=== PATIENT | female | born 1945 | race American Indian/Alaskan Native ===

== ENCOUNTER 2017-12-29 13:58 | Inpatient (IN) | payer MEDICARE, OTHER ==
--- NOTE | 2017-12-29 15:03 | CP.PCM.HP ---
History of Present Illness - History of Present Illness History of Present Illness: Admitted for osteo LLE, discussed with dr Peña Present on Admission - Present on Admission Any Indicators Present on Admission: Yes Review of Systems - Review of Systems All systems: reviewed and no additional remarkable complaints except - Constitutional Constitutional: Frequent Falls - Musculoskeletal Additional comments: cellulitis/osteo LLE - Integumentary Integumentary: Non-Healing Lesions, Rash, Skin Ulcer Past Patient History - Past Medical History & Family History Past Medical History?: Yes - Past Social History Chewing Tobacco Use: No Cigar Use: No Alcohol: None Drugs: Denies Home Situation {Lives}: With Family Domestic Violence: Negative - CARDIAC Hx Cardiac Disorders: Yes Hx Hypertension: Yes Hx Peripheral Vascular Disease: Yes - PULMONARY Hx Asthma: Yes Hx Sleep Apnea: Yes - NEUROLOGICAL HX Cerebrovascular Accident: Yes Hx Transient Ischemic Attacks (TIA): Yes - ENDOCRINE/METABOLIC Hx Diabetes Insipidus: Yes - INTEGUMENTARY Hx Cellulitis: Yes - GASTROINTESTINAL Hx Gastroesophageal Reflux: Yes Physical Exam - Constitutional Appears: Chronically Ill - Head Exam Head Exam: ATRAUMATIC, NORMOCEPHALIC - Eye Exam Eye Exam: Normal appearance, PERRL Pupil Exam: NORMAL ACCOMODATION - ENT Exam ENT Exam: Mucous Membranes Moist - Respiratory Exam Respiratory Exam: Decreased Breath Sounds - Cardiovascular Exam Cardiovascular Exam: +S1, +S2, +S4 - GI/Abdominal Exam GI & Abdominal Exam: Normal Bowel Sounds - Rectal Exam Rectal Exam: Deferred - Neurological Exam Neurological exam: Alert, Oriented x3 - Psychiatric Exam Psychiatric exam: Normal Affect, Normal Mood - Skin Skin Exam: Abrasion Additional comments: LLE Results - Vital Signs Recent Vital Signs: Last Vital Signs Temp 98.2 F 12/29/17 14:58 Pulse 74 12/29/17 14:58 Resp 20 12/29/17 14:58 BP 162/71 H 12/29/17 14:58 Pulse Ox 98 12/29/17 14:58 Assessment & Plan (1) Osteomyelitis of ankle and foot Status: Acute (2) Diabetes 1.5, managed as type 2 Status: Acute (3) HTN (hypertension), benign Status: Acute (4) Pulmonary arterial hypertension Status: Acute
[2017-12-29 15:13] VITALS: BMI 32.1
--- NOTE | 2017-12-29 15:52 | CP.PCM.CON ---
History of Present Illness - History of Present Illness History of Present Illness: Podiatry Consult Note - Dr. Peña 72 y/o female seen on floors by podiatry after consultation for evaluation of left hallux ulceration. Pt is known to Dr. Peña's service and was sent to the hospital by him for her left big toe. Pt denies having any pain to the left big toe. States her daughter cleans the wound and changes the bandage daily. Denies any F/C/N/V/CP/SOB. She states that she is agreeable to toe amputation as recommended by Dr. Peña. Review of Systems - Review of Systems All systems: reviewed and no additional remarkable complaints except (per HPI) Past Patient History - Past Medical History & Family History Past Medical History?: Yes - Past Social History Chewing Tobacco Use: No Cigar Use: No Alcohol: None Drugs: Denies Home Situation {Lives}: With Family Domestic Violence: Negative - CARDIAC Hx Cardiac Disorders: Yes Hx Hypertension: Yes Hx Peripheral Vascular Disease: Yes - PULMONARY Hx Asthma: Yes Hx Sleep Apnea: Yes - NEUROLOGICAL HX Cerebrovascular Accident: Yes Hx Transient Ischemic Attacks (TIA): Yes - ENDOCRINE/METABOLIC Hx Diabetes Insipidus: Yes - INTEGUMENTARY Hx Cellulitis: Yes - GASTROINTESTINAL Hx Gastroesophageal Reflux: Yes Meds Allergies/Adverse Reactions: Allergies Allergy/AdvReac Type Severity Reaction Status Date / Time morphine Allergy confusion Verified 12/29/17 15:15 - Medications Medications: Current Medications Albuterol/Ipratropium (Duoneb 3 Mg/0.5 Mg (3 Ml) Ud) 3 ml INH RQ6 PRN PRN Reason: Wheezing Baclofen (Lioresal) 10 mg PO DAILY [facility] Furosemide (Lasix) 40 mg PO DAILY [facility] Heparin Sodium (Porcine) (Heparin) 5,000 units IV Q12 [facility] Home Med (Home Med) 5 unit OD PCS [facility] Hydralazine HCl (Apresoline) 50 mg PO BID [facility] Insulin Human NPH (Novolin N) 40 unit SC QAM [facility] Insulin Human Regular (Novolin R) 0 unit SC ACHS [facility] PRN Reason: Protocol Levothyroxine Sodium (Synthroid) 125 mcg PO DAILY@0630 [facility] Montelukast Sodium (Singulair) 10 mg PO HS [facility] Nebivolol (Bystolic) 10 mg PO DAILY [facility] Pantoprazole Sodium (Protonix Ec Tab) 40 mg PO DAILY [facility] Prednisone (Prednisone Tab) 10 mg PO DAILY [facility] Rosuvastatin Calcium (Crestor) 20 mg PO HS [facility] Fluticasone/Salmeterol (Advair Diskus 500/50) 1 puff INH RQ12 [facility] Physical Exam - Constitutional Appears: Well, Non-toxic, No Acute Distress - Extremities Exam Additional comments: Lower extremity focused exam: Vasc: DP/PT pulses palpable 2/4. Temperature gradient warm to cool. CFT < 3 sec to all digits. No pedal edema noted Derm: Left plantar hallux circular ulceration measuring 1cm in diameter and approx 0.3cm depth with hyperkeratotic wound borders and mild necrotic skin changed to arturo wound. 1-2cc of purulent drainage expressed with application of pressure. Arturo wound negative for erythema. No fluctuance, no malodor, negative probe to bone, no tunneling or undermining noted. Hyperkeratosis noted to distal tip of right foot 2nd digit with no evidence of underlying ulceration present post-debridement Neuro: Protective sensation grossly intact Ortho: No tenderness to palpation of L hallux ulceration site - Neurological Exam Neurological exam: Alert, Oriented x3 - Psychiatric Exam Psychiatric exam: Normal Affect, Normal Mood Results - Vital Signs Recent Vital Signs: Last Vital Signs Temp 98.2 F 12/29/17 14:58 Pulse 74 12/29/17 14:58 Resp 20 12/29/17 14:58 BP 162/71 H 12/29/17 14:58 Pulse Ox 98 12/29/17 14:58 Assessment & Plan - Assessment and Plan (Free Text) Assessment: 72 y/o female with left plantar hallux ulceration with chronic osteomyelitis Plan: Pt seen and evaluated at bedside Discussed with attending Dr. Peña Labs and vitals reviewed- afebrile, no leukocytosis Wound culture taken of L hallux ulcer Ulceration site cleansed with saline and dressed with xeroform DSD Rx Bactroban to be applied to ulcer site Triphasic bone scan ordered, await results to direct treatment plan Plan for possible surgical intervention involving amputation of L hallux Vascular team on board, await recommendations prior to possible surgery Pt is agreeable to surgery at this time Medical management per primary team ID on board, await recs for IV abx therapy Podiatry will continue to follow patient while in house
[2017-12-29] MEDS: (Novolin R) Insulin Human Regular 100 units/ml vial SC SCH ×2 (17:27→21:54)
[2017-12-29 19:22] LABS: SQUAMOUS EPITHIAL 1 /hpf (0-5); URINE BACTERIA RARE (<OCC); URINE BILIRUBIN NEGATIVE (NEGATIVE); URINE BLOOD NEGATIVE (NEGATIVE); URINE CLARITY Hazy (Clear); URINE COLOR Yellow (YELLOW); URINE GLUCOSE (UA) NORMAL (Normal); URINE LEUKOCYTE ESTERASE TRACE Leu/uL (Negative); URINE PROTEIN 1+ mg/dL (NEGATIVE); URINE UROBILINOGEN NORMAL mg/dL (0.2-1.0)
[2017-12-29] MEDS: Fluticasone-Salmeterol 500-50mcg Diskus INH SCH (19:43)
[2017-12-29] MEDS: Albuterol-Ipratrop 3 mg / 0.5 (3 ml) UD INH PRN (19:43)
[2017-12-29] MEDS: cefTRIAXone 2 GM in Sodium Chloride 0.9% 100 ML IVPB SCH (20:32)
[2017-12-29 21:33] LABS: BASO # 0.1 K/uL (0.0-0.2); BASO % 0.6 % (0.0-2.0); EOS # 0.1 K/uL (0.0-0.7); EOS % 0.9 % (0.0-4.0); HEMOGLOBIN 8.5 g/dL (11.0-16.0); LYMPH # 0.8 K/uL (1.0-4.3); LYMPH % 9.2 % (20.0-40.0); MEAN CELL VOLUME 83.4 fL (81.0-99.0); MEAN CORPUSCULAR HEMOGLOBIN 26.2 pg (27.0-31.0); MEAN CORPUSCULAR HGB CONC 31.4 g/dL (33.0-37.0); MEAN PLATELET VOLUME 10.8 fL (7.2-11.7); MONO # 0.6 K/uL (0.0-0.8); MONO % 6.7 % (0.0-10.0); NEUT # 7.6 K/uL (1.8-7.0); NEUT % 82.6 % (50.0-75.0); PLATELET COUNT 234 K/uL (130-400); RBC 3.25 Mil/uL (3.80-5.20); WHITE BLOOD COUNT 9.2 K/uL (4.8-10.8)
[2017-12-29 21:48] LABS: ALB/GLOB RATIO 1.4 (1.0-2.1); ALBUMIN 3.5 g/dL (3.5-5.0); CALCIUM 8.3 mg/dl (8.6-10.4)
[2017-12-29] MEDS: metroNIDAZOLE IV 500 mg/100 ml 500 MG/100 ML BAG IVPB SCH (21:52)
[2017-12-29 22:03] LABS: INR 1.4; PROTHROMBIN TIME 15.1 SECONDS (9.7-12.2)
[2017-12-29 22:21] LABS: LYMPHOCYTE 8 % (20-40); MONOCYTE 5 % (0-10); NEUTROPHIL 87 % (50-75); PLATELET ESTIMATE NORMAL (NORMAL); TOTAL CELLS COUNTED 100
[2017-12-30] MEDS: metroNIDAZOLE IV 500 mg/100 ml 500 MG/100 ML BAG IVPB SCH ×3 (05:11→21:07)
--- NOTE | 2017-12-30 05:21 | CP.PCM.CON ---
History of Present Illness - History of Present Illness History of Present Illness: Vascular Surgery Consult for Dr. Bush This is a 72F with a pmh of a DVT and paridoxial embolus with a stroke 6 months ago on eloquis and a history of poorly controlled DM. She presents due to a non- healing wound on her left great toe for the past three months. She reports at first it was getting better however it stopped progressing. She was seen by Dr. Peña who would like to schedule her for for an amputation of her non healing toe. He requested a vascular surgery consult to evaluate the legs blood supply prior to surgery. PMH: DM, CVA, DVT PSH: Multiple toe amputations ALL: Morphine (acts funny) Social: Quit smoking in the 70's. denies etoh and drugs Review of Systems - Review of Systems All systems: reviewed and no additional remarkable complaints except Past Patient History - Past Medical History & Family History Past Medical History?: Yes - Past Social History Chewing Tobacco Use: No Cigar Use: No Alcohol: None Drugs: Denies Home Situation {Lives}: With Family Domestic Violence: Negative - CARDIAC Hx Cardiac Disorders: Yes Hx Hypertension: Yes Hx Peripheral Vascular Disease: Yes - PULMONARY Hx Asthma: Yes Hx Sleep Apnea: Yes - NEUROLOGICAL HX Cerebrovascular Accident: Yes Hx Transient Ischemic Attacks (TIA): Yes - HEENT Hx Deafness: Yes ([place] right ear with hearing aid) - ENDOCRINE/METABOLIC Hx Diabetes Insipidus: Yes - INTEGUMENTARY Hx Cellulitis: Yes - MUSCULOSKELETAL/RHEUMATOLOGICAL Hx Falls: Yes Hx Unsteady Gait: Yes - GASTROINTESTINAL Hx Gastroesophageal Reflux: Yes - PSYCHIATRIC Hx Substance Use: No - SURGICAL HISTORY Hx Hysterectomy: Yes Other/Comment: 12/29/17 as per Pt, she had thyroid x, foot sx, 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 - ANESTHESIA Hx Anesthesia: Yes Hx Anesthesia Reactions: No Hx Malignant Hyperthermia: No Meds Allergies/Adverse Reactions: Allergies Allergy/AdvReac Type Severity Reaction Status Date / Time morphine Allergy confusion Verified 12/29/17 15:15 - Medications Medications: Current Medications Albuterol/Ipratropium (Duoneb 3 Mg/0.5 Mg (3 Ml) Ud) 3 ml INH RQ6 PRN PRN Reason: Wheezing Last Admin: 12/29/17 19:43 Dose: 3 ml Baclofen (Lioresal) 10 mg PO DAILY [facility] Furosemide (Lasix) 40 mg PO DAILY [facility] Heparin Sodium (Porcine) (Heparin) 5,000 units IV Q12 [facility] Last Admin: 12/29/17 21:53 Dose: 5,000 units Home Med (Patient's Own Medication) 1 tab PO PCS [facility] Last Admin: 12/29/17 20:30 Dose: Not Given Hydralazine HCl (Apresoline) 50 mg PO BID [facility] Last Admin: 12/29/17 18:59 Dose: 50 mg Ceftriaxone Sodium 2 gm/ (Sodium Chloride) 100 mls @ 100 mls/hr IVPB Q24H [facility] PRN Reason: Protocol Last Admin: 12/29/17 20:32 Dose: 100 mls/hr Metronidazole (Flagyl) 500 mg in 100 mls @ 100 mls/hr IVPB Q8 [facility] PRN Reason: Protocol Last Admin: 12/30/17 05:11 Dose: 100 mls/hr Insulin Human NPH (Novolin N) 40 unit SC QAM [facility] Insulin Human Regular (Novolin R) 0 unit SC ACHS [facility] PRN Reason: Protocol Last Admin: 12/29/17 21:54 Dose: Not Given Levothyroxine Sodium (Synthroid) 125 mcg PO DAILY@0630 [facility] Montelukast Sodium (Singulair) 10 mg PO HS [facility] Last Admin: 12/29/17 21:53 Dose: 10 mg Mupirocin (Bactroban Ointment) 0 gm TOP DAILY [facility] Nebivolol (Bystolic) 10 mg PO DAILY [facility] Pantoprazole Sodium (Protonix Ec Tab) 40 mg PO DAILY [facility] Prednisone (Prednisone Tab) 10 mg PO DAILY [facility] Rosuvastatin Calcium (Crestor) 20 mg PO HS [facility] Last Admin: 12/29/17 21:53 Dose: 20 mg Fluticasone/Salmeterol (Advair Diskus 500/50) 1 puff INH RQ12 [facility] Last Admin: 12/29/17 19:43 Dose: 1 puff Physical Exam - Constitutional Appears: Non-toxic, No Acute Distress - Head Exam Head Exam: ATRAUMATIC, NORMOCEPHALIC - Eye Exam Eye Exam: EOMI, Normal appearance - Respiratory Exam Respiratory Exam: NORMAL BREATHING PATTERN - Cardiovascular Exam Cardiovascular Exam: +S1, +S2 - GI/Abdominal Exam GI & Abdominal Exam: Soft. absent: Distended, Firm, Guarding, Hernia, Rigid - Extremities Exam Additional comments: Warm lower extremities, dopplerable distal pulses, small .5-1cm ulcer on her left great toe. - Neurological Exam Neurological exam: Alert, Oriented x3 - Psychiatric Exam Psychiatric exam: Normal Affect, Normal Mood - Skin Skin Exam: Dry, Intact Results - Vital Signs Recent Vital Signs: Last Vital Signs Temp 98.4 F 12/30/17 00:18 Pulse 66 12/30/17 05:10 Resp 20 12/30/17 00:18 BP 157/66 H 12/30/17 00:18 Pulse Ox 99 12/30/17 00:18 - Labs Result Diagrams: 12/29/17 21:30 12/29/17 21:30 Labs: Laboratory Results - last 24 hr 12/29/17 12/29/17 12/29/17 16:11 19:14 21:01 WBC RBC Hgb Hct MCV MCH MCHC RDW Plt Count MPV Neut % (Auto) Lymph % (Auto) [place] % (Auto) Eos % (Auto) Baso % (Auto) Neut # (Auto) Lymph # (Auto) [place] # (Auto) Eos # (Auto) Baso # (Auto) Neutrophils % (Manual) Lymphocytes % (Manual) Monocytes % (Manual) Platelet Estimate PT INR APTT Sodium Potassium Chloride Carbon Dioxide Anion Gap BUN Creatinine Est GFR ( Amer) Est GFR (Non-Af Amer) POC Glucose (mg/dL) 163 H 180 H Random Glucose Calcium Total Bilirubin AST ALT Alkaline Phosphatase Total Protein Albumin Globulin Albumin/Globulin Ratio Urine Color Yellow Urine Clarity Hazy Urine pH 5.0 Ur Specific [place] 1.017 Urine Protein 1+ H Urine Glucose (UA) Normal Urine Ketones Negative Urine Blood Negative Urine Nitrate Negative Urine Bilirubin Negative Urine Urobilinogen Normal Ur Leukocyte Esterase Trace Urine WBC (Auto) < 1 Urine RBC (Auto) < 1 Ur Squamous Epith Cells 1 Urine Bacteria Rare 12/29/17 12/29/17 12/29/17 21:30 21:30 21:30 WBC 9.2 RBC 3.25 L Hgb 8.5 L Hct 27.1 L MCV 83.4 MCH 26.2 L MCHC 31.4 L RDW 16.0 H Plt Count 234 MPV 10.8 Neut % (Auto) 82.6 H Lymph % (Auto) 9.2 L [place] % (Auto) 6.7 Eos % (Auto) 0.9 Baso % (Auto) 0.6 Neut # (Auto) 7.6 H Lymph # (Auto) 0.8 L [place] # (Auto) 0.6 Eos # (Auto) 0.1 Baso # (Auto) 0.1 Neutrophils % (Manual) 87 H Lymphocytes % (Manual) 8 L Monocytes % (Manual) 5 Platelet Estimate Normal PT 15.1 H INR 1.4 APTT 33 Sodium 148 Potassium 3.9 Chloride 113 H Carbon Dioxide 22 Anion Gap 17 BUN 16 Creatinine 1.1 Est GFR ( Amer) 59 Est GFR (Non-Af Amer) 49 POC Glucose (mg/dL) Random Glucose 152 H Calcium 8.3 L Total Bilirubin 0.4 AST 25 ALT 23 Alkaline Phosphatase 108 Total Protein 6.0 L Albumin 3.5 Globulin 2.5 Albumin/Globulin Ratio 1.4 Urine Color Urine Clarity Urine pH Ur Specific [place] Urine Protein Urine Glucose (UA) Urine Ketones Urine Blood Urine Nitrate Urine Bilirubin Urine Urobilinogen Ur Leukocyte Esterase Urine WBC (Auto) Urine RBC (Auto) Ur Squamous Epith Cells Urine Bacteria Assessment & Plan - Assessment and Plan (Free Text) Assessment: 72F with a non healing LLE ulcer CTA iliofemoral runoff, will followup with more recommendations past studies D/W Dr. Eleazar Mendiola PGY2
[2017-12-30] MEDS: Levothyroxine 125 MCG TAB PO SCH (05:30)
[2017-12-30 06:34] LABS: BASO % 0.6 % (0.0-2.0); EOS # 0.2 K/uL (0.0-0.7); EOS % 2.4 % (0.0-4.0); HEMOGLOBIN 8.9 g/dL (11.0-16.0); LYMPH # 1.4 K/uL (1.0-4.3); MEAN CELL VOLUME 82.7 fL (81.0-99.0); MEAN CORPUSCULAR HGB CONC 31.4 g/dL (33.0-37.0); MEAN PLATELET VOLUME 10.7 fL (7.2-11.7); MONO # 0.7 K/uL (0.0-0.8); MONO % 8.8 % (0.0-10.0); NEUT % 71.2 % (50.0-75.0); RBC 3.41 Mil/uL (3.80-5.20); RED CELL DISTRIBUTION WIDTH 16.1 % (11.5-14.5); WHITE BLOOD COUNT 8.4 K/uL (4.8-10.8)
[2017-12-30 06:41] LABS: INR 1.2; PROTHROMBIN TIME 13.3 SECONDS (9.7-12.2)
[2017-12-30 06:43] LABS: ALB/GLOB RATIO 1.4 (1.0-2.1); ALBUMIN 3.5 g/dL (3.5-5.0); ALT/SGPT 21 U/L (9-52); AST/SGOT 24 U/L (14-36); BLOOD UREA NITROGEN 14 mg/dL (7-17); CALCIUM 8.3 mg/dl (8.6-10.4); GFR AFRICAN-AMERICAN > 60; GFR NON-AFRICAN AMERICAN 55; HDL CHOLESTEROL 36 mg/dL (30-70)
[2017-12-30 06:54] LABS: LDL CHOLESTEROL 43 mg/dL (0-129)
[2017-12-30 06:55] LABS: B-TYPE NATRIURETIC PEPTIDE 7180 pg/mL (0-900)
[2017-12-30] MEDS: Fluticasone-Salmeterol 500-50mcg Diskus INH SCH ×2 (07:18→19:52)
[2017-12-30] MEDS: Albuterol-Ipratrop 3 mg / 0.5 (3 ml) UD INH PRN ×2 (07:18→19:52)
[2017-12-30] MEDS: (Novolin R) Insulin Human Regular 100 units/ml vial SC SCH ×4 (08:30→22:01)
--- NOTE | 2017-12-30 08:46 | RAD ---
Chest x-ray single frontal view History: Preoperative evaluation. Comparison: 12/30/2017 Findings: Left basilar airspace consolidative changes with associated left pleural effusion. Mild venous congestion. Right hilar prominence. Biapical pleural thickening. Calcification at the aortic knob. Cardiomegaly. Degenerative changes in the spine and shoulders. Shortening of the left clavicle. Postsurgical changes of the right shoulder. Impression: Left basilar airspace consolidative changes with associated left pleural effusion. Mild venous congestion. Right hilar prominence. Biapical pleural thickening. Calcification at the aortic knob. Cardiomegaly. Degenerative changes in the spine and shoulders. Shortening of the left clavicle. Postsurgical changes of the right shoulder.
[2017-12-30] MEDS: Pantoprazole 40 mg EC Tab PO SCH (10:00)
[2017-12-30] MEDS ORDERED: Baclofen 5 mg Tab PO SCH (10:00)
[2017-12-30] MEDS ORDERED: (Novolin N) Insulin Human Isophane (NPH) 100 u/ml 10 ml vial SC SCH ×2 (10:00)
[2017-12-30] MEDS: (Novolin N) Insulin Human Isophane (NPH) 100 u/ml 10 ml vial SC SCH (10:01)
--- NOTE | 2017-12-30 10:48 | CP.PCM.CON ---
History of Present Illness - History of Present Illness History of Present Illness: The pt is a 72 year old woman, with non obstructive CAD, first degree AV block, probable episodic atrial fibrillation and a stroke last year. She has RA. Pt has an ulcer on her right big toe, osteo likely and is for likely amputation. pt was told to walk on a [place] [facility] and [place], injuring her toe. Pt had a recent dobutamine stress echo that was normal. pt has a recent echo demonstrating normal LV EF, mild to moderate aortic stenosis, and mild pulmonic stenosis. Review of Systems - Review of Systems All systems: reviewed and no additional remarkable complaints except (mild right sided weakness) Past Patient History - Past Medical History & Family History Past Medical History?: Yes - Past Social History Chewing Tobacco Use: No Cigar Use: No Alcohol: None Drugs: Denies Home Situation {Lives}: With Family Domestic Violence: Negative - CARDIAC Hx Cardiac Disorders: Yes Hx Hypertension: Yes Hx Peripheral Vascular Disease: Yes - PULMONARY Hx Asthma: Yes Hx Sleep Apnea: Yes - NEUROLOGICAL HX Cerebrovascular Accident: Yes Hx Transient Ischemic Attacks (TIA): Yes - HEENT Hx Deafness: Yes (MAKAH right ear with hearing aid) - ENDOCRINE/METABOLIC Hx Diabetes Insipidus: Yes - INTEGUMENTARY Hx Cellulitis: Yes - MUSCULOSKELETAL/RHEUMATOLOGICAL Hx Falls: Yes Hx Unsteady Gait: Yes - GASTROINTESTINAL Hx Gastroesophageal Reflux: Yes - PSYCHIATRIC Hx Substance Use: No - SURGICAL HISTORY Hx Hysterectomy: Yes Other/Comment: 12/29/17 as per Pt, she had thyroid x, foot sx, 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 - ANESTHESIA Hx Anesthesia: Yes Hx Anesthesia Reactions: No Hx Malignant Hyperthermia: No Meds Allergies/Adverse Reactions: Allergies Allergy/AdvReac Type Severity Reaction Status Date / Time morphine Allergy confusion Verified 12/29/17 15:15 - Medications Medications: Current Medications Albuterol/Ipratropium (Duoneb 3 Mg/0.5 Mg (3 Ml) Ud) 3 ml INH RQ6 PRN PRN Reason: Wheezing Last Admin: 12/30/17 07:18 Dose: 3 ml Baclofen (Lioresal) 10 mg PO DAILY [facility] Furosemide (Lasix) 40 mg PO DAILY [facility] Last Admin: 12/30/17 10:05 Dose: 40 mg Heparin Sodium (Porcine) (Heparin) 5,000 units SC Q12 [facility] Home Med (Patient's Own Medication) 1 tab PO PCS [facility] Last Admin: 12/29/17 20:30 Dose: Not Given Hydralazine HCl (Apresoline) 50 mg PO BID [facility] Last Admin: 12/30/17 10:06 Dose: 50 mg Ceftriaxone Sodium 2 gm/ (Sodium Chloride) 100 mls @ 100 mls/hr IVPB Q24H [facility] PRN Reason: Protocol Last Admin: 12/29/17 20:32 Dose: 100 mls/hr Metronidazole (Flagyl) 500 mg in 100 mls @ 100 mls/hr IVPB Q8 [facility] PRN Reason: Protocol Last Admin: 12/30/17 05:11 Dose: 100 mls/hr Insulin Human NPH (Novolin N) 40 unit SC QAM [facility] Insulin Human Regular (Novolin R) 0 unit SC ACHS [facility] PRN Reason: Protocol Last Admin: 12/29/17 21:54 Dose: Not Given Levothyroxine Sodium (Synthroid) 125 mcg PO DAILY@0630 [facility] Last Admin: 12/30/17 05:30 Dose: 125 mcg Montelukast Sodium (Singulair) 10 mg PO [facility] Last Admin: 12/29/17 21:53 Dose: 10 mg Mupirocin (Bactroban Ointment) 0 gm TOP DAILY [facility] Nebivolol (Bystolic) 10 mg PO DAILY [facility] Last Admin: 12/30/17 10:01 Dose: 10 mg Pantoprazole Sodium (Protonix Ec Tab) 40 mg PO DAILY [facility] Last Admin: 12/30/17 10:00 Dose: 40 mg Prednisone (Prednisone Tab) 10 mg PO DAILY [facility] Last Admin: 12/30/17 10:01 Dose: 10 mg Rosuvastatin Calcium (Crestor) 20 mg PO HS [facility] Last Admin: 12/29/17 21:53 Dose: 20 mg Fluticasone/Salmeterol (Advair Diskus 500/50) 1 puff INH RQ12 [facility] Last Admin: 12/30/17 07:18 Dose: 1 puff Physical Exam - Constitutional Appears: Well - Head Exam Head Exam: ATRAUMATIC - Eye Exam Eye Exam: EOMI - ENT Exam ENT Exam: Mucous Membranes Moist - Neck Exam Neck exam: Positive for: Normal Inspection - Respiratory Exam Respiratory Exam: Clear to Auscultation Bilateral - Cardiovascular Exam Cardiovascular Exam: REGULAR RHYTHM, Systolic Murmur (murmurs: both aortic and pulmonic) - GI/Abdominal Exam GI & Abdominal Exam: Normal Bowel Sounds - Exam External exam: NORMAL EXTERNAL EXAM - Extremities Exam Additional comments: Left big toe, ulcer - Neurological Exam Neurological exam: Alert, Motor Sensory Deficit (right arm weakness) - Psychiatric Exam Psychiatric exam: Normal Mood Results - Vital Signs Recent Vital Signs: Last Vital Signs Temp 98.3 F 12/30/17 07:33 Pulse 67 12/30/17 07:33 Resp 20 12/30/17 07:33 BP 164/74 H 12/30/17 10:05 Pulse Ox 97 12/30/17 07:33 - Labs Result Diagrams: 12/30/17 06:24 12/30/17 06:24 Labs: Laboratory Results - last 24 hr 12/29/17 12/29/17 12/29/17 16:11 19:14 21:01 WBC RBC Hgb Hct MCV MCH MCHC RDW Plt Count MPV Neut % (Auto) Lymph % (Auto) Gallia % (Auto) Eos % (Auto) Baso % (Auto) Neut # (Auto) Lymph # (Auto) Gallia # (Auto) Eos # (Auto) Baso # (Auto) Neutrophils % (Manual) Lymphocytes % (Manual) Monocytes % (Manual) Platelet Estimate ESR PT INR APTT Sodium Potassium Chloride Carbon Dioxide Anion Gap BUN Creatinine Est GFR ( Amer) Est GFR (Non-Af Amer) POC Glucose (mg/dL) 163 H 180 H Random Glucose Hemoglobin A1c Calcium Total Bilirubin AST ALT Alkaline Phosphatase NT-Pro-B Natriuret Pep Total Protein Albumin Globulin Albumin/Globulin Ratio Triglycerides Cholesterol LDL Cholesterol Direct HDL Cholesterol Urine Color Yellow Urine Clarity Hazy Urine pH 5.0 Ur Specific Raymond 1.017 Urine Protein 1+ H Urine Glucose (UA) Normal Urine Ketones Negative Urine Blood Negative Urine Nitrate Negative Urine Bilirubin Negative Urine Urobilinogen Normal Ur Leukocyte Esterase Trace Urine WBC (Auto) < 1 Urine RBC (Auto) < 1 Ur Squamous Epith Cells 1 Urine Bacteria Rare 12/29/17 12/29/17 12/29/17 21:30 21:30 21:30 WBC 9.2 RBC 3.25 L Hgb 8.5 L Hct 27.1 L MCV 83.4 MCH 26.2 L MCHC 31.4 L RDW 16.0 H Plt Count 234 MPV 10.8 Neut % (Auto) 82.6 H Lymph % (Auto) 9.2 L Gallia % (Auto) 6.7 Eos % (Auto) 0.9 Baso % (Auto) 0.6 Neut # (Auto) 7.6 H Lymph # (Auto) 0.8 L Gallia # (Auto) 0.6 Eos # (Auto) 0.1 Baso # (Auto) 0.1 Neutrophils % (Manual) 87 H Lymphocytes % (Manual) 8 L Monocytes % (Manual) 5 Platelet Estimate Normal ESR PT 15.1 H INR 1.4 APTT 33 Sodium 148 Potassium 3.9 Chloride 113 H Carbon Dioxide 22 Anion Gap 17 BUN 16 Creatinine 1.1 Est GFR ( Amer) 59 Est GFR (Non-Af Amer) 49 POC Glucose (mg/dL) Random Glucose 152 H Hemoglobin A1c Calcium 8.3 L Total Bilirubin 0.4 AST 25 ALT 23 Alkaline Phosphatase 108 NT-Pro-B Natriuret Pep Total Protein 6.0 L Albumin 3.5 Globulin 2.5 Albumin/Globulin Ratio 1.4 Triglycerides Cholesterol LDL Cholesterol Direct HDL Cholesterol Urine Color Urine Clarity Urine pH Ur Specific Raymond Urine Protein Urine Glucose (UA) Urine Ketones Urine Blood Urine Nitrate Urine Bilirubin Urine Urobilinogen Ur Leukocyte Esterase Urine WBC (Auto) Urine RBC (Auto) Ur Squamous Epith Cells Urine Bacteria 12/30/17 12/30/17 12/30/17 06:24 06:24 06:24 WBC 8.4 RBC 3.41 L Hgb 8.9 L Hct 28.2 L MCV 82.7 MCH 26.0 L MCHC 31.4 L RDW 16.1 H Plt Count 244 MPV 10.7 Neut % (Auto) 71.2 Lymph % (Auto) 17.0 L Gallia % (Auto) 8.8 Eos % (Auto) 2.4 Baso % (Auto) 0.6 Neut # (Auto) 6.0 Lymph # (Auto) 1.4 Gallia # (Auto) 0.7 Eos # (Auto) 0.2 Baso # (Auto) 0.0 Neutrophils % (Manual) Lymphocytes % (Manual) Monocytes % (Manual) Platelet Estimate ESR 30 H PT INR APTT Sodium 153 H Potassium 3.5 L Chloride 115 H Carbon Dioxide 24 Anion Gap 17 BUN 14 Creatinine 1.0 Est GFR ( Amer) > 60 Est GFR (Non-Af Amer) 55 POC Glucose (mg/dL) Random Glucose 70 Hemoglobin A1c 7.7 H Calcium 8.3 L Total Bilirubin 0.3 AST 24 ALT 21 Alkaline Phosphatase 96 NT-Pro-B Natriuret Pep 7180 H Total Protein 6.1 L Albumin 3.5 Globulin 2.6 Albumin/Globulin Ratio 1.4 Triglycerides 158 H Cholesterol 113 LDL Cholesterol Direct 43 HDL Cholesterol 36 Urine Color Urine Clarity Urine pH Ur Specific Raymond Urine Protein Urine Glucose (UA) Urine Ketones Urine Blood Urine Nitrate Urine Bilirubin Urine Urobilinogen Ur Leukocyte Esterase Urine WBC (Auto) Urine RBC (Auto) Ur Squamous Epith Cells Urine Bacteria 12/30/17 12/30/17 06:24 07:06 WBC RBC Hgb Hct MCV MCH MCHC RDW Plt Count MPV Neut % (Auto) Lymph % (Auto) Gallia % (Auto) Eos % (Auto) Baso % (Auto) Neut # (Auto) Lymph # (Auto) Gallia # (Auto) Eos # (Auto) Baso # (Auto) Neutrophils % (Manual) Lymphocytes % (Manual) Monocytes % (Manual) Platelet Estimate ESR PT 13.3 H INR 1.2 APTT 32 Sodium Potassium Chloride Carbon Dioxide Anion Gap BUN Creatinine Est GFR ( Amer) Est GFR (Non-Af Amer) POC Glucose (mg/dL) 80 Random Glucose Hemoglobin A1c Calcium Total Bilirubin AST ALT Alkaline Phosphatase NT-Pro-B Natriuret Pep Total Protein Albumin Globulin Albumin/Globulin Ratio Triglycerides Cholesterol LDL Cholesterol Direct HDL Cholesterol Urine Color Urine Clarity Urine pH Ur Specific Raymond Urine Protein Urine Glucose (UA) Urine Ketones Urine Blood Urine Nitrate Urine Bilirubin Urine Urobilinogen Ur Leukocyte Esterase Urine WBC (Auto) Urine RBC (Auto) Ur Squamous Epith Cells Urine Bacteria - EKG Data EKG shows normal: Sinus rhythm (marked first degree a block, and abps) Assessment & Plan - Assessment and Plan (Free Text) Assessment: 1. Pt has stable CAD, recent normal di=obtuamine stress echo: cath in 2015 revelaed a 70% stenosis of the RI. 2. Normal LV EF 3. Mild to moderate aortic stenosis. 4. On echo the pulmonic valve was not well seen, but mild creased gradient and turbulent flow is c/w mild pulmonic stenosis. 5. Presumed PAF, faridehfilemon is on hold pen idng surgery. If bno surgery soon, would advise lovenos 1 mg/kg sq q 12h until surgery is performed. 6. no mention of paradoxical embolism and PE DVT in the [facility] [place] I have been able to access , will request others.
--- NOTE | 2017-12-30 12:23 | CP.PCM.PN ---
<Yan Serrano - Last Filed: 12/30/17 12:20> Subjective - Date & Time of Evaluation Date of Evaluation: 12/30/17 Time of Evaluation: 09:10 - Subjective Subjective: Podiatry Progress Note - Dr. Peña 72 y/o female seen concerning left hallux ulceration. Pt denies having any pain to the left big toe. Denies any F/C/N/V/CP/SOB. She denies and acute overnight events. She states that she is agreeable to toe amputation as recommended. Objective - Vital Signs/Intake and Output Vital Signs (last 24 hours): Temp Pulse Resp BP Pulse Ox 98.3 F 67 20 164/74 H 97 12/30/17 07:33 12/30/17 07:33 12/30/17 07:33 12/30/17 10:05 12/30/17 07:33 Intake and Output: 12/30/17 12/30/17 06:59 18:59 Intake Total 150 Balance 150 - Medications Medications: Current Medications Albuterol/Ipratropium (Duoneb 3 Mg/0.5 Mg (3 Ml) Ud) 3 ml INH RQ6 PRN PRN Reason: Wheezing Last Admin: 12/30/17 07:18 Dose: 3 ml Baclofen (Lioresal) 10 mg PO DAILY [facility] Furosemide (Lasix) 40 mg PO DAILY [facility] Last Admin: 12/30/17 10:05 Dose: 40 mg Heparin Sodium (Porcine) (Heparin) 5,000 units SC Q12 [facility] Last Admin: 12/30/17 10:50 Dose: 5,000 units Home Med (Patient's Own Medication) 1 tab PO PCS [facility] Last Admin: 12/29/17 20:30 Dose: Not Given Hydralazine HCl (Apresoline) 50 mg PO BID [facility] Last Admin: 12/30/17 10:06 Dose: 50 mg Ceftriaxone Sodium 2 gm/ (Sodium Chloride) 100 mls @ 100 mls/hr IVPB Q24H [facility] PRN Reason: Protocol Last Admin: 12/29/17 20:32 Dose: 100 mls/hr Metronidazole (Flagyl) 500 mg in 100 mls @ 100 mls/hr IVPB Q8 [facility] PRN Reason: Protocol Last Admin: 12/30/17 05:11 Dose: 100 mls/hr Insulin Human NPH (Novolin N) 40 unit SC QAM [facility] Last Admin: 12/30/17 10:01 Dose: Not Given Insulin Human Regular (Novolin R) 0 unit SC ACHS [facility] PRN Reason: Protocol Last Admin: 12/30/17 11:21 Dose: Not Given Levothyroxine Sodium (Synthroid) 125 mcg PO DAILY@0630 [facility] Last Admin: 12/30/17 05:30 Dose: 125 mcg Montelukast Sodium (Singulair) 10 mg PO HS [facility] Last Admin: 12/29/17 21:53 Dose: 10 mg Mupirocin (Bactroban Ointment) 0 gm TOP DAILY [facility] Last Admin: 12/30/17 11:09 Dose: Not Given Nebivolol (Bystolic) 10 mg PO DAILY [facility] Last Admin: 12/30/17 10:01 Dose: 10 mg Pantoprazole Sodium (Protonix Ec Tab) 40 mg PO DAILY [facility] Last Admin: 12/30/17 10:00 Dose: 40 mg Prednisone (Prednisone Tab) 10 mg PO DAILY [facility] Last Admin: 12/30/17 10:01 Dose: 10 mg Rosuvastatin Calcium (Crestor) 20 mg PO [facility] Last Admin: 12/29/17 21:53 Dose: 20 mg Fluticasone/Salmeterol (Advair Diskus 500/50) 1 puff INH RQ12 [facility] Last Admin: 12/30/17 07:18 Dose: 1 puff - Labs Labs: 12/30/17 06:24 12/30/17 06:24 PT 13.3 SECONDS (9.7-12.2) H 12/30/17 06:24 INR 1.2 12/30/17 06:24 APTT 32 SECONDS (21-34) 12/30/17 06:24 - Constitutional Appears: Well, Non-toxic, No Acute Distress - Extremities Exam Additional comments: Lower extremity focused exam. Dressings clean, dry, and intact. Vasc: DP/PT pulses palpable 2/4. Temperature gradient warm to cool. CFT < 3 sec to all digits. No pedal edema noted Derm: Left plantar hallux circular ulceration measuring 1cm in diameter and approx 0.3cm depth with hyperkeratotic wound borders and mild necrotic skin changed to kristina wound. 1-2cc of purulent drainage expressed with application of pressure. Kristina wound negative for erythema. No fluctuance, no malodor, negative probe to bone, no tunneling or undermining noted. Hyperkeratosis noted to distal tip of right foot 2nd digit with no evidence of underlying ulceration present post-debridement. Neuro: Protective sensation grossly intact Ortho: No tenderness to palpation of L hallux ulceration site - Neurological Exam Neurological Exam: Alert, Awake, Oriented x3 - Psychiatric Exam Psychiatric exam: Normal Affect, Normal Mood Assessment and Plan - Assessment and Plan (Free Text) Assessment: 72 y/o female with left plantar hallux ulceration with chronic osteomyelitis Plan: Pt seen and evaluated at bedside with attending, Dr. Peña, present. Labs and vitals reviewed- afebrile, no leukocytosis Wound culture taken of L hallux - pending. Tri-phasic bone scan- results pending, awaiting results to direct extent of surgical intervention. Intervention: Planning for left halluxa amputation. Cardia Clearance- pending Medical Clearance- pending. Continue w/ local wound care. Ulceration site cleansed with saline and dressed with Bactroban, xeroform, &DSD Vascular team on board, await recommendations prior to possible surgery Pt is agreeable to surgery at this time. Medical management per primary team. Continue IV abx per ID recommendations Podiatry will continue to follow patient while in house <Mahamed Peña - Last Filed: 12/30/17 20:00> Objective - Vital Signs/Intake and Output Vital Signs (last 24 hours): Temp Pulse Resp BP Pulse Ox 98.4 F 88 20 164/78 H 97 12/30/17 15:30 12/30/17 15:30 12/30/17 15:30 12/30/17 15:30 12/30/17 15:30 Intake and Output: 12/30/17 12/31/17 18:59 06:59 Intake Total 580 Balance 580 - Medications Medications: Current Medications Albuterol/Ipratropium (Duoneb 3 Mg/0.5 Mg (3 Ml) Ud) 3 ml INH RQ6 PRN PRN Reason: Wheezing Last Admin: 12/30/17 19:52 Dose: 3 ml Baclofen (Lioresal) 10 mg PO DAILY [facility] Furosemide (Lasix) 40 mg PO DAILY [facility] Last Admin: 12/30/17 10:05 Dose: 40 mg Heparin Sodium (Porcine) (Heparin) 5,000 units SC Q12 [facility] Last Admin: 12/30/17 10:50 Dose: 5,000 units Home Med (Patient's Own Medication) 1 tab PO PCS [facility] Last Admin: 12/30/17 17:18 Dose: 1 tab Hydralazine HCl (Apresoline) 50 mg PO BID [facility] Last Admin: 12/30/17 17:20 Dose: 50 mg Ceftriaxone Sodium 2 gm/ (Sodium Chloride) 100 mls @ 100 mls/hr IVPB Q24H [facility] PRN Reason: Protocol Last Admin: 12/30/17 19:12 Dose: 100 mls/hr Metronidazole (Flagyl) 500 mg in 100 mls @ 100 mls/hr IVPB Q8 [facility] PRN Reason: Protocol Last Admin: 12/30/17 14:53 Dose: 100 mls/hr Insulin Human NPH (Novolin N) 40 unit SC QAM [facility] Last Admin: 12/30/17 10:01 Dose: Not Given Insulin Human Regular (Novolin R) 0 unit SC ACHS [facility] PRN Reason: Protocol Last Admin: 12/30/17 17:20 Dose: 8 units Levothyroxine Sodium (Synthroid) 125 mcg PO DAILY@0630 [facility] Last Admin: 12/30/17 05:30 Dose: 125 mcg Montelukast Sodium (Singulair) 10 mg PO HS [facility] Last Admin: 12/29/17 21:53 Dose: 10 mg Mupirocin (Bactroban Ointment) 0 gm TOP DAILY [facility] Last Admin: 12/30/17 11:09 Dose: Not Given Nebivolol (Bystolic) 10 mg PO DAILY [facility] Last Admin: 12/30/17 10:01 Dose: 10 mg Pantoprazole Sodium (Protonix Ec Tab) 40 mg PO DAILY [facility] Last Admin: 12/30/17 10:00 Dose: 40 mg Prednisone (Prednisone Tab) 10 mg PO DAILY [facility] Last Admin: 12/30/17 10:01 Dose: 10 mg Rosuvastatin Calcium (Crestor) 20 mg PO HS [facility] Last Admin: 12/29/17 21:53 Dose: 20 mg Fluticasone/Salmeterol (Advair Diskus 500/50) 1 puff INH RQ12 [facility] Last Admin: 12/30/17 19:52 Dose: 1 puff - Labs Labs: 12/30/17 06:24 12/30/17 06:24 PT 13.3 SECONDS (9.7-12.2) H 12/30/17 06:24 INR 1.2 12/30/17 06:24 APTT 32 SECONDS (21-34) 12/30/17 06:24 Assessment and Plan - Assessment and Plan (Free Text) Plan: above noted and agree with findings .labs and chart reviewed . awaiting above plan ./Dr Juana PEÑA
[2017-12-30] MEDS ORDERED: Iodixanol 320 mg/ml 150 ml Bottle IV ONE (13:13)
--- NOTE | 2017-12-30 15:59 | NM ---
PROCEDURE: Whole Body Bone Scan HISTORY: R/O osteomyelitis LLE COMPARISON: Bilateral feet radiographs 12/30/2017. TECHNIQUE: Following administration of 21.3 mCi of Tc MDP a three-phase nuclear bone scan was performed including dynamic, delayed and immediate static images of the bilateral feet. FINDINGS: Dynamic phase images demonstrate increased uptake at the medial left forefoot with concentrates and persists at the level of the great toe in the left foot in the immediate as well as delayed static images in multiple projections in a pattern compatible with osteomyelitis in the proper clinical setting. IMPRESSION: Findings positive for osteomyelitis in the proper clinical setting at the great toe left foot.
--- NOTE | 2017-12-30 16:33 | RAD ---
PROCEDURE: Bilateral Feet Radiographs. HISTORY: Osteomyelitis LLE COMPARISON: Bone scan 3 phase report 12/30/2017 noted. No prior images are available. FINDINGS: BONES: Right Foot: Amputations distal phalanx 1st and 2nd digit amputation. Partial resection 5th proximal phalanx. Exuberant posterior calcaneal spurring - blending Achilles tendon enthesophyte. Left Foot: Partial resection 2nd mid phalanx. Flexion deformities 3rd 4th and 5th digits impeding there optimal evaluation. Ill definition of the 1st distal phalanx at the interphalangeal joint level. This site was concerning for osteomyelitis per bone scan posterior calcaneal spurring -prominent Achilles tendon insertional enthesophyte. JOINTS: Right Foot: Osteoarthrosis Left Foot: Osteoarthrosis SOFT TISSUES: Right Foot: Atherosclerotic vascular calcifications present. . Left Foot: Atherosclerotic vascular calcifications present. . OTHER FINDINGS: No gas-forming cellulitis noted. IMPRESSION: Extensive postop changes. The cortical ill definition to left distal phalanx is compatible with an osteomyelitis.
--- NOTE | 2017-12-30 17:50 | CP.PCM.PN ---
Subjective - Date & Time of Evaluation Date of Evaluation: 12/30/17 Time of Evaluation: 17:44 - Subjective Subjective: feels unchanged, had multiple tests today, positive bone scan foe osteo Objective - Vital Signs/Intake and Output Vital Signs (last 24 hours): Temp Pulse Resp BP Pulse Ox 98.3 F 67 20 164/74 H 97 12/30/17 07:33 12/30/17 07:33 12/30/17 07:33 12/30/17 10:05 12/30/17 07:33 Intake and Output: 12/30/17 12/30/17 06:59 18:59 Intake Total 150 580 Balance 150 580 - Medications Medications: Current Medications Albuterol/Ipratropium (Duoneb 3 Mg/0.5 Mg (3 Ml) Ud) 3 ml INH RQ6 PRN PRN Reason: Wheezing Last Admin: 12/30/17 07:18 Dose: 3 ml Baclofen (Lioresal) 10 mg PO DAILY [facility] Furosemide (Lasix) 40 mg PO DAILY [facility] Last Admin: 12/30/17 10:05 Dose: 40 mg Heparin Sodium (Porcine) (Heparin) 5,000 units SC Q12 [facility] Last Admin: 12/30/17 10:50 Dose: 5,000 units Home Med (Patient's Own Medication) 1 tab PO PCS [facility] Last Admin: 12/30/17 17:18 Dose: 1 tab Hydralazine HCl (Apresoline) 50 mg PO BID [facility] Last Admin: 12/30/17 17:20 Dose: 50 mg Ceftriaxone Sodium 2 gm/ (Sodium Chloride) 100 mls @ 100 mls/hr IVPB Q24H [facility] PRN Reason: Protocol Last Admin: 12/29/17 20:32 Dose: 100 mls/hr Metronidazole (Flagyl) 500 mg in 100 mls @ 100 mls/hr IVPB Q8 [facility] PRN Reason: Protocol Last Admin: 12/30/17 14:53 Dose: 100 mls/hr Insulin Human NPH (Novolin N) 40 unit SC QAM [facility] Last Admin: 12/30/17 10:01 Dose: Not Given Insulin Human Regular (Novolin R) 0 unit SC ACHS [facility] PRN Reason: Protocol Last Admin: 12/30/17 17:20 Dose: 8 units Levothyroxine Sodium (Synthroid) 125 mcg PO DAILY@0630 [facility] Last Admin: 12/30/17 05:30 Dose: 125 mcg Montelukast Sodium (Singulair) 10 mg PO HS [facility] Last Admin: 12/29/17 21:53 Dose: 10 mg Mupirocin (Bactroban Ointment) 0 gm TOP DAILY [facility] Last Admin: 12/30/17 11:09 Dose: Not Given Nebivolol (Bystolic) 10 mg PO DAILY [facility] Last Admin: 12/30/17 10:01 Dose: 10 mg Pantoprazole Sodium (Protonix Ec Tab) 40 mg PO DAILY [facility] Last Admin: 12/30/17 10:00 Dose: 40 mg Prednisone (Prednisone Tab) 10 mg PO DAILY [facility] Last Admin: 12/30/17 10:01 Dose: 10 mg Rosuvastatin Calcium (Crestor) 20 mg PO [facility] Last Admin: 12/29/17 21:53 Dose: 20 mg Fluticasone/Salmeterol (Advair Diskus 500/50) 1 puff INH RQ12 [facility] Last Admin: 12/30/17 07:18 Dose: 1 puff - Labs Labs: 12/30/17 06:24 12/30/17 06:24 PT 13.3 SECONDS (9.7-12.2) H 12/30/17 06:24 INR 1.2 12/30/17 06:24 APTT 32 SECONDS (21-34) 12/30/17 06:24 - Constitutional Appears: Chronically Ill - Head Exam Head Exam: ATRAUMATIC, NORMOCEPHALIC - Eye Exam Eye Exam: Normal appearance Pupil Exam: PERRL - ENT Exam ENT Exam: Mucous Membranes Moist - Neck Exam Neck Exam: Normal Inspection - Respiratory Exam Respiratory Exam: Decreased Breath Sounds - Cardiovascular Exam Cardiovascular Exam: +S1, +S2, +S4 - GI/Abdominal Exam GI & Abdominal Exam: Normal Bowel Sounds - Rectal Exam Rectal Exam: Deferred - Extremities Exam Additional comments: left great toe wound - Neurological Exam Neurological Exam: Awake, Normal Gait, Oriented x3 - Psychiatric Exam Psychiatric exam: Normal Affect, Normal Mood Assessment and Plan (1) Osteomyelitis of ankle and foot Status: Acute (2) Diabetes 1.5, managed as type 2 Status: Chronic (3) HTN (hypertension), benign Status: Chronic (4) Pulmonary arterial hypertension Status: Chronic
[2017-12-30] MEDS: cefTRIAXone 2 GM in Sodium Chloride 0.9% 100 ML IVPB SCH (19:12)
--- NOTE | 2017-12-30 19:20 | CARD ---
APPROVED REPORT EKG Measurement Heart [id number] <Conclusion> Sinus rhythm with 1st degree AV block with blocked premature atrial complexes Left ventricular hypertrophy with repolarization abnormality Abnormal ECG
[2017-12-30] MEDS ORDERED: Sodium Chloride 0.9% 1,000 ML IV SCH (20:15)
--- NOTE | 2017-12-30 21:05 | CP.PCM.CON ---
History of Present Illness - History of Present Illness History of Present Illness: INFECTIOUS DISEASE 3T CONSULTATION KELSI GAMBOA MD, FACP 3T 352-A 12/30/2017 CHART REVIEWED PT EXAMINED CASE DISCUSSED 72 YR OLD AAF ADMITTED FOR NONHEALING ULCER AND OSTEOMYLITIS OF HER LEFT FIRST TOE, MADE WORSE OVER A FALL, APPARENTLY. AN INFECTIOUS DISEASE CONSULTATION REQUESTED FOR ANTIBIOTIC MANAGEMENT AND EVALUATION, ESPECIALLY WITH HER COMPLICATED MEDICAL ISSUES. Admitted for osteo LLE, discussed with dr Peña Present on Admission - Present on Admission Any Indicators Present on Admission: Yes Review of Systems - Review of Systems All systems: reviewed and no additional remarkable complaints except - Constitutional Constitutional: Frequent Falls - Musculoskeletal Additional comments: cellulitis/osteo LLE - Integumentary Integumentary: Non-Healing Lesions, Rash, Skin Ulcer Past Patient History - Past Medical History & Family History Past Medical History?: Yes - Past Social History Chewing Tobacco Use: No Cigar Use: No Alcohol: None Drugs: Denies Home Situation {Lives}: With Family Domestic Violence: Negative - CARDIAC Hx Cardiac Disorders: Yes Hx Hypertension: Yes Hx Peripheral Vascular Disease: Yes/HTN/ANEMIA - PULMONARY Hx Asthma: Yes Hx Sleep Apnea: Yes/ ALSO PT HAS PULMONARY HYPERTENSION - NEUROLOGICAL HX Cerebrovascular Accident: Yes Hx Transient Ischemic Attacks (TIA): Yes - ENDOCRINE/METABOLIC Hx Diabetes Insipidus: Yes - INTEGUMENTARY Hx Cellulitis: Yes - GASTROINTESTINAL Hx Gastroesophageal Reflux: Yes Physical Exam - Constitutional Appears: Chronically Ill - Head Exam Head Exam: ATRAUMATIC, NORMOCEPHALIC - Eye Exam Eye Exam: Normal appearance, PERRL Pupil Exam: NORMAL ACCOMODATION - ENT Exam ENT Exam: Mucous Membranes Moist - Respiratory Exam Respiratory Exam: Decreased Breath Sounds - Cardiovascular Exam Cardiovascular Exam: +S1, +S2, +S4 - GI/Abdominal Exam GI & Abdominal Exam: Normal Bowel Sounds EXT: FIRST TOE WITH DOCUMENTED NON HEALING OSTEOMYLITIS. - Rectal Exam Rectal Exam: Deferred - Neurological Exam Neurological exam: Alert, Oriented x3 - Psychiatric Exam Psychiatric exam: Normal Affect, Normal Mood - Skin Skin Exam: Abrasion Additional comments: LLE Results - Vital Signs Recent Vital Signs: Last Vital Signs Temp 98.2 F 12/29/17 14:58 Pulse 74 12/29/17 14:58 Resp 20 12/29/17 14:58 BP 162/71 H 12/29/17 14:58 Pulse Ox 98 12/29/17 14:58 Assessment & Plan (1) Osteomyelitis of ankle and foot, ESPECIALLY FIRST TOE LEFT FOOT. ALSO HAS PERIPHERAL VASCULAR DISEASE. Status: Acute (2) Diabetes 1.5, managed as type 2 Status: Acute (3) HTN (hypertension), benign Status: Acute (4) Pulmonary arterial hypertension Status: Acute HER LIST OF MEDS FROM HOME, INCLUDE: PRESNISONE 10 MG PO OD HUMULIN N 40 UNITS AM NOVOLOG PRN SYNTHROID .0125 OD TOPAMAX 25MG 3 IN AM AND 3 IN PM PLAVIX 75MG OD LETARIS 5MG OD METFORMIN ER 500MG BID GLIPIZIDE ER 10MG BID BYSTOLIC 10MG OD VITS HYDRALZINE 50 BID ELEQUIS 5MG BID PROTONIX 40 OD ASA 81 OD FERROUS SULFATE 325 OD LASIX 40 PRN BALCOFEN 10MG BID ATORVASTATIN 80 HS MONTELUKAST 10 HS ADVAIR 500 INHALATION BID COMBIVENT RESPIMAT 20MCG/AOOMCG PRN KELSI GAMBOA MD, FACP Past Patient History - Past Medical History & Family History Past Medical History?: Yes - Past Social History Chewing Tobacco Use: No Cigar Use: No Alcohol: None Drugs: Denies Home Situation {Lives}: With Family Domestic Violence: Negative - CARDIAC Hx Cardiac Disorders: Yes Hx Hypertension: Yes - PULMONARY Hx Asthma: Yes Hx Sleep Apnea: Yes - NEUROLOGICAL HX Cerebrovascular Accident: Yes - HEENT Hx Deafness: Yes ([place] right ear with hearing aid) - ENDOCRINE/METABOLIC Hx Diabetes Insipidus: Yes - INTEGUMENTARY Hx Cellulitis: Yes - MUSCULOSKELETAL/RHEUMATOLOGICAL Hx Falls: Yes Hx Unsteady Gait: Yes - GASTROINTESTINAL Hx Gastroesophageal Reflux: Yes - PSYCHIATRIC Hx Substance Use: No - SURGICAL HISTORY Hx Hysterectomy: Yes Other/Comment: 12/29/17 as per Pt, she had thyroid x, foot sx, 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 - ANESTHESIA Hx Anesthesia: Yes Hx Anesthesia Reactions: No Hx Malignant Hyperthermia: No Meds Allergies/Adverse Reactions: Allergies Allergy/AdvReac Type Severity Reaction Status Date / Time morphine Allergy confusion Verified 12/29/17 15:15 - Medications Medications: Current Medications Albuterol/Ipratropium (Duoneb 3 Mg/0.5 Mg (3 Ml) Ud) 3 ml INH RQ6 PRN PRN Reason: Wheezing Last Admin: 12/30/17 19:52 Dose: 3 ml Baclofen (Lioresal) 10 mg PO DAILY [facility] Furosemide (Lasix) 40 mg PO DAILY [facility] Last Admin: 12/30/17 10:05 Dose: 40 mg Heparin Sodium (Porcine) (Heparin) 5,000 units SC Q12 [facility] Last Admin: 12/30/17 10:50 Dose: 5,000 units Home Med (Patient's Own Medication) 1 tab PO PCS [facility] Last Admin: 12/30/17 17:18 Dose: 1 tab Hydralazine HCl (Apresoline) 50 mg PO BID [facility] Last Admin: 12/30/17 17:20 Dose: 50 mg Ceftriaxone Sodium 2 gm/ (Sodium Chloride) 100 mls @ 100 mls/hr IVPB Q24H [facility] PRN Reason: Protocol Last Admin: 12/30/17 19:12 Dose: 100 mls/hr Metronidazole (Flagyl) 500 mg in 100 mls @ 100 mls/hr IVPB Q8 [facility] PRN Reason: Protocol Last Admin: 12/30/17 14:53 Dose: 100 mls/hr Sodium Chloride (Sodium Chloride 0.9%) 1,000 mls @ 100 mls/hr IV .Q10H [facility] Insulin Human NPH (Novolin N) 40 unit SC QAM [facility] Last Admin: 12/30/17 10:01 Dose: Not Given Insulin Human Regular (Novolin R) 0 unit SC ACHS [facility] PRN Reason: Protocol Last Admin: 12/30/17 17:20 Dose: 8 units Levothyroxine Sodium (Synthroid) 125 mcg PO DAILY@0630 [facility] Last Admin: 12/30/17 05:30 Dose: 125 mcg Montelukast Sodium (Singulair) 10 mg PO HS [facility] Last Admin: 12/29/17 21:53 Dose: 10 mg Mupirocin (Bactroban Ointment) 0 gm TOP DAILY [facility] Last Admin: 12/30/17 11:09 Dose: Not Given Nebivolol (Bystolic) 10 mg PO DAILY [facility] Last Admin: 12/30/17 10:01 Dose: 10 mg Pantoprazole Sodium (Protonix Ec Tab) 40 mg PO DAILY [facility] Last Admin: 12/30/17 10:00 Dose: 40 mg Prednisone (Prednisone Tab) 10 mg PO DAILY [facility] Last Admin: 12/30/17 10:01 Dose: 10 mg Rosuvastatin Calcium (Crestor) 20 mg PO HS [facility] Last Admin: 12/29/17 21:53 Dose: 20 mg Fluticasone/Salmeterol (Advair Diskus 500/50) 1 puff INH RQ12 [facility] Last Admin: 12/30/17 19:52 Dose: 1 puff Results - Vital Signs Recent Vital Signs: Last Vital Signs Temp 98.4 F 12/30/17 15:30 Pulse 88 12/30/17 15:30 Resp 20 12/30/17 15:30 BP 164/78 H 12/30/17 15:30 Pulse Ox 97 12/30/17 15:30 - Labs Result Diagrams: 12/30/17 06:24 12/30/17 06:24 Labs: Laboratory Results - last 24 hr 12/29/17 12/29/17 12/29/17 21:01 21:30 21:30 WBC 9.2 RBC 3.25 L Hgb 8.5 L Hct 27.1 L MCV 83.4 MCH 26.2 L MCHC 31.4 L RDW 16.0 H Plt Count 234 MPV 10.8 Neut % (Auto) 82.6 H Lymph % (Auto) 9.2 L Wake % (Auto) 6.7 Eos % (Auto) 0.9 Baso % (Auto) 0.6 Neut # (Auto) 7.6 H Lymph # (Auto) 0.8 L Wake # (Auto) 0.6 Eos # (Auto) 0.1 Baso # (Auto) 0.1 Neutrophils % (Manual) 87 H Lymphocytes % (Manual) 8 L Monocytes % (Manual) 5 Platelet Estimate Normal ESR PT 15.1 H INR 1.4 APTT 33 Sodium Potassium Chloride Carbon Dioxide Anion Gap BUN Creatinine Est GFR ( Amer) Est GFR (Non-Af Amer) POC Glucose (mg/dL) 180 H Random Glucose Hemoglobin A1c Calcium Total Bilirubin AST ALT Alkaline Phosphatase NT-Pro-B Natriuret Pep Total Protein Albumin Globulin Albumin/Globulin Ratio Triglycerides Cholesterol LDL Cholesterol Direct HDL Cholesterol 12/29/17 12/30/17 12/30/17 21:30 06:24 06:24 WBC 8.4 RBC 3.41 L Hgb 8.9 L Hct 28.2 L MCV 82.7 MCH 26.0 L MCHC 31.4 L RDW 16.1 H Plt Count 244 MPV 10.7 Neut % (Auto) 71.2 Lymph % (Auto) 17.0 L Wake % (Auto) 8.8 Eos % (Auto) 2.4 Baso % (Auto) 0.6 Neut # (Auto) 6.0 Lymph # (Auto) 1.4 Wake # (Auto) 0.7 Eos # (Auto) 0.2 Baso # (Auto) 0.0 Neutrophils % (Manual) Lymphocytes % (Manual) Monocytes % (Manual) Platelet Estimate ESR 30 H PT INR APTT Sodium 148 153 H Potassium 3.9 3.5 L Chloride 113 H 115 H Carbon Dioxide 22 24 Anion Gap 17 17 BUN 16 14 Creatinine 1.1 1.0 Est GFR ( Amer) 59 > 60 Est GFR (Non-Af Amer) 49 55 POC Glucose (mg/dL) Random Glucose 152 H 70 Hemoglobin A1c Calcium 8.3 L 8.3 L Total Bilirubin 0.4 0.3 AST 25 24 ALT 23 21 Alkaline Phosphatase 108 96 NT-Pro-B Natriuret Pep 7180 H Total Protein 6.0 L 6.1 L Albumin 3.5 3.5 Globulin 2.5 2.6 Albumin/Globulin Ratio 1.4 1.4 Triglycerides 158 H Cholesterol 113 LDL Cholesterol Direct 43 HDL Cholesterol 36 12/30/17 12/30/17 12/30/17 06:24 06:24 07:06 WBC RBC Hgb Hct MCV MCH MCHC RDW Plt Count MPV Neut % (Auto) Lymph % (Auto) Wake % (Auto) Eos % (Auto) Baso % (Auto) Neut # (Auto) Lymph # (Auto) Wake # (Auto) Eos # (Auto) Baso # (Auto) Neutrophils % (Manual) Lymphocytes % (Manual) Monocytes % (Manual) Platelet Estimate ESR PT 13.3 H INR 1.2 APTT 32 Sodium Potassium Chloride Carbon Dioxide Anion Gap BUN Creatinine Est GFR ( Amer) Est GFR (Non-Af Amer) POC Glucose (mg/dL) 80 Random Glucose Hemoglobin A1c 7.7 H Calcium Total Bilirubin AST ALT Alkaline Phosphatase NT-Pro-B Natriuret Pep Total Protein Albumin Globulin Albumin/Globulin Ratio Triglycerides Cholesterol LDL Cholesterol Direct HDL Cholesterol 12/30/17 12/30/17 11:09 16:30 WBC RBC Hgb Hct MCV MCH MCHC RDW Plt Count MPV Neut % (Auto) Lymph % (Auto) Wake % (Auto) Eos % (Auto) Baso % (Auto) Neut # (Auto) Lymph # (Auto) Wake # (Auto) Eos # (Auto) Baso # (Auto) Neutrophils % (Manual) Lymphocytes % (Manual) Monocytes % (Manual) Platelet Estimate ESR PT INR APTT Sodium Potassium Chloride Carbon Dioxide Anion Gap BUN Creatinine Est GFR ( Amer) Est GFR (Non-Af Amer) POC Glucose (mg/dL) 144 H 369 H Random Glucose Hemoglobin A1c Calcium Total Bilirubin AST ALT Alkaline Phosphatase NT-Pro-B Natriuret Pep Total Protein Albumin Globulin Albumin/Globulin Ratio Triglycerides Cholesterol LDL Cholesterol Direct HDL Cholesterol
[2017-12-31] MEDS: metroNIDAZOLE IV 500 mg/100 ml 500 MG/100 ML BAG IVPB SCH ×3 (05:28→22:06)
[2017-12-31] MEDS: Levothyroxine 125 MCG TAB PO SCH (05:32)
[2017-12-31 06:48] LABS: BASO % 0.7 % (0.0-2.0); EOS # 0.2 K/uL (0.0-0.7); EOS % 2.9 % (0.0-4.0); HEMOGLOBIN 8.8 g/dL (11.0-16.0); LYMPH # 1.1 K/uL (1.0-4.3); LYMPH % 14.9 % (20.0-40.0); MEAN CELL VOLUME 82.8 fL (81.0-99.0); MEAN CORPUSCULAR HEMOGLOBIN 26.8 pg (27.0-31.0); MEAN CORPUSCULAR HGB CONC 32.4 g/dL (33.0-37.0); MEAN PLATELET VOLUME 10.9 fL (7.2-11.7); MONO # 0.7 K/uL (0.0-0.8); MONO % 9.8 % (0.0-10.0); NEUT # 5.4 K/uL (1.8-7.0); NEUT % 71.7 % (50.0-75.0); RBC 3.3 Mil/uL (3.80-5.20); RED CELL DISTRIBUTION WIDTH 15.8 % (11.5-14.5); WHITE BLOOD COUNT 7.5 K/uL (4.8-10.8)
[2017-12-31 07:49] LABS: ALB/GLOB RATIO 1.3 (1.0-2.1); ALBUMIN 3.2 g/dL (3.5-5.0); ALT/SGPT 56 U/L (9-52); AST/SGOT 39 U/L (14-36); BLOOD UREA NITROGEN 16 mg/dL (7-17); GFR AFRICAN-AMERICAN 59; GFR NON-AFRICAN AMERICAN 49
[2017-12-31] MEDS: (Novolin R) Insulin Human Regular 100 units/ml vial SC SCH ×4 (08:01→22:19)
[2017-12-31] MEDS: Fluticasone-Salmeterol 500-50mcg Diskus INH SCH (09:32)
[2017-12-31] MEDS: Pantoprazole 40 mg EC Tab PO SCH (09:34)
[2017-12-31] MEDS: (Novolin N) Insulin Human Isophane (NPH) 100 u/ml 10 ml vial SC SCH (09:51)
--- NOTE | 2017-12-31 11:28 | CP.PCM.PN ---
Subjective - Date & Time of Evaluation Date of Evaluation: 12/31/17 Time of Evaluation: 09:50 - Subjective Subjective: Podiatry Progress Note - Dr. ePña 72 y/o female seen concerning left hallux ulceration. Pt denies having any pain to the left big toe. Denies any F/C/N/V/CP/SOB. She denies and acute overnight events. She states that she is agreeable to toe amputation as recommended. Objective - Vital Signs/Intake and Output Vital Signs (last 24 hours): Temp Pulse Resp BP Pulse Ox 98.3 F 71 20 163/69 H 96 12/31/17 07:25 12/31/17 07:25 12/31/17 07:25 12/31/17 09:34 12/31/17 07:25 Intake and Output: 12/31/17 12/31/17 06:59 18:59 Intake Total 150 Balance 150 - Medications Medications: Current Medications Albuterol/Ipratropium (Duoneb 3 Mg/0.5 Mg (3 Ml) Ud) 3 ml INH RQ6 PRN PRN Reason: Wheezing Last Admin: 12/30/17 19:52 Dose: 3 ml Baclofen (Lioresal) 10 mg PO DAILY [facility] Last Admin: 12/31/17 09:42 Dose: 10 mg Furosemide (Lasix) 40 mg PO DAILY [facility] Last Admin: 12/31/17 09:34 Dose: 40 mg Heparin Sodium (Porcine) (Heparin) 5,000 units SC Q12 [facility] Last Admin: 12/31/17 09:56 Dose: Not Given Home Med (Patient's Own Medication) 1 tab PO PCS [facility] Last Admin: 12/30/17 17:18 Dose: 1 tab Hydralazine HCl (Apresoline) 50 mg PO BID [facility] Last Admin: 12/31/17 09:35 Dose: 50 mg Ceftriaxone Sodium 2 gm/ (Sodium Chloride) 100 mls @ 100 mls/hr IVPB Q24H [facility] PRN Reason: Protocol Last Admin: 12/30/17 19:12 Dose: 100 mls/hr Metronidazole (Flagyl) 500 mg in 100 mls @ 100 mls/hr IVPB Q8 [facility] PRN Reason: Protocol Last Admin: 12/31/17 05:28 Dose: 100 mls/hr Potassium Chloride/Dextrose (Potassium Chl 20 Meq In D5w) 1,000 mls @ 80 mls/ hr IV .[id number] [facility] Insulin Human NPH (Novolin N) 40 unit SC QAM [facility] Last Admin: 12/31/17 09:51 Dose: Not Given Insulin Human Regular (Novolin R) 0 unit SC ACHS [facility] PRN Reason: Protocol Last Admin: 12/31/17 08:01 Dose: Not Given Levothyroxine Sodium (Synthroid) 125 mcg PO DAILY@0630 [facility] Last Admin: 12/31/17 05:32 Dose: 125 mcg Montelukast Sodium (Singulair) 10 mg PO HS [facility] Last Admin: 12/30/17 21:08 Dose: 10 mg Mupirocin (Bactroban Ointment) 0 gm TOP DAILY [facility] Last Admin: 12/31/17 10:47 Dose: Not Given Nebivolol (Bystolic) 10 mg PO DAILY [facility] Last Admin: 12/31/17 09:35 Dose: 10 mg Pantoprazole Sodium (Protonix Ec Tab) 40 mg PO DAILY [facility] Last Admin: 12/31/17 09:34 Dose: 40 mg Prednisone (Prednisone Tab) 10 mg PO DAILY [facility] Last Admin: 12/31/17 09:34 Dose: 10 mg Rosuvastatin Calcium (Crestor) 20 mg PO [facility] Last Admin: 12/30/17 21:08 Dose: 20 mg Fluticasone/Salmeterol (Advair Diskus 500/50) 1 puff INH RQ12 [facility] Last Admin: 12/31/17 09:32 Dose: 1 puff - Labs Labs: 12/31/17 06:35 12/31/17 06:35 PT 13.3 SECONDS (9.7-12.2) H 12/30/17 06:24 INR 1.2 12/30/17 06:24 APTT 32 SECONDS (21-34) 12/30/17 06:24 - Constitutional Appears: Well, Non-toxic, No Acute Distress - Extremities Exam Additional comments: Lower extremity focused exam. Dressings clean, dry, and intact. Vasc: DP/PT pulses palpable 2/4. Temperature gradient warm to cool. CFT < 3 sec to all digits. No pedal edema noted Derm: Left plantar hallux circular ulceration measuring 1cm in diameter and approx 0.3cm depth with hyperkeratotic wound borders and mild necrotic skin changed to arturo wound. Arturo wound negative for erythema. No fluctuance, no malodor, negative probe to bone, no tunneling or undermining noted. Hyperkeratosis noted to distal tip of right foot 2nd digit with no evidence of underlying ulceration present post-debridement. Neuro: Protective sensation grossly intact Ortho: No tenderness to palpation of L hallux ulceration site - Neurological Exam Neurological Exam: Alert, Awake, Oriented x3 - Psychiatric Exam Psychiatric exam: Normal Affect, Normal Mood Assessment and Plan - Assessment and Plan (Free Text) Assessment: 72 y/o female with left plantar hallux ulceration with chronic osteomyelitis Plan: Pt seen and evaluated at bedside with attending, Dr. Peña, present. Labs and vitals reviewed- afebrile, no leukocytosis Wound culture taken of L hallux - Cornebacterium species Tri-phasic bone scan- positive for hallux osteomyelitis, no extension into 1st metatarsal. Intervention: Planning for left hallux amputation. Cardiac Clearance request - pending Medical Clearance request- pending. Continue w/ local wound care. Ulceration site cleansed with saline and dressed with Bactroban, xeroform, &DSD Vascular team on board- pt to angio today. Pt is agreeable to surgery at this time. Medical management per primary team. Continue IV abx per ID recommendations Podiatry will continue to follow patient while in house
[2017-12-31] MEDS: Potassium Ch 20mEq in D5W 1,000 ML IV SCH (12:06)
--- NOTE | 2017-12-31 12:59 | CT ---
PROCEDURE: CT Angiography Abdomen, Pelvis and Lower Extremity with Contrast HISTORY: LE wound COMPARISON: None. TECHNIQUE: Technique: CT angiography of the abdomen, pelvis and bilateral lower extremities performed in the arterial phase of enhancement. Coronal and sagittal reformats, and well as rotating MIP images of the vessels generated at the workstation. Intravenous contrast dose: 150 milliliters Visipaque 320 Radiation dose: Total exam DLP = 2563.41 MGy-cm. This CT exam was performed using one or more of the following dose reduction techniques: Automated exposure control, adjustment of the mA and/or kV according to patient size, and/or use of iterative reconstruction technique. FINDINGS: CT ANGIOGRAPHY: ABDOMINAL AORTA:: Moderate calcific plaque throughout the abdominal aorta cyst or aneurysm. MAJOR AORTIC BRANCHES: Celiac Sears: Unremarkable. Superior mesenteric artery: Unremarkable. Inferior mesenteric artery: Unremarkable. Renal arteries: Moderate calcific plaque at the origin of the renal arteries. Unable to assess for stenosis. PELVIC ARTERIES: Right Common Iliac: Unremarkable. Right External Iliac: Unremarkable. Right Internal Iliac: Unremarkable. Left Common Iliac: Unremarkable. Left External Iliac: Unremarkable. Left Internal Iliac: Unremarkable. RIGHT LOWER EXTREMITY ARTERIES: Right Common Femoral: Unremarkable. Right Superficial Femoral: Moderate calcific plaque throughout the SFA with no significant stenosis. Right Profunda Femoris: Moderate calcific plaque with no stenosis. Right Popliteal:Moderate calcific plaque with mild stenosis. Right Anterior Tibial: Mildly calcified which limits evaluation. Believed to be patent. Right Tibioperoneal Trunk: Unremarkable. Right Posterior Tibial: Under calcific plaque which limits evaluation believed to be patent. Right Peroneal: Unremarkable. Right dorsalis pedis : Unremarkable. LEFT LOWER EXTREMITY ARTERIES: Left Common Femoral: Unremarkable. Left Superficial Femoral: Moderate calcific plaque throughout the SFA with no significant stenosis. Left Profunda Femoris: Moderate calcific plaque but otherwise unremarkable. Left Popliteal: Moderate calcific plaque with no significant stenosis. Left Anterior Tibial: Unremarkable. Left Tibioperoneal Trunk: Unremarkable. Left Posterior Tibial: Moderate calcific plaque limits evaluation believed to be patent. Left Peroneal: Unremarkable. Left Dorsalis pedis: Unremarkable. NON-ANGIOGRAPHIC ASPECT OF THE EXAM: LOWER THORAX: Unremarkable. LIVER: Unremarkable. No gross lesion or ductal dilatation. GALLBLADDER AND BILE DUCTS: Unremarkable. PANCREAS: Unremarkable. No gross lesion or ductal dilatation. SPLEEN: Unremarkable. ADRENALS: Unremarkable. No mass. KIDNEYS AND URETERS: Unremarkable. No hydronephrosis. No solid mass. STOMACH AND BOWEL: Unremarkable. No obstruction. No gross mural thickening. APPENDIX: Normal appendix. PERITONEUM: Unremarkable. No free fluid. No free air. LYMPH NODES: Unremarkable. No enlarged lymph nodes. BLADDER: Unremarkable. REPRODUCTIVE: Unremarkable. BONES: No acute fracture. OTHER FINDINGS: Diastasis recti with a fluid collection extending from the peroneal space to the anterior abdominal wall soft tissue. IMPRESSION: CT ANGIOGRAM ABDOMEN/PELVIS: 1. Moderate plaques of abdominal aorta without significant stenosis. Pelvic arteries unremarkable. RIGHT LOWER EXTREMITY CT ANGIOGRAM: 1. Common femoral artery is unremarkable. Profunda femoral artery is mildly calcified unremarkable. 2. There is diffuse moderate plaque throughout the SFA without significant stenosis. 3. Popliteal artery is mildly calcified with mild stenosis. 4. Three-vessel runoff. Moderate calcific plaque in the anterior tibial artery and posterior tibial artery limits evaluation. All 3 vessels are believed to be patent. LEFT LOWER EXTREMITY CT ANGIOGRAM: 1. Common femoral artery is unremarkable. There is moderate calcific plaque throughout the profunda femoral artery which is otherwise unremarkable. 2. There is diffuse moderate calcific plaque throughout the SFA with no significant stenosis. 3. There is moderate plaque throughout the popliteal artery with no stenosis. 4. Runoff shows patent 3 vessels. Evaluation of the posterior tibial artery is slightly limited.
--- NOTE | 2017-12-31 13:08 | VASCLAB ---
STUDY DESCRIPTION: HISTORY: Ulcer PRIORS: Last exam 09/08/2002, normal. TECHNIQUE: Pulse volume recording waveforms and segmental pressures of bilateral lower extremities at multiple levels were obtained. Ankle Brachial Indices (ABIs) were calculated. Report prepared by JOSH Corona RIGHT LOWER EXTREMITY: * Brachial artery: Pressure - 139 mmHg. * High thigh: Pressure - 220 mmHg: Ratio - n/c: PVR waveform - Pulsatile * Low thigh: Pressure - 220 mmHg: Ratio - n/c PVR waveform: Pulsatile * Calf: Pressure - 220 mmHg: Ratio - n/c PVR waveform: Pulsatile * Posterior tibial Artery: Pressure - 104 mmHg: Ratio - 0.74 PVR waveform: Reduced * Dorsalis pedis Artery: Pressure - 122 mmHg: Ratio - 0.87 PVR waveform: Reduced * Ankle brachial index (CLARI): 0.87 LEFT LOWER EXTREMITY: * Brachial artery: Pressure - 140 mmHg. * High thigh: Pressure - 220 mmHg: Ratio - n/c: PVR waveform - Pulsatile * Low thigh: Pressure - 161 mmHg: Ratio - 1.15 PVR waveform: Pulsatile * Calf: Pressure - 220 mmHg: Ratio - n/c PVR waveform: Pulsatile * Posterior tibial Artery: Pressure - 220 mmHg: Ratio - n/c PVR waveform: Reduced * Dorsalis pedis Artery: Pressure - 100 mmHg: Ratio - 0.71 PVR waveform: Reduced * Ankle brachial index (CLARI): 0.71 OTHER FINDINGS: IMPRESSION: Bilateral ankle brachial indices and arterial (PVR) waveforms, suggest mild to moderate arterial insufficiency at rest, beginning at the tibial artery levels.
--- NOTE | 2017-12-31 14:35 | CP.PCM.PN ---
Subjective - Date & Time of Evaluation Date of Evaluation: 12/31/17 Time of Evaluation: 14:32 - Subjective Subjective: vascular studies ok for surgery Objective - Vital Signs/Intake and Output Vital Signs (last 24 hours): Temp Pulse Resp BP Pulse Ox 98.3 F 71 20 163/69 H 96 12/31/17 07:25 12/31/17 07:25 12/31/17 07:25 12/31/17 09:34 12/31/17 07:25 Intake and Output: 12/31/17 12/31/17 06:59 18:59 Intake Total 150 Balance 150 - Medications Medications: Current Medications Albuterol/Ipratropium (Duoneb 3 Mg/0.5 Mg (3 Ml) Ud) 3 ml INH RQ6 PRN PRN Reason: Wheezing Last Admin: 12/30/17 19:52 Dose: 3 ml Baclofen (Lioresal) 10 mg PO DAILY [facility] Last Admin: 12/31/17 09:42 Dose: 10 mg Ferrous Sulfate (Feosol) 325 mg PO DAILY [facility] Furosemide (Lasix) 40 mg PO DAILY [facility] Last Admin: 12/31/17 09:34 Dose: 40 mg Glipizide (Glucotrol Xl) 10 mg PO BIDCC [facility] Heparin Sodium (Porcine) (Heparin) 5,000 units SC Q12 [facility] Last Admin: 12/31/17 09:56 Dose: Not Given Home Med (Patient's Own Medication) 1 tab PO PCS [facility] Last Admin: 12/30/17 17:18 Dose: 1 tab Hydralazine HCl (Apresoline) 50 mg PO BID [facility] Last Admin: 12/31/17 09:35 Dose: 50 mg Ceftriaxone Sodium 2 gm/ (Sodium Chloride) 100 mls @ 100 mls/hr IVPB Q24H [facility] PRN Reason: Protocol Last Admin: 12/30/17 19:12 Dose: 100 mls/hr Metronidazole (Flagyl) 500 mg in 100 mls @ 100 mls/hr IVPB Q8 [facility] PRN Reason: Protocol Last Admin: 12/31/17 14:01 Dose: Not Given Potassium Chloride/Dextrose (Potassium Chl 20 Meq In D5w) 1,000 mls @ 80 mls/ hr IV .[id number] [facility] Last Admin: 12/31/17 12:06 Dose: 80 mls/hr Insulin Human NPH (Novolin N) 40 unit SC QAM [facility] Last Admin: 12/31/17 09:51 Dose: Not Given Insulin Human Regular (Novolin R) 0 unit SC ACHS [facility] PRN Reason: Protocol Last Admin: 12/31/17 11:29 Dose: Not Given Levothyroxine Sodium (Synthroid) 125 mcg PO DAILY@0630 [facility] Last Admin: 12/31/17 05:32 Dose: 125 mcg Montelukast Sodium (Singulair) 10 mg PO HS [facility] Last Admin: 12/30/17 21:08 Dose: 10 mg Multivitamins (Hexavitamin) 1 tab PO DAILY [facility] Mupirocin (Bactroban Ointment) 0 gm TOP DAILY [facility] Last Admin: 12/31/17 10:47 Dose: Not Given Nebivolol (Bystolic) 10 mg PO DAILY [facility] Last Admin: 12/31/17 09:35 Dose: 10 mg Pantoprazole Sodium (Protonix Ec Tab) 40 mg PO DAILY [facility] Last Admin: 12/31/17 09:34 Dose: 40 mg Prednisone (Prednisone Tab) 10 mg PO DAILY [facility] Last Admin: 12/31/17 09:34 Dose: 10 mg Rosuvastatin Calcium (Crestor) 20 mg PO HS [facility] Last Admin: 12/30/17 21:08 Dose: 20 mg Fluticasone/Salmeterol (Advair Diskus 500/50) 1 puff INH RQ12 [facility] Last Admin: 12/31/17 09:32 Dose: 1 puff Topiramate (Topamax) 25 mg PO BID [facility] - Labs Labs: 12/31/17 06:35 12/31/17 06:35 PT 13.3 SECONDS (9.7-12.2) H 12/30/17 06:24 INR 1.2 12/30/17 06:24 APTT 32 SECONDS (21-34) 12/30/17 06:24 - Constitutional Appears: No Acute Distress, Chronically Ill - Head Exam Head Exam: ATRAUMATIC, NORMOCEPHALIC - Eye Exam Eye Exam: Normal appearance - ENT Exam ENT Exam: Mucous Membranes Moist - Neck Exam Neck Exam: Normal Inspection - Respiratory Exam Respiratory Exam: Decreased Breath Sounds - Cardiovascular Exam Cardiovascular Exam: REGULAR RHYTHM, +S1, +S2 - GI/Abdominal Exam GI & Abdominal Exam: Normal Bowel Sounds - Rectal Exam Rectal Exam: Deferred - Neurological Exam Neurological Exam: Normal Gait, Oriented x3 - Psychiatric Exam Psychiatric exam: Normal Affect, Normal Mood - Skin Skin Exam: Intact Assessment and Plan (1) Osteomyelitis of ankle and foot Status: Acute (2) Diabetes 1.5, managed as type 2 Status: Chronic (3) HTN (hypertension), benign Status: Chronic (4) Pulmonary arterial hypertension Status: Chronic
[2017-12-31] MEDS ORDERED: Lidocaine 2% MPF (5 ml) Inj ONE (14:37)
[2017-12-31] MEDS ORDERED: Iodixanol 320 MG/ML 200 ML BOTTLE IV ONE (14:37)
--- NOTE | 2017-12-31 15:18 | PCM.SURG1 ---
Surgeon's Initial Post Op Note - Surgeon's Notes Surgeon: edward Bridal Stylist Sales Consultant: 0 Type of Anesthesia: IV Sedation Anesthesia Administered By: isa Pre-Operative Diagnosis: pvd ulcer of foot Operative Findings: severe tibial disease with posterior tibial open to foot. peroneal and anterior tibial occluded on left. pressure closure right groin Post-Operative Diagnosis: same Operation Performed: aortofemoral angiogram via right groin. selective catherization left femoral artery. no intervention Specimen/Specimens Removed: 0 Estimated Blood Loss: EBL {In ML}: 10 Blood Products Given: N/A Drains Used: No Drains Post-Op Condition: Good Date of Surgery/Procedure: 12/31/17 Time of Surgery/Procedure: 15:19
[2017-12-31] MEDS: Dextrose 5%/0.45% NS 1,000 ML IV SCH (15:30)
[2017-12-31] MEDS: GlipiZIDE 10 mg SR Tab PO SCH (17:37)
[2017-12-31] MEDS ORDERED: Fluticasone-Salmeterol 500-50mcg Diskus INH SCH (18:00)
--- NOTE | 2017-12-31 18:21 | CP.PCM.PN ---
Subjective - Date & Time of Evaluation Date of Evaluation: 12/31/17 Time of Evaluation: 18:19 - Subjective Subjective: INFECTIOUS DISEASE PROGRESS NOTES KELSI GAMBOA MD, FACP 3T 352-A 12/31/2017 CHART REVIEWED PT EXAMINED CASE DISCUSSED S/P ANGIOGRAM, NO BALLONING OR STENTING NEEDED, APPARENTLY RX; CONTINUE IV ANTIBIOTICS FOR NOW, LENGTH OF TIME DETERMINED BY EXTENT OF THE INFECTION AND FINDINGS AT SURGERY. Objective - Vital Signs/Intake and Output Vital Signs (last 24 hours): Temp Pulse Resp BP Pulse Ox 98.3 F 71 20 163/69 H 96 12/31/17 07:25 12/31/17 07:25 12/31/17 07:25 12/31/17 09:34 12/31/17 07:25 Intake and Output: 12/31/17 12/31/17 06:59 18:59 Intake Total 150 50 Balance 150 50 - Medications Medications: Current Medications Albuterol/Ipratropium (Duoneb 3 Mg/0.5 Mg (3 Ml) Ud) 3 ml INH RQ6 PRN PRN Reason: Wheezing Last Admin: 12/30/17 19:52 Dose: 3 ml Baclofen (Lioresal) 10 mg PO DAILY [facility] Last Admin: 12/31/17 09:42 Dose: 10 mg Ferrous Sulfate (Feosol) 325 mg PO DAILY [facility] Furosemide (Lasix) 40 mg PO DAILY [facility] Last Admin: 12/31/17 09:34 Dose: 40 mg Glipizide (Glucotrol Xl) 10 mg PO BIDCC [facility] Last Admin: 12/31/17 17:37 Dose: 10 mg Heparin Sodium (Porcine) (Heparin) 5,000 units SC Q12 [facility] Last Admin: 12/31/17 09:56 Dose: Not Given Home Med (Patient's Own Medication) 1 tab PO PCS [facility] Last Admin: 12/31/17 17:37 Dose: 1 tab Hydralazine HCl (Apresoline) 50 mg PO BID [facility] Last Admin: 12/31/17 17:37 Dose: 50 mg Ceftriaxone Sodium 2 gm/ (Sodium Chloride) 100 mls @ 100 mls/hr IVPB Q24H [facility] PRN Reason: Protocol Last Admin: 12/30/17 19:12 Dose: 100 mls/hr Metronidazole (Flagyl) 500 mg in 100 mls @ 100 mls/hr IVPB Q8 [facility] PRN Reason: Protocol Last Admin: 12/31/17 14:01 Dose: Not Given Potassium Chloride/Dextrose (Potassium Chl 20 Meq In D5w) 1,000 mls @ 80 mls/ hr IV .[id number] [facility] Last Admin: 12/31/17 12:06 Dose: 80 mls/hr Dextrose/Sodium Chloride (Dextrose 5%/0.45% Ns 1000 Ml) 1,000 mls @ 100 mls/hr IV .Q10H [facility] Last Admin: 12/31/17 15:30 Dose: Not Given Insulin Human NPH (Novolin N) 40 unit SC QAM [facility] Last Admin: 12/31/17 09:51 Dose: Not Given Insulin Human Regular (Novolin R) 0 unit SC ACHS [facility] PRN Reason: Protocol Last Admin: 12/31/17 17:03 Dose: 6 units Levothyroxine Sodium (Synthroid) 125 mcg PO DAILY@0630 [facility] Last Admin: 12/31/17 05:32 Dose: 125 mcg Montelukast Sodium (Singulair) 10 mg PO HS [facility] Last Admin: 12/30/17 21:08 Dose: 10 mg Multivitamins (Hexavitamin) 1 tab PO DAILY [facility] Mupirocin (Bactroban Ointment) 0 gm TOP DAILY [facility] Last Admin: 12/31/17 10:47 Dose: Not Given Nebivolol (Bystolic) 10 mg PO DAILY [facility] Last Admin: 12/31/17 09:35 Dose: 10 mg Pantoprazole Sodium (Protonix Ec Tab) 40 mg PO DAILY [facility] Last Admin: 12/31/17 09:34 Dose: 40 mg Prednisone (Prednisone Tab) 10 mg PO DAILY [facility] Last Admin: 12/31/17 09:34 Dose: 10 mg Rosuvastatin Calcium (Crestor) 20 mg PO HS [facility] Last Admin: 12/30/17 21:08 Dose: 20 mg Fluticasone/Salmeterol (Advair Diskus 500/50) 1 puff INH RQ12 [facility] Last Admin: 12/31/17 09:32 Dose: 1 puff Topiramate (Topamax) 25 mg PO BID [facility] Last Admin: 12/31/17 17:37 Dose: 25 mg Zolpidem Tartrate (Ambien) 5 mg PO HS PRN PRN Reason: Insomnia - Labs Labs: 12/31/17 06:35 12/31/17 06:35 PT 13.3 SECONDS (9.7-12.2) H 12/30/17 06:24 INR 1.2 12/30/17 06:24 APTT 32 SECONDS (21-34) 12/30/17 06:24 - Constitutional Appears: Non-toxic, Chronically Ill - Head Exam Head Exam: NORMAL INSPECTION - Eye Exam Eye Exam: Normal appearance - ENT Exam ENT Exam: Mucous Membranes Moist - Neck Exam Neck Exam: Normal Inspection - Respiratory Exam Respiratory Exam: Decreased Breath Sounds, NORMAL BREATHING PATTERN - Cardiovascular Exam Cardiovascular Exam: REGULAR RHYTHM - GI/Abdominal Exam GI & Abdominal Exam: Soft, Normal Bowel Sounds. absent: Distended, Firm, Guarding, Rigid, Tenderness, Organomegaly, Rebound - Rectal Exam Rectal Exam: Deferred - Neurological Exam Neurological Exam: Alert, Awake - Psychiatric Exam Psychiatric exam: Normal Affect - Skin Skin Exam: Warm Assessment and Plan (1) Osteomyelitis of toe of left foot Status: Acute (2) Diabetes 1.5, managed as type 2 Status: Chronic (3) Asthma Status: Chronic (4) Pulmonary arterial hypertension Status: Chronic (5) HTN (hypertension), benign Status: Chronic
[2017-12-31] MEDS: cefTRIAXone 2 GM in Sodium Chloride 0.9% 100 ML IVPB SCH (19:37)
[2018-01-01] MEDS: Potassium Ch 20mEq in D5W 1,000 ML IV SCH ×2 (00:43→12:11)
[2018-01-01] MEDS: Dextrose 5%/0.45% NS 1,000 ML IV SCH ×3 (01:30→21:30)
[2018-01-01] MEDS: Levothyroxine 125 MCG TAB PO SCH (05:32)
[2018-01-01] MEDS: metroNIDAZOLE IV 500 mg/100 ml 500 MG/100 ML BAG IVPB SCH ×3 (05:32→21:55)
[2018-01-01 06:30] LABS: BASO % 0.6 % (0.0-2.0); EOS # 0.3 K/uL (0.0-0.7); EOS % 4.2 % (0.0-4.0); HEMOGLOBIN 8.4 g/dL (11.0-16.0); LYMPH # 0.9 K/uL (1.0-4.3); LYMPH % 12.7 % (20.0-40.0); MEAN CELL VOLUME 82.5 fL (81.0-99.0); MEAN CORPUSCULAR HEMOGLOBIN 26.6 pg (27.0-31.0); MEAN CORPUSCULAR HGB CONC 32.3 g/dL (33.0-37.0); MEAN PLATELET VOLUME 10.7 fL (7.2-11.7); MONO # 0.6 K/uL (0.0-0.8); MONO % 9.4 % (0.0-10.0); NEUT # 4.9 K/uL (1.8-7.0); NEUT % 73.1 % (50.0-75.0); RBC 3.16 Mil/uL (3.80-5.20); RED CELL DISTRIBUTION WIDTH 15.9 % (11.5-14.5); WHITE BLOOD COUNT 6.7 K/uL (4.8-10.8)
[2018-01-01 07:12] LABS: ALB/GLOB RATIO 1.3 (1.0-2.1); ALBUMIN 3.1 g/dL (3.5-5.0); ALT/SGPT 47 U/L (9-52); AST/SGOT 25 U/L (14-36); BLOOD UREA NITROGEN 15 mg/dL (7-17); CALCIUM 7.7 mg/dl (8.6-10.4); GFR AFRICAN-AMERICAN 53; GFR NON-AFRICAN AMERICAN 44
--- NOTE | 2018-01-01 08:14 | CP.PCM.PN ---
Subjective - Date & Time of Evaluation Date of Evaluation: 01/01/18 Time of Evaluation: 08:11 - Subjective Subjective: Vascular Surgery: Dr. Bush Pt seen and examined. No acute overnight events. States she feels well this morning. She denies pain & states she doesn't have any complaints at this time. Tolerating diet & denies N/v, F/C. Objective - Vital Signs/Intake and Output Vital Signs (last 24 hours): Temp Pulse Resp BP Pulse Ox 98.8 F 61 20 162/65 H 98 01/01/18 07:01 01/01/18 07:01 01/01/18 07:01 01/01/18 07:01 01/01/18 07:01 Intake and Output: 01/01/18 01/01/18 06:59 18:59 Intake Total 840 Balance 840 - Medications Medications: Current Medications Albuterol/Ipratropium (Duoneb 3 Mg/0.5 Mg (3 Ml) Ud) 3 ml INH RQ6 PRN PRN Reason: Wheezing Last Admin: 12/30/17 19:52 Dose: 3 ml Baclofen (Lioresal) 10 mg PO DAILY [facility] Last Admin: 12/31/17 09:42 Dose: 10 mg Ferrous Sulfate (Feosol) 325 mg PO DAILY [facility] Furosemide (Lasix) 40 mg PO DAILY [facility] Last Admin: 12/31/17 09:34 Dose: 40 mg Glipizide (Glucotrol Xl) 10 mg PO BIDCC [facility] Last Admin: 12/31/17 17:37 Dose: 10 mg Heparin Sodium (Porcine) (Heparin) 5,000 units SC Q12 [facility] Last Admin: 12/31/17 22:16 Dose: 5,000 units Home Med (Patient's Own Medication) 1 tab PO PCS [facility] Last Admin: 12/31/17 17:37 Dose: 1 tab Hydralazine HCl (Apresoline) 50 mg PO BID [facility] Last Admin: 12/31/17 17:37 Dose: 50 mg Ceftriaxone Sodium 2 gm/ (Sodium Chloride) 100 mls @ 100 mls/hr IVPB Q24H [facility] PRN Reason: Protocol Last Admin: 12/31/17 19:37 Dose: 100 mls/hr Metronidazole (Flagyl) 500 mg in 100 mls @ 100 mls/hr IVPB Q8 [facility] PRN Reason: Protocol Last Admin: 01/01/18 05:32 Dose: 100 mls/hr Potassium Chloride/Dextrose (Potassium Chl 20 Meq In D5w) 1,000 mls @ 80 mls/ hr IV .[id number] [facility] Last Admin: 01/01/18 00:43 Dose: 80 mls/hr Dextrose/Sodium Chloride (Dextrose 5%/0.45% Ns 1000 Ml) 1,000 mls @ 100 mls/hr IV .Q10H [facility] Last Admin: 01/01/18 01:30 Dose: Not Given Insulin Human NPH (Novolin N) 40 unit SC QAM [facility] Last Admin: 12/31/17 09:51 Dose: Not Given Insulin Human Regular (Novolin R) 0 unit SC ACHS [facility] PRN Reason: Protocol Last Admin: 12/31/17 22:19 Dose: 3 units Levothyroxine Sodium (Synthroid) 125 mcg PO DAILY@0630 [facility] Last Admin: 01/01/18 05:32 Dose: 125 mcg Montelukast Sodium (Singulair) 10 mg PO HS [facility] Last Admin: 12/31/17 22:17 Dose: 10 mg Multivitamins (Hexavitamin) 1 tab PO DAILY [facility] Mupirocin (Bactroban Ointment) 0 gm TOP DAILY [facility] Last Admin: 12/31/17 10:47 Dose: Not Given Nebivolol (Bystolic) 10 mg PO DAILY [facility] Last Admin: 12/31/17 09:35 Dose: 10 mg Pantoprazole Sodium (Protonix Ec Tab) 40 mg PO DAILY [facility] Last Admin: 12/31/17 09:34 Dose: 40 mg Prednisone (Prednisone Tab) 10 mg PO DAILY [facility] Last Admin: 12/31/17 09:34 Dose: 10 mg Rosuvastatin Calcium (Crestor) 20 mg PO HS [facility] Last Admin: 12/31/17 22:16 Dose: 20 mg Fluticasone/Salmeterol (Advair Diskus 500/50) 1 puff INH RQ12 [facility] Last Admin: 12/31/17 09:32 Dose: 1 puff Topiramate (Topamax) 25 mg PO BID [facility] Last Admin: 12/31/17 17:37 Dose: 25 mg Zolpidem Tartrate (Ambien) 5 mg PO HS PRN PRN Reason: Insomnia Last Admin: 12/31/17 22:19 Dose: 5 mg - Labs Labs: 01/01/18 06:18 01/01/18 06:18 PT 13.3 SECONDS (9.7-12.2) H 12/30/17 06:24 INR 1.2 12/30/17 06:24 APTT 32 SECONDS (21-34) 12/30/17 06:24 - Constitutional Appears: Well, No Acute Distress - Head Exam Head Exam: ATRAUMATIC, NORMOCEPHALIC - Eye Exam Eye Exam: Normal appearance - ENT Exam ENT Exam: Mucous Membranes Moist - Respiratory Exam Respiratory Exam: NORMAL BREATHING PATTERN - Cardiovascular Exam Cardiovascular Exam: RRR - GI/Abdominal Exam GI & Abdominal Exam: Soft. absent: Tenderness Additional comments: reducible umbilical hernia - Extremities Exam Additional comments: R groin with dressing; clean, dry, intact. - Neurological Exam Neurological Exam: Alert, Awake, Oriented x3 - Skin Skin Exam: Dry, Warm Assessment and Plan - Assessment and Plan (Free Text) Assessment: 72F s/p peripheral angio Plan: - No further vascular surgical intervention at this time - further management of L hallux per podiatry - d/w Dr. Eleazar Forbes, PGY-3
[2018-01-01] MEDS: (Novolin R) Insulin Human Regular 100 units/ml vial SC SCH ×5 (08:26→21:56)
[2018-01-01] MEDS: GlipiZIDE 10 mg SR Tab PO SCH ×2 (08:55→17:45)
--- NOTE | 2018-01-01 09:44 | VAS ---
DATE: 12/31/2017 PREOPERATIVE DIAGNOSIS: Ischemic ulcer, potential gangrene, left great toe. PROCEDURE CARRIED OUT: Aortofemoral angiogram via right groin with selective catheterization of left femoral artery. No intervention. SURGEON: Steve Bush Jr., MD MARKET ANALYSIS DIRECTOR: None. ANESTHESIOLOGIST: Ms. Cheng. ANESTHESIA: Local with sedation. INDICATIONS: The patient is a middle-aged diabetic woman with an ischemic ulcer on the left great toe proximal hallux. OPERATIVE FINDINGS: The aorta, renal arteries, iliac arteries, common iliac arteries, internal iliac arteries, and external iliac arteries were widely patent. The superficial femoral arteries, common femoral arteries, and profunda femoris arteries were widely patent. Both popliteal arteries were widely patent. Detailed pictures of the tibial vessels were not obtained on the right. On the left side, they showed that the trifurcation was intact over the anterior tibial artery, was diffusely sclerotic and occluded in its mid segment with no reconstitution of vessel distally. The peroneal artery out in the second half without any residual vessels. The posterior tibial was a major vessel that continued into the foot and continued into the arch. There was no evidence of significant stenosis or occlusion throughout its course. After completing the diagnostic arteriogram, catheter was removed. The procedure was terminated. Blood loss for the procedure was 10 mL. Operation carried out aortofemoral angiogram with selective catheterization of left femoral artery. Steve Bush Jr., MD
[2018-01-01] MEDS: Pantoprazole 40 mg EC Tab PO SCH (09:56)
[2018-01-01] MEDS: (Novolin N) Insulin Human Isophane (NPH) 100 u/ml 10 ml vial SC SCH (09:56)
[2018-01-01] MEDS: Multiple Vitamins Tab PO SCH (09:56)
[2018-01-01] MEDS ORDERED: Levothyroxine 125 MCG TAB PO SCH (10:00)
--- NOTE | 2018-01-01 10:52 | CP.PCM.PN ---
Subjective - Date & Time of Evaluation Date of Evaluation: 01/01/18 Time of Evaluation: 10:49 - Subjective Subjective: Podiatry Progress Note - Dr. Peña 72 y/o female seen at bedside with attending Dr. Peña concerning left plantar hallux ulceration. Pt denies having any pain to the left big toe. States she had her angiogram done yesterday and was told that she has some blockages but does not need any more vascular procedures at this time. Denies any F/C/N/V/CP/ SOB. She denies any acute overnight events. She states that she is agreeable to toe amputation as recommended by Dr. Peña. Objective - Vital Signs/Intake and Output Vital Signs (last 24 hours): Temp Pulse Resp BP Pulse Ox 98.8 F 61 20 162/65 H 98 01/01/18 07:01 01/01/18 07:01 01/01/18 07:01 01/01/18 09:55 01/01/18 07:01 Intake and Output: 01/01/18 01/01/18 06:59 18:59 Intake Total 840 Balance 840 - Medications Medications: Current Medications Albuterol/Ipratropium (Duoneb 3 Mg/0.5 Mg (3 Ml) Ud) 3 ml INH RQ6 PRN PRN Reason: Wheezing Last Admin: 12/30/17 19:52 Dose: 3 ml Baclofen (Lioresal) 10 mg PO DAILY [facility] Last Admin: 01/01/18 09:55 Dose: 10 mg Ferrous Sulfate (Feosol) 325 mg PO DAILY [facility] Last Admin: 01/01/18 09:56 Dose: 325 mg Furosemide (Lasix) 40 mg PO DAILY [facility] Last Admin: 01/01/18 09:55 Dose: 40 mg Glipizide (Glucotrol Xl) 10 mg PO BIDCC [facility] Last Admin: 01/01/18 08:55 Dose: 10 mg Heparin Sodium (Porcine) (Heparin) 5,000 units SC Q12 [facility] Last Admin: 01/01/18 09:56 Dose: 5,000 units Home Med (Patient's Own Medication) 1 tab PO PCS [facility] Last Admin: 12/31/17 17:37 Dose: 1 tab Hydralazine HCl (Apresoline) 50 mg PO BID [facility] Last Admin: 01/01/18 09:56 Dose: 50 mg Ceftriaxone Sodium 2 gm/ (Sodium Chloride) 100 mls @ 100 mls/hr IVPB Q24H [facility] PRN Reason: Protocol Last Admin: 12/31/17 19:37 Dose: 100 mls/hr Metronidazole (Flagyl) 500 mg in 100 mls @ 100 mls/hr IVPB Q8 [facility] PRN Reason: Protocol Last Admin: 01/01/18 05:32 Dose: 100 mls/hr Potassium Chloride/Dextrose (Potassium Chl 20 Meq In D5w) 1,000 mls @ 80 mls/ hr IV .[id number] [facility] Last Admin: 01/01/18 00:43 Dose: 80 mls/hr Dextrose/Sodium Chloride (Dextrose 5%/0.45% Ns 1000 Ml) 1,000 mls @ 100 mls/hr IV .Q10H [facility] Last Admin: 01/01/18 01:30 Dose: Not Given Insulin Human NPH (Novolin N) 40 unit SC QAM [facility] Last Admin: 01/01/18 09:56 Dose: 40 units Insulin Human Regular (Novolin R) 0 unit SC ACHS [facility] PRN Reason: Protocol Last Admin: 01/01/18 08:26 Dose: 4 units Levothyroxine Sodium (Synthroid) 125 mcg PO DAILY@0630 [facility] Last Admin: 01/01/18 05:32 Dose: 125 mcg Montelukast Sodium (Singulair) 10 mg PO [facility] Last Admin: 12/31/17 22:17 Dose: 10 mg Multivitamins (Hexavitamin) 1 tab PO DAILY [facility] Last Admin: 01/01/18 09:56 Dose: 1 tab Mupirocin (Bactroban Ointment) 0 gm TOP DAILY [facility] Last Admin: 12/31/17 10:47 Dose: Not Given Nebivolol (Bystolic) 10 mg PO DAILY [facility] Last Admin: 01/01/18 09:55 Dose: 10 mg Pantoprazole Sodium (Protonix Ec Tab) 40 mg PO DAILY [facility] Last Admin: 01/01/18 09:56 Dose: 40 mg Prednisone (Prednisone Tab) 10 mg PO DAILY [facility] Last Admin: 01/01/18 09:56 Dose: 10 mg Rosuvastatin Calcium (Crestor) 20 mg PO [facility] Last Admin: 12/31/17 22:16 Dose: 20 mg Fluticasone/Salmeterol (Advair Diskus 500/50) 1 puff INH RQ12 [facility] Last Admin: 12/31/17 09:32 Dose: 1 puff Topiramate (Topamax) 25 mg PO BID [facility] Last Admin: 01/01/18 09:56 Dose: 25 mg Zolpidem Tartrate (Ambien) 5 mg PO HS PRN PRN Reason: Insomnia Last Admin: 12/31/17 22:19 Dose: 5 mg - Labs Labs: 01/01/18 06:18 01/01/18 06:18 PT 13.3 SECONDS (9.7-12.2) H 12/30/17 06:24 INR 1.2 12/30/17 06:24 APTT 32 SECONDS (21-34) 12/30/17 06:24 - Constitutional Appears: Well, Non-toxic, No Acute Distress - Extremities Exam Additional comments: Lower extremity focused exam. Dressings clean, dry, and intact. Vasc: DP/PT pulses palpable 2/4. Temperature gradient warm to cool. CFT < 3 sec to all digits. No pedal edema noted Derm: Left plantar hallux circular ulceration measuring 1cm in diameter and approx 0.3cm depth with hyperkeratotic wound borders and mild necrotic skin changes to arturo wound. Arturo wound negative for erythema. No fluctuance, no malodor, negative probe to bone, no tunneling or undermining noted. Hyperkeratosis noted to distal tip of right foot 2nd digit with no evidence of underlying ulceration present Neuro: Protective sensation grossly intact Ortho: No tenderness to palpation of L hallux ulceration site - Neurological Exam Neurological Exam: Alert, Awake, Oriented x3 - Psychiatric Exam Psychiatric exam: Normal Affect, Normal Mood Assessment and Plan - Assessment and Plan (Free Text) Assessment: 72 y/o female with left plantar hallux ulceration with chronic osteomyelitis Plan: Pt seen and evaluated at bedside with attending Dr. Peña Labs and vitals reviewed- afebrile, no leukocytosis Wound culture taken of L hallux - Corynebacterium species Tri-phasic bone scan- positive for hallux osteomyelitis, no extension into 1st metatarsal. Intervention: Planning for left hallux amputation Cardiac Clearance request - pending Medical clearance in chart Ulceration site cleansed with saline and dressed with Bactroban, 4x4 and DSD Vascular team s/p peripheral angio with no further vascular surgical intervention planned Pt is agreeable to surgery at this time Medical management per primary team Continue IV abx per ID recommendations Podiatry will continue to follow patient while in house
[2018-01-01] MEDS: Fluticasone-Salmeterol 500-50mcg Diskus INH SCH ×2 (10:55→19:25)
--- NOTE | 2018-01-01 13:13 | CP.PCM.PN ---
Subjective - Date & Time of Evaluation Date of Evaluation: 01/01/18 Time of Evaluation: 13:09 - Subjective Subjective: INFECTIOUS DISEASE PROGRESS NOTES KELSI GAMBOA MD, FACP 3T 352-A 01/01/2018 CHART REVIEWED PT EXAMINED CASE DISCUSSED WITH RN, PT, AND DAUGHTER 72 y/o female seen at bedside with attending Dr. Peña concerning left plantar hallux ulceration. Pt denies having any pain to the left big toe. Denies any F/C/N/V/CP/SOB. She denies any acute overnight events. She states that she is agreeable to toe amputation as recommended by Dr. Peña. FOR COVERAGE PENDING AMPUTATION VIBATIV X 3 DAYS OR SO FLAGYL & ROCEPHIN. LOOKS MORE STABLE, WILL NEED MORE RESPIRATORY THERAPY Objective - Vital Signs/Intake and Output Vital Signs (last 24 hours): Temp Pulse Resp BP Pulse Ox 98.8 F 61 20 162/65 H 98 01/01/18 07:01 01/01/18 07:01 01/01/18 07:01 01/01/18 09:55 01/01/18 07:01 Intake and Output: 01/01/18 01/01/18 06:59 18:59 Intake Total 840 Balance 840 - Medications Medications: Current Medications Albuterol/Ipratropium (Duoneb 3 Mg/0.5 Mg (3 Ml) Ud) 3 ml INH RQ6 PRN PRN Reason: Wheezing Last Admin: 12/30/17 19:52 Dose: 3 ml Baclofen (Lioresal) 10 mg PO DAILY [facility] Last Admin: 01/01/18 09:55 Dose: 10 mg Ferrous Sulfate (Feosol) 325 mg PO DAILY [facility] Last Admin: 01/01/18 09:56 Dose: 325 mg Furosemide (Lasix) 40 mg PO DAILY [facility] Last Admin: 01/01/18 09:55 Dose: 40 mg Glipizide (Glucotrol Xl) 10 mg PO BIDCC [facility] Last Admin: 01/01/18 08:55 Dose: 10 mg Heparin Sodium (Porcine) (Heparin) 5,000 units SC Q12 [facility] Last Admin: 01/01/18 09:56 Dose: 5,000 units Home Med (Patient's Own Medication) 1 tab PO PCS [facility] Last Admin: 12/31/17 17:37 Dose: 1 tab Hydralazine HCl (Apresoline) 50 mg PO BID [facility] Last Admin: 01/01/18 09:56 Dose: 50 mg Ceftriaxone Sodium 2 gm/ (Sodium Chloride) 100 mls @ 100 mls/hr IVPB Q24H [facility] PRN Reason: Protocol Last Admin: 12/31/17 19:37 Dose: 100 mls/hr Metronidazole (Flagyl) 500 mg in 100 mls @ 100 mls/hr IVPB Q8 [facility] PRN Reason: Protocol Last Admin: 01/01/18 05:32 Dose: 100 mls/hr Potassium Chloride/Dextrose (Potassium Chl 20 Meq In D5w) 1,000 mls @ 80 mls/ hr IV .[id number] [facility] Last Admin: 01/01/18 12:11 Dose: Not Given Dextrose/Sodium Chloride (Dextrose 5%/0.45% Ns 1000 Ml) 1,000 mls @ 100 mls/hr IV .Q10H [facility] Last Admin: 01/01/18 11:59 Dose: Not Given Telavancin 500 mg/ Sodium (Chloride) 100 mls @ 100 mls/hr IVPB Q24H [facility] PRN Reason: Protocol Stop: 01/04/18 14:01 Insulin Human NPH (Novolin N) 40 unit SC QAM [facility] Last Admin: 01/01/18 09:56 Dose: 40 units Insulin Human Regular (Novolin R) 0 unit SC ACHS [facility] PRN Reason: Protocol Last Admin: 01/01/18 12:30 Dose: Not Given Levothyroxine Sodium (Synthroid) 125 mcg PO DAILY@0630 [facility] Last Admin: 01/01/18 05:32 Dose: 125 mcg Montelukast Sodium (Singulair) 10 mg PO HS [facility] Last Admin: 12/31/17 22:17 Dose: 10 mg Multivitamins (Hexavitamin) 1 tab PO DAILY [facility] Last Admin: 01/01/18 09:56 Dose: 1 tab Mupirocin (Bactroban Ointment) 0 gm TOP DAILY [facility] Last Admin: 01/01/18 10:50 Dose: 1 applic Nebivolol (Bystolic) 10 mg PO DAILY [facility] Last Admin: 01/01/18 09:55 Dose: 10 mg Pantoprazole Sodium (Protonix Ec Tab) 40 mg PO DAILY [facility] Last Admin: 01/01/18 09:56 Dose: 40 mg Prednisone (Prednisone Tab) 10 mg PO DAILY [facility] Last Admin: 01/01/18 09:56 Dose: 10 mg Rosuvastatin Calcium (Crestor) 20 mg PO HS [facility] Last Admin: 12/31/17 22:16 Dose: 20 mg Fluticasone/Salmeterol (Advair Diskus 500/50) 1 puff INH RQ12 [facility] Last Admin: 01/01/18 10:55 Dose: 1 puff Topiramate (Topamax) 25 mg PO BID [facility] Last Admin: 01/01/18 09:56 Dose: 25 mg Zolpidem Tartrate (Ambien) 5 mg PO HS PRN PRN Reason: Insomnia Last Admin: 12/31/17 22:19 Dose: 5 mg - Labs Labs: 01/01/18 06:18 01/01/18 06:18 PT 13.3 SECONDS (9.7-12.2) H 12/30/17 06:24 INR 1.2 12/30/17 06:24 APTT 32 SECONDS (21-34) 12/30/17 06:24 Assessment and Plan (1) Osteomyelitis of toe of left foot Status: Acute (2) Diabetes 1.5, managed as type 2 Status: Chronic (3) Asthma Status: Chronic (4) Pulmonary arterial hypertension Status: Chronic (5) HTN (hypertension), benign Status: Chronic
[2018-01-01] MEDS: SODIUM CHLORIDE 0.9% IVPB SCH (13:57)
[2018-01-01] MEDS: TELAVANCIN HYDROCHLORIDE IVPB SCH (13:57)
[2018-01-01] MEDS: cefTRIAXone 2 GM in Sodium Chloride 0.9% 100 ML IVPB SCH (21:57)
[2018-01-02] MEDS: Dextrose 5%/0.45% NS 1,000 ML IV SCH ×3 (05:31→17:30)
[2018-01-02] MEDS: metroNIDAZOLE IV 500 mg/100 ml 500 MG/100 ML BAG IVPB SCH ×3 (05:33→21:45)
[2018-01-02] MEDS: Levothyroxine 125 MCG TAB PO SCH (05:34)
[2018-01-02] MEDS: (Novolin R) Insulin Human Regular 100 units/ml vial SC SCH ×4 (08:06→22:27)
[2018-01-02] MEDS: GlipiZIDE 10 mg SR Tab PO SCH ×2 (08:07→17:51)
[2018-01-02] MEDS: Pantoprazole 40 mg EC Tab PO SCH (09:37)
[2018-01-02] MEDS: Multiple Vitamins Tab PO SCH (09:37)
--- NOTE | 2018-01-02 09:49 | CP.PCM.PN ---
Subjective - Date & Time of Evaluation Date of Evaluation: 01/02/18 Time of Evaluation: 09:47 - Subjective Subjective: Podiatry Progress Note - Dr. Peña 72 y/o female seen at bedside this morning concerning left plantar hallux ulceration. Has no pain to the lower extremities today. Pt is resting comfortably upright in bed in NAD. Awaits further plan on when she may go for surgery for the toe. Denies any F/C/N/V/CP/SOB. She denies any acute overnight events. Objective - Vital Signs/Intake and Output Vital Signs (last 24 hours): Temp Pulse Resp BP Pulse Ox 98.6 F 74 20 194/77 H 98 01/02/18 08:13 01/02/18 08:13 01/02/18 08:13 01/02/18 09:37 01/02/18 08:13 Intake and Output: 01/02/18 01/02/18 06:59 18:59 Intake Total 300 Balance 300 - Medications Medications: Current Medications Albuterol/Ipratropium (Duoneb 3 Mg/0.5 Mg (3 Ml) Ud) 3 ml INH RQ6 PRN PRN Reason: Wheezing Last Admin: 12/30/17 19:52 Dose: 3 ml Baclofen (Lioresal) 10 mg PO DAILY [facility] Last Admin: 01/02/18 09:37 Dose: 10 mg Ferrous Sulfate (Feosol) 325 mg PO DAILY [facility] Last Admin: 01/02/18 09:37 Dose: 325 mg Furosemide (Lasix) 40 mg PO DAILY [facility] Last Admin: 01/02/18 09:37 Dose: 40 mg Glipizide (Glucotrol Xl) 10 mg PO BIDCC [facility] Last Admin: 01/02/18 08:07 Dose: 10 mg Heparin Sodium (Porcine) (Heparin) 5,000 units SC Q12 [facility] Last Admin: 01/02/18 09:38 Dose: 5,000 units Home Med (Patient's Own Medication) 1 tab PO PCS [facility] Last Admin: 01/01/18 17:50 Dose: 1 tab Hydralazine HCl (Apresoline) 50 mg PO BID [facility] Last Admin: 01/02/18 09:37 Dose: 50 mg Ceftriaxone Sodium 2 gm/ (Sodium Chloride) 100 mls @ 100 mls/hr IVPB Q24H [facility] PRN Reason: Protocol Last Admin: 01/01/18 21:57 Dose: 100 mls/hr Metronidazole (Flagyl) 500 mg in 100 mls @ 100 mls/hr IVPB Q8 [facility] PRN Reason: Protocol Last Admin: 01/02/18 05:33 Dose: 100 mls/hr Potassium Chloride/Dextrose (Potassium Chl 20 Meq In D5w) 1,000 mls @ 80 mls/ hr IV .[id number] [facility] Last Admin: 01/02/18 00:00 Dose: Not Given Dextrose/Sodium Chloride (Dextrose 5%/0.45% Ns 1000 Ml) 1,000 mls @ 100 mls/hr IV .Q10H [facility] Last Admin: 01/02/18 05:31 Dose: 100 mls/hr Telavancin 500 mg/ Sodium (Chloride) 100 mls @ 100 mls/hr IVPB Q24H [facility] PRN Reason: Protocol Stop: 01/04/18 14:01 Last Admin: 01/01/18 13:57 Dose: 100 mls/hr Insulin Human NPH (Novolin N) 40 unit SC QAM [facility] Last Admin: 01/01/18 09:56 Dose: 40 units Insulin Human Regular (Novolin R) 0 unit SC ACHS [facility] PRN Reason: Protocol Last Admin: 01/02/18 08:06 Dose: 2 units Levothyroxine Sodium (Synthroid) 125 mcg PO DAILY@0630 [facility] Last Admin: 01/02/18 05:34 Dose: 125 mcg Montelukast Sodium (Singulair) 10 mg PO [facility] Last Admin: 01/01/18 22:00 Dose: 10 mg Multivitamins (Hexavitamin) 1 tab PO DAILY [facility] Last Admin: 01/02/18 09:37 Dose: 1 tab Mupirocin (Bactroban Ointment) 0 gm TOP DAILY [facility] Last Admin: 01/01/18 10:50 Dose: 1 applic Nebivolol (Bystolic) 10 mg PO DAILY [facility] Last Admin: 01/02/18 09:37 Dose: 10 mg Pantoprazole Sodium (Protonix Ec Tab) 40 mg PO DAILY [facility] Last Admin: 01/02/18 09:37 Dose: 40 mg Prednisone (Prednisone Tab) 10 mg PO DAILY [facility] Last Admin: 01/02/18 09:37 Dose: 10 mg Rosuvastatin Calcium (Crestor) 20 mg PO HS [facility] Last Admin: 01/01/18 21:54 Dose: 20 mg Fluticasone/Salmeterol (Advair Diskus 500/50) 1 puff INH RQ12 [facility] Last Admin: 01/01/18 19:25 Dose: 1 puff Topiramate (Topamax) 25 mg PO BID [facility] Last Admin: 01/02/18 09:37 Dose: 25 mg Zolpidem Tartrate (Ambien) 5 mg PO HS PRN PRN Reason: Insomnia Last Admin: 01/01/18 22:01 Dose: 5 mg - Labs Labs: 01/01/18 06:18 01/01/18 06:18 PT 13.3 SECONDS (9.7-12.2) H 12/30/17 06:24 INR 1.2 12/30/17 06:24 APTT 32 SECONDS (21-34) 12/30/17 06:24 - Constitutional Appears: Well, Non-toxic, No Acute Distress - Extremities Exam Additional comments: Lower extremity focused exam. Dressings clean, dry, and intact. Vasc: DP/PT pulses palpable 2/4. Temperature gradient warm to cool. CFT < 3 sec to all digits. No pedal edema noted Derm: Left plantar hallux circular ulceration measuring 1cm in diameter and approx 0.3cm depth with hyperkeratotic wound borders and mild necrotic skin changes to arturo wound. Arturo wound negative for erythema. No fluctuance, no malodor, negative probe to bone, no tunneling or undermining noted. Hyperkeratosis noted to distal tip of right foot 2nd digit with no evidence of underlying ulceration present Neuro: Protective sensation grossly intact Ortho: No tenderness to palpation of L hallux ulceration site - Neurological Exam Neurological Exam: Alert, Awake, Oriented x3 - Psychiatric Exam Psychiatric exam: Normal Affect, Normal Mood Assessment and Plan - Assessment and Plan (Free Text) Assessment: 72 y/o female with left plantar hallux ulceration with chronic osteomyelitis Plan: Pt seen and evaluated at bedside Discussed plan with attending Dr. Peña Labs and vitals reviewed- afebrile, no leukocytosis Wound culture taken of L hallux - Corynebacterium species Tri-phasic bone scan- positive for hallux osteomyelitis, no extension into 1st metatarsal. Intervention: Planning for left hallux amputation Cardiac Clearance request - pending Medical clearance in chart Ulceration site cleansed with saline and dressed with Bactroban, 4x4 and DSD Vascular team s/p peripheral angio with no further vascular surgical intervention planned Pt is agreeable to surgery at this time Medical management per primary team Continue IV abx per ID recommendations Podiatry will continue to follow patient while in house
[2018-01-02] MEDS: (Novolin N) Insulin Human Isophane (NPH) 100 u/ml 10 ml vial SC SCH (10:21)
[2018-01-02] MEDS: Fluticasone-Salmeterol 500-50mcg Diskus INH SCH ×2 (10:22→19:37)
[2018-01-02] MEDS: SODIUM CHLORIDE 0.9% IVPB SCH (13:33)
[2018-01-02] MEDS: TELAVANCIN HYDROCHLORIDE IVPB SCH (13:33)
[2018-01-02] MEDS: Potassium Ch 20mEq in D5W 1,000 ML IV SCH ×2 (13:39)
[2018-01-02] MEDS: cefTRIAXone 2 GM in Sodium Chloride 0.9% 100 ML IVPB SCH (20:00)
[2018-01-03] MEDS: Potassium Ch 20mEq in D5W 1,000 ML IV SCH (01:12)
[2018-01-03] MEDS: metroNIDAZOLE IV 500 mg/100 ml 500 MG/100 ML BAG IVPB SCH ×3 (05:31→21:49)
[2018-01-03] MEDS: Levothyroxine 125 MCG TAB PO SCH (05:50)
[2018-01-03] MEDS: (Novolin R) Insulin Human Regular 100 units/ml vial SC SCH ×4 (08:25→21:47)
[2018-01-03] MEDS: GlipiZIDE 10 mg SR Tab PO SCH ×2 (08:53→17:53)
[2018-01-03] MEDS: Multiple Vitamins Tab PO SCH (09:29)
[2018-01-03] MEDS: Pantoprazole 40 mg EC Tab PO SCH (09:29)
[2018-01-03] MEDS: (Novolin N) Insulin Human Isophane (NPH) 100 u/ml 10 ml vial SC SCH (10:04)
[2018-01-03] MEDS: Fluticasone-Salmeterol 500-50mcg Diskus INH SCH ×2 (10:23→19:12)
[2018-01-03] MEDS: Dextrose 5%/0.45% NS 1,000 ML IV SCH ×2 (12:53→23:30)
--- NOTE | 2018-01-03 14:48 | CP.PCM.PN ---
Subjective - Date & Time of Evaluation Date of Evaluation: 01/03/18 Time of Evaluation: 14:43 - Subjective Subjective: c/o chest heaviness, and sob today will give dose of medrol and lasix Objective - Vital Signs/Intake and Output Vital Signs (last 24 hours): Temp Pulse Resp BP Pulse Ox 97.9 F 75 20 164/64 H 100 01/03/18 08:26 01/03/18 08:26 01/03/18 08:26 01/03/18 09:29 01/03/18 08:26 Intake and Output: 01/03/18 01/03/18 06:59 18:59 Intake Total 340 1300 Balance 340 1300 - Medications Medications: Current Medications Albuterol/Ipratropium (Duoneb 3 Mg/0.5 Mg (3 Ml) Ud) 3 ml INH RQ6 PRN PRN Reason: Wheezing Last Admin: 12/30/17 19:52 Dose: 3 ml Baclofen (Lioresal) 10 mg PO DAILY [facility] Last Admin: 01/03/18 09:29 Dose: 10 mg Ferrous Sulfate (Feosol) 325 mg PO DAILY [facility] Last Admin: 01/03/18 09:29 Dose: 325 mg Furosemide (Lasix) 40 mg PO DAILY [facility] Last Admin: 01/03/18 09:29 Dose: 40 mg Glipizide (Glucotrol Xl) 10 mg PO BIDCC [facility] Last Admin: 01/03/18 08:53 Dose: 10 mg Home Med (Patient's Own Medication) 1 tab PO PCS [facility] Last Admin: 01/02/18 17:53 Dose: 1 tab Hydralazine HCl (Apresoline) 50 mg PO BID [facility] Last Admin: 01/03/18 09:29 Dose: 50 mg Ceftriaxone Sodium 2 gm/ (Sodium Chloride) 100 mls @ 100 mls/hr IVPB Q24H [facility] PRN Reason: Protocol Last Admin: 01/02/18 20:00 Dose: 100 mls/hr Metronidazole (Flagyl) 500 mg in 100 mls @ 100 mls/hr IVPB Q8 [facility] PRN Reason: Protocol Last Admin: 01/03/18 13:44 Dose: 100 mls/hr Dextrose/Sodium Chloride (Dextrose 5%/0.45% Ns 1000 Ml) 1,000 mls @ 100 mls/hr IV .Q10H [facility] Last Admin: 01/03/18 12:53 Dose: 100 mls/hr Telavancin 500 mg/ Sodium (Chloride) 100 mls @ 100 mls/hr IVPB Q24H [facility] PRN Reason: Protocol Stop: 01/04/18 14:01 Last Admin: 01/02/18 13:33 Dose: 100 mls/hr Insulin Human NPH (Novolin N) 40 unit SC QAM [facility] Last Admin: 01/03/18 10:04 Dose: 40 units Insulin Human Regular (Novolin R) 0 unit SC ACHS [facility] PRN Reason: Protocol Last Admin: 01/03/18 12:10 Dose: 2 units Levothyroxine Sodium (Synthroid) 125 mcg PO DAILY@0630 [facility] Last Admin: 01/03/18 05:50 Dose: 125 mcg Montelukast Sodium (Singulair) 10 mg PO HS [facility] Last Admin: 01/02/18 21:48 Dose: 10 mg Multivitamins (Hexavitamin) 1 tab PO DAILY [facility] Last Admin: 01/03/18 09:29 Dose: 1 tab Mupirocin (Bactroban Ointment) 0 gm TOP DAILY [facility] Last Admin: 01/03/18 10:06 Dose: 1 applic Nebivolol (Bystolic) 10 mg PO DAILY [facility] Last Admin: 01/03/18 09:29 Dose: 10 mg Pantoprazole Sodium (Protonix Ec Tab) 40 mg PO DAILY [facility] Last Admin: 01/03/18 09:29 Dose: 40 mg Prednisone (Prednisone Tab) 10 mg PO DAILY [facility] Last Admin: 01/03/18 09:29 Dose: 10 mg Rosuvastatin Calcium (Crestor) 20 mg PO HS [facility] Last Admin: 01/02/18 21:44 Dose: 20 mg Fluticasone/Salmeterol (Advair Diskus 500/50) 1 puff INH RQ12 [facility] Last Admin: 01/03/18 10:23 Dose: 1 puff Topiramate (Topamax) 25 mg PO BID [facility] Last Admin: 01/03/18 09:29 Dose: 25 mg Zolpidem Tartrate (Ambien) 5 mg PO HS PRN PRN Reason: Insomnia Last Admin: 01/02/18 21:44 Dose: 5 mg - Labs Labs: 01/01/18 06:18 01/01/18 06:18 PT 13.3 SECONDS (9.7-12.2) H 12/30/17 06:24 INR 1.2 12/30/17 06:24 APTT 32 SECONDS (21-34) 12/30/17 06:24 - Constitutional Appears: No Acute Distress, Chronically Ill - Head Exam Head Exam: ATRAUMATIC, NORMOCEPHALIC - Eye Exam Eye Exam: Normal appearance - ENT Exam ENT Exam: Mucous Membranes Moist - Respiratory Exam Respiratory Exam: Decreased Breath Sounds - Cardiovascular Exam Cardiovascular Exam: +S1, +S2, +S4 - GI/Abdominal Exam GI & Abdominal Exam: Normal Bowel Sounds - Rectal Exam Rectal Exam: Deferred - Neurological Exam Neurological Exam: Alert, Oriented x3 - Psychiatric Exam Psychiatric exam: Normal Affect, Normal Mood - Skin Skin Exam: Intact Assessment and Plan (1) Osteomyelitis of ankle and foot Status: Acute (2) Diabetes 1.5, managed as type 2 Status: Chronic (3) HTN (hypertension), benign Status: Chronic (4) Pulmonary arterial hypertension Status: Chronic
[2018-01-03] MEDS: SODIUM CHLORIDE 0.9% IVPB SCH (15:00)
[2018-01-03] MEDS: TELAVANCIN HYDROCHLORIDE IVPB SCH (15:00)
[2018-01-03] MEDS: Albuterol-Ipratrop 3 mg / 0.5 (3 ml) UD INH PRN (19:11)
--- NOTE | 2018-01-03 19:12 | CP.PCM.PN ---
Subjective - Date & Time of Evaluation Date of Evaluation: 01/03/18 Time of Evaluation: 19:08 - Subjective Subjective: INFECTIOUS DISEASE PROGRESS NOTES KELSI GAMBOA MD, FACP 3T 352-A 01/03/2018 CHART REVIEWED PT EXAMINED CASE DISCUSSED WITH STAFF CLINICALLY SEEN BY DR ZAVALETA FOR CARDIAC CLEARANCE FOR PODIATRIC SURGERY TO REMOVE INFECTED 1ST LEFT TOE SHOULD BE READY FROM ID POINT OF VIEW THE POST ANTIBIOTIC EFFECT OF VIBATIV SHOULD BE MORE THAN ENOUGH FROM TODAY INTO TOMORROW WOULD APPRECIATE BONE C/S, SINCE THE CORYNEBACTERIUM IS A SUPERFICIAL C/S ONLY IN THIS CASE. Objective - Vital Signs/Intake and Output Vital Signs (last 24 hours): Temp Pulse Resp BP Pulse Ox 98 F 70 20 176/79 H 98 01/03/18 16:00 01/03/18 16:00 01/03/18 16:00 01/03/18 16:00 01/03/18 16:00 Intake and Output: 01/03/18 01/04/18 18:59 06:59 Intake Total 2500 Balance 2500 - Medications Medications: Current Medications Albuterol/Ipratropium (Duoneb 3 Mg/0.5 Mg (3 Ml) Ud) 3 ml INH RQ6 PRN PRN Reason: Wheezing Last Admin: 12/30/17 19:52 Dose: 3 ml Baclofen (Lioresal) 10 mg PO DAILY [facility] Last Admin: 01/03/18 09:29 Dose: 10 mg Ferrous Sulfate (Feosol) 325 mg PO DAILY [facility] Last Admin: 01/03/18 09:29 Dose: 325 mg Furosemide (Lasix) 40 mg PO DAILY [facility] Last Admin: 01/03/18 09:29 Dose: 40 mg Glipizide (Glucotrol Xl) 10 mg PO BIDCC [facility] Last Admin: 01/03/18 17:53 Dose: 10 mg Home Med (Patient's Own Medication) 1 tab PO PCS [facility] Last Admin: 01/02/18 17:53 Dose: 1 tab Hydralazine HCl (Apresoline) 50 mg PO BID [facility] Last Admin: 01/03/18 17:53 Dose: 50 mg Ceftriaxone Sodium 2 gm/ (Sodium Chloride) 100 mls @ 100 mls/hr IVPB Q24H [facility] PRN Reason: Protocol Last Admin: 01/02/18 20:00 Dose: 100 mls/hr Metronidazole (Flagyl) 500 mg in 100 mls @ 100 mls/hr IVPB Q8 [facility] PRN Reason: Protocol Last Admin: 01/03/18 13:44 Dose: 100 mls/hr Dextrose/Sodium Chloride (Dextrose 5%/0.45% Ns 1000 Ml) 1,000 mls @ 100 mls/hr IV .Q10H [facility] Last Admin: 01/03/18 12:53 Dose: 100 mls/hr Telavancin 500 mg/ Sodium (Chloride) 100 mls @ 100 mls/hr IVPB Q24H [facility] PRN Reason: Protocol Stop: 01/04/18 14:01 Last Admin: 01/03/18 15:00 Dose: 100 mls/hr Insulin Human NPH (Novolin N) 40 unit SC QAM [facility] Last Admin: 01/03/18 10:04 Dose: 40 units Insulin Human Regular (Novolin R) 0 unit SC ACHS [facility] PRN Reason: Protocol Last Admin: 01/03/18 17:53 Dose: 3 units Levothyroxine Sodium (Synthroid) 125 mcg PO DAILY@0630 [facility] Last Admin: 01/03/18 05:50 Dose: 125 mcg Montelukast Sodium (Singulair) 10 mg PO HS [facility] Last Admin: 01/02/18 21:48 Dose: 10 mg Multivitamins (Hexavitamin) 1 tab PO DAILY [facility] Last Admin: 01/03/18 09:29 Dose: 1 tab Mupirocin (Bactroban Ointment) 0 gm TOP DAILY [facility] Last Admin: 01/03/18 10:06 Dose: 1 applic Nebivolol (Bystolic) 10 mg PO DAILY [facility] Last Admin: 01/03/18 09:29 Dose: 10 mg Pantoprazole Sodium (Protonix Ec Tab) 40 mg PO DAILY [facility] Last Admin: 01/03/18 09:29 Dose: 40 mg Prednisone (Prednisone Tab) 10 mg PO DAILY [facility] Last Admin: 01/03/18 09:29 Dose: 10 mg Rosuvastatin Calcium (Crestor) 20 mg PO HS [facility] Last Admin: 01/02/18 21:44 Dose: 20 mg Fluticasone/Salmeterol (Advair Diskus 500/50) 1 puff INH RQ12 [facility] Last Admin: 01/03/18 10:23 Dose: 1 puff Topiramate (Topamax) 25 mg PO BID [facility] Last Admin: 01/03/18 09:29 Dose: 25 mg Zolpidem Tartrate (Ambien) 5 mg PO HS PRN PRN Reason: Insomnia Last Admin: 01/02/18 21:44 Dose: 5 mg - Labs Labs: 01/01/18 06:18 01/01/18 06:18 PT 13.3 SECONDS (9.7-12.2) H 12/30/17 06:24 INR 1.2 12/30/17 06:24 APTT 32 SECONDS (21-34) 12/30/17 06:24 - Constitutional Appears: Non-toxic, Chronically Ill - Head Exam Head Exam: NORMAL INSPECTION - Eye Exam Eye Exam: Normal appearance - ENT Exam ENT Exam: Mucous Membranes Moist - Neck Exam Neck Exam: Normal Inspection - Respiratory Exam Respiratory Exam: Decreased Breath Sounds, NORMAL BREATHING PATTERN Additional comments: LESS WHEZZING - Cardiovascular Exam Cardiovascular Exam: REGULAR RHYTHM, Murmur - GI/Abdominal Exam GI & Abdominal Exam: Soft, Normal Bowel Sounds. absent: Tenderness, Organomegaly, Rebound - Rectal Exam Rectal Exam: Deferred - Extremities Exam Extremities Exam: Normal Capillary Refill - Neurological Exam Neurological Exam: Alert, Awake - Psychiatric Exam Psychiatric exam: Anxious, Normal Mood - Skin Skin Exam: Warm Assessment and Plan (1) Osteomyelitis of toe of left foot Status: Acute (2) Diabetes 1.5, managed as type 2 Status: Chronic (3) Asthma Status: Chronic (4) Pulmonary arterial hypertension Status: Chronic (5) HTN (hypertension), benign Status: Chronic
[2018-01-03] MEDS: cefTRIAXone 2 GM in Sodium Chloride 0.9% 100 ML IVPB SCH (20:00)
[2018-01-04] MEDS: Dextrose 5%/0.45% NS 1,000 ML IV SCH ×5 (04:08→21:22)
[2018-01-04] MEDS: metroNIDAZOLE IV 500 mg/100 ml 500 MG/100 ML BAG IVPB SCH ×3 (05:31→22:28)
[2018-01-04] MEDS: Levothyroxine 125 MCG TAB PO SCH ×2 (06:01→06:03)
[2018-01-04] MEDS: Fluticasone-Salmeterol 500-50mcg Diskus INH SCH ×2 (08:23→20:09)
[2018-01-04] MEDS: (Novolin R) Insulin Human Regular 100 units/ml vial SC SCH ×5 (08:30→22:16)
[2018-01-04] MEDS: GlipiZIDE 10 mg SR Tab PO SCH ×4 (09:10→21:30)
[2018-01-04] MEDS: Multiple Vitamins Tab PO SCH (11:10)
[2018-01-04] MEDS: (Novolin N) Insulin Human Isophane (NPH) 100 u/ml 10 ml vial SC SCH (11:11)
[2018-01-04] MEDS: Pantoprazole 40 mg EC Tab PO SCH (11:11)
--- NOTE | 2018-01-04 11:28 | CP.PCM.PN ---
Subjective - Date & Time of Evaluation Date of Evaluation: 01/04/18 Time of Evaluation: 09:00 - Subjective Subjective: Podiatry Progress Note- Dr. Peña. Pt seen with attending, Dr. Peña. Pt is NPO. To to go to OR this afternoong for left great toe and potential 2nd digit level amputation. Objective - Vital Signs/Intake and Output Vital Signs (last 24 hours): Temp Pulse Resp BP Pulse Ox 98.3 F 86 20 178/66 H 99 01/04/18 07:00 01/04/18 07:00 01/04/18 07:00 01/04/18 11:08 01/04/18 07:00 Intake and Output: 01/04/18 01/04/18 06:59 18:59 Intake Total 1700 Balance 1700 - Medications Medications: Current Medications Albuterol/Ipratropium (Duoneb 3 Mg/0.5 Mg (3 Ml) Ud) 3 ml INH RQ6 PRN PRN Reason: Wheezing Last Admin: 01/03/18 19:11 Dose: 3 ml Baclofen (Lioresal) 10 mg PO DAILY [facility] Last Admin: 01/04/18 11:11 Dose: Not Given Ferrous Sulfate (Feosol) 325 mg PO DAILY [facility] Last Admin: 01/04/18 11:10 Dose: Not Given Furosemide (Lasix) 40 mg PO DAILY [facility] Last Admin: 01/04/18 11:08 Dose: 40 mg Glipizide (Glucotrol Xl) 10 mg PO BIDCC [facility] Last Admin: 01/04/18 09:31 Dose: Not Given Home Med (Patient's Own Medication) 1 tab PO PCS [facility] Last Admin: 01/03/18 17:00 Dose: 1 tab Hydralazine HCl (Apresoline) 50 mg PO BID [facility] Last Admin: 01/04/18 11:07 Dose: 50 mg Ceftriaxone Sodium 2 gm/ (Sodium Chloride) 100 mls @ 100 mls/hr IVPB Q24H [facility] PRN Reason: Protocol Last Admin: 01/03/18 20:00 Dose: 100 mls/hr Metronidazole (Flagyl) 500 mg in 100 mls @ 100 mls/hr IVPB Q8 [facility] PRN Reason: Protocol Last Admin: 01/04/18 05:31 Dose: 100 mls/hr Dextrose/Sodium Chloride (Dextrose 5%/0.45% Ns 1000 Ml) 1,000 mls @ 100 mls/hr IV .Q10H [facility] Last Admin: 01/04/18 11:10 Dose: Not Given Telavancin 500 mg/ Sodium (Chloride) 100 mls @ 100 mls/hr IVPB Q24H [facility] PRN Reason: Protocol Stop: 01/04/18 14:01 Last Admin: 01/03/18 15:00 Dose: 100 mls/hr Insulin Human NPH (Novolin N) 40 unit SC QAM [facility] Last Admin: 01/04/18 11:11 Dose: Not Given Insulin Human Regular (Novolin R) 0 unit SC ACHS [facility] PRN Reason: Protocol Last Admin: 01/04/18 08:31 Dose: Not Given Levothyroxine Sodium (Synthroid) 125 mcg PO DAILY@0630 [facility] Last Admin: 01/04/18 06:03 Dose: Not Given Montelukast Sodium (Singulair) 10 mg PO HS [facility] Last Admin: 01/03/18 21:49 Dose: 10 mg Multivitamins (Hexavitamin) 1 tab PO DAILY [facility] Last Admin: 01/04/18 11:10 Dose: Not Given Mupirocin (Bactroban Ointment) 0 gm TOP DAILY [facility] Last Admin: 01/04/18 11:10 Dose: Not Given Nebivolol (Bystolic) 10 mg PO DAILY [facility] Last Admin: 01/03/18 09:29 Dose: 10 mg Pantoprazole Sodium (Protonix Ec Tab) 40 mg PO DAILY [facility] Last Admin: 01/04/18 11:11 Dose: Not Given Prednisone (Prednisone Tab) 10 mg PO DAILY [facility] Last Admin: 01/04/18 11:11 Dose: Not Given Rosuvastatin Calcium (Crestor) 20 mg PO HS [facility] Last Admin: 01/03/18 21:50 Dose: 20 mg Fluticasone/Salmeterol (Advair Diskus 500/50) 1 puff INH RQ12 [facility] Last Admin: 01/04/18 08:23 Dose: 1 puff Topiramate (Topamax) 25 mg PO BID [facility] Last Admin: 01/04/18 11:12 Dose: Not Given Zolpidem Tartrate (Ambien) 5 mg PO HS PRN PRN Reason: Insomnia Last Admin: 01/02/18 21:44 Dose: 5 mg - Labs Labs: 01/01/18 06:18 01/01/18 06:18 PT 13.3 SECONDS (9.7-12.2) H 12/30/17 06:24 INR 1.2 12/30/17 06:24 APTT 32 SECONDS (21-34) 12/30/17 06:24 Assessment and Plan - Assessment and Plan (Free Text) Assessment: 72 y/o female with left plantar hallux ulceration with chronic osteomyelitis Plan: Pt seen and evalauted. Dr. Peña received [facility] clearance directly form Dr. Merrill this morning. To [facility] and medically cleared. Surgery reschedule for this afternoon from to comply with pts request. Pt placed NPO.
[2018-01-04 11:55] LABS: INR 1.3; PROTHROMBIN TIME 13.7 SECONDS (9.7-12.2)
[2018-01-04] MEDS: Albuterol-Ipratrop 3 mg / 0.5 (3 ml) UD INH PRN ×2 (12:03→20:09)
[2018-01-04 12:05] LABS: CALCIUM 7.9 mg/dl (8.6-10.4)
[2018-01-04 12:08] LABS: HEMOGLOBIN 8.8 g/dL (11.0-16.0); MEAN CELL VOLUME 81.8 fL (81.0-99.0); MEAN CORPUSCULAR HEMOGLOBIN 25.8 pg (27.0-31.0); MEAN CORPUSCULAR HGB CONC 31.5 g/dL (33.0-37.0); MEAN PLATELET VOLUME 10.8 fL (7.2-11.7); RBC 3.41 Mil/uL (3.80-5.20); RED CELL DISTRIBUTION WIDTH 16.3 % (11.5-14.5)
[2018-01-04 12:12] LABS: WHITE BLOOD COUNT 13.3 K/uL (4.8-10.8)
[2018-01-04] MEDS: TELAVANCIN HYDROCHLORIDE IVPB SCH (15:50)
[2018-01-04] MEDS: SODIUM CHLORIDE 0.9% IVPB SCH (15:50)
[2018-01-04] MEDS ORDERED: Midazolam 2 MG/2 ML VIAL ONE (15:51)
[2018-01-04] MEDS ORDERED: Propofol 10 mg/ml Inj (20 ML) ONE (15:51)
[2018-01-04] MEDS ORDERED: (Novolin R) Insulin Human Regular 100 units/ml vial IV STA (16:23)
--- NOTE | 2018-01-04 16:41 | CP.PCM.PN ---
Subjective - Date & Time of Evaluation Date of Evaluation: 01/04/18 Time of Evaluation: 16:39 - Subjective Subjective: for surgery today Objective - Vital Signs/Intake and Output Vital Signs (last 24 hours): Temp Pulse Resp BP Pulse Ox 98.3 F 64 20 148/78 97 01/04/18 16:00 01/04/18 16:00 01/04/18 16:00 01/04/18 16:00 01/04/18 16:00 Intake and Output: 01/04/18 01/04/18 06:59 18:59 Intake Total 1700 800 Balance 1700 800 - Medications Medications: Current Medications Albuterol/Ipratropium (Duoneb 3 Mg/0.5 Mg (3 Ml) Ud) 3 ml INH RQ6 PRN PRN Reason: Wheezing Last Admin: 01/04/18 12:03 Dose: 3 ml Baclofen (Lioresal) 10 mg PO DAILY [facility] Last Admin: 01/04/18 11:11 Dose: Not Given Ferrous Sulfate (Feosol) 325 mg PO DAILY [facility] Last Admin: 01/04/18 11:10 Dose: Not Given Furosemide (Lasix) 40 mg PO DAILY [facility] Last Admin: 01/04/18 11:08 Dose: 40 mg Glipizide (Glucotrol Xl) 10 mg PO BIDCC [facility] Last Admin: 01/04/18 09:31 Dose: Not Given Home Med (Patient's Own Medication) 1 tab PO PCS [facility] Last Admin: 01/03/18 17:00 Dose: 1 tab Hydralazine HCl (Apresoline) 50 mg PO BID [facility] Last Admin: 01/04/18 11:07 Dose: 50 mg Ceftriaxone Sodium 2 gm/ (Sodium Chloride) 100 mls @ 100 mls/hr IVPB Q24H [facility] PRN Reason: Protocol Last Admin: 01/03/18 20:00 Dose: 100 mls/hr Metronidazole (Flagyl) 500 mg in 100 mls @ 100 mls/hr IVPB Q8 [facility] PRN Reason: Protocol Last Admin: 01/04/18 14:27 Dose: 100 mls/hr Dextrose/Sodium Chloride (Dextrose 5%/0.45% Ns 1000 Ml) 1,000 mls @ 100 mls/hr IV .Q10H [facility] Last Admin: 01/04/18 14:32 Dose: 100 mls/hr Insulin Human NPH (Novolin N) 40 unit SC QAM [facility] Last Admin: 01/04/18 11:11 Dose: Not Given Insulin Human Regular (Novolin R) 0 unit SC ACHS [facility] PRN Reason: Protocol Last Admin: 01/04/18 13:02 Dose: 2 units Levothyroxine Sodium (Synthroid) 125 mcg PO DAILY@0630 [facility] Last Admin: 01/04/18 06:03 Dose: Not Given Montelukast Sodium (Singulair) 10 mg PO HS [facility] Last Admin: 01/03/18 21:49 Dose: 10 mg Multivitamins (Hexavitamin) 1 tab PO DAILY [facility] Last Admin: 01/04/18 11:10 Dose: Not Given Mupirocin (Bactroban Ointment) 0 gm TOP DAILY [facility] Last Admin: 01/04/18 11:10 Dose: Not Given Nebivolol (Bystolic) 10 mg PO DAILY [facility] Last Admin: 01/04/18 11:35 Dose: 10 mg Pantoprazole Sodium (Protonix Ec Tab) 40 mg PO DAILY [facility] Last Admin: 01/04/18 11:11 Dose: Not Given Prednisone (Prednisone Tab) 10 mg PO DAILY [facility] Last Admin: 01/04/18 11:11 Dose: Not Given Rosuvastatin Calcium (Crestor) 20 mg PO HS [facility] Last Admin: 01/03/18 21:50 Dose: 20 mg Fluticasone/Salmeterol (Advair Diskus 500/50) 1 puff INH RQ12 [facility] Last Admin: 01/04/18 08:23 Dose: 1 puff Topiramate (Topamax) 25 mg PO BID [facility] Last Admin: 01/04/18 11:12 Dose: Not Given Zolpidem Tartrate (Ambien) 5 mg PO HS PRN PRN Reason: Insomnia Last Admin: 01/02/18 21:44 Dose: 5 mg - Labs Labs: 01/04/18 11:37 01/04/18 11:37 PT 13.7 SECONDS (9.7-12.2) H 01/04/18 11:37 INR 1.3 01/04/18 11:37 APTT 31 SECONDS (21-34) 01/04/18 11:37 - Constitutional Appears: No Acute Distress, Chronically Ill - Head Exam Head Exam: ATRAUMATIC, NORMOCEPHALIC - Eye Exam Eye Exam: Normal appearance - ENT Exam ENT Exam: Mucous Membranes Moist - Neck Exam Neck Exam: Normal Inspection - Respiratory Exam Respiratory Exam: Decreased Breath Sounds - Cardiovascular Exam Cardiovascular Exam: REGULAR RHYTHM, +S1, +S2, +S4 - GI/Abdominal Exam GI & Abdominal Exam: Normal Bowel Sounds - Rectal Exam Rectal Exam: Deferred - Neurological Exam Neurological Exam: Alert, Awake, Oriented x3 - Psychiatric Exam Psychiatric exam: Normal Affect, Normal Mood Assessment and Plan (1) Osteomyelitis of ankle and foot Status: Acute (2) Diabetes 1.5, managed as type 2 Status: Chronic (3) HTN (hypertension), benign Status: Chronic (4) Pulmonary arterial hypertension Status: Chronic
[2018-01-04] MEDS ORDERED: Lidocaine Hydrochloride 10 ML INJ ONE (16:54)
[2018-01-04] MEDS ORDERED: Bupivacaine HCl 0.5% PF (30 ml) Inj ONE (16:54)
--- NOTE | 2018-01-04 17:54 | PCM.SURG1 ---
Surgeon's Initial Post Op Note - Surgeon's Notes Surgeon: Dr. Mahamed Peña DPM Whizzer: Dr. Hiro Terry DPM PGY-1 Type of Anesthesia: IV Sedation, Local Anesthesia Administered By: Dr. Joaquin MEDINA Pre-Operative Diagnosis: Left hallux chronic wound with infection and OM Operative Findings: See dictation. M: 4-0 vicryl, 3-0 nylon. I: 20 cc of 1:1 mixture of 1% lidocaine plain: 0.5% marcaine plain - pre-op Post-Operative Diagnosis: Same Operation Performed: Left foot hallux and partial 2nd digit amputation Specimen/Specimens Removed: left hallux, partial 2nd digit Estimated Blood Loss: EBL {In ML}: 50 Blood Products Given: N/A Drains Used: No Drains Post-Op Condition: Good Date of Surgery/Procedure: 01/04/18 Time of Surgery/Procedure: 17:55
[2018-01-04] MEDS ORDERED: HYDROmorphone 0.5 mg/0.5 ml ISec IVP PRN (17:55)
[2018-01-04] MEDS: Sodium Chloride 0.9% 1,000 ML IV SCH ×2 (18:00→21:38)
[2018-01-04] MEDS: cefTRIAXone 2 GM in Sodium Chloride 0.9% 100 ML IVPB SCH (21:13)
[2018-01-05 00:04] LABS: CK-MB 0.99 ng/mL (0.0-3.38); TROPONIN I 0.042 ng/mL (0.00-0.120)
[2018-01-05] MEDS: Albuterol-Ipratrop 3 mg / 0.5 (3 ml) UD INH PRN (01:41)
[2018-01-05] MEDS ORDERED: Nitroglycerin 2% Ointment Foilpak UD TOP STA (02:29)
[2018-01-05] MEDS ORDERED: Nitroglycerin 2% Ointment Foilpak UD TOP ONE (02:32)
[2018-01-05 02:58] LABS: ABG ALLEN TEST POS; ARTERIAL BLOOD GAS HCO3 16.9 mmol/L (21-28); ARTERIAL BLOOD GAS O2 SAT 100.4 % (95-98); ARTERIAL BLOOD GAS PCO2 35 mm/Hg (35-45); ARTERIAL BLOOD GAS PH 7.26 (7.35-7.45); ARTERIAL BLOOD GAS PO2 227 mm/Hg (80-100); ARTERIAL BLOOD GAS TCO2 16.8 mmol/L (22-28)
[2018-01-05] MEDS: Nitroglycerin 50mg in D5W 50 MG/250 ML BOTTLE IV SCH ×2 (03:00→05:54)
[2018-01-05] MEDS: Propofol 10 mg/ml 1,000 MG/100 ML VIAL IV PRN ×5 (03:30→17:59)
[2018-01-05 04:16] LABS: BASO # 0.1 K/uL (0.0-0.2); BASO % 0.4 % (0.0-2.0); EOS # 0.2 K/uL (0.0-0.7); EOS % 1.1 % (0.0-4.0); HEMOGLOBIN 9.3 g/dL (11.0-16.0); LYMPH # 1.7 K/uL (1.0-4.3); LYMPH % 7.9 % (20.0-40.0); MEAN CELL VOLUME 84.2 fL (81.0-99.0); MEAN CORPUSCULAR HEMOGLOBIN 25.8 pg (27.0-31.0); MEAN CORPUSCULAR HGB CONC 30.6 g/dL (33.0-37.0); MEAN PLATELET VOLUME 10.6 fL (7.2-11.7); MONO # 1.4 K/uL (0.0-0.8); MONO % 6.4 % (0.0-10.0); NEUT % 84.2 % (50.0-75.0); PLATELET COUNT 351 K/uL (130-400); RBC 3.59 Mil/uL (3.80-5.20); RED CELL DISTRIBUTION WIDTH 16.4 % (11.5-14.5); WHITE BLOOD COUNT 21.4 K/uL (4.8-10.8)
--- NOTE | 2018-01-05 04:21 | CP.PCM.CON ---
History of Present Illness - History of Present Illness History of Present Illness: PMD: Jeff Vázquez MD Reason for Consult: Critical care management Chief Complaint:SOB The patient was seen and examined in the ICU HPI: The history was obtainer after reviewer of the medical chart and discussion with the Hospitalis. She is a 73 years old female with hx of DM II; Pulmonary Hypertension, OSF, Asthma and MILTON. She was admitted on 12/29/17 with left foot infection and Osteomyelitis. On 07/12 surgery was done with left foot Hallus and partial second digit amputation, [employer] was called on AM of because the patient was in severe SOB. She was treated with Bronchodilators and had received his steroids, placed on BIPAP with little improvement. she was then transferred to the ICU for further critical care. In the ICU the patient was intubated by the Hospitalist. 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; Thyoinsurgery; Benign tumor remnoved from the back SH: Former smoker; No illegal drug use; No Alcohol; Live with family FH: No KnownFamily Hx Allergies: Morphine Medication: Reviewed Review of Systems - Review of Systems Review of Systems: Review of systems limited because the patient is intubated and sedated Past Patient History - Past Medical History & Family History Past Medical History?: Yes - Past Social History Smoking Status: Former Smoker Chewing Tobacco Use: No Cigar Use: No Alcohol: None Drugs: Denies Home Situation {Lives}: With Family Domestic Violence: Negative - CARDIAC Hx Cardiac Disorders: Yes Hx Hypertension: Yes - PULMONARY Hx Asthma: Yes Hx Sleep Apnea: Yes - NEUROLOGICAL HX Cerebrovascular Accident: Yes - HEENT Hx Deafness: Yes ([place] right ear with hearing aid) - ENDOCRINE/METABOLIC Hx Diabetes Insipidus: Yes - HEMATOLOGICAL/ONCOLOGICAL Hx Blood Disorders: No - INTEGUMENTARY Hx Cellulitis: Yes - MUSCULOSKELETAL/RHEUMATOLOGICAL Hx Falls: Yes Hx Unsteady Gait: Yes - GASTROINTESTINAL Hx Gastroesophageal Reflux: Yes - GENITOURINARY/GYNECOLOGICAL Hx Genitourinary Disorders: No - PSYCHIATRIC Hx Psychophysiologic Disorder: No Hx Substance Use: No - SURGICAL HISTORY Hx Hysterectomy: Yes Other/Comment: 12/29/17 as per Pt, she had thyroid x, foot sx, 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 - ANESTHESIA Hx Anesthesia: Yes Hx Anesthesia Reactions: No Hx Malignant Hyperthermia: No Meds Allergies/Adverse Reactions: Allergies Allergy/AdvReac Type Severity Reaction Status Date / Time morphine Allergy confusion Verified 12/29/17 15:15 - Medications Medications: Current Medications Acetaminophen (Tylenol 325mg Tab) 650 mg PO Q6 PRN PRN Reason: Pain, Mild (1-3) Albuterol/Ipratropium (Duoneb 3 Mg/0.5 Mg (3 Ml) Ud) 3 ml INH RQ6 PRN PRN Reason: Wheezing Last Admin: 01/05/18 01:41 Dose: 3 ml Baclofen (Lioresal) 10 mg PO DAILY [facility] Last Admin: 01/04/18 11:11 Dose: Not Given Ferrous Sulfate (Feosol) 325 mg PO DAILY [facility] Last Admin: 01/04/18 11:10 Dose: Not Given Furosemide (Lasix) 40 mg PO DAILY [facility] Last Admin: 01/04/18 11:08 Dose: 40 mg Glipizide (Glucotrol Xl) 10 mg PO BIDCC [facility] Last Admin: 01/04/18 21:30 Dose: 10 mg Home Med (Patient's Own Medication) 1 tab PO PCS [facility] Last Admin: 01/04/18 17:00 Dose: Not Given Hydralazine HCl (Apresoline) 50 mg PO BID [facility] Last Admin: 01/04/18 21:31 Dose: 50 mg Ceftriaxone Sodium 2 gm/ (Sodium Chloride) 100 mls @ 100 mls/hr IVPB Q24H [facility] PRN Reason: Protocol Last Admin: 01/04/18 21:13 Dose: 100 mls/hr Metronidazole (Flagyl) 500 mg in 100 mls @ 100 mls/hr IVPB Q8 [facility] PRN Reason: Protocol Last Admin: 01/04/18 22:28 Dose: 100 mls/hr Nitroglycerin/Dextrose (Nitroglycerin 50 Mg/250 Ml D5w) 50 mg in 250 mls @ 1.5 mls/hr IV .Q24H [facility]; 5 MCG/MIN PRN Reason: Protocol Propofol (Diprivan) 1,000 mg in 100 mls @ 2.708 mls/hr IV .Q24H PRN; Protocol; 5 MCG/KG/MIN PRN Reason: Restlessness Insulin Human NPH (Novolin N) 40 unit SC QAM [facility] Last Admin: 01/04/18 11:11 Dose: Not Given Insulin Human Regular (Novolin R) 0 unit SC ACHS [facility] PRN Reason: Protocol Last Admin: 01/04/18 22:16 Dose: Not Given Levothyroxine Sodium (Synthroid) 125 mcg PO DAILY@0630 [facility] Last Admin: 01/04/18 06:03 Dose: Not Given Montelukast Sodium (Singulair) 10 mg PO HS [facility] Last Admin: 01/04/18 21:13 Dose: 10 mg Multivitamins (Hexavitamin) 1 tab PO DAILY [facility] Last Admin: 01/04/18 11:10 Dose: Not Given Mupirocin (Bactroban Ointment) 0 gm TOP DAILY [facility] Last Admin: 01/04/18 11:10 Dose: Not Given Nebivolol (Bystolic) 10 mg PO DAILY [facility] Last Admin: 01/04/18 11:35 Dose: 10 mg Pantoprazole Sodium (Protonix Ec Tab) 40 mg PO DAILY [facility] Last Admin: 01/04/18 11:11 Dose: Not Given Prednisone (Prednisone Tab) 10 mg PO DAILY [facility] Last Admin: 01/04/18 11:11 Dose: Not Given Rosuvastatin Calcium (Crestor) 20 mg PO HS [facility] Last Admin: 01/04/18 21:13 Dose: 20 mg Fluticasone/Salmeterol (Advair Diskus 500/50) 1 puff INH RQ12 [facility] Last Admin: 01/04/18 20:09 Dose: 1 puff Topiramate (Topamax) 25 mg PO BID [facility] Last Admin: 01/04/18 18:00 Dose: Not Given Zolpidem Tartrate (Ambien) 5 mg PO HS PRN PRN Reason: Insomnia Last Admin: 01/02/18 21:44 Dose: 5 mg Physical Exam - Constitutional Appears: In Acute Distress - Head Exam Head Exam: ATRAUMATIC, NORMAL INSPECTION, NORMOCEPHALIC - Eye Exam Eye Exam: EOMI, Normal appearance Pupil Exam: NORMAL ACCOMODATION, PERRL - ENT Exam ENT Exam: Mucous Membranes Moist, Normal Oropharynx - Neck Exam Neck exam: Positive for: Full Rom, Normal Inspection. Negative for: Lymphadenopathy, Tenderness - Respiratory Exam Additional comments: Distant breath sounds with diffuse ronchus - Cardiovascular Exam Cardiovascular Exam: REGULAR RHYTHM, RRR, +S1, +S2 - GI/Abdominal Exam Additional comments: Obese, Soft with periumbilical hernia, bowel sounds present, no viceromegalesa - Rectal Exam Rectal Exam: Deferred - Extremities Exam Additional comments: Left foot in post surgical dressing - Back Exam Back exam: NORMAL INSPECTION - Neurological Exam Additional comments: Intubated and sedated, No facial droop, DTR conserved - Psychiatric Exam Additional comments: Patient intubated - Skin Skin Exam: Dry, Normal Color, Warm Results - Vital Signs Recent Vital Signs: Last Vital Signs Temp 98.8 F 01/05/18 00:00 Pulse 73 01/05/18 01:08 Resp 18 01/05/18 00:00 BP 232/153 H 01/05/18 04:01 Pulse Ox 100 01/05/18 00:00 - Labs Result Diagrams: 01/05/18 04:13 01/05/18 04:13 Labs: Laboratory Results - last 24 hr 01/04/18 01/04/18 01/04/18 07:11 11:08 11:37 WBC 13.3 H D RBC 3.41 L Hgb 8.8 L Hct 27.9 L MCV 81.8 MCH 25.8 L MCHC 31.5 L RDW 16.3 H Plt Count 269 MPV 10.8 PT INR APTT Puncture Site pCO2 pO2 HCO3 ABG pH ABG Total CO2 ABG O2 Saturation ABG Base Excess Saqib Test ABG Potassium A-a O2 Difference Respiratory Index Glucose Lactate Vent Mode FiO2 Inspiratory BiPAP Expiratory BiPAP Sodium Potassium Chloride Carbon Dioxide Anion Gap BUN Creatinine Est GFR ( Amer) Est GFR (Non-Af Amer) POC Glucose (mg/dL) 285 H 315 H Random Glucose Calcium Total Creatine Kinase CK-MB (Mass) Troponin I Arterial Blood Potassium 01/04/18 01/04/18 01/04/18 11:37 11:37 16:12 WBC RBC Hgb Hct MCV MCH MCHC RDW Plt Count MPV PT 13.7 H INR 1.3 APTT 31 Puncture Site pCO2 pO2 HCO3 ABG pH ABG Total CO2 ABG O2 Saturation ABG Base Excess Saqib Test ABG Potassium A-a O2 Difference Respiratory Index Glucose Lactate Vent Mode FiO2 Inspiratory BiPAP Expiratory BiPAP Sodium 145 Potassium 4.1 Chloride 111 H Carbon Dioxide 20 L Anion Gap 18 BUN 21 H Creatinine 1.7 H Est GFR ( Amer) 36 Est GFR (Non-Af Amer) 29 POC Glucose (mg/dL) 311 H Random Glucose 277 H Calcium 7.9 L Total Creatine Kinase CK-MB (Mass) Troponin I Arterial Blood Potassium 01/04/18 01/04/18 01/04/18 17:57 21:03 23:29 WBC RBC Hgb Hct MCV MCH MCHC RDW Plt Count MPV PT INR APTT Puncture Site pCO2 pO2 HCO3 ABG pH ABG Total CO2 ABG O2 Saturation ABG Base Excess Saqib Test ABG Potassium A-a O2 Difference Respiratory Index Glucose Lactate Vent Mode FiO2 Inspiratory BiPAP Expiratory BiPAP Sodium Potassium Chloride Carbon Dioxide Anion Gap BUN Creatinine Est GFR ( Amer) Est GFR (Non-Af Amer) POC Glucose (mg/dL) 283 H 240 H Random Glucose Calcium Total Creatine Kinase 103 CK-MB (Mass) 0.99 Troponin I 0.0420 Arterial Blood Potassium 01/05/18 01/05/18 02:05 02:39 WBC RBC Hgb Hct MCV MCH MCHC RDW Plt Count MPV PT INR APTT Puncture Site R pCO2 35 pO2 227 H HCO3 16.9 L ABG pH 7.26 L ABG Total CO2 16.8 L ABG O2 Saturation 100.4 H ABG Base Excess -10.4 L Saqib Test Pos ABG Potassium 3.7 A-a O2 Difference 442.0 Respiratory Index 1.9 Glucose 266 H Lactate 1.3 Vent Mode Bipap FiO2 100.0 Inspiratory BiPAP 14 Expiratory BiPAP 7 Sodium 144.0 Potassium Chloride 117.0 H Carbon Dioxide Anion Gap BUN Creatinine Est GFR ( Amer) Est GFR (Non-Af Amer) POC Glucose (mg/dL) 255 H Random Glucose Calcium Total Creatine Kinase CK-MB (Mass) Troponin I Arterial Blood Potassium 3.7 - Imaging and Cardiology Chest x-ray Status: Image reviewed by me Additional comment: Post intubation CXR shows Cardiomegaly Bibasal opacity Assessment & Plan - Assessment and Plan (Free Text) Assessment: #. SOB #. Asthma #. Osteomyelitis of s/p left foot hallus and partial and partial second digit amputation #. Anemia #. DM II #. Pulmonary Artery Hypertension #. MILTON Plan: 73 years old female with hx of DM II; Pulmonary Hypertension, MILTON, Asthma and MILTON. She was admitted on 12/29/17 with left foot infection and Osteomyelitis. On 07/12 surgery was done with left foot Hallus and partial second digit amputation, [employer] was called on AM of 01/05/18 because the patient was in severe SOB. She was treated with Bronchodilators and had received his steroids, placed on BIPAP with little improvement. She was then transferred to the ICU for further critical care. In the ICU the patient was intubated. #. SOB cause by an Asthmatic crisis r/o CHF exacerbation - Bronchodilators with Duoneb - Advair - Methylprednisolone - Lasix - Nitroglycerine IV started - Restart Beta Cedric as soon as patient is stable - Follow Pro BNP #. Acute Respiratory failure - Change BIPAP. Patient now Intubated and on the mechanical ventilator - Diprivan as sedation #. Osteomyelitis of s/p left foot hallus and partial and partial second digit amputation -Podiatry on consult Dr Peña - Ceftriaxone/ Flagyl #. Anemia of chronic disease - Follow Hb #. DM II - Regular insulin sliding scale according to sliding scale - Glippizide #. Pulmonary Artery Hypertension - Pulmonary following #. MILTON - Patient intubated - Replace on CPAP for sleep when off mechanical ventilator - Date & Time Date: 12/30/17 Time: 04:21
[2018-01-05] MEDS ORDERED: (Novolin R) Insulin Human Regular 100 units/ml vial SC SCH (04:30)
--- NOTE | 2018-01-05 04:40 | PCM.RRT ---
<MarnieDeysi - Last Filed: 01/05/18 04:34> RADIOACTIVITY TECHNICIAN Nurses Assessment - Situation Date: 01/05/18 Time RADIOACTIVITY TECHNICIAN was called: 02:12 RADIOACTIVITY TECHNICIAN Responder Arrival Time:: 02:15 RADIOACTIVITY TECHNICIAN Location:: Med/Oncology Room Number: 352B RADIOACTIVITY TECHNICIAN Reason for Call: Respiratory Distress RADIOACTIVITY TECHNICIAN Called By: RN - IV IV Inserted during RADIOACTIVITY TECHNICIAN?: No New IV Insertion Tolerance: Good - Respiratory RADIOACTIVITY TECHNICIAN Delivery Method: BiPAP @% (14/7 FiO2 100%), CPap @% Oxygen Flow Rate: 100 Received Nebulizer Treatments: Yes Was the Patient Ventilated with Bag/Mask 100% O2?: No Secretions Suctioned?: No Was the Patient Intubated?: No (Patient was intubated in ICU) Was the Patient Placed on a Ventilator?: No - Ventilator Settings FIO2 (% Oxygen): 100 - Medication Medications Administered During RADIOACTIVITY TECHNICIAN: Lasix 40 mg IVP. Hydralazine 10 mg IV. NTP 2" to CW. started on Nitro-drip by ICU nurse - Diagnostic Test Ordered Chest X-Ray: Yes - Stat Labs Ordered RADIOACTIVITY TECHNICIAN Stat Labs Ordered: ABG CPR started during RADIOACTIVITY TECHNICIAN?: No - Vital Signs Vital Signs: Rapid Response Vital Sign Blood Pressure 232/153 Pulse Rate 108 Respiratory Rate 36 Temperature 97.7 F Oxygen Saturation 100 - Weed Coma Scale Coma Scale Eye Opening: Spontaneous Coma Scale Motor: Obeys Commands Movement Coma Scale Verbal: Oriented Coma Scale Total: 15 - Sepsis Screen Part 2 Sepsis Screen Part 2: WBC over 12,000 - Time RADIOACTIVITY TECHNICIAN Ended Time RADIOACTIVITY TECHNICIAN Ended: 03:00 - Vital Signs at end of RADIOACTIVITY TECHNICIAN Vital Signs at end of RADIOACTIVITY TECHNICIAN: Rapid Response End Vital Sign Blood Pressure 190/74 Pulse Rate 120 Respiratory Rate 38 Temperature 98.2 F O2 Sat by Pulse Oximetry 99 - Recommendations 5) RADIOACTIVITY TECHNICIAN Level of Care Recommendations: Transfer to ICU Notifications: Attending Physician, Family or Designated Caregiver I.Reason for RADIOACTIVITY TECHNICIAN - A) Acute Change in Patient: (Select all that apply): Acute change in SBP below Subjective: RADIOACTIVITY TECHNICIAN was called Patient was seen at 23:00 for respiratory distress. Patient was on CPAP at time of arrival. Patient was on CPAP at time of arrival. Vitals: 185 sbp. Patient was wheezing on physical exam bilateral lungs with rales. Patient has a history of pulmonary htn, cad without stent. Patient had CXR ordered, lasix, solumedrol , toradol. EKG drawn showing t wave inversion on V1 leads, 1st degree av block and indeterminate septal infarct. similar to previous EKG on arrival (with prolonged ND, 1st degree AV block). On arrival at RADIOACTIVITY TECHNICIAN, patient was seen and examined with attending. Patient was on CPAP at time of arrival. Patient's blood pressure was elevated in the 200s SBP ( please see vitals for more specific number) DBP 150s. Patient was given 10mg IVP of hydralazine, 40mg IVP lasix, placed on nitro drip, which reduced blood pressure to 170s SBP. Patient appeared to be using more accessory muscle use and was placed on BIPAP. ABG was drawn showing acidosis, high O2, low CO2. Patient was brought to ICU due to showing signs of fatiguing and diaphoresis. Patient was intubated in ICU, russell was inserted showing dark yellow urine. new ABG, CBC, CMP were drawn - Neurological Status (Select all that apply): Alert, Responsive, Verbal, Follows Commands. absent: Disoriented, Confused Other (Please specify): fatiguing - Respiratory Oxygen Delivery Method: BiPAP @% (05/02 ), CPap @% (CPAP 7, 100%), Intubated ( intubated in ICU FiO2 80%, TB 450, PEEP 5) - Constitutional Appears: In Acute Distress - Head Head Exam: ATRAUMATIC, NORMAL INSPECTION, NORMOCEPHALIC - Eyes Eye Exam: EOMI, Normal appearance - Respiratory Exam Respiratory Exam: Accessory Muscle Use, Prolonged Expiratory Phase, Rales, Wheezes, Respiratory Distress. absent: Chest Wall Tenderness, Rhonchi - Cardiovascular Exam Cardiovascular Exam: Tachycardia, +S1, +S2, Murmur - GI/Abdominal Exam GI & Abdominal Exam: Distended, Soft, Hernia (ventral hernia) - Neurological Exam Neurological Exam: Awake - Extremities Exam Extremities Exam: Pedal Edema (2+ pitting edema at ankles. patient has had multiple toe amputations. left foot wrapped due to surgery today) Plan - Assessment of Findings&Treatment Plan signs of acidosis, f/u repeat ABG monitor I/Os ABG, CBC, CMP, abg, CXR management per ICU discussed with Dr. Ramsey Dye, DO PGY1 Procedures Attestation:: I certify that I have explained the specified Operation(s) or Procedure(s), risks, benefits and reasonable alternatives to the Patient and/or other person responsible. The opportunity was given to ask questions and all questions answered - Intubation Sedative: Etomidate Laryngoscope: Benson ET Tube Size: 7.0 ET Tube Secured at Depth: 24 ET Tube Secured Locarion: Lips ET Tube Placement Confirmation: Visualized Passing Through Cords, Breath Sounds Equal Bilaterally, Confirmation w/Capnometry Procedure Immediate Complications: Difficult Intubation <Bam Mustafa P - Last Filed: 01/05/18 07:25> RADIOACTIVITY TECHNICIAN Nurses Assessment - Vital Signs Vital Signs: Rapid Response Vital Sign Blood Pressure 232/153 Pulse Rate 108 Respiratory Rate 36 Temperature 97.7 F Oxygen Saturation 100 - Vital Signs at end of RADIOACTIVITY TECHNICIAN Vital Signs at end of RADIOACTIVITY TECHNICIAN: Rapid Response End Vital Sign Blood Pressure 190/74 Pulse Rate 120 Respiratory Rate 38 Temperature 98.2 F O2 Sat by Pulse Oximetry 99 Attending/Attestation - Attestation I have personally seen and examined this patient.: Yes I have fully participated in the care of the patient.: Yes I have reviewed all pertinent clinical information, including history, physical exam and plan: Yes Notes (Text): 01/05/18 07:17 Initial thought and assessment of CHF, tried to control BP aggressively with iv hydralazine, nitro drip at 160 paul/min, bipap, patient kept getting tired and didn't respond, hence intubated in ICU the tube size is 7.5 as correction, was single attempt, mac size 4 blade, some difficulty in passing the size 7.5, no edema or bleeding, aspiration noticed, secured at 24 at lip, color change noticed with capnometer, air entry b/l. OG tube then passed placement confirmed in the stomach with passing air through and sound heard in the epigastric area. 18g line inserted in left EJ, blood also drawn. Only etomidate used 20mg for induction, ativan and propofol used post intubation for sedation. Post intubation CXR tube in place, cxr now showed clear CHF signs, pulm venous prominence 'bat wing' appearance. Patient was intubated in icu by me and care was transferred to ICU attending. Patient daughter was notified about the event during the RADIOACTIVITY TECHNICIAN. 01/05/18 07:25
[2018-01-05 04:48] LABS: ALB/GLOB RATIO 1.6 (1.0-2.1); ALBUMIN 3.9 g/dL (3.5-5.0); CALCIUM 8.1 mg/dl (8.6-10.4); CK-MB 1.4 ng/mL (0.0-3.38); TROPONIN I 0.048 ng/mL (0.00-0.120)
[2018-01-05 05:24] LABS: BANDS 2 % (0-2); BASOPHIL 2 % (0-2); EOSINOPHIL 1 % (0-4); LYMPHOCYTE 6 % (20-40); MONOCYTE 3 % (0-10); NEUTROPHIL 86 % (50-75); PLATELET ESTIMATE NORMAL (NORMAL); TOTAL CELLS COUNTED 100
[2018-01-05] MEDS: metroNIDAZOLE IV 500 mg/100 ml 500 MG/100 ML BAG IVPB SCH ×2 (05:45→14:14)
[2018-01-05 05:58] LABS: ABG ALLEN TEST POS; ARTERIAL BLOOD GAS HCO3 17.7 mmol/L (21-28); ARTERIAL BLOOD GAS HEMOGLOBIN 8.8 g/dL (11.7-17.4); ARTERIAL BLOOD GAS O2 SAT 100.2 % (95-98); ARTERIAL BLOOD GAS PCO2 33 mm/Hg (35-45); ARTERIAL BLOOD GAS PO2 127 mm/Hg (80-100); ARTERIAL BLOOD GAS TCO2 17.2 mmol/L (22-28)
[2018-01-05 06:17] LABS: URINE BILIRUBIN NEGATIVE (NEGATIVE); URINE BLOOD NEGATIVE (NEGATIVE); URINE CLARITY Hazy (Clear); URINE COLOR Yellow (YELLOW); URINE GLUCOSE (UA) NORMAL (Normal); URINE HYALINE CAST 0-2 /lpf (0-2); URINE LEUKOCYTE ESTERASE TRACE Leu/uL (Negative); URINE PROTEIN 1+ mg/dL (NEGATIVE); URINE UROBILINOGEN NORMAL mg/dL (0.2-1.0)
[2018-01-05] MEDS: (Novolin R) Insulin Human Regular 100 units/ml vial SC SCH ×3 (06:20→18:00)
[2018-01-05] MEDS: MethylPREDNISolone 40 mg Vial IVP SCH ×4 (06:23→22:46)
[2018-01-05] MEDS: Levothyroxine 125 MCG TAB PO SCH (06:44)
[2018-01-05] MEDS: Fluticasone-Salmeterol 500-50mcg Diskus INH SCH (07:30)
[2018-01-05] MEDS: Albuterol-Ipratrop 3 mg / 0.5 (3 ml) UD INH SCH ×3 (07:31→19:36)
--- NOTE | 2018-01-05 08:36 | RAD ---
PROCEDURE: Left Foot Radiographs. HISTORY: s/p left foot surgery COMPARISON: Foot radiographs dated 12/30/2017. FINDINGS: BONES: Interval 1st digit amputation at the level of the metatarsophalangeal joint and 2nd digit amputation at the level of the proximal phalanx. JOINTS: Multiple hammertoe deformities. SOFT TISSUES: Normal. OTHER FINDINGS: None. IMPRESSION: Interval 1st and 2nd digit amputations as described above.
[2018-01-05] MEDS ORDERED: Acetaminophen IV 1,000 MG in Premixed IV 1 EA IV ONE (08:41)
--- NOTE | 2018-01-05 10:10 | RAD ---
HISTORY: SOB/CP COMPARISON: Chest radiograph dated 12/30/2017 FINDINGS: LUNGS: Pulmonary vascular congestion. Bibasilar atelectasis. PLEURA: Small bilateral pleural effusion no pneumothorax apparent. CARDIOVASCULAR: Cardiomediastinal silhouette stably enlarged. OSSEOUS STRUCTURES: Changed. VISUALIZED UPPER ABDOMEN: Normal. OTHER FINDINGS: None. IMPRESSION: Pulmonary vascular congestion and small bilateral pleural effusions.
--- NOTE | 2018-01-05 10:25 | RAD ---
HISTORY: SOB COMPARISON: Chest radiograph dated 01/04/2018. FINDINGS: LUNGS: Pulmonary vascular congestion. Bibasilar atelectasis. PLEURA: Small bilateral pleural effusions. No pneumothorax apparent. CARDIOVASCULAR: Cardiomediastinal silhouette stably enlarged. OSSEOUS STRUCTURES: Unchanged. VISUALIZED UPPER ABDOMEN: Normal. OTHER FINDINGS: Overlying pacer pads now present. IMPRESSION: Pulmonary vascular congestion and small bilateral pleural effusions.
--- NOTE | 2018-01-05 10:33 | RAD ---
HISTORY: post intubation COMPARISON: Chest radiograph performed approximately 1.5 hours prior FINDINGS: LUNGS: Pulmonary vascular congestion/edema. PLEURA: Costophrenic angles excluded from the field of view. No pneumothorax apparent. CARDIOVASCULAR: Cardiomediastinal silhouette stably enlarged. OSSEOUS STRUCTURES: Unchanged. VISUALIZED UPPER ABDOMEN: Normal. OTHER FINDINGS: New endotracheal tube with tip between the clavicles and meme. New orogastric tube with tip excluded from the field of view. IMPRESSION: Limited evaluation as the lower thorax was excluded from the field of view. New endotracheal tube in satisfactory position. Enteric tube tip cannot be assessed as the tip is excluded from the field of view. Pulmonary vascular congestion/edema.
--- NOTE | 2018-01-05 10:36 | RAD ---
HISTORY: intubated, pulm edema COMPARISON: 01/05/2018 at 4:01 a.m. FINDINGS: LUNGS: Opacity throughout left lung, greater at lung base. Mild opacity at right base. PLEURA: Probable bilateral pleural effusion, left greater than right. Mild congestive change decreased from prior examination. Possible pulmonary edema. CARDIOVASCULAR: Cardiomegaly. ETT. Nasogastric tube is not identified and has been removed in the interim. OSSEOUS STRUCTURES: No significant abnormalities. VISUALIZED UPPER ABDOMEN: Normal. OTHER FINDINGS: None. IMPRESSION: Decrease congestive change. Bilateral pleural effusion, left greater than right. Opacity at right base and throughout left lung. Possible pulmonary edema.
--- NOTE | 2018-01-05 10:50 | CP.PCM.PN ---
Subjective - Date & Time of Evaluation Date of Evaluation: 01/05/18 Time of Evaluation: 10:48 - Subjective Subjective: post op CHF with ICU transfer and intubation / sedation Objective - Vital Signs/Intake and Output Vital Signs (last 24 hours): Temp Pulse Resp BP Pulse Ox 98.4 F 79 23 108/54 L 99 01/05/18 04:00 01/05/18 07:00 01/05/18 07:00 01/05/18 07:00 01/05/18 07:00 Intake and Output: 01/05/18 01/05/18 06:59 18:59 Intake Total 328.4 121.7 Output Total 150 100 Balance 178.4 21.7 - Medications Medications: Current Medications Albuterol/Ipratropium (Duoneb 3 Mg/0.5 Mg (3 Ml) Ud) 3 ml INH RQ4 [facility] Last Admin: 01/05/18 07:31 Dose: Not Given Baclofen (Lioresal) 10 mg PO DAILY [facility] Last Admin: 01/04/18 11:11 Dose: Not Given Glipizide (Glucotrol Xl) 10 mg PO BIDCC [facility] Last Admin: 01/04/18 21:30 Dose: 10 mg Heparin Sodium (Porcine) (Heparin) 5,000 units SC Q12 [facility] Home Med (Patient's Own Medication) 1 tab PO PCS [facility] Last Admin: 01/04/18 17:00 Dose: Not Given Hydralazine HCl (Apresoline) 50 mg PO BID [facility] Last Admin: 01/04/18 21:31 Dose: 50 mg Metronidazole (Flagyl) 500 mg in 100 mls @ 100 mls/hr IVPB Q8 [facility] PRN Reason: Protocol Last Admin: 01/05/18 05:45 Dose: 100 mls/hr Nitroglycerin/Dextrose (Nitroglycerin 50 Mg/250 Ml D5w) 50 mg in 250 mls @ 1.5 mls/hr IV .Q24H [facility]; 5 MCG/MIN PRN Reason: Protocol Last Admin: 01/05/18 03:00 Dose: 150 mcg/min, 45 mls/hr Propofol (Diprivan) 1,000 mg in 100 mls @ 2.708 mls/hr IV .Q24H PRN; Protocol; 5 MCG/KG/MIN PRN Reason: Restlessness Last Admin: 01/05/18 09:50 Dose: 50.03 mcg/kg/min, 27.1 mls/hr Imipenem/Cilastatin Sodium 500 (mg/ Dextrose) 100 mls @ 100 mls/hr IVPB Q8H [facility] PRN Reason: Protocol Insulin Human NPH (Novolin N) 40 unit SC QAM [facility] Last Admin: 01/04/18 11:11 Dose: Not Given Insulin Human Regular (Novolin R) 0 unit SC Q6H [facility] PRN Reason: Protocol Last Admin: 01/05/18 06:20 Dose: 8 units Levothyroxine Sodium (Synthroid) 125 mcg PO DAILY@0630 [facility] Last Admin: 01/05/18 06:44 Dose: 125 mcg Methylprednisolone (Solu-Medrol) 40 mg IVP Q6H [facility] Last Admin: 01/05/18 06:23 Dose: 40 mg Montelukast Sodium (Singulair) 10 mg PO HS [facility] Last Admin: 01/04/18 21:13 Dose: 10 mg Multivitamins (Hexavitamin) 1 tab PO DAILY [facility] Last Admin: 01/04/18 11:10 Dose: Not Given Mupirocin (Bactroban Ointment) 0 gm TOP DAILY [facility] Last Admin: 01/04/18 11:10 Dose: Not Given Nebivolol (Bystolic) 10 mg PO DAILY [facility] Last Admin: 01/04/18 11:35 Dose: 10 mg Pantoprazole Sodium (Protonix Inj) 40 mg IVP DAILY [facility] Rosuvastatin Calcium (Crestor) 20 mg PO HS [facility] Last Admin: 01/04/18 21:13 Dose: 20 mg Topiramate (Topamax) 25 mg PO BID [facility] Last Admin: 01/04/18 18:00 Dose: Not Given Zolpidem Tartrate (Ambien) 5 mg PO HS PRN PRN Reason: Insomnia Last Admin: 01/02/18 21:44 Dose: 5 mg - Labs Labs: 01/05/18 04:13 01/05/18 04:13 PT 13.7 SECONDS (9.7-12.2) H 01/04/18 11:37 INR 1.3 01/04/18 11:37 APTT 31 SECONDS (21-34) 01/04/18 11:37 - Constitutional Appears: No Acute Distress - Head Exam Head Exam: ATRAUMATIC, NORMOCEPHALIC - Eye Exam Eye Exam: Normal appearance - ENT Exam ENT Exam: Mucous Membranes Moist Additional comments: intubated orally - Respiratory Exam Respiratory Exam: Decreased Breath Sounds - Cardiovascular Exam Cardiovascular Exam: +S1, +S2 - GI/Abdominal Exam GI & Abdominal Exam: Normal Bowel Sounds - Rectal Exam Rectal Exam: Deferred - Neurological Exam Additional comments: sedated on vent support Assessment and Plan (1) Osteomyelitis of ankle and foot Status: Acute (2) Diabetes 1.5, managed as type 2 Status: Chronic (3) HTN (hypertension), benign Status: Chronic (4) Pulmonary arterial hypertension Status: Chronic (5) Acute respiratory failure Status: Acute (6) CHF (congestive heart failure) Status: Acute
[2018-01-05] MEDS ORDERED: Imipenem/Cilastatin 500 MG in Dextrose 5% In Water 100 ML IVPB SCH (11:00)
[2018-01-05] MEDS: Multiple Vitamins Tab PO SCH (11:01)
[2018-01-05] MEDS: GlipiZIDE 10 mg SR Tab PO SCH (11:08)
[2018-01-05] MEDS: (Novolin N) Insulin Human Isophane (NPH) 100 u/ml 10 ml vial SC SCH (11:14)
--- NOTE | 2018-01-05 12:37 | CP.CCUPN ---
<Belen Robert - Last Filed: 01/05/18 14:49> CCU Subjective - Physician Review Subjective (Free Text): Patient seen and examined at bedside. Patient was admitted overnight due to respiratory distress did not improve with bipap was found to be in pulmonary edema, [facility] 60/ 450/ 5. CCU Objective - Vital Signs / Intake & Output Intake and Output (Last 8hrs): Intake & Output 01/04/18 01/05/18 01/05/18 22:59 06:59 14:59 Intake Total 1450 328.4 121.7 Output Total 150 100 Balance 1450 178.4 21.7 Intake: IV 350 100 Intake, IV Amount 900 328.4 21.7 Right Hand 900 68 0 Right Upper arm 260.4 21.7 Oral 200 Output: Urine 150 100 Urethral (Johnson) 150 100 - Physical Exam Head: Positive for: Atraumatic, Normocephalic Pupils: Positive for: PERRL Extroacular Muscles: Positive for: EOMI Conjunctiva: Positive for: Normal Mouth: Positive for: Moist Mucous Membranes, Other (INTUBATED ) Respiratory/Chest: Positive for: Decreased Breath Sounds Abdomen: Positive for: Normal Bowel Sounds. Negative for: Tenderness, Distention Upper Extremity: Positive for: Normal Inspection, NORMAL PULSES, Neurovascularly Intact, Capillary Refill < 2s Lower Extremity: Positive for: Normal Inspection, Edema, NORMAL PULSES, Neurovascularly Intact, Capillary Refill < 2 s Skin: Positive for: Warm, Dry Psychiatric: Positive for: Alert - Medications Active Medications: Active Medications Generic Name Dose Route Start Last Admin Trade Name Freq PRN Reason Stop Dose Admin Albuterol/Ipratropium 3 ml 01/05/18 08:00 01/05/18 11:04 Duoneb 3 Mg/0.5 Mg (3 Ml) Ud INH 3 ml RQ4 MIGDALIA Administration Albuterol/Ipratropium 3 ml 01/05/18 14:00 Duoneb 3 Mg/0.5 Mg (3 Ml) Ud INH RQ6 MIGDALIA Baclofen 10 mg 12/31/17 10:00 01/05/18 11:01 Lioresal PO 10 mg DAILY MIGDALIA Administration Glipizide 10 mg 12/31/17 17:00 01/05/18 11:08 Glucotrol Xl PO Not Given BIDCC MIGDALIA Heparin Sodium (Porcine) 5,000 units 01/05/18 11:00 01/05/18 12:27 Heparin SC 5,000 units Q12 MIGDALIA Administration Home Med 1 tab 12/29/17 20:00 01/04/18 17:00 Patient's Own Medication PO Not Given PCS MIGDALIA Hydralazine HCl 50 mg 12/29/17 18:00 01/05/18 11:07 Apresoline PO Not Given BID MIGDALIA Metronidazole 500 mg in 100 mls @ 100 mls/hr 12/29/17 22:00 01/05/18 05:45 Flagyl IVPB 100 mls/hr Q8 MIGDALIA Administration Protocol Nitroglycerin/Dextrose 50 mg in 250 mls @ 1.5 mls/hr 01/05/18 02:45 01/05/18 03:00 Nitroglycerin 50 Mg/250 Ml D5w IV 150 mcg/min .Q24H MIGDALIA 45 mls/hr Protocol Administration 5 MCG/MIN Propofol 1,000 mg in 100 mls @ 2.708 mls/hr 01/05/18 03:25 01/05/18 09:50 Diprivan IV 50.03 mcg/kg/min .Q24H PRN 27.1 mls/hr Restlessness Administration Protocol 5 MCG/KG/MIN Imipenem/Cilastatin Sodium 500 100 mls @ 100 mls/hr 01/05/18 12:00 mg/ Sodium Chloride IVPB Q8H [facility] Protocol Insulin Human NPH 40 unit 12/30/17 10:00 01/05/18 11:14 Novolin N SC 40 units QAM MIGDALIA Administration Insulin Human Regular 0 unit 01/05/18 06:00 01/05/18 06:20 Novolin R SC 8 units Q6H MIGDALIA Administration Protocol Levothyroxine Sodium 125 mcg 12/30/17 06:30 01/05/18 06:44 Synthroid PO 125 mcg DAILY@0630 MIGDALIA Administration Methylprednisolone 40 mg 01/05/18 05:30 01/05/18 11:14 Solu-Medrol IVP 40 mg Q6H MIGDALIA Administration Montelukast Sodium 10 mg 12/29/17 22:00 01/04/18 21:13 Singulair PO 10 mg HS MIGDALIA Administration Multivitamins 1 tab 01/01/18 10:00 01/05/18 11:01 Hexavitamin PO 1 tab DAILY MIGDALIA Administration Mupirocin 0 gm 06/07/18 10:00 01/04/18 11:10 Bactroban Ointment TOP Not Given DAILY MIGDALIA Nebivolol 10 mg 12/30/17 10:00 01/05/18 11:07 Bystolic PO Not Given DAILY MIGDALIA Pantoprazole Sodium 40 mg 01/05/18 10:00 01/05/18 11:01 Protonix Inj IVP 40 mg DAILY MIGDALIA Administration Rosuvastatin Calcium 20 mg 12/29/17 22:00 01/04/18 21:13 Crestor PO 20 mg HS MIGDALIA Administration Topiramate 25 mg 12/31/17 18:00 01/05/18 11:08 Topamax PO Not Given BID MIGDALIA - Patient Studies Lab Studies: Lab Studies 01/05/18 01/05/18 01/05/18 Range/Units 11:53 06:03 05:41 WBC (4.8-10.8) K/uL RBC (3.80-5.20) Mil/uL Hgb (11.0-16.0) g/dL Hct (34.0-47.0) % MCV (81.0-99.0) fL MCH (27.0-31.0) pg MCHC (33.0-37.0) g/dL RDW (11.5-14.5) % Plt Count (130-400) K/uL MPV (7.2-11.7) fL Neut % (Auto) (50.0-75.0) % Lymph % (Auto) (20.0-40.0) % [place] % (Auto) (0.0-10.0) % Eos % (Auto) (0.0-4.0) % Baso % (Auto) (0.0-2.0) % Neut # (Auto) (1.8-7.0) K/uL Lymph # (Auto) (1.0-4.3) K/uL [place] # (Auto) (0.0-0.8) K/uL Eos # (Auto) (0.0-0.7) K/uL Baso # (Auto) (0.0-0.2) K/uL Neutrophils % (Manual) (50-75) % Band Neutrophils % (0-2) % Lymphocytes % (Manual) (20-40) % Monocytes % (Manual) (0-10) % Eosinophils % (Manual) (0-4) % Basophils % (Manual) (0-2) % Platelet Estimate (NORMAL) Puncture Site pCO2 (35-45) mm/Hg pO2 (80-100) mm/Hg HCO3 (21-28) mmol/L ABG pH (7.35-7.45) ABG Total CO2 (22-28) mmol/L ABG O2 Saturation (95-98) % ABG Base Excess (-2.0-3.0) mmol/L ABG Hemoglobin (11.7-17.4) g/dL ABG Carboxyhemoglobin (0.5-1.5) % POC ABG HHb (Measured) (0.0-5.0) % ABG Methemoglobin (0.0-3.0) % Saqib Test ABG Potassium (3.6-5.2) mmol/L A-a O2 Difference mm/Hg Respiratory Index Hgb O2 Saturation (95.0-98.0) % Sodium (132-148) mmol/l Chloride (98-107) mmol/L Glucose (65-105) mg/dl Lactate (0.7-2.1) mmol/L Vent Mode Mechanical Rate FiO2 % Tidal Volume PEEP Inspiratory BiPAP Expiratory BiPAP Potassium (3.6-5.2) mmol/L Carbon Dioxide (22-30) mmol/L Anion Gap (10-20) BUN (7-17) mg/dL Creatinine (0.7-1.2) mg/dL Est GFR ( Amer) Est GFR (Non-Af Amer) POC Glucose (mg/dL) 342 H 353 H (65-110) mg/dL Random Glucose (65-105) mg/dL Calcium (8.6-10.4) mg/dl Phosphorus (2.5-4.5) mg/dL Magnesium (1.6-2.3) mg/dL Total Bilirubin (0.2-1.3) mg/dL AST (14-36) U/L ALT (9-52) U/L Alkaline Phosphatase (38-126) U/L Total Creatine Kinase (30-135) U/L CK-MB (Mass) (0.0-3.38) ng/mL Troponin I (0.00-0.120) ng/mL Total Protein (6.3-8.3) g/dL Albumin (3.5-5.0) g/dL Globulin (2.2-3.9) gm/dL Albumin/Globulin Ratio (1.0-2.1) Arterial Blood Potassium (3.6-5.2) mmol/L Urine Color Yellow (YELLOW) Urine Clarity Hazy (Clear) Urine pH 5.0 (5.0-8.0) Ur Specific [place] 1.010 (1.003-1.030) Urine Protein 1+ H (NEGATIVE) mg/dL Urine Glucose (UA) Normal (Normal) mg/dL Urine Ketones Negative (NEGATIVE) mg/dL Urine Blood Negative (NEGATIVE) Urine Nitrate Negative (NEGATIVE) Urine Bilirubin Negative (NEGATIVE) Urine Urobilinogen Normal (0.2-1.0) mg/dL Ur Leukocyte Esterase Trace (Negative) Arcelia/uL Urine WBC (Auto) 7 H (0-5) /hpf Urine RBC (Auto) 1 (0-3) /hpf Hyaline Casts 0-2 (0-2) /lpf Urine Yeast (Budding) Occ H (NEGATIVE) /hpf Blood Type Antibody Screen 01/05/18 01/05/18 01/05/18 Range/Units 05:29 04:13 04:13 WBC (4.8-10.8) K/uL RBC (3.80-5.20) Mil/uL Hgb (11.0-16.0) g/dL Hct (34.0-47.0) % MCV (81.0-99.0) fL MCH (27.0-31.0) pg MCHC (33.0-37.0) g/dL RDW (11.5-14.5) % Plt Count (130-400) K/uL MPV (7.2-11.7) fL Neut % (Auto) (50.0-75.0) % Lymph % (Auto) (20.0-40.0) % [place] % (Auto) (0.0-10.0) % Eos % (Auto) (0.0-4.0) % Baso % (Auto) (0.0-2.0) % Neut # (Auto) (1.8-7.0) K/uL Lymph # (Auto) (1.0-4.3) K/uL [place] # (Auto) (0.0-0.8) K/uL Eos # (Auto) (0.0-0.7) K/uL Baso # (Auto) (0.0-0.2) K/uL Neutrophils % (Manual) (50-75) % Band Neutrophils % (0-2) % Lymphocytes % (Manual) (20-40) % Monocytes % (Manual) (0-10) % Eosinophils % (Manual) (0-4) % Basophils % (Manual) (0-2) % Platelet Estimate (NORMAL) Puncture Site R rad pCO2 33 L (35-45) mm/Hg pO2 127 H (80-100) mm/Hg HCO3 17.7 L (21-28) mmol/L ABG pH 7.30 L (7.35-7.45) ABG Total CO2 17.2 L (22-28) mmol/L ABG O2 Saturation 100.2 H (95-98) % ABG Base Excess -9.3 L (-2.0-3.0) mmol/L ABG Hemoglobin 8.8 L (11.7-17.4) g/dL ABG Carboxyhemoglobin 2.0 H (0.5-1.5) % POC ABG HHb (Measured) -0.2 L (0.0-5.0) % ABG Methemoglobin 0.9 (0.0-3.0) % Saqib Test Pos ABG Potassium (3.6-5.2) mmol/L A-a O2 Difference 260.0 mm/Hg Respiratory Index 2.0 Hgb O2 Saturation 97.2 (95.0-98.0) % Sodium 147 (132-148) mmol/l Chloride 113 H (98-107) mmol/L Glucose (65-105) mg/dl Lactate (0.7-2.1) mmol/L Vent Mode Prvc Mechanical Rate 14 FiO2 60.0 % Tidal Volume 450 PEEP 5 Inspiratory BiPAP Expiratory BiPAP Potassium 4.7 (3.6-5.2) mmol/L Carbon Dioxide 18 L (22-30) mmol/L Anion Gap 22 H (10-20) BUN 24 H (7-17) mg/dL Creatinine 1.9 H (0.7-1.2) mg/dL Est GFR ( Amer) 31 Est GFR (Non-Af Amer) 26 POC Glucose (mg/dL) (65-110) mg/dL Random Glucose 298 H (65-105) mg/dL Calcium 8.1 L (8.6-10.4) mg/dl Phosphorus 6.5 H (2.5-4.5) mg/dL Magnesium 2.1 (1.6-2.3) mg/dL Total Bilirubin 0.4 (0.2-1.3) mg/dL AST 69 H D (14-36) U/L ALT 80 H D (9-52) U/L Alkaline Phosphatase 115 (38-126) U/L Total Creatine Kinase 119 (30-135) U/L CK-MB (Mass) 1.40 (0.0-3.38) ng/mL Troponin I 0.0480 (0.00-0.120) ng/mL Total Protein 6.3 (6.3-8.3) g/dL Albumin 3.9 (3.5-5.0) g/dL Globulin 2.5 (2.2-3.9) gm/dL Albumin/Globulin Ratio 1.6 (1.0-2.1) Arterial Blood Potassium (3.6-5.2) mmol/L Urine Color (YELLOW) Urine Clarity (Clear) Urine pH (5.0-8.0) Ur Specific [place] (1.003-1.030) Urine Protein (NEGATIVE) mg/dL Urine Glucose (UA) (Normal) mg/dL Urine Ketones (NEGATIVE) mg/dL Urine Blood (NEGATIVE) Urine Nitrate (NEGATIVE) Urine Bilirubin (NEGATIVE) Urine Urobilinogen (0.2-1.0) mg/dL Ur Leukocyte Esterase (Negative) Arcelia/uL Urine WBC (Auto) (0-5) /hpf Urine RBC (Auto) (0-3) /hpf Hyaline Casts (0-2) /lpf Urine Yeast (Budding) (NEGATIVE) /hpf Blood Type O POSITIVE Antibody Screen Negative 01/05/18 01/05/18 01/05/18 Range/Units 04:13 02:39 02:05 WBC 21.4 H D (4.8-10.8) K/uL RBC 3.59 L (3.80-5.20) Mil/uL Hgb 9.3 L (11.0-16.0) g/dL Hct 30.3 L (34.0-47.0) % MCV 84.2 D (81.0-99.0) fL MCH 25.8 L (27.0-31.0) pg MCHC 30.6 L (33.0-37.0) g/dL RDW 16.4 H (11.5-14.5) % Plt Count 351 (130-400) K/uL MPV 10.6 (7.2-11.7) fL Neut % (Auto) 84.2 H (50.0-75.0) % Lymph % (Auto) 7.9 L (20.0-40.0) % [place] % (Auto) 6.4 (0.0-10.0) % Eos % (Auto) 1.1 (0.0-4.0) % Baso % (Auto) 0.4 (0.0-2.0) % Neut # (Auto) 18.0 H (1.8-7.0) K/uL Lymph # (Auto) 1.7 (1.0-4.3) K/uL [place] # (Auto) 1.4 H (0.0-0.8) K/uL Eos # (Auto) 0.2 (0.0-0.7) K/uL Baso # (Auto) 0.1 (0.0-0.2) K/uL Neutrophils % (Manual) 86 H (50-75) % Band Neutrophils % 2 (0-2) % Lymphocytes % (Manual) 6 L (20-40) % Monocytes % (Manual) 3 (0-10) % Eosinophils % (Manual) 1 (0-4) % Basophils % (Manual) 2 (0-2) % Platelet Estimate Normal (NORMAL) Puncture Site R pCO2 35 (35-45) mm/Hg pO2 227 H (80-100) mm/Hg HCO3 16.9 L (21-28) mmol/L ABG pH 7.26 L (7.35-7.45) ABG Total CO2 16.8 L (22-28) mmol/L ABG O2 Saturation 100.4 H (95-98) % ABG Base Excess -10.4 L (-2.0-3.0) mmol/L ABG Hemoglobin (11.7-17.4) g/dL ABG Carboxyhemoglobin (0.5-1.5) % POC ABG HHb (Measured) (0.0-5.0) % ABG Methemoglobin (0.0-3.0) % Saqib Test Pos ABG Potassium 3.7 (3.6-5.2) mmol/L A-a O2 Difference 442.0 mm/Hg Respiratory Index 1.9 Hgb O2 Saturation (95.0-98.0) % Sodium 144.0 (132-148) mmol/l Chloride 117.0 H (98-107) mmol/L Glucose 266 H (65-105) mg/dl Lactate 1.3 (0.7-2.1) mmol/L Vent Mode Bipap Mechanical Rate FiO2 100.0 % Tidal Volume PEEP Inspiratory BiPAP 14 Expiratory BiPAP 7 Potassium (3.6-5.2) mmol/L Carbon Dioxide (22-30) mmol/L Anion Gap (10-20) BUN (7-17) mg/dL Creatinine (0.7-1.2) mg/dL Est GFR ( Amer) Est GFR (Non-Af Amer) POC Glucose (mg/dL) 255 H (65-110) mg/dL Random Glucose (65-105) mg/dL Calcium (8.6-10.4) mg/dl Phosphorus (2.5-4.5) mg/dL Magnesium (1.6-2.3) mg/dL Total Bilirubin (0.2-1.3) mg/dL AST (14-36) U/L ALT (9-52) U/L Alkaline Phosphatase (38-126) U/L Total Creatine Kinase (30-135) U/L CK-MB (Mass) (0.0-3.38) ng/mL Troponin I (0.00-0.120) ng/mL Total Protein (6.3-8.3) g/dL Albumin (3.5-5.0) g/dL Globulin (2.2-3.9) gm/dL Albumin/Globulin Ratio (1.0-2.1) Arterial Blood Potassium 3.7 (3.6-5.2) mmol/L Urine Color (YELLOW) Urine Clarity (Clear) Urine pH (5.0-8.0) Ur Specific [place] (1.003-1.030) Urine Protein (NEGATIVE) mg/dL Urine Glucose (UA) (Normal) mg/dL Urine Ketones (NEGATIVE) mg/dL Urine Blood (NEGATIVE) Urine Nitrate (NEGATIVE) Urine Bilirubin (NEGATIVE) Urine Urobilinogen (0.2-1.0) mg/dL Ur Leukocyte Esterase (Negative) Arcelia/uL Urine WBC (Auto) (0-5) /hpf Urine RBC (Auto) (0-3) /hpf Hyaline Casts (0-2) /lpf Urine Yeast (Budding) (NEGATIVE) /hpf Blood Type Antibody Screen 01/04/18 01/04/18 01/04/18 Range/Units 23:29 21:03 17:57 WBC (4.8-10.8) K/uL RBC (3.80-5.20) Mil/uL Hgb (11.0-16.0) g/dL Hct (34.0-47.0) % MCV (81.0-99.0) fL MCH (27.0-31.0) pg MCHC (33.0-37.0) g/dL RDW (11.5-14.5) % Plt Count (130-400) K/uL MPV (7.2-11.7) fL Neut % (Auto) (50.0-75.0) % Lymph % (Auto) (20.0-40.0) % [place] % (Auto) (0.0-10.0) % Eos % (Auto) (0.0-4.0) % Baso % (Auto) (0.0-2.0) % Neut # (Auto) (1.8-7.0) K/uL Lymph # (Auto) (1.0-4.3) K/uL [place] # (Auto) (0.0-0.8) K/uL Eos # (Auto) (0.0-0.7) K/uL Baso # (Auto) (0.0-0.2) K/uL Neutrophils % (Manual) (50-75) % Band Neutrophils % (0-2) % Lymphocytes % (Manual) (20-40) % Monocytes % (Manual) (0-10) % Eosinophils % (Manual) (0-4) % Basophils % (Manual) (0-2) % Platelet Estimate (NORMAL) Puncture Site pCO2 (35-45) mm/Hg pO2 (80-100) mm/Hg HCO3 (21-28) mmol/L ABG pH (7.35-7.45) ABG Total CO2 (22-28) mmol/L ABG O2 Saturation (95-98) % ABG Base Excess (-2.0-3.0) mmol/L ABG Hemoglobin (11.7-17.4) g/dL ABG Carboxyhemoglobin (0.5-1.5) % POC ABG HHb (Measured) (0.0-5.0) % ABG Methemoglobin (0.0-3.0) % Saqib Test ABG Potassium (3.6-5.2) mmol/L A-a O2 Difference mm/Hg Respiratory Index Hgb O2 Saturation (95.0-98.0) % Sodium (132-148) mmol/l Chloride (98-107) mmol/L Glucose (65-105) mg/dl Lactate (0.7-2.1) mmol/L Vent Mode Mechanical Rate FiO2 % Tidal Volume PEEP Inspiratory BiPAP Expiratory BiPAP Potassium (3.6-5.2) mmol/L Carbon Dioxide (22-30) mmol/L Anion Gap (10-20) BUN (7-17) mg/dL Creatinine (0.7-1.2) mg/dL Est GFR ( Amer) Est GFR (Non-Af Amer) POC Glucose (mg/dL) 240 H 283 H (65-110) mg/dL Random Glucose (65-105) mg/dL Calcium (8.6-10.4) mg/dl Phosphorus (2.5-4.5) mg/dL Magnesium (1.6-2.3) mg/dL Total Bilirubin (0.2-1.3) mg/dL AST (14-36) U/L ALT (9-52) U/L Alkaline Phosphatase (38-126) U/L Total Creatine Kinase 103 (30-135) U/L CK-MB (Mass) 0.99 (0.0-3.38) ng/mL Troponin I 0.0420 (0.00-0.120) ng/mL Total Protein (6.3-8.3) g/dL Albumin (3.5-5.0) g/dL Globulin (2.2-3.9) gm/dL Albumin/Globulin Ratio (1.0-2.1) Arterial Blood Potassium (3.6-5.2) mmol/L Urine Color (YELLOW) Urine Clarity (Clear) Urine pH (5.0-8.0) Ur Specific [place] (1.003-1.030) Urine Protein (NEGATIVE) mg/dL Urine Glucose (UA) (Normal) mg/dL Urine Ketones (NEGATIVE) mg/dL Urine Blood (NEGATIVE) Urine Nitrate (NEGATIVE) Urine Bilirubin (NEGATIVE) Urine Urobilinogen (0.2-1.0) mg/dL Ur Leukocyte Esterase (Negative) Arcelia/uL Urine WBC (Auto) (0-5) /hpf Urine RBC (Auto) (0-3) /hpf Hyaline Casts (0-2) /lpf Urine Yeast (Budding) (NEGATIVE) /hpf Blood Type Antibody Screen 01/04/18 Range/Units 16:12 WBC (4.8-10.8) K/uL RBC (3.80-5.20) Mil/uL Hgb (11.0-16.0) g/dL Hct (34.0-47.0) % MCV (81.0-99.0) fL MCH (27.0-31.0) pg MCHC (33.0-37.0) g/dL RDW (11.5-14.5) % Plt Count (130-400) K/uL MPV (7.2-11.7) fL Neut % (Auto) (50.0-75.0) % Lymph % (Auto) (20.0-40.0) % [place] % (Auto) (0.0-10.0) % Eos % (Auto) (0.0-4.0) % Baso % (Auto) (0.0-2.0) % Neut # (Auto) (1.8-7.0) K/uL Lymph # (Auto) (1.0-4.3) K/uL [place] # (Auto) (0.0-0.8) K/uL Eos # (Auto) (0.0-0.7) K/uL Baso # (Auto) (0.0-0.2) K/uL Neutrophils % (Manual) (50-75) % Band Neutrophils % (0-2) % Lymphocytes % (Manual) (20-40) % Monocytes % (Manual) (0-10) % Eosinophils % (Manual) (0-4) % Basophils % (Manual) (0-2) % Platelet Estimate (NORMAL) Puncture Site pCO2 (35-45) mm/Hg pO2 (80-100) mm/Hg HCO3 (21-28) mmol/L ABG pH (7.35-7.45) ABG Total CO2 (22-28) mmol/L ABG O2 Saturation (95-98) % ABG Base Excess (-2.0-3.0) mmol/L ABG Hemoglobin (11.7-17.4) g/dL ABG Carboxyhemoglobin (0.5-1.5) % POC ABG HHb (Measured) (0.0-5.0) % ABG Methemoglobin (0.0-3.0) % Saqib Test ABG Potassium (3.6-5.2) mmol/L A-a O2 Difference mm/Hg Respiratory Index Hgb O2 Saturation (95.0-98.0) % Sodium (132-148) mmol/l Chloride (98-107) mmol/L Glucose (65-105) mg/dl Lactate (0.7-2.1) mmol/L Vent Mode Mechanical Rate FiO2 % Tidal Volume PEEP Inspiratory BiPAP Expiratory BiPAP Potassium (3.6-5.2) mmol/L Carbon Dioxide (22-30) mmol/L Anion Gap (10-20) BUN (7-17) mg/dL Creatinine (0.7-1.2) mg/dL Est GFR ( Amer) Est GFR (Non-Af Amer) POC Glucose (mg/dL) 311 H (65-110) mg/dL Random Glucose (65-105) mg/dL Calcium (8.6-10.4) mg/dl Phosphorus (2.5-4.5) mg/dL Magnesium (1.6-2.3) mg/dL Total Bilirubin (0.2-1.3) mg/dL AST (14-36) U/L ALT (9-52) U/L Alkaline Phosphatase (38-126) U/L Total Creatine Kinase (30-135) U/L CK-MB (Mass) (0.0-3.38) ng/mL Troponin I (0.00-0.120) ng/mL Total Protein (6.3-8.3) g/dL Albumin (3.5-5.0) g/dL Globulin (2.2-3.9) gm/dL Albumin/Globulin Ratio (1.0-2.1) Arterial Blood Potassium (3.6-5.2) mmol/L Urine Color (YELLOW) Urine Clarity (Clear) Urine pH (5.0-8.0) Ur Specific [place] (1.003-1.030) Urine Protein (NEGATIVE) mg/dL Urine Glucose (UA) (Normal) mg/dL Urine Ketones (NEGATIVE) mg/dL Urine Blood (NEGATIVE) Urine Nitrate (NEGATIVE) Urine Bilirubin (NEGATIVE) Urine Urobilinogen (0.2-1.0) mg/dL Ur Leukocyte Esterase (Negative) Arcelia/uL Urine WBC (Auto) (0-5) /hpf Urine RBC (Auto) (0-3) /hpf Hyaline Casts (0-2) /lpf Urine Yeast (Budding) (NEGATIVE) /hpf Blood Type Antibody Screen Laboratory Results - last 24 hr 01/04/18 01/04/18 01/04/18 16:12 17:57 21:03 WBC RBC Hgb Hct MCV MCH MCHC RDW Plt Count MPV Neut % (Auto) Lymph % (Auto) [place] % (Auto) Eos % (Auto) Baso % (Auto) Neut # (Auto) Lymph # (Auto) [place] # (Auto) Eos # (Auto) Baso # (Auto) Neutrophils % (Manual) Band Neutrophils % Lymphocytes % (Manual) Monocytes % (Manual) Eosinophils % (Manual) Basophils % (Manual) Platelet Estimate Puncture Site pCO2 pO2 HCO3 ABG pH ABG Total CO2 ABG O2 Saturation ABG Base Excess ABG Hemoglobin ABG Carboxyhemoglobin POC ABG HHb (Measured) ABG Methemoglobin Saqib Test ABG Potassium A-a O2 Difference Respiratory Index Hgb O2 Saturation Sodium Chloride Glucose Lactate Vent Mode Mechanical Rate FiO2 Tidal Volume PEEP Inspiratory BiPAP Expiratory BiPAP Potassium Carbon Dioxide Anion Gap BUN Creatinine Est GFR ( Amer) Est GFR (Non-Af Amer) POC Glucose (mg/dL) 311 H 283 H 240 H Random Glucose Calcium Phosphorus Magnesium Total Bilirubin AST ALT Alkaline Phosphatase Total Creatine Kinase CK-MB (Mass) Troponin I Total Protein Albumin Globulin Albumin/Globulin Ratio Arterial Blood Potassium Urine Color Urine Clarity Urine pH Ur Specific [place] Urine Protein Urine Glucose (UA) Urine Ketones Urine Blood Urine Nitrate Urine Bilirubin Urine Urobilinogen Ur Leukocyte Esterase Urine WBC (Auto) Urine RBC (Auto) Hyaline Casts Urine Yeast (Budding) Blood Type Antibody Screen 01/04/18 01/05/18 01/05/18 23:29 02:05 02:39 WBC RBC Hgb Hct MCV MCH MCHC RDW Plt Count MPV Neut % (Auto) Lymph % (Auto) [place] % (Auto) Eos % (Auto) Baso % (Auto) Neut # (Auto) Lymph # (Auto) [place] # (Auto) Eos # (Auto) Baso # (Auto) Neutrophils % (Manual) Band Neutrophils % Lymphocytes % (Manual) Monocytes % (Manual) Eosinophils % (Manual) Basophils % (Manual) Platelet Estimate Puncture Site R pCO2 35 pO2 227 H HCO3 16.9 L ABG pH 7.26 L ABG Total CO2 16.8 L ABG O2 Saturation 100.4 H ABG Base Excess -10.4 L ABG Hemoglobin ABG Carboxyhemoglobin POC ABG HHb (Measured) ABG Methemoglobin Saqib Test Pos ABG Potassium 3.7 A-a O2 Difference 442.0 Respiratory Index 1.9 Hgb O2 Saturation Sodium 144.0 Chloride 117.0 H Glucose 266 H Lactate 1.3 Vent Mode Bipap Mechanical Rate FiO2 100.0 Tidal Volume PEEP Inspiratory BiPAP 14 Expiratory BiPAP 7 Potassium Carbon Dioxide Anion Gap BUN Creatinine Est GFR ( Amer) Est GFR (Non-Af Amer) POC Glucose (mg/dL) 255 H Random Glucose Calcium Phosphorus Magnesium Total Bilirubin AST ALT Alkaline Phosphatase Total Creatine Kinase 103 CK-MB (Mass) 0.99 Troponin I 0.0420 Total Protein Albumin Globulin Albumin/Globulin Ratio Arterial Blood Potassium 3.7 Urine Color Urine Clarity Urine pH Ur Specific [place] Urine Protein Urine Glucose (UA) Urine Ketones Urine Blood Urine Nitrate Urine Bilirubin Urine Urobilinogen Ur Leukocyte Esterase Urine WBC (Auto) Urine RBC (Auto) Hyaline Casts Urine Yeast (Budding) Blood Type Antibody Screen 01/05/18 01/05/18 01/05/18 04:13 04:13 04:13 WBC 21.4 H D RBC 3.59 L Hgb 9.3 L Hct 30.3 L MCV 84.2 D MCH 25.8 L MCHC 30.6 L RDW 16.4 H Plt Count 351 MPV 10.6 Neut % (Auto) 84.2 H Lymph % (Auto) 7.9 L [place] % (Auto) 6.4 Eos % (Auto) 1.1 Baso % (Auto) 0.4 Neut # (Auto) 18.0 H Lymph # (Auto) 1.7 [place] # (Auto) 1.4 H Eos # (Auto) 0.2 Baso # (Auto) 0.1 Neutrophils % (Manual) 86 H Band Neutrophils % 2 Lymphocytes % (Manual) 6 L Monocytes % (Manual) 3 Eosinophils % (Manual) 1 Basophils % (Manual) 2 Platelet Estimate Normal Puncture Site pCO2 pO2 HCO3 ABG pH ABG Total CO2 ABG O2 Saturation ABG Base Excess ABG Hemoglobin ABG Carboxyhemoglobin POC ABG HHb (Measured) ABG Methemoglobin Saqib Test ABG Potassium A-a O2 Difference Respiratory Index Hgb O2 Saturation Sodium 147 Chloride 113 H Glucose Lactate Vent Mode Mechanical Rate FiO2 Tidal Volume PEEP Inspiratory BiPAP Expiratory BiPAP Potassium 4.7 Carbon Dioxide 18 L Anion Gap 22 H BUN 24 H Creatinine 1.9 H Est GFR ( Amer) 31 Est GFR (Non-Af Amer) 26 POC Glucose (mg/dL) Random Glucose 298 H Calcium 8.1 L Phosphorus 6.5 H Magnesium 2.1 Total Bilirubin 0.4 AST 69 H D ALT 80 H D Alkaline Phosphatase 115 Total Creatine Kinase 119 CK-MB (Mass) 1.40 Troponin I 0.0480 Total Protein 6.3 Albumin 3.9 Globulin 2.5 Albumin/Globulin Ratio 1.6 Arterial Blood Potassium Urine Color Urine Clarity Urine pH Ur Specific [place] Urine Protein Urine Glucose (UA) Urine Ketones Urine Blood Urine Nitrate Urine Bilirubin Urine Urobilinogen Ur Leukocyte Esterase Urine WBC (Auto) Urine RBC (Auto) Hyaline Casts Urine Yeast (Budding) Blood Type O POSITIVE Antibody Screen Negative 01/05/18 01/05/18 01/05/18 05:29 05:41 06:03 WBC RBC Hgb Hct MCV MCH MCHC RDW Plt Count MPV Neut % (Auto) Lymph % (Auto) [place] % (Auto) Eos % (Auto) Baso % (Auto) Neut # (Auto) Lymph # (Auto) [place] # (Auto) Eos # (Auto) Baso # (Auto) Neutrophils % (Manual) Band Neutrophils % Lymphocytes % (Manual) Monocytes % (Manual) Eosinophils % (Manual) Basophils % (Manual) Platelet Estimate Puncture Site R rad pCO2 33 L pO2 127 H HCO3 17.7 L ABG pH 7.30 L ABG Total CO2 17.2 L ABG O2 Saturation 100.2 H ABG Base Excess -9.3 L ABG Hemoglobin 8.8 L ABG Carboxyhemoglobin 2.0 H POC ABG HHb (Measured) -0.2 L ABG Methemoglobin 0.9 Saqib Test Pos ABG Potassium A-a O2 Difference 260.0 Respiratory Index 2.0 Hgb O2 Saturation 97.2 Sodium Chloride Glucose Lactate Vent Mode Prvc Mechanical Rate 14 FiO2 60.0 Tidal Volume 450 PEEP 5 Inspiratory BiPAP Expiratory BiPAP Potassium Carbon Dioxide Anion Gap BUN Creatinine Est GFR ( Amer) Est GFR (Non-Af Amer) POC Glucose (mg/dL) 353 H Random Glucose Calcium Phosphorus Magnesium Total Bilirubin AST ALT Alkaline Phosphatase Total Creatine Kinase CK-MB (Mass) Troponin I Total Protein Albumin Globulin Albumin/Globulin Ratio Arterial Blood Potassium Urine Color Yellow Urine Clarity Hazy Urine pH 5.0 Ur Specific [place] 1.010 Urine Protein 1+ H Urine Glucose (UA) Normal Urine Ketones Negative Urine Blood Negative Urine Nitrate Negative Urine Bilirubin Negative Urine Urobilinogen Normal Ur Leukocyte Esterase Trace Urine WBC (Auto) 7 H Urine RBC (Auto) 1 Hyaline Casts 0-2 Urine Yeast (Budding) Occ H Blood Type Antibody Screen 01/05/18 11:53 WBC RBC Hgb Hct MCV MCH MCHC RDW Plt Count MPV Neut % (Auto) Lymph % (Auto) [place] % (Auto) Eos % (Auto) Baso % (Auto) Neut # (Auto) Lymph # (Auto) [place] # (Auto) Eos # (Auto) Baso # (Auto) Neutrophils % (Manual) Band Neutrophils % Lymphocytes % (Manual) Monocytes % (Manual) Eosinophils % (Manual) Basophils % (Manual) Platelet Estimate Puncture Site pCO2 pO2 HCO3 ABG pH ABG Total CO2 ABG O2 Saturation ABG Base Excess ABG Hemoglobin ABG Carboxyhemoglobin POC ABG HHb (Measured) ABG Methemoglobin Saqib Test ABG Potassium A-a O2 Difference Respiratory Index Hgb O2 Saturation Sodium Chloride Glucose Lactate Vent Mode Mechanical Rate FiO2 Tidal Volume PEEP Inspiratory BiPAP Expiratory BiPAP Potassium Carbon Dioxide Anion Gap BUN Creatinine Est GFR ( Amer) Est GFR (Non-Af Amer) POC Glucose (mg/dL) 342 H Random Glucose Calcium Phosphorus Magnesium Total Bilirubin AST ALT Alkaline Phosphatase Total Creatine Kinase CK-MB (Mass) Troponin I Total Protein Albumin Globulin Albumin/Globulin Ratio Arterial Blood Potassium Urine Color Urine Clarity Urine pH Ur Specific [place] Urine Protein Urine Glucose (UA) Urine Ketones Urine Blood Urine Nitrate Urine Bilirubin Urine Urobilinogen Ur Leukocyte Esterase Urine WBC (Auto) Urine RBC (Auto) Hyaline Casts Urine Yeast (Budding) Blood Type Antibody Screen EKG/Cardiology Studies: Cardiology / EKG Studies 01/04/18 22:44 ELECTROCARDIOGRAM Stat Comment: Mode Of Transportation: Reason For Exam: chest pain 01/05/18 03:43 EKG [ELECTROCARDIOGRAM] Stat Comment: Mode Of Transportation: PORTABLE Reason For Exam: sinus tach Fingerstick Blood Sugar Results: 353 Assessment/Plan - Assessment and Plan (Free Text) Assessment: This is a 73 female with PMHx HTN, T2DM, pulm HTN, CVA with TIA, GERD, right ear deafness and MILTON patient was admitted 12/29/17 for left foot Osteo s/p Left foot hallux and 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 Plan: Neuro: - Intubated on Propofol - On PRVC 14/60/450/5 A: Hx CVA, TIA - Crestor 20mg PO QHS - Topamax 25mg PO BID Cardio: A: HTN - Hydralazine 50mg PO BID, Bystolic 10mg PO daily A: Pulmonary HTN - F/U ECHO A: MILTON Pulm: A: Acute Respiratory Failure 2/2 Pulmonary Edema - Intubated A: Asthma - Singular 10mg QHS GI: A: Transaminitis - Baseline wnl - Likely medication induced - Hep panel ordered A: GERD Endo: A: T2DM - Accuchecks - Held Glipizide, Novolin 40 unit SC QAM, ISS - Q6H A: Hypothyroidism - Synthroid 125mcg Renal: A: IRASEMA - Likely 2/2 lasix - Continue to monitor ID: A: Osteomyelitis, left foot - Initially on Rocephin and flagyl ---> Primaxin Q8H 01/05/18 and Flagyl 500mg Q8H (12/29/17) - s/p Left foot hallux and 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 Peña - Wound culture - Corynebacterium - pending LENNY - SIRS - Leukocytosis with left shift, bandemia, lactate 1.3 - F/U BC, UC, UA Heme/Onc A: Anemia of Chronic Disease - Baseline 9s - Continue to monitor Prophylaxis - Protonix - SCDs, Hep Q12 DW Belen Schmitt DO, PGY-1 <Asad Dawson S - Last Filed: 01/05/18 17:03> CCU Objective - Vital Signs / Intake & Output Vital Signs (Last 4 hours): Vital Signs Temp Pulse Resp BP Pulse Ox 01/05/18 13:46 98.6 F 100 01/05/18 13:34 67 14 116/44 L 100 01/05/18 13:04 66 13 98/34 L 100 Intake and Output (Last 8hrs): Intake & Output 01/05/18 01/05/18 01/05/18 06:59 14:59 22:59 Intake Total 328.4 680.2 Output Total 150 290 Balance 178.4 390.2 Intake: IV 300 Intake, IV Amount 328.4 380.2 Left External Jugular 58.5 Left Neck 200 Right Hand 68 0 Right Upper arm 260.4 121.7 Output: Urine 150 290 Urethral (Johnson) 150 290 Emesis 0 Other: # Bowel Movements 0 - Medications Active Medications: Active Medications Generic Name Dose Route Start Last Admin Trade Name Freq PRN Reason Stop Dose Admin Albuterol/Ipratropium 3 ml 01/05/18 14:00 Duoneb 3 Mg/0.5 Mg (3 Ml) Ud INH RQ6 MIGDALIA Baclofen 10 mg 12/31/17 10:00 01/05/18 11:01 Lioresal PO 10 mg DAILY MIGDALIA Administration Glipizide 10 mg 12/31/17 17:00 01/05/18 11:08 Glucotrol Xl PO Not Given BIDCC MIGDALIA Heparin Sodium (Porcine) 5,000 units 01/05/18 11:00 01/05/18 12:27 Heparin SC 5,000 units Q12 MIGDALIA Administration Home Med 1 tab 12/29/17 20:00 01/04/18 17:00 Patient's Own Medication PO Not Given PCS MIGDALIA Hydralazine HCl 50 mg 12/29/17 18:00 01/05/18 11:07 Apresoline PO Not Given BID MIGDALIA Metronidazole 500 mg in 100 mls @ 100 mls/hr 12/29/17 22:00 01/05/18 14:14 Flagyl IVPB 100 mls/hr Q8 MIGDALIA Administration Protocol Propofol 1,000 mg in 100 mls @ 2.708 mls/hr 01/05/18 03:25 01/05/18 14:29 Diprivan IV 65.17 mcg/kg/min .Q24H PRN 35.3 mls/hr Restlessness Administration Protocol 5 MCG/KG/MIN Imipenem/Cilastatin Sodium 500 100 mls @ 100 mls/hr 01/05/18 12:00 01/05/18 12:30 mg/ Sodium Chloride IVPB 100 mls/hr Q8H MIGDALIA Administration Protocol Insulin Human NPH 40 unit 12/30/17 10:00 01/05/18 11:14 Novolin N SC 40 units QAM MIGDALIA Administration Insulin Human Regular 0 unit 01/05/18 06:00 01/05/18 12:00 Novolin R SC 6 units Q6H MIGDALIA Administration Protocol Levothyroxine Sodium 125 mcg 12/30/17 06:30 01/05/18 06:44 Synthroid PO 125 mcg DAILY@0630 MIGDALIA Administration Methylprednisolone 40 mg 01/05/18 05:30 01/05/18 11:14 Solu-Medrol IVP 40 mg Q6H MIGDALIA Administration Montelukast Sodium 10 mg 12/29/17 22:00 01/04/18 21:13 Singulair PO 10 mg HS MIGDALIA Administration Multivitamins 1 tab 01/01/18 10:00 01/05/18 11:01 Hexavitamin PO 1 tab DAILY MIGDALIA Administration Mupirocin 0 gm 12/30/17 10:00 01/04/18 11:10 Bactroban Ointment TOP Not Given DAILY MIGDALIA Nebivolol 10 mg 12/30/17 10:00 01/05/18 11:07 Bystolic PO Not Given DAILY MIGDALIA Pantoprazole Sodium 40 mg 01/05/18 10:00 01/05/18 11:01 Protonix Inj IVP 40 mg DAILY MIGDALIA Administration Rosuvastatin Calcium 20 mg 12/29/17 22:00 01/04/18 21:13 Crestor PO 20 mg HS MIGDALIA Administration Topiramate 25 mg 12/31/17 18:00 01/05/18 11:08 Topamax PO Not Given BID MIGDALIA - Patient Studies Lab Studies: Lab Studies 01/05/18 01/05/18 01/05/18 Range/Units 11:53 06:03 05:41 WBC (4.8-10.8) K/uL RBC (3.80-5.20) Mil/uL Hgb (11.0-16.0) g/dL Hct (34.0-47.0) % MCV (81.0-99.0) fL MCH (27.0-31.0) pg MCHC (33.0-37.0) g/dL RDW (11.5-14.5) % Plt Count (130-400) K/uL MPV (7.2-11.7) fL Neut % (Auto) (50.0-75.0) % Lymph % (Auto) (20.0-40.0) % [place] % (Auto) (0.0-10.0) % Eos % (Auto) (0.0-4.0) % Baso % (Auto) (0.0-2.0) % Neut # (Auto) (1.8-7.0) K/uL Lymph # (Auto) (1.0-4.3) K/uL [place] # (Auto) (0.0-0.8) K/uL Eos # (Auto) (0.0-0.7) K/uL Baso # (Auto) (0.0-0.2) K/uL Neutrophils % (Manual) (50-75) % Band Neutrophils % (0-2) % Lymphocytes % (Manual) (20-40) % Monocytes % (Manual) (0-10) % Eosinophils % (Manual) (0-4) % Basophils % (Manual) (0-2) % Platelet Estimate (NORMAL) Puncture Site pCO2 (35-45) mm/Hg pO2 (80-100) mm/Hg HCO3 (21-28) mmol/L ABG pH (7.35-7.45) ABG Total CO2 (22-28) mmol/L ABG O2 Saturation (95-98) % ABG Base Excess (-2.0-3.0) mmol/L ABG Hemoglobin (11.7-17.4) g/dL ABG Carboxyhemoglobin (0.5-1.5) % POC ABG HHb (Measured) (0.0-5.0) % ABG Methemoglobin (0.0-3.0) % Saqib Test ABG Potassium (3.6-5.2) mmol/L A-a O2 Difference mm/Hg Respiratory Index Hgb O2 Saturation (95.0-98.0) % Sodium (132-148) mmol/l Chloride (98-107) mmol/L Glucose (65-105) mg/dl Lactate (0.7-2.1) mmol/L Vent Mode Mechanical Rate FiO2 % Tidal Volume PEEP Inspiratory BiPAP Expiratory BiPAP Potassium (3.6-5.2) mmol/L Carbon Dioxide (22-30) mmol/L Anion Gap (10-20) BUN (7-17) mg/dL Creatinine (0.7-1.2) mg/dL Est GFR ( Amer) Est GFR (Non-Af Amer) POC Glucose (mg/dL) 342 H 353 H (65-110) mg/dL Random Glucose (65-105) mg/dL Calcium (8.6-10.4) mg/dl Phosphorus (2.5-4.5) mg/dL Magnesium (1.6-2.3) mg/dL Total Bilirubin (0.2-1.3) mg/dL AST (14-36) U/L ALT (9-52) U/L Alkaline Phosphatase (38-126) U/L Total Creatine Kinase (30-135) U/L CK-MB (Mass) (0.0-3.38) ng/mL Troponin I (0.00-0.120) ng/mL Total Protein (6.3-8.3) g/dL Albumin (3.5-5.0) g/dL Globulin (2.2-3.9) gm/dL Albumin/Globulin Ratio (1.0-2.1) Arterial Blood Potassium (3.6-5.2) mmol/L Urine Color Yellow (YELLOW) Urine Clarity Hazy (Clear) Urine pH 5.0 (5.0-8.0) Ur Specific [place] 1.010 (1.003-1.030) Urine Protein 1+ H (NEGATIVE) mg/dL Urine Glucose (UA) Normal (Normal) mg/dL Urine Ketones Negative (NEGATIVE) mg/dL Urine Blood Negative (NEGATIVE) Urine Nitrate Negative (NEGATIVE) Urine Bilirubin Negative (NEGATIVE) Urine Urobilinogen Normal (0.2-1.0) mg/dL Ur Leukocyte Esterase Trace (Negative) [place]celia/uL Urine WBC (Auto) 7 H (0-5) /hpf Urine RBC (Auto) 1 (0-3) /hpf Hyaline Casts 0-2 (0-2) /lpf Urine Yeast (Budding) Occ H (NEGATIVE) /hpf Blood Type Antibody Screen 01/05/18 01/05/18 01/05/18 Range/Units 05:29 04:13 04:13 WBC (4.8-10.8) K/uL RBC (3.80-5.20) Mil/uL Hgb (11.0-16.0) g/dL Hct (34.0-47.0) % MCV (81.0-99.0) fL MCH (27.0-31.0) pg MCHC (33.0-37.0) g/dL RDW (11.5-14.5) % Plt Count (130-400) K/uL MPV (7.2-11.7) fL Neut % (Auto) (50.0-75.0) % Lymph % (Auto) (20.0-40.0) % [place] % (Auto) (0.0-10.0) % Eos % (Auto) (0.0-4.0) % Baso % (Auto) (0.0-2.0) % Neut # (Auto) (1.8-7.0) K/uL Lymph # (Auto) (1.0-4.3) K/uL [place] # (Auto) (0.0-0.8) K/uL Eos # (Auto) (0.0-0.7) K/uL Baso # (Auto) (0.0-0.2) K/uL Neutrophils % (Manual) (50-75) % Band Neutrophils % (0-2) % Lymphocytes % (Manual) (20-40) % Monocytes % (Manual) (0-10) % Eosinophils % (Manual) (0-4) % Basophils % (Manual) (0-2) % Platelet Estimate (NORMAL) Puncture Site R rad pCO2 33 L (35-45) mm/Hg pO2 127 H (80-100) mm/Hg HCO3 17.7 L (21-28) mmol/L ABG pH 7.30 L (7.35-7.45) ABG Total CO2 17.2 L (22-28) mmol/L ABG O2 Saturation 100.2 H (95-98) % ABG Base Excess -9.3 L (-2.0-3.0) mmol/L ABG Hemoglobin 8.8 L (11.7-17.4) g/dL ABG Carboxyhemoglobin 2.0 H (0.5-1.5) % POC ABG HHb (Measured) -0.2 L (0.0-5.0) % ABG Methemoglobin 0.9 (0.0-3.0) % Saqib Test Pos ABG Potassium (3.6-5.2) mmol/L A-a O2 Difference 260.0 mm/Hg Respiratory Index 2.0 Hgb O2 Saturation 97.2 (95.0-98.0) % Sodium 147 (132-148) mmol/l Chloride 113 H (98-107) mmol/L Glucose (65-105) mg/dl Lactate (0.7-2.1) mmol/L Vent Mode Prvc Mechanical Rate 14 FiO2 60.0 % Tidal Volume 450 PEEP 5 Inspiratory BiPAP Expiratory BiPAP Potassium 4.7 (3.6-5.2) mmol/L Carbon Dioxide 18 L (22-30) mmol/L Anion Gap 22 H (10-20) BUN 24 H (7-17) mg/dL Creatinine 1.9 H (0.7-1.2) mg/dL Est GFR ( Amer) 31 Est GFR (Non-Af Amer) 26 POC Glucose (mg/dL) (65-110) mg/dL Random Glucose 298 H (65-105) mg/dL Calcium 8.1 L (8.6-10.4) mg/dl Phosphorus 6.5 H (2.5-4.5) mg/dL Magnesium 2.1 (1.6-2.3) mg/dL Total Bilirubin 0.4 (0.2-1.3) mg/dL AST 69 H D (14-36) U/L ALT 80 H D (9-52) U/L Alkaline Phosphatase 115 (38-126) U/L Total Creatine Kinase 119 (30-135) U/L CK-MB (Mass) 1.40 (0.0-3.38) ng/mL Troponin I 0.0480 (0.00-0.120) ng/mL Total Protein 6.3 (6.3-8.3) g/dL Albumin 3.9 (3.5-5.0) g/dL Globulin 2.5 (2.2-3.9) gm/dL Albumin/Globulin Ratio 1.6 (1.0-2.1) Arterial Blood Potassium (3.6-5.2) mmol/L Urine Color (YELLOW) Urine Clarity (Clear) Urine pH (5.0-8.0) Ur Specific [place] (1.003-1.030) Urine Protein (NEGATIVE) mg/dL Urine Glucose (UA) (Normal) mg/dL Urine Ketones (NEGATIVE) mg/dL Urine Blood (NEGATIVE) Urine Nitrate (NEGATIVE) Urine Bilirubin (NEGATIVE) Urine Urobilinogen (0.2-1.0) mg/dL Ur Leukocyte Esterase (Negative) Arcelia/uL Urine WBC (Auto) (0-5) /hpf Urine RBC (Auto) (0-3) /hpf Hyaline Casts (0-2) /lpf Urine Yeast (Budding) (NEGATIVE) /hpf Blood Type O POSITIVE Antibody Screen Negative 01/05/18 01/05/18 01/05/18 Range/Units 04:13 02:39 02:05 WBC 21.4 H D (4.8-10.8) K/uL RBC 3.59 L (3.80-5.20) Mil/uL Hgb 9.3 L (11.0-16.0) g/dL Hct 30.3 L (34.0-47.0) % MCV 84.2 D (81.0-99.0) fL MCH 25.8 L (27.0-31.0) pg MCHC 30.6 L (33.0-37.0) g/dL RDW 16.4 H (11.5-14.5) % Plt Count 351 (130-400) K/uL MPV 10.6 (7.2-11.7) fL Neut % (Auto) 84.2 H (50.0-75.0) % Lymph % (Auto) 7.9 L (20.0-40.0) % [place] % (Auto) 6.4 (0.0-10.0) % Eos % (Auto) 1.1 (0.0-4.0) % Baso % (Auto) 0.4 (0.0-2.0) % Neut # (Auto) 18.0 H (1.8-7.0) K/uL Lymph # (Auto) 1.7 (1.0-4.3) K/uL [place] # (Auto) 1.4 H (0.0-0.8) K/uL Eos # (Auto) 0.2 (0.0-0.7) K/uL Baso # (Auto) 0.1 (0.0-0.2) K/uL Neutrophils % (Manual) 86 H (50-75) % Band Neutrophils % 2 (0-2) % Lymphocytes % (Manual) 6 L (20-40) % Monocytes % (Manual) 3 (0-10) % Eosinophils % (Manual) 1 (0-4) % Basophils % (Manual) 2 (0-2) % Platelet Estimate Normal (NORMAL) Puncture Site R pCO2 35 (35-45) mm/Hg pO2 227 H (80-100) mm/Hg HCO3 16.9 L (21-28) mmol/L ABG pH 7.26 L (7.35-7.45) ABG Total CO2 16.8 L (22-28) mmol/L ABG O2 Saturation 100.4 H (95-98) % ABG Base Excess -10.4 L (-2.0-3.0) mmol/L ABG Hemoglobin (11.7-17.4) g/dL ABG Carboxyhemoglobin (0.5-1.5) % POC ABG HHb (Measured) (0.0-5.0) % ABG Methemoglobin (0.0-3.0) % Saqib Test Pos ABG Potassium 3.7 (3.6-5.2) mmol/L A-a O2 Difference 442.0 mm/Hg Respiratory Index 1.9 Hgb O2 Saturation (95.0-98.0) % Sodium 144.0 (132-148) mmol/l Chloride 117.0 H (98-107) mmol/L Glucose 266 H (65-105) mg/dl Lactate 1.3 (0.7-2.1) mmol/L Vent Mode Bipap Mechanical Rate FiO2 100.0 % Tidal Volume PEEP Inspiratory BiPAP 14 Expiratory BiPAP 7 Potassium (3.6-5.2) mmol/L Carbon Dioxide (22-30) mmol/L Anion Gap (10-20) BUN (7-17) mg/dL Creatinine (0.7-1.2) mg/dL Est GFR ( Amer) Est GFR (Non-Af Amer) POC Glucose (mg/dL) 255 H (65-110) mg/dL Random Glucose (65-105) mg/dL Calcium (8.6-10.4) mg/dl Phosphorus (2.5-4.5) mg/dL Magnesium (1.6-2.3) mg/dL Total Bilirubin (0.2-1.3) mg/dL AST (14-36) U/L ALT (9-52) U/L Alkaline Phosphatase (38-126) U/L Total Creatine Kinase (30-135) U/L CK-MB (Mass) (0.0-3.38) ng/mL Troponin I (0.00-0.120) ng/mL Total Protein (6.3-8.3) g/dL Albumin (3.5-5.0) g/dL Globulin (2.2-3.9) gm/dL Albumin/Globulin Ratio (1.0-2.1) Arterial Blood Potassium 3.7 (3.6-5.2) mmol/L Urine Color (YELLOW) Urine Clarity (Clear) Urine pH (5.0-8.0) Ur Specific [place] (1.003-1.030) Urine Protein (NEGATIVE) mg/dL Urine Glucose (UA) (Normal) mg/dL Urine Ketones (NEGATIVE) mg/dL Urine Blood (NEGATIVE) Urine Nitrate (NEGATIVE) Urine Bilirubin (NEGATIVE) Urine Urobilinogen (0.2-1.0) mg/dL Ur Leukocyte Esterase (Negative) Arcelia/uL Urine WBC (Auto) (0-5) /hpf Urine RBC (Auto) (0-3) /hpf Hyaline Casts (0-2) /lpf Urine Yeast (Budding) (NEGATIVE) /hpf Blood Type Antibody Screen 06/12/18 06/12/18 06/12/18 Range/Units 23:29 21:03 17:57 WBC (4.8-10.8) K/uL RBC (3.80-5.20) Mil/uL Hgb (11.0-16.0) g/dL Hct (34.0-47.0) % MCV (81.0-99.0) fL MCH (27.0-31.0) pg MCHC (33.0-37.0) g/dL RDW (11.5-14.5) % Plt Count (130-400) K/uL MPV (7.2-11.7) fL Neut % (Auto) (50.0-75.0) % Lymph % (Auto) (20.0-40.0) % [place] % (Auto) (0.0-10.0) % Eos % (Auto) (0.0-4.0) % Baso % (Auto) (0.0-2.0) % Neut # (Auto) (1.8-7.0) K/uL Lymph # (Auto) (1.0-4.3) K/uL [place] # (Auto) (0.0-0.8) K/uL Eos # (Auto) (0.0-0.7) K/uL Baso # (Auto) (0.0-0.2) K/uL Neutrophils % (Manual) (50-75) % Band Neutrophils % (0-2) % Lymphocytes % (Manual) (20-40) % Monocytes % (Manual) (0-10) % Eosinophils % (Manual) (0-4) % Basophils % (Manual) (0-2) % Platelet Estimate (NORMAL) Puncture Site pCO2 (35-45) mm/Hg pO2 (80-100) mm/Hg HCO3 (21-28) mmol/L ABG pH (7.35-7.45) ABG Total CO2 (22-28) mmol/L ABG O2 Saturation (95-98) % ABG Base Excess (-2.0-3.0) mmol/L ABG Hemoglobin (11.7-17.4) g/dL ABG Carboxyhemoglobin (0.5-1.5) % POC ABG HHb (Measured) (0.0-5.0) % ABG Methemoglobin (0.0-3.0) % Saqib Test ABG Potassium (3.6-5.2) mmol/L A-a O2 Difference mm/Hg Respiratory Index Hgb O2 Saturation (95.0-98.0) % Sodium (132-148) mmol/l Chloride (98-107) mmol/L Glucose (65-105) mg/dl Lactate (0.7-2.1) mmol/L Vent Mode Mechanical Rate FiO2 % Tidal Volume PEEP Inspiratory BiPAP Expiratory BiPAP Potassium (3.6-5.2) mmol/L Carbon Dioxide (22-30) mmol/L Anion Gap (10-20) BUN (7-17) mg/dL Creatinine (0.7-1.2) mg/dL Est GFR ( Amer) Est GFR (Non-Af Amer) POC Glucose (mg/dL) 240 H 283 H (65-110) mg/dL Random Glucose (65-105) mg/dL Calcium (8.6-10.4) mg/dl Phosphorus (2.5-4.5) mg/dL Magnesium (1.6-2.3) mg/dL Total Bilirubin (0.2-1.3) mg/dL AST (14-36) U/L ALT (9-52) U/L Alkaline Phosphatase (38-126) U/L Total Creatine Kinase 103 (30-135) U/L CK-MB (Mass) 0.99 (0.0-3.38) ng/mL Troponin I 0.0420 (0.00-0.120) ng/mL Total Protein (6.3-8.3) g/dL Albumin (3.5-5.0) g/dL Globulin (2.2-3.9) gm/dL Albumin/Globulin Ratio (1.0-2.1) Arterial Blood Potassium (3.6-5.2) mmol/L Urine Color (YELLOW) Urine Clarity (Clear) Urine pH (5.0-8.0) Ur Specific [place] (1.003-1.030) Urine Protein (NEGATIVE) mg/dL Urine Glucose (UA) (Normal) mg/dL Urine Ketones (NEGATIVE) mg/dL Urine Blood (NEGATIVE) Urine Nitrate (NEGATIVE) Urine Bilirubin (NEGATIVE) Urine Urobilinogen (0.2-1.0) mg/dL Ur Leukocyte Esterase (Negative) Arcelia/uL Urine WBC (Auto) (0-5) /hpf Urine RBC (Auto) (0-3) /hpf Hyaline Casts (0-2) /lpf Urine Yeast (Budding) (NEGATIVE) /hpf Blood Type Antibody Screen Laboratory Results - last 24 hr 01/04/18 01/04/18 01/04/18 17:57 21:03 23:29 WBC RBC Hgb Hct MCV MCH MCHC RDW Plt Count MPV Neut % (Auto) Lymph % (Auto) [place] % (Auto) Eos % (Auto) Baso % (Auto) Neut # (Auto) Lymph # (Auto) [place] # (Auto) Eos # (Auto) Baso # (Auto) Neutrophils % (Manual) Band Neutrophils % Lymphocytes % (Manual) Monocytes % (Manual) Eosinophils % (Manual) Basophils % (Manual) Platelet Estimate Puncture Site pCO2 pO2 HCO3 ABG pH ABG Total CO2 ABG O2 Saturation ABG Base Excess ABG Hemoglobin ABG Carboxyhemoglobin POC ABG HHb (Measured) ABG Methemoglobin Saqib Test ABG Potassium A-a O2 Difference Respiratory Index Hgb O2 Saturation Sodium Chloride Glucose Lactate Vent Mode Mechanical Rate FiO2 Tidal Volume PEEP Inspiratory BiPAP Expiratory BiPAP Potassium Carbon Dioxide Anion Gap BUN Creatinine Est GFR ( Amer) Est GFR (Non-Af Amer) POC Glucose (mg/dL) 283 H 240 H Random Glucose Calcium Phosphorus Magnesium Total Bilirubin AST ALT Alkaline Phosphatase Total Creatine Kinase 103 CK-MB (Mass) 0.99 Troponin I 0.0420 Total Protein Albumin Globulin Albumin/Globulin Ratio Arterial Blood Potassium Urine Color Urine Clarity Urine pH Ur Specific [place] Urine Protein Urine Glucose (UA) Urine Ketones Urine Blood Urine Nitrate Urine Bilirubin Urine Urobilinogen Ur Leukocyte Esterase Urine WBC (Auto) Urine RBC (Auto) Hyaline Casts Urine Yeast (Budding) Blood Type Antibody Screen 01/05/18 01/05/18 01/05/18 02:05 02:39 04:13 WBC 21.4 H D RBC 3.59 L Hgb 9.3 L Hct 30.3 L MCV 84.2 D MCH 25.8 L MCHC 30.6 L RDW 16.4 H Plt Count 351 MPV 10.6 Neut % (Auto) 84.2 H Lymph % (Auto) 7.9 L Towner % (Auto) 6.4 Eos % (Auto) 1.1 Baso % (Auto) 0.4 Neut # (Auto) 18.0 H Lymph # (Auto) 1.7 Towner # (Auto) 1.4 H Eos # (Auto) 0.2 Baso # (Auto) 0.1 Neutrophils % (Manual) 86 H Band Neutrophils % 2 Lymphocytes % (Manual) 6 L Monocytes % (Manual) 3 Eosinophils % (Manual) 1 Basophils % (Manual) 2 Platelet Estimate Normal Puncture Site R pCO2 35 pO2 227 H HCO3 16.9 L ABG pH 7.26 L ABG Total CO2 16.8 L ABG O2 Saturation 100.4 H ABG Base Excess -10.4 L ABG Hemoglobin ABG Carboxyhemoglobin POC ABG HHb (Measured) ABG Methemoglobin Saqib Test Pos ABG Potassium 3.7 A-a O2 Difference 442.0 Respiratory Index 1.9 Hgb O2 Saturation Sodium 144.0 Chloride 117.0 H Glucose 266 H Lactate 1.3 Vent Mode Bipap Mechanical Rate FiO2 100.0 Tidal Volume PEEP Inspiratory BiPAP 14 Expiratory BiPAP 7 Potassium Carbon Dioxide Anion Gap BUN Creatinine Est GFR ( Amer) Est GFR (Non-Af Amer) POC Glucose (mg/dL) 255 H Random Glucose Calcium Phosphorus Magnesium Total Bilirubin AST ALT Alkaline Phosphatase Total Creatine Kinase CK-MB (Mass) Troponin I Total Protein Albumin Globulin Albumin/Globulin Ratio Arterial Blood Potassium 3.7 Urine Color Urine Clarity Urine pH Ur Specific [place] Urine Protein Urine Glucose (UA) Urine Ketones Urine Blood Urine Nitrate Urine Bilirubin Urine Urobilinogen Ur Leukocyte Esterase Urine WBC (Auto) Urine RBC (Auto) Hyaline Casts Urine Yeast (Budding) Blood Type Antibody Screen 01/05/18 01/05/18 01/05/18 04:13 04:13 05:29 WBC RBC Hgb Hct MCV MCH MCHC RDW Plt Count MPV Neut % (Auto) Lymph % (Auto) [place] % (Auto) Eos % (Auto) Baso % (Auto) Neut # (Auto) Lymph # (Auto) [place] # (Auto) Eos # (Auto) Baso # (Auto) Neutrophils % (Manual) Band Neutrophils % Lymphocytes % (Manual) Monocytes % (Manual) Eosinophils % (Manual) Basophils % (Manual) Platelet Estimate Puncture Site R rad pCO2 33 L pO2 127 H HCO3 17.7 L ABG pH 7.30 L ABG Total CO2 17.2 L ABG O2 Saturation 100.2 H ABG Base Excess -9.3 L ABG Hemoglobin 8.8 L ABG Carboxyhemoglobin 2.0 H POC ABG HHb (Measured) -0.2 L ABG Methemoglobin 0.9 Saqib Test Pos ABG Potassium A-a O2 Difference 260.0 Respiratory Index 2.0 Hgb O2 Saturation 97.2 Sodium 147 Chloride 113 H Glucose Lactate Vent Mode Prvc Mechanical Rate 14 FiO2 60.0 Tidal Volume 450 PEEP 5 Inspiratory BiPAP Expiratory BiPAP Potassium 4.7 Carbon Dioxide 18 L Anion Gap 22 H BUN 24 H Creatinine 1.9 H Est GFR ( Amer) 31 Est GFR (Non-Af Amer) 26 POC Glucose (mg/dL) Random Glucose 298 H Calcium 8.1 L Phosphorus 6.5 H Magnesium 2.1 Total Bilirubin 0.4 AST 69 H D ALT 80 H D Alkaline Phosphatase 115 Total Creatine Kinase 119 CK-MB (Mass) 1.40 Troponin I 0.0480 Total Protein 6.3 Albumin 3.9 Globulin 2.5 Albumin/Globulin Ratio 1.6 Arterial Blood Potassium Urine Color Urine Clarity Urine pH Ur Specific [place] Urine Protein Urine Glucose (UA) Urine Ketones Urine Blood Urine Nitrate Urine Bilirubin Urine Urobilinogen Ur Leukocyte Esterase Urine WBC (Auto) Urine RBC (Auto) Hyaline Casts Urine Yeast (Budding) Blood Type O POSITIVE Antibody Screen Negative 01/05/18 01/05/18 01/05/18 05:41 06:03 11:53 WBC RBC Hgb Hct MCV MCH MCHC RDW Plt Count MPV Neut % (Auto) Lymph % (Auto) [place] % (Auto) Eos % (Auto) Baso % (Auto) Neut # (Auto) Lymph # (Auto) [place] # (Auto) Eos # (Auto) Baso # (Auto) Neutrophils % (Manual) Band Neutrophils % Lymphocytes % (Manual) Monocytes % (Manual) Eosinophils % (Manual) Basophils % (Manual) Platelet Estimate Puncture Site pCO2 pO2 HCO3 ABG pH ABG Total CO2 ABG O2 Saturation ABG Base Excess ABG Hemoglobin ABG Carboxyhemoglobin POC ABG HHb (Measured) ABG Methemoglobin Saqib Test ABG Potassium A-a O2 Difference Respiratory Index Hgb O2 Saturation Sodium Chloride Glucose Lactate Vent Mode Mechanical Rate FiO2 Tidal Volume PEEP Inspiratory BiPAP Expiratory BiPAP Potassium Carbon Dioxide Anion Gap BUN Creatinine Est GFR ( Amer) Est GFR (Non-Af Amer) POC Glucose (mg/dL) 353 H 342 H Random Glucose Calcium Phosphorus Magnesium Total Bilirubin AST ALT Alkaline Phosphatase Total Creatine Kinase CK-MB (Mass) Troponin I Total Protein Albumin Globulin Albumin/Globulin Ratio Arterial Blood Potassium Urine Color Yellow Urine Clarity Hazy Urine pH 5.0 Ur Specific [place] 1.010 Urine Protein 1+ H Urine Glucose (UA) Normal Urine Ketones Negative Urine Blood Negative Urine Nitrate Negative Urine Bilirubin Negative Urine Urobilinogen Normal Ur Leukocyte Esterase Trace Urine WBC (Auto) 7 H Urine RBC (Auto) 1 Hyaline Casts 0-2 Urine Yeast (Budding) Occ H Blood Type Antibody Screen EKG/Cardiology Studies: Cardiology / EKG Studies 01/04/18 22:44 ELECTROCARDIOGRAM Stat Comment: Mode Of Transportation: Reason For Exam: chest pain 01/05/18 03:43 EKG [ELECTROCARDIOGRAM] Stat Comment: Mode Of Transportation: PORTABLE Reason For Exam: sinus tach Critical Care Progress Note - Nutrition Nutrition: Nutrition Category Date Time Status NPO Diet [DIET] Diets 01/05/18 Dinner Active Attending/Attestation - Attestation I have personally seen and examined this patient.: Yes I have fully participated in the care of the patient.: Yes I have reviewed all pertinent clinical information: Yes Notes (Text): 01/05/18 17:02 patient seen and examined. remains intubated on ventilatory support Being treated for CHF echocardiogram consistent with aortic stenosis Continue IV antibiotics as per infectious disease Feeding wean as tolerated
--- NOTE | 2018-01-05 13:13 | CARD ---
APPROVED REPORT EKG Measurement Heart [id number] NM [id number] <Conclusion> Sinus rhythm with 1st degree AV block Nonspecific ST/T changes Abnormal ECG
--- NOTE | 2018-01-05 14:26 | CARD ---
APPROVED REPORT EKG Measurement Heart [id number] MD [id number] <Conclusion> Sinus rhythm with 1st degree AV block Septal infarct, age undetermined Abnormal ECG
--- NOTE | 2018-01-05 17:30 | CP.PCM.PN ---
Subjective - Date & Time of Evaluation Date of Evaluation: 01/04/18 Time of Evaluation: 15:00 - Subjective Subjective: INFECTIOUS DISEASE PROGRESS NOTES KELSI GAMBOA MD, FACP 3T 352 01/04/2018 PT STABLE AWAITING FOR SURGERY CLINICALLY NO MAJOR ISSUES RESPONDING TO IV ANTIBIOTICS FOR SURGERY BY PODIATRY. Objective - Vital Signs/Intake and Output Vital Signs (last 24 hours): Temp Pulse Resp BP Pulse Ox 98.6 F 67 14 116/44 L 100 01/05/18 13:46 01/05/18 13:34 01/05/18 13:34 01/05/18 13:34 01/05/18 13:46 Intake and Output: 01/05/18 01/05/18 06:59 18:59 Intake Total 328.4 680.2 Output Total 150 290 Balance 178.4 390.2 - Medications Medications: Current Medications Albuterol/Ipratropium (Duoneb 3 Mg/0.5 Mg (3 Ml) Ud) 3 ml INH RQ6 [facility] Baclofen (Lioresal) 10 mg PO DAILY [facility] Last Admin: 01/05/18 11:01 Dose: 10 mg Glipizide (Glucotrol Xl) 10 mg PO BIDCC [facility] Last Admin: 01/05/18 11:08 Dose: Not Given Heparin Sodium (Porcine) (Heparin) 5,000 units SC Q12 [facility] Last Admin: 01/05/18 12:27 Dose: 5,000 units Home Med (Patient's Own Medication) 1 tab PO PCS [facility] Last Admin: 01/04/18 17:00 Dose: Not Given Hydralazine HCl (Apresoline) 50 mg PO BID [facility] Last Admin: 01/05/18 11:07 Dose: Not Given Metronidazole (Flagyl) 500 mg in 100 mls @ 100 mls/hr IVPB Q8 [facility] PRN Reason: Protocol Last Admin: 01/05/18 14:14 Dose: 100 mls/hr Propofol (Diprivan) 1,000 mg in 100 mls @ 2.708 mls/hr IV .Q24H PRN; Protocol; 5 MCG/KG/MIN PRN Reason: Restlessness Last Admin: 01/05/18 14:29 Dose: 65.17 mcg/kg/min, 35.3 mls/hr Imipenem/Cilastatin Sodium 500 (mg/ Sodium Chloride) 100 mls @ 100 mls/hr IVPB Q8H [facility] PRN Reason: Protocol Last Admin: 01/05/18 12:30 Dose: 100 mls/hr Insulin Human NPH (Novolin N) 40 unit SC QAM [facility] Last Admin: 01/05/18 11:14 Dose: 40 units Insulin Human Regular (Novolin R) 0 unit SC Q6H [facility] PRN Reason: Protocol Last Admin: 01/05/18 12:00 Dose: 6 units Levothyroxine Sodium (Synthroid) 125 mcg PO DAILY@0630 [facility] Last Admin: 01/05/18 06:44 Dose: 125 mcg Methylprednisolone (Solu-Medrol) 40 mg IVP Q6H [facility] Last Admin: 01/05/18 11:14 Dose: 40 mg Montelukast Sodium (Singulair) 10 mg PO HS [facility] Last Admin: 01/04/18 21:13 Dose: 10 mg Multivitamins (Hexavitamin) 1 tab PO DAILY [facility] Last Admin: 01/05/18 11:01 Dose: 1 tab Mupirocin (Bactroban Ointment) 0 gm TOP DAILY [facility] Last Admin: 01/04/18 11:10 Dose: Not Given Nebivolol (Bystolic) 10 mg PO DAILY [facility] Last Admin: 01/05/18 11:07 Dose: Not Given Pantoprazole Sodium (Protonix Inj) 40 mg IVP DAILY [facility] Last Admin: 01/05/18 11:01 Dose: 40 mg Rosuvastatin Calcium (Crestor) 20 mg PO HS [facility] Last Admin: 01/04/18 21:13 Dose: 20 mg Topiramate (Topamax) 25 mg PO BID [facility] Last Admin: 01/05/18 11:08 Dose: Not Given - Labs Labs: 01/05/18 04:13 01/05/18 04:13 PT 13.7 SECONDS (9.7-12.2) H 01/04/18 11:37 INR 1.3 01/04/18 11:37 APTT 31 SECONDS (21-34) 01/04/18 11:37 Assessment and Plan (1) Osteomyelitis of toe of left foot Status: Acute (2) Diabetes 1.5, managed as type 2 Status: Chronic (3) Asthma Status: Chronic (4) Pulmonary arterial hypertension Status: Chronic (5) HTN (hypertension), benign Status: Chronic
--- NOTE | 2018-01-05 17:38 | CARD ---
APPROVED REPORT EXAM: Two-dimensional and M-mode echocardiogram with Doppler and color Doppler. Other Information Quality : GoodRhythm : INDICATION Peripheral Edema Pulmonary Hypertention 2D DIMENSIONS IVSd1.3 (0.7-1.1cm)LVDd5.8 (3.9-5.9cm) LVOT Diameter2.0 (1.8-2.4cm)PWd1.1 (0.7-1.1cm) LVDs3.3 (2.5-4.0cm)FS (%) 42.2 % LVEF (%)72.5 (>50%) M-Mode DIMENSIONS Left Atrium (MM)5.51 (2.5-4.0cm)Aortic Root2.82 (2.2-3.7cm) Aortic Cusp Exc.1.08 (1.5-2.0cm) Aortic Valve AoV Peak Owktrhhb840.8cm/sAoV VTI98.4cmAO Peak GR.62mmHg LVOT Peak Pjqowuae042.5cm/sLVOT VTI28.58cmAO Mean GR.36mmHg SIMÓN (VMAX)0.93lz6HMA (VTI)0.93cm2 Mitral Valve MV E Vbjgtgwj897.5cm/sMV A Argwvwns124.6cm/sMV [id number] E/A ratio0.9MVA (PHT)1.17cm2 TDI E/Lateral E'0.0E/Medial E'0.0 Tricuspid Valve TR Peak Esfmxcpj414nu/sTR Peak Gr.46prHfWMMK84oiGn LEFT VENTRICLE The left ventricle is normal size. There is mildly increased left ventricular wall thickness. The left ventricular function is normal. The left ventricular ejection fraction is within the normal range. 65% No regional wall motion abnormalities noted. Transmitral Doppler flow pattern is Grade I-abnormal relaxation pattern. No left ventricle thrombus noted on this study. There is no ventricular septal defect visualized. There is no left ventricular aneurysm. There is no mass noted in the left ventricle. RIGHT VENTRICLE The right ventricle is normal size. There is normal right ventricular wall thickness. The right ventricular systolic function is normal. ATRIA The left atrium size is moderately dilated. The right atrium size is normal. The interatrial septum is intact with no evidence for an atrial septal defect. AORTIC VALVE Calcified aortic valve with moderately reduced openg. Peak gradient is 62 mm Hg, estiamated valve area is .9 cm2. No aortic regurgitation is present. There is moderate to severe aortic valvular stenosis. There is no aortic valvular vegetation. MITRAL VALVE The mitral valve is normal in structure and function.There is moderate annular calcification. There is no evidence of mitral valve prolapse. There is no mitral valve stenosis. There is mild mitral valve regurgitation noted. TRICUSPID VALVE The tricuspid valve is normal in structure and function. There is mild tricuspid valve regurgitation noted. Estimate PA systolic pressure is 49 mm Hg. There is no tricuspid valve prolapse or vegetation. There is no tricuspid valve stenosis. PULMONIC VALVE The pulmonary valve is normal in structure and function. There is no pulmonic valvular regurgitation. There is no pulmonic valvular stenosis. GREAT VESSELS The aortic root is normal in size. The ascending aorta is normal in size. The pulmonary artery is normal. PERICARDIAL EFFUSION The pericardium appears normal. There is a left pleural effusion. <Conclusion> Normal left ventricuarl systolic function. Moderate to severe aortic stenosis. Pleural effusion.
--- NOTE | 2018-01-05 17:38 | CP.PCM.PN ---
Subjective - Date & Time of Evaluation Date of Evaluation: 01/05/18 Time of Evaluation: 17:35 - Subjective Subjective: INFECTIOUS DISEASE PROGRESS NOTE KELSI GAMBOA MD, FACP ICU #8 01/05/2018 CHART REVIEWED PT EXAMINED CASE DISCUSSED WITH STAFF APPARENTLY LATE LAST NIGHT EARLY THIS AM THE PT EVEOLPED ACUTE ASTHMATIC ISSUES AND THEN CHF NEG TROPONINS BUT REQUIRED INTUBATION AFTER FAILING BY PAP. HER WBC IS ELEVATED AND SHE IS INTUBATED WITH PULMONARY CONGESTION PLAN IS TO ADJUST DOSE OF PRIMAXIN 250 Q 8 HOURS. ADJUST TO HER RENAL FUNCTIONS Objective - Vital Signs/Intake and Output Vital Signs (last 24 hours): Temp Pulse Resp BP Pulse Ox 98.6 F 72 12 129/46 L 100 01/05/18 13:46 01/05/18 17:33 01/05/18 17:33 01/05/18 17:34 01/05/18 17:33 Intake and Output: 01/05/18 01/05/18 06:59 18:59 Intake Total 328.4 680.2 Output Total 150 290 Balance 178.4 390.2 - Medications Medications: Current Medications Albuterol/Ipratropium (Duoneb 3 Mg/0.5 Mg (3 Ml) Ud) 3 ml INH RQ6 [facility] Baclofen (Lioresal) 10 mg PO DAILY [facility] Last Admin: 01/05/18 11:01 Dose: 10 mg Glipizide (Glucotrol Xl) 10 mg PO BIDCC [facility] Last Admin: 01/05/18 11:08 Dose: Not Given Heparin Sodium (Porcine) (Heparin) 5,000 units SC Q12 [facility] Last Admin: 01/05/18 12:27 Dose: 5,000 units Home Med (Patient's Own Medication) 1 tab PO PCS [facility] Last Admin: 01/04/18 17:00 Dose: Not Given Hydralazine HCl (Apresoline) 50 mg PO BID [facility] Last Admin: 01/05/18 11:07 Dose: Not Given Metronidazole (Flagyl) 500 mg in 100 mls @ 100 mls/hr IVPB Q8 [facility] PRN Reason: Protocol Last Admin: 01/05/18 14:14 Dose: 100 mls/hr Propofol (Diprivan) 1,000 mg in 100 mls @ 2.708 mls/hr IV .Q24H PRN; Protocol; 5 MCG/KG/MIN PRN Reason: Restlessness Last Admin: 01/05/18 14:29 Dose: 65.17 mcg/kg/min, 35.3 mls/hr Imipenem/Cilastatin Sodium 500 (mg/ Sodium Chloride) 100 mls @ 100 mls/hr IVPB Q8H [facility] PRN Reason: Protocol Last Admin: 01/05/18 12:30 Dose: 100 mls/hr Insulin Human NPH (Novolin N) 40 unit SC QAM [facility] Last Admin: 01/05/18 11:14 Dose: 40 units Insulin Human Regular (Novolin R) 0 unit SC Q6H [facility] PRN Reason: Protocol Last Admin: 01/05/18 12:00 Dose: 6 units Levothyroxine Sodium (Synthroid) 125 mcg PO DAILY@0630 [facility] Last Admin: 01/05/18 06:44 Dose: 125 mcg Methylprednisolone (Solu-Medrol) 40 mg IVP Q6H [facility] Last Admin: 01/05/18 11:14 Dose: 40 mg Montelukast Sodium (Singulair) 10 mg PO [facility] Last Admin: 01/04/18 21:13 Dose: 10 mg Multivitamins (Hexavitamin) 1 tab PO DAILY [facility] Last Admin: 01/05/18 11:01 Dose: 1 tab Mupirocin (Bactroban Ointment) 0 gm TOP DAILY [facility] Last Admin: 01/04/18 11:10 Dose: Not Given Nebivolol (Bystolic) 10 mg PO DAILY [facility] Last Admin: 01/05/18 11:07 Dose: Not Given Pantoprazole Sodium (Protonix Inj) 40 mg IVP DAILY [facility] Last Admin: 01/05/18 11:01 Dose: 40 mg Rosuvastatin Calcium (Crestor) 20 mg PO [facility] Last Admin: 01/04/18 21:13 Dose: 20 mg Topiramate (Topamax) 25 mg PO BID [facility] Last Admin: 01/05/18 11:08 Dose: Not Given - Labs Labs: 01/05/18 04:13 01/05/18 04:13 PT 13.7 SECONDS (9.7-12.2) H 01/04/18 11:37 INR 1.3 01/04/18 11:37 APTT 31 SECONDS (21-34) 01/04/18 11:37 Assessment and Plan (1) Osteomyelitis of toe of left foot Status: Acute (2) Diabetes 1.5, managed as type 2 Status: Chronic (3) Asthma Status: Chronic (4) Pulmonary arterial hypertension Status: Chronic (5) HTN (hypertension), benign Status: Chronic
--- NOTE | 2018-01-05 19:04 | CP.PCM.PN ---
Subjective - Date & Time of Evaluation Date of Evaluation: 01/05/18 Time of Evaluation: 18:57 - Subjective Subjective: Events noted. Pt had surgery, then dysnea last nigh, needed intubation. CXR c/w chf. Echo done today demonstrated normal LV EF. But moderate to severe aortic stenosis. Las echo not done too long ago only revealed mild to moderate stenosis. Troponin is negative. ECg shows mobitz I. After propothol BP was low today. Pt has positive fluid balance today. Bp now normal. She received IV lasix during rapid response, but not afterwards, labs suggest prerenal azotemia. Pt has not needed pressors. Objective - Vital Signs/Intake and Output Vital Signs (last 24 hours): Temp Pulse Resp BP Pulse Ox 98.6 F 72 12 129/46 L 100 01/05/18 13:46 01/05/18 17:33 01/05/18 17:33 01/05/18 17:34 01/05/18 17:33 Intake and Output: 01/05/18 01/05/18 06:59 18:59 Intake Total 328.4 950.2 Output Total 150 340 Balance 178.4 610.2 - Medications Medications: Current Medications Albuterol/Ipratropium (Duoneb 3 Mg/0.5 Mg (3 Ml) Ud) 3 ml INH RQ6 [facility] Baclofen (Lioresal) 10 mg PO DAILY [facility] Last Admin: 01/05/18 11:01 Dose: 10 mg Glipizide (Glucotrol Xl) 10 mg PO BIDCC [facility] Last Admin: 01/05/18 11:08 Dose: Not Given Heparin Sodium (Porcine) (Heparin) 5,000 units SC Q12 [facility] Last Admin: 01/05/18 12:27 Dose: 5,000 units Home Med (Patient's Own Medication) 1 tab PO PCS [facility] Last Admin: 01/05/18 18:09 Dose: Not Given Hydralazine HCl (Apresoline) 50 mg PO BID [facility] Last Admin: 01/05/18 18:02 Dose: 50 mg Propofol (Diprivan) 1,000 mg in 100 mls @ 2.708 mls/hr IV .Q24H PRN; Protocol; 5 MCG/KG/MIN PRN Reason: Restlessness Last Admin: 01/05/18 17:59 Dose: 65.17 mcg/kg/min, 35.3 mls/hr Imipenem/Cilastatin Sodium 250 (mg/ Sodium Chloride) 100 mls @ 100 mls/hr IVPB Q8H [facility] PRN Reason: Protocol Last Admin: 01/05/18 18:19 Dose: 100 mls/hr Insulin Human NPH (Novolin N) 40 unit SC QAM [facility] Last Admin: 01/05/18 11:14 Dose: 40 units Insulin Human Regular (Novolin R) 0 unit SC Q6H [facility] PRN Reason: Protocol Last Admin: 01/05/18 12:00 Dose: 6 units Levothyroxine Sodium (Synthroid) 125 mcg PO DAILY@0630 [facility] Last Admin: 01/05/18 06:44 Dose: 125 mcg Methylprednisolone (Solu-Medrol) 40 mg IVP Q6H [facility] Last Admin: 01/05/18 18:01 Dose: 40 mg Montelukast Sodium (Singulair) 10 mg PO [facility] Last Admin: 01/04/18 21:13 Dose: 10 mg Multivitamins (Hexavitamin) 1 tab PO DAILY [facility] Last Admin: 01/05/18 11:01 Dose: 1 tab Mupirocin (Bactroban Ointment) 0 gm TOP DAILY [facility] Last Admin: 01/04/18 11:10 Dose: Not Given Nebivolol (Bystolic) 10 mg PO DAILY [facility] Last Admin: 01/05/18 11:07 Dose: Not Given Pantoprazole Sodium (Protonix Inj) 40 mg IVP DAILY [facility] Last Admin: 01/05/18 11:01 Dose: 40 mg Rosuvastatin Calcium (Crestor) 20 mg PO [facility] Last Admin: 01/04/18 21:13 Dose: 20 mg Topiramate (Topamax) 25 mg PO BID [facility] Last Admin: 01/05/18 18:02 Dose: 25 mg - Labs Labs: 01/05/18 04:13 01/05/18 04:13 PT 13.7 SECONDS (9.7-12.2) H 01/04/18 11:37 INR 1.3 01/04/18 11:37 APTT 31 SECONDS (21-34) 01/04/18 11:37 - Constitutional Appears: No Acute Distress - Head Exam Head Exam: ATRAUMATIC - ENT Exam ENT Exam: Mucous Membranes Dry - Respiratory Exam Respiratory Exam: Clear to Ausculation Bilateral - Cardiovascular Exam Cardiovascular Exam: Irregular Rhythm - GI/Abdominal Exam GI & Abdominal Exam: Soft - Exam External exam: NORMAL EXTERNAL EXAM - Extremities Exam Extremities Exam: Full ROM - Back Exam Back Exam: NORMAL INSPECTION - Skin Skin Exam: Normal Color Assessment and Plan - Assessment and Plan (Free Text) Plan: 1. Aortic stenosis: althogu calculated rose area is .9 cm2, visually, stenosis severity appears moderate, not severe. 2. Elderly patients with aoritc stenosis and stiff ventricle have resting elevated LVEDP and a small reserve for fluid challenge. Pt now has CHF after operative procedure. 3. LV EF is normal, and there is no evidence of W[place]/ischemia 4. First degree AV block also further impairs diastolic function. Plan; gentle diuresis, supportive care.
--- NOTE | 2018-01-05 22:13 | CP.PCM.PN ---
Subjective - Date & Time of Evaluation Date of Evaluation: 01/05/18 Time of Evaluation: 11:30 - Subjective Subjective: Podiatry Progress Note- Dr. Peña. Pt seen at bedside s/p left great toe and potential 2nd digit level amputation. It is sedated at time of visit and intubated induced after acute asthmaic event yesterday evening. Objective - Vital Signs/Intake and Output Vital Signs (last 24 hours): Temp Pulse Resp BP Pulse Ox 98.7 F 64 14 93/32 L 100 01/05/18 20:00 01/05/18 20:04 01/05/18 20:04 01/05/18 20:04 01/05/18 20:04 Intake and Output: 01/05/18 01/06/18 18:59 06:59 Intake Total 967.7 148.1 Output Total 360 60 Balance 607.7 88.1 - Medications Medications: Current Medications Albuterol/Ipratropium (Duoneb 3 Mg/0.5 Mg (3 Ml) Ud) 3 ml INH RQ6 [facility] Last Admin: 01/05/18 19:36 Dose: 3 ml Baclofen (Lioresal) 10 mg PO DAILY [facility] Last Admin: 01/05/18 11:01 Dose: 10 mg Furosemide (Lasix) 20 mg IVP DAILY [facility] Glipizide (Glucotrol Xl) 10 mg PO BIDCC [facility] Last Admin: 01/05/18 11:08 Dose: Not Given Heparin Sodium (Porcine) (Heparin) 5,000 units SC Q12 [facility] Last Admin: 01/05/18 12:27 Dose: 5,000 units Home Med (Patient's Own Medication) 1 tab PO PCS [facility] Last Admin: 01/05/18 18:09 Dose: Not Given Hydralazine HCl (Apresoline) 50 mg PO BID [facility] Last Admin: 01/05/18 18:02 Dose: 50 mg Propofol (Diprivan) 1,000 mg in 100 mls @ 2.708 mls/hr IV .Q24H PRN; Protocol; 5 MCG/KG/MIN PRN Reason: Restlessness Last Titration: 01/05/18 20:58 Dose: 29.35 mcg/kg/min, 15.9 mls/hr Imipenem/Cilastatin Sodium 250 (mg/ Sodium Chloride) 100 mls @ 100 mls/hr IVPB Q8H [facility] PRN Reason: Protocol Last Admin: 01/05/18 18:19 Dose: 100 mls/hr Insulin Human NPH (Novolin N) 40 unit SC QAM [facility] Last Admin: 01/05/18 11:14 Dose: 40 units Insulin Human Regular (Novolin R) 0 unit SC Q6H [facility] PRN Reason: Protocol Last Admin: 01/05/18 18:00 Dose: 6 units Levothyroxine Sodium (Synthroid) 125 mcg PO DAILY@0630 [facility] Last Admin: 01/05/18 06:44 Dose: 125 mcg Methylprednisolone (Solu-Medrol) 40 mg IVP Q6H [facility] Last Admin: 01/05/18 18:01 Dose: 40 mg Montelukast Sodium (Singulair) 10 mg PO [facility] Last Admin: 01/04/18 21:13 Dose: 10 mg Multivitamins (Hexavitamin) 1 tab PO DAILY [facility] Last Admin: 01/05/18 11:01 Dose: 1 tab Mupirocin (Bactroban Ointment) 0 gm TOP DAILY [facility] Last Admin: 01/05/18 11:00 Dose: Not Given Nebivolol (Bystolic) 10 mg PO DAILY [facility] Last Admin: 01/05/18 11:07 Dose: Not Given Pantoprazole Sodium (Protonix Inj) 40 mg IVP DAILY [facility] Last Admin: 01/05/18 11:01 Dose: 40 mg Rosuvastatin Calcium (Crestor) 20 mg PO HS [facility] Last Admin: 01/04/18 21:13 Dose: 20 mg Topiramate (Topamax) 25 mg PO BID [facility] Last Admin: 01/05/18 18:02 Dose: 25 mg - Labs Labs: 01/05/18 04:13 01/05/18 04:13 PT 13.7 SECONDS (9.7-12.2) H 01/04/18 11:37 INR 1.3 01/04/18 11:37 APTT 31 SECONDS (21-34) 01/04/18 11:37 - Constitutional Appears: Non-toxic, No Acute Distress - Extremities Exam Additional comments: Lower extremity focused exam. Dressings clean, dry, and intact. Vasc: DP/PT pulses palpable 2/4. Temperature gradient warm to cool. CFT < 3 sec to all digits. No pedal edema noted Derm: Left hallux and 2nd digit amputation sites noted with all sutures inact. Well coapted no strangulation pallor noted. Site warm to touch. No productive for hematoma. No purulence nor active drainage noted. Neuro: Protective sensation grossly intact Ortho: deffered to to pt being sedated. Assessment and Plan - Assessment and Plan (Free Text) Assessment: 72 y/o female POD#1 s/p Left foot hallux and partial 2nd digit amputation (DOS ) due to chronic osteomyelitis Plan: Pt seen and evaluated. Chart labs, and vitals reviewed. Afebrile, leukocytosis noted , likely due to post-op stress. Will monitor. Continue Local Wound care. Cleansed site with saline; dressed with betadine, xeroform,and DSD. Continue IV abd per ID. Podiatry will follow pt while inhouse.
[2018-01-06] MEDS: Propofol 10 mg/ml 1,000 MG/100 ML VIAL IV PRN ×3 (00:24→18:16)
[2018-01-06] MEDS: (Novolin R) Insulin Human Regular 100 units/ml vial SC SCH ×2 (00:28→06:24)
[2018-01-06] MEDS: Albuterol-Ipratrop 3 mg / 0.5 (3 ml) UD INH SCH ×4 (01:11→20:42)
[2018-01-06] MEDS: MethylPREDNISolone 40 mg Vial IVP SCH (04:38)
[2018-01-06 05:30] LABS: ARTERIAL BLOOD GAS HCO3 18.5 mmol/L (21-28); ARTERIAL BLOOD GAS HEMOGLOBIN 10.3 g/dL (11.7-17.4); ARTERIAL BLOOD GAS O2 SAT 99.9 % (95-98); ARTERIAL BLOOD GAS PCO2 33 mm/Hg (35-45); ARTERIAL BLOOD GAS PH 7.32 (7.35-7.45); ARTERIAL BLOOD GAS PO2 177 mm/Hg (80-100)
[2018-01-06] MEDS: Levothyroxine 125 MCG TAB PO SCH (06:30)
[2018-01-06 06:34] LABS: BASO % 0.1 % (0.0-2.0); HEMOGLOBIN 7.6 g/dL (11.0-16.0); LYMPH # 0.4 K/uL (1.0-4.3); LYMPH % 2.3 % (20.0-40.0); MEAN CELL VOLUME 82.5 fL (81.0-99.0); MEAN CORPUSCULAR HEMOGLOBIN 25.6 pg (27.0-31.0); MEAN PLATELET VOLUME 11.1 fL (7.2-11.7); MONO # 0.8 K/uL (0.0-0.8); MONO % 4.8 % (0.0-10.0); NEUT # 15.6 K/uL (1.8-7.0); NEUT % 92.8 % (50.0-75.0); NRBC % 0.1 % (0.0-2.0); RBC 2.96 Mil/uL (3.80-5.20); RED CELL DISTRIBUTION WIDTH 16.3 % (11.5-14.5); WHITE BLOOD COUNT 16.8 K/uL (4.8-10.8)
[2018-01-06 06:50] LABS: PLATELET COUNT 235 K/uL (130-400)
[2018-01-06 06:54] LABS: ALBUMIN 3.2 g/dL (3.5-5.0); CALCIUM 7.5 mg/dl (8.6-10.4)
[2018-01-06 06:55] LABS: ALB/GLOB RATIO 1.4 (1.0-2.1)
--- NOTE | 2018-01-06 07:24 | OP ---
PROCEDURE DATE: 01/04/2018 SURGEON: Mahamed Peña DPM CRITICAL CARE EDUCATOR: Dr. Hiro Terry DPM, PGY1 ANESTHESIOLOGIST: Dr. Nuñez. TYPE OF ANESTHESIA: IV sedation with local. PREOPERATIVE DIAGNOSIS: Left hallux chronic wound with osteomyelitis. POSTOPERATIVE DIAGNOSIS: Left hallux chronic wound with osteomyelitis. PROCEDURE: Left hallux and partial second digit amputation. INDICATIONS: The patient is a 73-year-old female with the above diagnosis. The patient has exhausted all conservative treatment at this time and now required surgical intervention. The patient signed the consent and after careful explanation of risks, benefits, complication, and alternatives for surgical procedure. No guarantees were given nor implied. PREPARATION: The patient was brought into the operating room and placed on the operating room table in supine position. A timeout was performed for identification of the correct patient and the procedure. The patient was needed a total of 20 mL of 1:1 mixture of 0.5% Marcaine plain to 1% lidocaine plain in block type fashion to the left forefoot. Once the local anesthesia was achieved, the left foot was then prepped and draped in normal sterile manner. DESCRIPTION OF THE PROCEDURE: A racquet-type incision was planned out around the hallux using a marking pen. Using a #15 blade, an incision was made over the marked site. Incision was then extended down to the level of the bone. A phalangeal clamp was utilized to stabilize the hallux. Using #15 blade, all the ligamentous structure and tendons were cut at the level of the MTPJ and hallux was disarticulated. The hallux was then passed off the operative field. All the nonviable soft tissue was excisionally debrided using a #15 blade. Surgical site was then flushed with copious amount of sterile saline. Another racquet-type incision was planned out at the level of the PIPJ of the second digit using a marking pen. The incision was made using a #15 blade down to the level of the bone over the clamp site. All the ligamentous tissue was detached from the and bone at the level of the PIPJ. Using a freer, periosteum and the tendon were reflected proximally off the proximal phalanx. At this time, a sagittal saw was utilized and proximal phalanx was excised at the level of the shaft. All soft tissue and the bone were passed off the operative site and was sent to Pathology. Both the surgical sites were irrigated with copious amount of saline. The subcutaneous tissue on the first MTPJ level was reapproximated and sutured using a 3-0 Vicryl. The skin on both operative sites was reapproximated and sutured with 4-0 Prolene. Left foot was then dressed with Xeroform, sterile gauze, Ra, and Coban. POSTOPERATIVE CONDITION: The patient tolerated the anesthesia and the procedure well and was escorted to the recovery room with vital signs stable and neurovascular status intact in the left foot. The patient will be weightbearing as tolerated to the heel in a surgical shoe and will be followed up by Podiatry and with Dr. Peña upon returning to the floor. Hiro Terry DPM Mahamed Peña DPM
[2018-01-06 07:41] LABS: HEPATITIS B SURFACE AG Negative (NEGATIVE)
[2018-01-06 07:47] LABS: HEPATITIS A IGM NEGATIVE (NEGATIVE); HEPATITIS B CORE AB NEGATIVE (NEGATIVE)
[2018-01-06 07:59] LABS: HEPATITIS C ANTIBODY NEGATIVE (NEGATIVE)
[2018-01-06 09:01] LABS: ANISOCYTOSIS SLIGHT; LYMPHOCYTE 3 % (20-40); MONOCYTE 2 % (0-10); NEUTROPHIL 95 % (50-75); NUCLEATED RED BLOOD CELL 1 % (0-0); PLATELET ESTIMATE NORMAL (NORMAL); POIKILOCYTOSIS SLIGHT; TARGET CELLS SLIGHT; TOTAL CELLS COUNTED 100
[2018-01-06 09:02] LABS: BURR CELLS SLIGHT; HYPOCHROMIC MODERATE
--- NOTE | 2018-01-06 09:27 | CP.PCM.PN ---
Subjective - Date & Time of Evaluation Date of Evaluation: 01/06/18 Time of Evaluation: 09:24 - Subjective Subjective: sedated on vent support, no acute distress ABG improving, rising Cr with diuresis Objective - Vital Signs/Intake and Output Vital Signs (last 24 hours): Temp Pulse Resp BP Pulse Ox 99.1 F 66 18 124/53 L 100 01/06/18 08:00 01/06/18 08:00 01/06/18 08:00 01/06/18 08:00 01/06/18 08:00 Intake and Output: 01/06/18 01/06/18 06:59 18:59 Intake Total 692.2 31.2 Output Total 215 10 Balance 477.2 21.2 - Medications Medications: Current Medications Albuterol/Ipratropium (Duoneb 3 Mg/0.5 Mg (3 Ml) Ud) 3 ml INH RQ6 [facility] Last Admin: 01/06/18 07:41 Dose: 3 ml Baclofen (Lioresal) 10 mg PO DAILY [facility] Last Admin: 01/05/18 11:01 Dose: 10 mg Furosemide (Lasix) 20 mg IVP DAILY [facility] Glipizide (Glucotrol Xl) 10 mg PO BIDCC [facility] Last Admin: 01/05/18 11:08 Dose: Not Given Heparin Sodium (Porcine) (Heparin) 5,000 units SC Q12 [facility] Last Admin: 01/05/18 22:31 Dose: 5,000 units Home Med (Patient's Own Medication) 1 tab PO PCS [facility] Last Admin: 01/05/18 18:09 Dose: Not Given Hydralazine HCl (Apresoline) 50 mg PO BID [facility] Last Admin: 01/05/18 18:02 Dose: 50 mg Propofol (Diprivan) 1,000 mg in 100 mls @ 2.708 mls/hr IV .Q24H PRN; Protocol; 5 MCG/KG/MIN PRN Reason: Restlessness Last Titration: 01/06/18 06:48 Dose: 30.46 mcg/kg/min, 16.5 mls/hr Imipenem/Cilastatin Sodium 250 (mg/ Sodium Chloride) 100 mls @ 100 mls/hr IVPB Q8H [facility] PRN Reason: Protocol Last Admin: 01/06/18 03:13 Dose: 100 mls/hr Insulin Human NPH (Novolin N) 40 unit SC QAM [facility] Last Admin: 01/05/18 11:14 Dose: 40 units Insulin Human Regular (Novolin R) 0 unit SC Q6H [facility] PRN Reason: Protocol Last Admin: 01/06/18 06:24 Dose: 4 units Levothyroxine Sodium (Synthroid) 125 mcg PO DAILY@0630 [facility] Last Admin: 01/06/18 06:30 Dose: 125 mcg Methylprednisolone (Solu-Medrol) 40 mg IVP Q6H [facility] Last Admin: 01/06/18 04:38 Dose: 40 mg Montelukast Sodium (Singulair) 10 mg PO HS [facility] Last Admin: 01/05/18 22:29 Dose: 10 mg Multivitamins (Hexavitamin) 1 tab PO DAILY [facility] Last Admin: 01/05/18 11:01 Dose: 1 tab Mupirocin (Bactroban Ointment) 0 gm TOP DAILY [facility] Last Admin: 01/05/18 11:00 Dose: Not Given Nebivolol (Bystolic) 10 mg PO DAILY [facility] Last Admin: 01/05/18 11:07 Dose: Not Given Pantoprazole Sodium (Protonix Inj) 40 mg IVP DAILY [facility] Last Admin: 01/05/18 11:01 Dose: 40 mg Rosuvastatin Calcium (Crestor) 20 mg PO [facility] Last Admin: 01/05/18 22:29 Dose: 20 mg Topiramate (Topamax) 25 mg PO BID [facility] Last Admin: 01/05/18 18:02 Dose: 25 mg - Labs Labs: 01/06/18 06:24 01/06/18 06:24 PT 13.7 SECONDS (9.7-12.2) H 01/04/18 11:37 INR 1.3 01/04/18 11:37 APTT 31 SECONDS (21-34) 01/04/18 11:37 - Constitutional Appears: No Acute Distress - Head Exam Head Exam: ATRAUMATIC, NORMOCEPHALIC - ENT Exam Additional comments: intubated orally - Respiratory Exam Respiratory Exam: Decreased Breath Sounds - Cardiovascular Exam Cardiovascular Exam: +S1, +S2, Murmur - GI/Abdominal Exam GI & Abdominal Exam: Normal Bowel Sounds - Rectal Exam Rectal Exam: Deferred - Neurological Exam Additional comments: sedated on vent Assessment and Plan (1) Osteomyelitis of ankle and foot Status: Acute (2) Diabetes 1.5, managed as type 2 Status: Chronic (3) HTN (hypertension), benign Status: Chronic (4) Pulmonary arterial hypertension Status: Chronic (5) Acute respiratory failure Status: Acute (6) CHF (congestive heart failure) Status: Acute (7) IRASEMA (acute kidney injury) Status: Acute
[2018-01-06] MEDS ORDERED: Dexmedetomidine Hydrochloride 200 MCG in Sodium Chloride 0.9% 48 ML IV PRN (09:36)
[2018-01-06] MEDS ORDERED: Insulin Detemir 100 units/ml Vial (Levemir) SC STA (09:41)
[2018-01-06] MEDS: Multiple Vitamins Tab PO SCH (10:00)
--- NOTE | 2018-01-06 11:16 | RAD ---
HISTORY: intubated COMPARISON: Portable chest 01/05/2018. FINDINGS: Endotracheal and nasogastric tubes do not appear significantly changed in position. LUNGS: Underlying bibasilar airspace disease difficult to completely exclude. PLEURA: Bilateral pleural effusions are identified once again, increased in the right and likely stable at the left. No pneumothorax demonstrated bilaterally. CARDIOVASCULAR: Prominent appearing cardiac silhouette remains with stable pulmonary vascular congestion. No interval improvement. OSSEOUS STRUCTURES: No significant abnormalities. VISUALIZED UPPER ABDOMEN: Normal. OTHER FINDINGS: None. IMPRESSION: Stable pulmonary vascular congestion and mild increase in right pleural effusion with stable left pleural effusion. Underlying airspace disease not excluded at the bilateral bases.
[2018-01-06] MEDS: (Novolog) Insulin Aspart, Recombinant 100 u/ml 10 ml vial SC SCH ×3 (13:00→17:57)
--- NOTE | 2018-01-06 13:35 | CP.CCUPN ---
<Belen Robert - Last Filed: 01/06/18 13:32> CCU Subjective - Physician Review Subjective (Free Text): Patient seen and examined at bedside. Patient currently intubated on PRVC on current settings of / /5 . RIJ TLC placed CCU Objective - Vital Signs / Intake & Output Intake and Output (Last 8hrs): Intake & Output 01/05/18 01/06/18 01/06/18 22:59 06:59 14:59 Intake Total 534.0 428.2 31.2 Output Total 155 150 10 Balance 379.0 278.2 21.2 Intake: IV 100 200 Intake, IV Amount 334.0 228.2 31.2 Left External Jugular 134.0 128.2 31.2 Left Neck 200 Right Upper arm 100 Other 100 Output: Urine 155 150 10 Urethral (Johnson) 155 150 10 Emesis 0 Other: # Bowel Movements 0 0 0 - Physical Exam Head: Positive for: Atraumatic, Normocephalic Pupils: Positive for: PERRL Extroacular Muscles: Positive for: EOMI Conjunctiva: Positive for: Normal Mouth: Positive for: Moist Mucous Membranes, Other (INTUBATED, OGT in place ) Respiratory/Chest: Positive for: Decreased Breath Sounds Abdomen: Positive for: Normal Bowel Sounds. Negative for: Tenderness, Distention Upper Extremity: Positive for: Normal Inspection, NORMAL PULSES, Neurovascularly Intact, Capillary Refill < 2s Lower Extremity: Positive for: Normal Inspection, Edema, NORMAL PULSES, Neurovascularly Intact, Capillary Refill < 2 s Skin: Positive for: Warm, Dry Psychiatric: Positive for: Alert - Medications Active Medications: Active Medications Generic Name Dose Route Start Last Admin Trade Name Freq PRN Reason Stop Dose Admin Albuterol/Ipratropium 3 ml 01/05/18 14:00 01/06/18 13:16 Duoneb 3 Mg/0.5 Mg (3 Ml) Ud INH 3 ml RQ6 [facility] Administration Bumetanide 1 mg 01/06/18 11:00 01/06/18 12:00 Bumex IVP 01/06/18 15:01 1 mg Q1H [facility] Administration Heparin Sodium (Porcine) 5,000 units 01/05/18 11:00 01/06/18 09:38 Heparin SC 5,000 units Q12 [facility] Administration Propofol 1,000 mg in 100 mls @ 2.708 mls/hr 01/05/18 03:25 01/06/18 06:48 Diprivan IV 30.46 mcg/kg/min .Q24H PRN 16.5 mls/hr Restlessness Titration Protocol 5 MCG/KG/MIN Imipenem/Cilastatin Sodium 250 100 mls @ 100 mls/hr 01/05/18 19:00 01/06/18 12:00 mg/ Sodium Chloride IVPB 100 mls/hr Q8H [facility] Administration Protocol Dexmedetomidine HCl 200 mcg/ 50 mls @ 4.51 mls/hr 01/06/18 09:36 01/06/18 13: 25 Sodium Chloride IV 0.2 mcg/kg/hr TITR PRN 4.51 mls/hr Agitation Administration Protocol 0.2 MCG/KG/HR Insulin Aspart 0 unit 01/06/18 09:45 01/06/18 13:29 Novolog SC Not Given Q6 [facility] Protocol Insulin Detemir 40 unit 01/07/18 07:30 Levemir SC QAM [facility] Levothyroxine Sodium 125 mcg 12/30/17 06:30 01/06/18 06:30 Synthroid PO 125 mcg DAILY@0630 [facility] Administration Montelukast Sodium 10 mg 12/29/17 22:00 01/05/18 22:29 Singulair PO 10 mg HS [facility] Administration Multivitamins 1 tab 01/01/18 10:00 01/06/18 10:00 Hexavitamin PO 1 tab DAILY [facility] Administration Mupirocin 0 gm 12/30/17 10:00 01/06/18 09:33 Bactroban Ointment TOP Not Given DAILY [facility] Pantoprazole Sodium 40 mg 01/05/18 10:00 01/06/18 09:37 Protonix Inj IVP 40 mg DAILY [facility] Administration Rosuvastatin Calcium 20 mg 12/29/17 22:00 01/05/18 22:29 Crestor PO 20 mg HS [facility] Administration Topiramate 25 mg 12/31/17 18:00 01/06/18 09:40 Topamax PO 25 mg BID [facility] Administration - Patient Studies Lab Studies: Microbiology Studies 01/05/18 06:09 MRSA Culture (Admit) - Final Nose MRSA NOT DETECTED 01/05/18 06:03 Urine Culture - Final Urine No Growth (<1,000 CFU/ML) Lab Studies 01/06/18 01/06/18 01/06/18 Range/Units 13:16 06:24 06:24 WBC (4.8-10.8) K/uL RBC (3.80-5.20) Mil/uL Hgb (11.0-16.0) g/dL Hct (34.0-47.0) % MCV (81.0-99.0) fL MCH (27.0-31.0) pg MCHC (33.0-37.0) g/dL RDW (11.5-14.5) % Plt Count (130-400) K/uL MPV (7.2-11.7) fL Neut % (Auto) (50.0-75.0) % Lymph % (Auto) (20.0-40.0) % [place] % (Auto) (0.0-10.0) % Eos % (Auto) (0.0-4.0) % Baso % (Auto) (0.0-2.0) % Neut # (Auto) (1.8-7.0) K/uL Lymph # (Auto) (1.0-4.3) K/uL [place] # (Auto) (0.0-0.8) K/uL Eos # (Auto) (0.0-0.7) K/uL Baso # (Auto) (0.0-0.2) K/uL Neutrophils % (Manual) (50-75) % Lymphocytes % (Manual) (20-40) % Monocytes % (Manual) (0-10) % Nucleated RBC % (0-0) % Platelet Estimate (NORMAL) Hypochromasia (manual) Poikilocytosis (manual Anisocytosis (manual) Target Cells Nishant Cells Puncture Site pCO2 (35-45) mm/Hg pO2 (80-100) mm/Hg HCO3 (21-28) mmol/L ABG pH (7.35-7.45) ABG Total CO2 (22-28) mmol/L ABG O2 Saturation (95-98) % ABG Base Excess (-2.0-3.0) mmol/L ABG Hemoglobin (11.7-17.4) g/dL ABG Carboxyhemoglobin (0.5-1.5) % POC ABG HHb (Measured) (0.0-5.0) % ABG Methemoglobin (0.0-3.0) % Saqib Test A-a O2 Difference mm/Hg Respiratory Index Hgb O2 Saturation (95.0-98.0) % Vent Mode Mechanical Rate FiO2 % Tidal Volume PEEP Sodium 144 (132-148) mmol/L Potassium 4.5 (3.6-5.2) mmol/L Chloride 111 H (98-107) mmol/L Carbon Dioxide 18 L (22-30) mmol/L Anion Gap 19 (10-20) BUN 38 H (7-17) mg/dL Creatinine 3.2 H (0.7-1.2) mg/dL Est GFR ( Amer) 17 Est GFR (Non-Af Amer) 14 POC Glucose (mg/dL) 258 H (65-110) mg/dL Random Glucose 232 H (65-105) mg/dL Calcium 7.5 L (8.6-10.4) mg/dl Phosphorus 6.7 H (2.5-4.5) mg/dL Magnesium 2.2 (1.6-2.3) mg/dL Total Bilirubin 0.3 (0.2-1.3) mg/dL AST 58 H (14-36) U/L ALT 81 H (9-52) U/L Alkaline Phosphatase 99 (38-126) U/L Total Protein 5.5 L (6.3-8.3) g/dL Albumin 3.2 L (3.5-5.0) g/dL Globulin 2.3 (2.2-3.9) gm/dL Albumin/Globulin Ratio 1.4 (1.0-2.1) Hepatitis A IgM Ab Negative (NEGATIVE) Hep Bs Antigen Negative (NEGATIVE) Hep B Core IgM Ab Negative (NEGATIVE) Hepatitis C Antibody Negative (NEGATIVE) 01/06/18 01/06/18 01/06/18 Range/Units 06:24 06:09 05:00 WBC 16.8 H (4.8-10.8) K/uL RBC 2.96 L (3.80-5.20) Mil/uL Hgb 7.6 L (11.0-16.0) g/dL Hct 24.4 L (34.0-47.0) % MCV 82.5 (81.0-99.0) fL MCH 25.6 L (27.0-31.0) pg MCHC 31.0 L (33.0-37.0) g/dL RDW 16.3 H (11.5-14.5) % Plt Count 235 D (130-400) K/uL MPV 11.1 (7.2-11.7) fL Neut % (Auto) 92.8 H (50.0-75.0) % Lymph % (Auto) 2.3 L (20.0-40.0) % [place] % (Auto) 4.8 (0.0-10.0) % Eos % (Auto) 0.0 (0.0-4.0) % Baso % (Auto) 0.1 (0.0-2.0) % Neut # (Auto) 15.6 H (1.8-7.0) K/uL Lymph # (Auto) 0.4 L (1.0-4.3) K/uL [place] # (Auto) 0.8 (0.0-0.8) K/uL Eos # (Auto) 0.0 (0.0-0.7) K/uL Baso # (Auto) 0.0 (0.0-0.2) K/uL Neutrophils % (Manual) 95 H (50-75) % Lymphocytes % (Manual) 3 L (20-40) % Monocytes % (Manual) 2 (0-10) % Nucleated RBC % 1 H (0-0) % Platelet Estimate Normal (NORMAL) Hypochromasia (manual) Moderate Poikilocytosis (manual Slight Anisocytosis (manual) Slight Target Cells Slight Waggoner Cells Slight Puncture Site Rb pCO2 33 L (35-45) mm/Hg pO2 177 H (80-100) mm/Hg HCO3 18.5 L (21-28) mmol/L ABG pH 7.32 L (7.35-7.45) ABG Total CO2 18.0 L (22-28) mmol/L ABG O2 Saturation 99.9 H (95-98) % ABG Base Excess -8.2 L (-2.0-3.0) mmol/L ABG Hemoglobin 10.3 L (11.7-17.4) g/dL ABG Carboxyhemoglobin 1.5 (0.5-1.5) % POC ABG HHb (Measured) 0.1 (0.0-5.0) % ABG Methemoglobin 1.4 (0.0-3.0) % Saqib Test Na A-a O2 Difference 210.0 mm/Hg Respiratory Index 1.2 Hgb O2 Saturation 96.9 (95.0-98.0) % Vent Mode Prvc Mechanical Rate 14 FiO2 60.0 % Tidal Volume 500 PEEP 5 Sodium (132-148) mmol/L Potassium (3.6-5.2) mmol/L Chloride (98-107) mmol/L Carbon Dioxide (22-30) mmol/L Anion Gap (10-20) BUN (7-17) mg/dL Creatinine (0.7-1.2) mg/dL Est GFR ( Amer) Est GFR (Non-Af Amer) POC Glucose (mg/dL) 296 H (65-110) mg/dL Random Glucose (65-105) mg/dL Calcium (8.6-10.4) mg/dl Phosphorus (2.5-4.5) mg/dL Magnesium (1.6-2.3) mg/dL Total Bilirubin (0.2-1.3) mg/dL AST (14-36) U/L ALT (9-52) U/L Alkaline Phosphatase (38-126) U/L Total Protein (6.3-8.3) g/dL Albumin (3.5-5.0) g/dL Globulin (2.2-3.9) gm/dL Albumin/Globulin Ratio (1.0-2.1) Hepatitis A IgM Ab (NEGATIVE) Hep Bs Antigen (NEGATIVE) Hep B Core IgM Ab (NEGATIVE) Hepatitis C Antibody (NEGATIVE) 01/05/18 01/05/18 Range/Units 23:47 17:54 WBC (4.8-10.8) K/uL RBC (3.80-5.20) Mil/uL Hgb (11.0-16.0) g/dL Hct (34.0-47.0) % MCV (81.0-99.0) fL MCH (27.0-31.0) pg MCHC (33.0-37.0) g/dL RDW (11.5-14.5) % Plt Count (130-400) K/uL MPV (7.2-11.7) fL Neut % (Auto) (50.0-75.0) % Lymph % (Auto) (20.0-40.0) % [place] % (Auto) (0.0-10.0) % Eos % (Auto) (0.0-4.0) % Baso % (Auto) (0.0-2.0) % Neut # (Auto) (1.8-7.0) K/uL Lymph # (Auto) (1.0-4.3) K/uL [place] # (Auto) (0.0-0.8) K/uL Eos # (Auto) (0.0-0.7) K/uL Baso # (Auto) (0.0-0.2) K/uL Neutrophils % (Manual) (50-75) % Lymphocytes % (Manual) (20-40) % Monocytes % (Manual) (0-10) % Nucleated RBC % (0-0) % Platelet Estimate (NORMAL) Hypochromasia (manual) Poikilocytosis (manual Anisocytosis (manual) Target Cells Nishant Cells Puncture Site pCO2 (35-45) mm/Hg pO2 (80-100) mm/Hg HCO3 (21-28) mmol/L ABG pH (7.35-7.45) ABG Total CO2 (22-28) mmol/L ABG O2 Saturation (95-98) % ABG Base Excess (-2.0-3.0) mmol/L ABG Hemoglobin (11.7-17.4) g/dL ABG Carboxyhemoglobin (0.5-1.5) % POC ABG HHb (Measured) (0.0-5.0) % ABG Methemoglobin (0.0-3.0) % Saqib Test A-a O2 Difference mm/Hg Respiratory Index Hgb O2 Saturation (95.0-98.0) % Vent Mode Mechanical Rate FiO2 % Tidal Volume PEEP Sodium (132-148) mmol/L Potassium (3.6-5.2) mmol/L Chloride (98-107) mmol/L Carbon Dioxide (22-30) mmol/L Anion Gap (10-20) BUN (7-17) mg/dL Creatinine (0.7-1.2) mg/dL Est GFR ( Amer) Est GFR (Non-Af Amer) POC Glucose (mg/dL) 275 H 335 H (65-110) mg/dL Random Glucose (65-105) mg/dL Calcium (8.6-10.4) mg/dl Phosphorus (2.5-4.5) mg/dL Magnesium (1.6-2.3) mg/dL Total Bilirubin (0.2-1.3) mg/dL AST (14-36) U/L ALT (9-52) U/L Alkaline Phosphatase (38-126) U/L Total Protein (6.3-8.3) g/dL Albumin (3.5-5.0) g/dL Globulin (2.2-3.9) gm/dL Albumin/Globulin Ratio (1.0-2.1) Hepatitis A IgM Ab (NEGATIVE) Hep Bs Antigen (NEGATIVE) Hep B Core IgM Ab (NEGATIVE) Hepatitis C Antibody (NEGATIVE) Laboratory Results - last 24 hr 01/05/18 01/05/18 01/06/18 17:54 23:47 05:00 WBC RBC Hgb Hct MCV MCH MCHC RDW Plt Count MPV Neut % (Auto) Lymph % (Auto) [place] % (Auto) Eos % (Auto) Baso % (Auto) Neut # (Auto) Lymph # (Auto) [place] # (Auto) Eos # (Auto) Baso # (Auto) Neutrophils % (Manual) Lymphocytes % (Manual) Monocytes % (Manual) Nucleated RBC % Platelet Estimate Hypochromasia (manual) Poikilocytosis (manual Anisocytosis (manual) Target Cells Waggoner Cells Puncture Site Rb pCO2 33 L pO2 177 H HCO3 18.5 L ABG pH 7.32 L ABG Total CO2 18.0 L ABG O2 Saturation 99.9 H ABG Base Excess -8.2 L ABG Hemoglobin 10.3 L ABG Carboxyhemoglobin 1.5 POC ABG HHb (Measured) 0.1 ABG Methemoglobin 1.4 Saqib Test Na A-a O2 Difference 210.0 Respiratory Index 1.2 Hgb O2 Saturation 96.9 Vent Mode Prvc Mechanical Rate 14 FiO2 60.0 Tidal Volume 500 PEEP 5 Sodium Potassium Chloride Carbon Dioxide Anion Gap BUN Creatinine Est GFR ( Amer) Est GFR (Non-Af Amer) POC Glucose (mg/dL) 335 H 275 H Random Glucose Calcium Phosphorus Magnesium Total Bilirubin AST ALT Alkaline Phosphatase Total Protein Albumin Globulin Albumin/Globulin Ratio Hepatitis A IgM Ab Hep Bs Antigen Hep B Core IgM Ab Hepatitis C Antibody 01/06/18 01/06/18 01/06/18 06:09 06:24 06:24 WBC 16.8 H RBC 2.96 L Hgb 7.6 L Hct 24.4 L MCV 82.5 MCH 25.6 L MCHC 31.0 L RDW 16.3 H Plt Count 235 D MPV 11.1 Neut % (Auto) 92.8 H Lymph % (Auto) 2.3 L [place] % (Auto) 4.8 Eos % (Auto) 0.0 Baso % (Auto) 0.1 Neut # (Auto) 15.6 H Lymph # (Auto) 0.4 L [place] # (Auto) 0.8 Eos # (Auto) 0.0 Baso # (Auto) 0.0 Neutrophils % (Manual) 95 H Lymphocytes % (Manual) 3 L Monocytes % (Manual) 2 Nucleated RBC % 1 H Platelet Estimate Normal Hypochromasia (manual) Moderate Poikilocytosis (manual Slight Anisocytosis (manual) Slight Target Cells Slight Waggoner Cells Slight Puncture Site pCO2 pO2 HCO3 ABG pH ABG Total CO2 ABG O2 Saturation ABG Base Excess ABG Hemoglobin ABG Carboxyhemoglobin POC ABG HHb (Measured) ABG Methemoglobin Saqib Test A-a O2 Difference Respiratory Index Hgb O2 Saturation Vent Mode Mechanical Rate FiO2 Tidal Volume PEEP Sodium 144 Potassium 4.5 Chloride 111 H Carbon Dioxide 18 L Anion Gap 19 BUN 38 H Creatinine 3.2 H Est GFR ( Amer) 17 Est GFR (Non-Af Amer) 14 POC Glucose (mg/dL) 296 H Random Glucose 232 H Calcium 7.5 L Phosphorus 6.7 H Magnesium 2.2 Total Bilirubin 0.3 AST 58 H ALT 81 H Alkaline Phosphatase 99 Total Protein 5.5 L Albumin 3.2 L Globulin 2.3 Albumin/Globulin Ratio 1.4 Hepatitis A IgM Ab Hep Bs Antigen Hep B Core IgM Ab Hepatitis C Antibody 01/06/18 01/06/18 06:24 13:16 WBC RBC Hgb Hct MCV MCH MCHC RDW Plt Count MPV Neut % (Auto) Lymph % (Auto) [place] % (Auto) Eos % (Auto) Baso % (Auto) Neut # (Auto) Lymph # (Auto) [place] # (Auto) Eos # (Auto) Baso # (Auto) Neutrophils % (Manual) Lymphocytes % (Manual) Monocytes % (Manual) Nucleated RBC % Platelet Estimate Hypochromasia (manual) Poikilocytosis (manual Anisocytosis (manual) Target Cells Waggoner Cells Puncture Site pCO2 pO2 HCO3 ABG pH ABG Total CO2 ABG O2 Saturation ABG Base Excess ABG Hemoglobin ABG Carboxyhemoglobin POC ABG HHb (Measured) ABG Methemoglobin Saqib Test A-a O2 Difference Respiratory Index Hgb O2 Saturation Vent Mode Mechanical Rate FiO2 Tidal Volume PEEP Sodium Potassium Chloride Carbon Dioxide Anion Gap BUN Creatinine Est GFR ( Amer) Est GFR (Non-Af Amer) POC Glucose (mg/dL) 258 H Random Glucose Calcium Phosphorus Magnesium Total Bilirubin AST ALT Alkaline Phosphatase Total Protein Albumin Globulin Albumin/Globulin Ratio Hepatitis A IgM Ab Negative Hep Bs Antigen Negative Hep B Core IgM Ab Negative Hepatitis C Antibody Negative Fingerstick Blood Sugar Results: 296 Critical Care Progress Note - Nutrition Nutrition: Nutrition Category Date Time Status NPO Diet [DIET] Diets 01/05/18 Dinner Active Assessment/Plan - Assessment and Plan (Free Text) Assessment: This is a 73 female with PMHx HTN, T2DM, pulm HTN, CVA with TIA, GERD, right ear deafness and MILTON patient was admitted 12/29/17 for left foot Osteo s/p Left foot hallux and 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 RIJ TLC placed . Plan: Neuro: - Intubated on Precedex, Diprovan (will titrate down) - On PRVC 14/40/500/5 A: Hx CVA, TIA - Crestor 20mg PO QHS - Topamax 25mg PO BID Cardio: A: HTN - Hydralazine 50mg PO BID, Bystolic 10mg PO daily A: Aortic Stenosis A: Pulmonary HTN - ECHO: LVEF 72%, moderate to severe aortic stenosis A: MILTON Pulm: A: Acute Respiratory Failure 2/2 Pulmonary Edema - Intubated - Daily CPAP trials A: Asthma - Singular 10mg QHS GI: A: Transaminitis - downtrending - Baseline wnl - Likely medication induced - Hep panel - negative A: GERD Endo: A: T2DM - Accuchecks - Levemir 40 unit SC QAM, ISS - Q6H - HOLD METFORMIN and GLIPIZIDE A: Hypothyroidism - Synthroid 125mcg Renal: A: IRASEMA - Bumex 2mg x 1, Bumex 1mg Q1H x 5 doses - Continue to monitor ID: A: Osteomyelitis, left foot - Initially on Rocephin and flagyl ---> Primaxin Q8H 01/05/18 - s/p Left foot hallux and 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 Peña - Wound culture - Corynebacterium - pending LENNY - SIRS - Leukocytosis with left shift, bandemia, lactate 1.3 - F/U BC, UC, UA Heme/Onc A: Anemia of Chronic Disease - Baseline 9s - Patient is a Jehov[employer] Witness - NO BLOOD TRANSFUSIONS - Procrit 10,000 x 1 given - Continue to monitor Prophylaxis - Protonix - SCDs, Hep Q12 - RIJ TLC placed 01/06/18 - Patient is a Jehovah Witness - NO BLOOD TRANSFUSIONS. DW Dr. Ortiz Terry, Belen Robert DO, PGY-1 <Ortiz Terry M - Last Filed: 01/07/18 13:33> CCU Subjective - Physician Review Critical Care Time Spent (in minutes): 35 CCU Objective - Vital Signs / Intake & Output Vital Signs (Last 4 hours): Vital Signs Pulse Resp BP Pulse Ox 01/07/18 11:38 75 14 143/86 92 L 01/07/18 11:23 81 13 168/77 H 93 L 01/07/18 11:08 87 17 161/81 H 91 L 01/07/18 11:04 88 13 171/87 H 93 L 01/07/18 11:00 89 14 93 L 01/07/18 10:53 86 20 163/77 H 91 L 01/07/18 10:38 80 16 174/69 H 91 L 01/07/18 10:23 80 11 L 171/73 H 91 L 01/07/18 10:08 75 11 L 176/79 H 93 L 01/07/18 10:07 74 11 L 181/84 H 94 L 01/07/18 10:00 71 11 L 92 L 01/07/18 09:55 71 15 184/76 H 97 01/07/18 09:54 71 14 201/83 H 94 L 01/07/18 09:50 70 16 180/84 H 96 01/07/18 09:43 76 17 180/94 H 93 L Intake and Output (Last 8hrs): Intake & Output 01/06/18 01/07/18 01/07/18 22:59 06:59 14:59 Intake Total 465.5 496.8 149.7 Output Total 285 295 30 Balance 180.5 201.8 119.7 Weight 218 lb 0.595 oz Intake: IV 10 100 100 Intake, IV Amount 225.5 211.8 14.7 Left External Jugular 105.9 111.8 14.7 Right Distal Port 19.6 Internal Jugular Right Medial Port 100 100 Tube Feeding 30 185 35 Other 200 Output: Urine 285 295 30 Urethral (Johnson) 285 295 30 Other: # Bowel Movements 0 0 0 - Medications Active Medications: Active Medications Generic Name Dose Route Start Last Admin Trade Name Freq PRN Reason Stop Dose Admin Albuterol/Ipratropium 3 ml 01/07/18 14:00 Duoneb 3 Mg/0.5 Mg (3 Ml) Ud INH RQ6 [facility] Amlodipine Besylate 5 mg 01/07/18 10:00 Norvasc PO DAILY [facility] Bumetanide 2 mg 01/07/18 14:00 Bumex IVP BID [facility] Calcium Acetate 1,334 mg 01/07/18 10:45 Phoslo PO TID [facility] Ferrous Gluconate 324 mg 01/07/18 14:00 Fergon PO TID [facility] Heparin Sodium (Porcine) 5,000 units 01/05/18 11:00 01/07/18 13:26 Heparin SC 5,000 units Q12 [facility] Administration Hydralazine HCl 50 mg 01/07/18 10:00 Apresoline PO TID [facility] Imipenem/Cilastatin Sodium 250 100 mls @ 100 mls/hr 01/05/18 19:00 01/07/18 11:11 mg/ Sodium Chloride IVPB 100 mls/hr Q8H [facility] Administration Protocol Nitroglycerin/Dextrose 50 mg in 250 mls @ 7.5 mls/hr 01/07/18 09:45 01/07/18 09:50 Nitroglycerin 50 Mg/250 Ml D5w IV 120 mcg/min .Q24H [facility] 36 mls/hr Protocol Administration 25 MCG/MIN Insulin Aspart 0 unit 01/06/18 09:45 01/07/18 13:27 Novolog SC 2 u Q6 [facility] Administration Protocol Insulin Detemir 40 unit 01/07/18 07:30 01/07/18 10:10 Levemir SC Not Given QAM [facility] Levothyroxine Sodium 125 mcg 12/30/17 06:30 01/07/18 07:46 Synthroid PO 125 mcg DAILY@0630 [facility] Administration Metolazone 5 mg 01/07/18 13:00 Zaroxolyn PO 01/10/18 13:01 BID [facility] Metoprolol Tartrate 5 mg 01/07/18 09:46 Lopressor IVP Q6H PRN Systolic Blood Pressure Metoprolol Tartrate 50 mg 01/07/18 10:00 01/07/18 10:00 Lopressor PO Not Given Q12 [facility] Montelukast Sodium 10 mg 12/29/17 22:00 01/06/18 22:17 Singulair PO 10 mg HS [facility] Administration Multivitamins 1 tab 01/01/18 10:00 01/07/18 10:00 Hexavitamin PO Not Given DAILY [facility] Mupirocin 0 gm 12/30/17 10:00 01/06/18 09:33 Bactroban Ointment TOP Not Given DAILY [facility] Pantoprazole Sodium 40 mg 01/05/18 10:00 01/06/18 09:37 Protonix Inj IVP 40 mg DAILY [facility] Administration Rosuvastatin Calcium 20 mg 12/29/17 22:00 01/06/18 22:16 Crestor PO 20 mg HS [facility] Administration Sodium Bicarbonate 1,300 mg 01/06/18 18:00 01/06/18 17:59 Sodium Bicarbonate Tab PO 1,300 mg BID [facility] Administration Topiramate 25 mg 12/31/17 18:00 01/06/18 18:21 Topamax PO 25 mg BID [facility] Administration - Patient Studies Lab Studies: Microbiology Studies 01/05/18 13:44 Blood Culture - Preliminary Blood-Venous NO GROWTH AFTER 24 HOURS 01/05/18 13:44 Blood Culture - Preliminary Blood-Venous NO GROWTH AFTER 24 HOURS 01/05/18 06:09 MRSA Culture (Admit) - Final Nose MRSA NOT DETECTED 01/05/18 06:03 Urine Culture - Final Urine No Growth (<1,000 CFU/ML) Lab Studies 01/07/18 01/07/18 01/07/18 Range/Units 11:47 06:33 06:27 WBC (4.8-10.8) K/uL RBC (3.80-5.20) Mil/uL Hgb (11.0-16.0) g/dL Hct (34.0-47.0) % MCV (81.0-99.0) fL MCH (27.0-31.0) pg MCHC (33.0-37.0) g/dL RDW (11.5-14.5) % Plt Count (130-400) K/uL MPV (7.2-11.7) fL Neut % (Auto) (50.0-75.0) % Lymph % (Auto) (20.0-40.0) % [place] % (Auto) (0.0-10.0) % Eos % (Auto) (0.0-4.0) % Baso % (Auto) (0.0-2.0) % Neut # (Auto) (1.8-7.0) K/uL Lymph # (Auto) (1.0-4.3) K/uL [place] # (Auto) (0.0-0.8) K/uL Eos # (Auto) (0.0-0.7) K/uL Baso # (Auto) (0.0-0.2) K/uL Neutrophils % (Manual) (50-75) % Band Neutrophils % (0-2) % Lymphocytes % (Manual) (20-40) % Monocytes % (Manual) (0-10) % Eosinophils % (Manual) (0-4) % Platelet Estimate (NORMAL) Large Platelets Hypochromasia (manual) Poikilocytosis (manual Anisocytosis (manual) Target Cells Ovalocytes Waggoner Cells Puncture Site pCO2 (35-45) mm/Hg pO2 (80-100) mm/Hg HCO3 (21-28) mmol/L ABG pH (7.35-7.45) ABG Total CO2 (22-28) mmol/L ABG O2 Saturation (95-98) % ABG Base Excess (-2.0-3.0) mmol/L ABG Hemoglobin (11.7-17.4) g/dL ABG Carboxyhemoglobin (0.5-1.5) % POC ABG HHb (Measured) (0.0-5.0) % ABG Methemoglobin (0.0-3.0) % Saqib Test A-a O2 Difference mm/Hg Respiratory Index Hgb O2 Saturation (95.0-98.0) % Vent Mode Mechanical Rate FiO2 % Tidal Volume PEEP Sodium (132-148) mmol/L Potassium (3.6-5.2) mmol/L Chloride (98-107) mmol/L Carbon Dioxide (22-30) mmol/L Anion Gap (10-20) BUN (7-17) mg/dL Creatinine (0.7-1.2) mg/dL Est GFR ( Amer) Est GFR (Non-Af Amer) POC Glucose (mg/dL) 190 H 272 H (65-110) mg/dL Random Glucose (65-105) mg/dL Calcium (8.6-10.4) mg/dl Phosphorus (2.5-4.5) mg/dL Magnesium (1.6-2.3) mg/dL Iron 16 L (37-170) ug/dL TIBC 233 L (250-450) ug/dL % Saturation 7 L (20-55) Ferritin ng/mL Total Bilirubin (0.2-1.3) mg/dL AST (14-36) U/L ALT (9-52) U/L Alkaline Phosphatase (38-126) U/L Total Creatine Kinase (30-135) U/L CK-MB (Mass) (0.0-3.38) ng/mL Troponin I (0.00-0.120) ng/mL Total Protein (6.3-8.3) g/dL Albumin (3.5-5.0) g/dL Globulin (2.2-3.9) gm/dL Albumin/Globulin Ratio (1.0-2.1) Random Vancomycin < 5.0 ug/mL 01/07/18 01/07/18 01/07/18 Range/Units 06:27 06:26 05:00 WBC 12.1 H (4.8-10.8) K/uL RBC 3.00 L (3.80-5.20) Mil/uL Hgb 7.8 L (11.0-16.0) g/dL Hct 24.5 L (34.0-47.0) % MCV 81.7 (81.0-99.0) fL MCH 26.1 L (27.0-31.0) pg MCHC 31.9 L (33.0-37.0) g/dL RDW 16.4 H (11.5-14.5) % Plt Count 225 (130-400) K/uL MPV 10.7 (7.2-11.7) fL Neut % (Auto) 83.1 H (50.0-75.0) % Lymph % (Auto) 7.5 L (20.0-40.0) % [place] % (Auto) 8.6 (0.0-10.0) % Eos % (Auto) 0.6 (0.0-4.0) % Baso % (Auto) 0.2 (0.0-2.0) % Neut # (Auto) 10.0 H (1.8-7.0) K/uL Lymph # (Auto) 0.9 L (1.0-4.3) K/uL [place] # (Auto) 1.0 H (0.0-0.8) K/uL Eos # (Auto) 0.1 (0.0-0.7) K/uL Baso # (Auto) 0.0 (0.0-0.2) K/uL Neutrophils % (Manual) 80 H (50-75) % Band Neutrophils % 1 (0-2) % Lymphocytes % (Manual) 9 L (20-40) % Monocytes % (Manual) 9 (0-10) % Eosinophils % (Manual) 1 (0-4) % Platelet Estimate Normal (NORMAL) Large Platelets Present Hypochromasia (manual) Slight Poikilocytosis (manual Slight Anisocytosis (manual) Slight Target Cells Slight Ovalocytes Slight Nishant Cells Slight Puncture Site Rb pCO2 31 L (35-45) mm/Hg pO2 110 H (80-100) mm/Hg HCO3 19.7 L (21-28) mmol/L ABG pH 7.37 (7.35-7.45) ABG Total CO2 18.9 L (22-28) mmol/L ABG O2 Saturation 99.4 H (95-98) % ABG Base Excess -6.7 L (-2.0-3.0) mmol/L ABG Hemoglobin 7.7 L (11.7-17.4) g/dL ABG Carboxyhemoglobin 1.8 H (0.5-1.5) % POC ABG HHb (Measured) 0.6 (0.0-5.0) % ABG Methemoglobin 1.4 (0.0-3.0) % Saqib Test Na A-a O2 Difference 65.0 mm/Hg Respiratory Index 0.6 Hgb O2 Saturation 96.2 (95.0-98.0) % Vent Mode Prvc Mechanical Rate 14 FiO2 30.0 % Tidal Volume 500 PEEP 5 Sodium 146 (132-148) mmol/L Potassium 4.2 (3.6-5.2) mmol/L Chloride 111 H (98-107) mmol/L Carbon Dioxide 20 L (22-30) mmol/L Anion Gap 19 (10-20) BUN 51 H (7-17) mg/dL Creatinine 3.4 H (0.7-1.2) mg/dL Est GFR ( Amer) 16 Est GFR (Non-Af Amer) 13 POC Glucose (mg/dL) (65-110) mg/dL Random Glucose 191 H (65-105) mg/dL Calcium 7.5 L (8.6-10.4) mg/dl Phosphorus 7.5 H (2.5-4.5) mg/dL Magnesium 2.3 (1.6-2.3) mg/dL Iron (37-170) ug/dL TIBC (250-450) ug/dL % Saturation (20-55) Ferritin 25.6 ng/mL Total Bilirubin 0.3 (0.2-1.3) mg/dL AST 25 (14-36) U/L ALT 70 H (9-52) U/L Alkaline Phosphatase 92 (38-126) U/L Total Creatine Kinase (30-135) U/L CK-MB (Mass) (0.0-3.38) ng/mL Troponin I (0.00-0.120) ng/mL Total Protein 5.5 L (6.3-8.3) g/dL Albumin 3.1 L (3.5-5.0) g/dL Globulin 2.3 (2.2-3.9) gm/dL Albumin/Globulin Ratio 1.3 (1.0-2.1) Random Vancomycin ug/mL 01/06/18 01/06/18 01/06/18 Range/Units 23:45 19:10 17:32 WBC (4.8-10.8) K/uL RBC (3.80-5.20) Mil/uL Hgb (11.0-16.0) g/dL Hct (34.0-47.0) % MCV (81.0-99.0) fL MCH (27.0-31.0) pg MCHC (33.0-37.0) g/dL RDW (11.5-14.5) % Plt Count (130-400) K/uL MPV (7.2-11.7) fL Neut % (Auto) (50.0-75.0) % Lymph % (Auto) (20.0-40.0) % [place] % (Auto) (0.0-10.0) % Eos % (Auto) (0.0-4.0) % Baso % (Auto) (0.0-2.0) % Neut # (Auto) (1.8-7.0) K/uL Lymph # (Auto) (1.0-4.3) K/uL [place] # (Auto) (0.0-0.8) K/uL Eos # (Auto) (0.0-0.7) K/uL Baso # (Auto) (0.0-0.2) K/uL Neutrophils % (Manual) (50-75) % Band Neutrophils % (0-2) % Lymphocytes % (Manual) (20-40) % Monocytes % (Manual) (0-10) % Eosinophils % (Manual) (0-4) % Platelet Estimate (NORMAL) Large Platelets Hypochromasia (manual) Poikilocytosis (manual Anisocytosis (manual) Target Cells Ovalocytes Waggoner Cells Puncture Site pCO2 (35-45) mm/Hg pO2 (80-100) mm/Hg HCO3 (21-28) mmol/L ABG pH (7.35-7.45) ABG Total CO2 (22-28) mmol/L ABG O2 Saturation (95-98) % ABG Base Excess (-2.0-3.0) mmol/L ABG Hemoglobin (11.7-17.4) g/dL ABG Carboxyhemoglobin (0.5-1.5) % POC ABG HHb (Measured) (0.0-5.0) % ABG Methemoglobin (0.0-3.0) % Saqib Test A-a O2 Difference mm/Hg Respiratory Index Hgb O2 Saturation (95.0-98.0) % Vent Mode Mechanical Rate FiO2 % Tidal Volume PEEP Sodium (132-148) mmol/L Potassium (3.6-5.2) mmol/L Chloride (98-107) mmol/L Carbon Dioxide (22-30) mmol/L Anion Gap (10-20) BUN (7-17) mg/dL Creatinine (0.7-1.2) mg/dL Est GFR ( Amer) Est GFR (Non-Af Amer) POC Glucose (mg/dL) 246 H 256 H (65-110) mg/dL Random Glucose (65-105) mg/dL Calcium (8.6-10.4) mg/dl Phosphorus (2.5-4.5) mg/dL Magnesium (1.6-2.3) mg/dL Iron (37-170) ug/dL TIBC (250-450) ug/dL % Saturation (20-55) Ferritin ng/mL Total Bilirubin (0.2-1.3) mg/dL AST (14-36) U/L ALT (9-52) U/L Alkaline Phosphatase (38-126) U/L Total Creatine Kinase 97 (30-135) U/L CK-MB (Mass) 0.78 (0.0-3.38) ng/mL Troponin I 0.0900 (0.00-0.120) ng/mL Total Protein (6.3-8.3) g/dL Albumin (3.5-5.0) g/dL Globulin (2.2-3.9) gm/dL Albumin/Globulin Ratio (1.0-2.1) Random Vancomycin ug/mL Laboratory Results - last 24 hr 01/06/18 01/06/18 01/06/18 17:32 19:10 23:45 WBC RBC Hgb Hct MCV MCH MCHC RDW Plt Count MPV Neut % (Auto) Lymph % (Auto) [place] % (Auto) Eos % (Auto) Baso % (Auto) Neut # (Auto) Lymph # (Auto) [place] # (Auto) Eos # (Auto) Baso # (Auto) Neutrophils % (Manual) Band Neutrophils % Lymphocytes % (Manual) Monocytes % (Manual) Eosinophils % (Manual) Platelet Estimate Large Platelets Hypochromasia (manual) Poikilocytosis (manual Anisocytosis (manual) Target Cells Ovalocytes Nishant Cells Puncture Site pCO2 pO2 HCO3 ABG pH ABG Total CO2 ABG O2 Saturation ABG Base Excess ABG Hemoglobin ABG Carboxyhemoglobin POC ABG HHb (Measured) ABG Methemoglobin Saqib Test A-a O2 Difference Respiratory Index Hgb O2 Saturation Vent Mode Mechanical Rate FiO2 Tidal Volume PEEP Sodium Potassium Chloride Carbon Dioxide Anion Gap BUN Creatinine Est GFR ( Amer) Est GFR (Non-Af Amer) POC Glucose (mg/dL) 256 H 246 H Random Glucose Calcium Phosphorus Magnesium Iron TIBC % Saturation Ferritin Total Bilirubin AST ALT Alkaline Phosphatase Total Creatine Kinase 97 CK-MB (Mass) 0.78 Troponin I 0.0900 Total Protein Albumin Globulin Albumin/Globulin Ratio Random Vancomycin 01/07/18 01/07/18 01/07/18 05:00 06:26 06:27 WBC 12.1 H RBC 3.00 L Hgb 7.8 L Hct 24.5 L MCV 81.7 MCH 26.1 L MCHC 31.9 L RDW 16.4 H Plt Count 225 MPV 10.7 Neut % (Auto) 83.1 H Lymph % (Auto) 7.5 L [place] % (Auto) 8.6 Eos % (Auto) 0.6 Baso % (Auto) 0.2 Neut # (Auto) 10.0 H Lymph # (Auto) 0.9 L [place] # (Auto) 1.0 H Eos # (Auto) 0.1 Baso # (Auto) 0.0 Neutrophils % (Manual) 80 H Band Neutrophils % 1 Lymphocytes % (Manual) 9 L Monocytes % (Manual) 9 Eosinophils % (Manual) 1 Platelet Estimate Normal Large Platelets Present Hypochromasia (manual) Slight Poikilocytosis (manual Slight Anisocytosis (manual) Slight Target Cells Slight Ovalocytes Slight Nishant Cells Slight Puncture Site Rb pCO2 31 L pO2 110 H HCO3 19.7 L ABG pH 7.37 ABG Total CO2 18.9 L ABG O2 Saturation 99.4 H ABG Base Excess -6.7 L ABG Hemoglobin 7.7 L ABG Carboxyhemoglobin 1.8 H POC ABG HHb (Measured) 0.6 ABG Methemoglobin 1.4 Saqib Test Na A-a O2 Difference 65.0 Respiratory Index 0.6 Hgb O2 Saturation 96.2 Vent Mode Prvc Mechanical Rate 14 FiO2 30.0 Tidal Volume 500 PEEP 5 Sodium 146 Potassium 4.2 Chloride 111 H Carbon Dioxide 20 L Anion Gap 19 BUN 51 H Creatinine 3.4 H Est GFR ( Amer) 16 Est GFR (Non-Af Amer) 13 POC Glucose (mg/dL) Random Glucose 191 H Calcium 7.5 L Phosphorus 7.5 H Magnesium 2.3 Iron TIBC % Saturation Ferritin 25.6 Total Bilirubin 0.3 AST 25 ALT 70 H Alkaline Phosphatase 92 Total Creatine Kinase CK-MB (Mass) Troponin I Total Protein 5.5 L Albumin 3.1 L Globulin 2.3 Albumin/Globulin Ratio 1.3 Random Vancomycin 01/07/18 01/07/18 01/07/18 06:27 06:33 11:47 WBC RBC Hgb Hct MCV MCH MCHC RDW Plt Count MPV Neut % (Auto) Lymph % (Auto) [place] % (Auto) Eos % (Auto) Baso % (Auto) Neut # (Auto) Lymph # (Auto) [place] # (Auto) Eos # (Auto) Baso # (Auto) Neutrophils % (Manual) Band Neutrophils % Lymphocytes % (Manual) Monocytes % (Manual) Eosinophils % (Manual) Platelet Estimate Large Platelets Hypochromasia (manual) Poikilocytosis (manual Anisocytosis (manual) Target Cells Ovalocytes Waggoner Cells Puncture Site pCO2 pO2 HCO3 ABG pH ABG Total CO2 ABG O2 Saturation ABG Base Excess ABG Hemoglobin ABG Carboxyhemoglobin POC ABG HHb (Measured) ABG Methemoglobin Saqib Test A-a O2 Difference Respiratory Index Hgb O2 Saturation Vent Mode Mechanical Rate FiO2 Tidal Volume PEEP Sodium Potassium Chloride Carbon Dioxide Anion Gap BUN Creatinine Est GFR ( Amer) Est GFR (Non-Af Amer) POC Glucose (mg/dL) 272 H 190 H Random Glucose Calcium Phosphorus Magnesium Iron 16 L TIBC 233 L % Saturation 7 L Ferritin Total Bilirubin AST ALT Alkaline Phosphatase Total Creatine Kinase CK-MB (Mass) Troponin I Total Protein Albumin Globulin Albumin/Globulin Ratio Random Vancomycin < 5.0 Critical Care Progress Note - Nutrition Nutrition: Nutrition Category Date Time Status Dysphagia/Modified Consistency Diet [DIET] Diets 01/07/18 Lunch Active Assessment/Plan - Assessment and Plan (Free Text) Plan: Patient seen and examined at bedside with above resident. Patient intubated for hypoxia. Patient denies any chest pain. -Hypoxic respiratory failure -Pulmonary congestion -IRASEMA: 2nd ACEI/ARB, avoid nephrotoxic drugs -/Chronic diastolice heart failure -HTN-uncontrolled -Continue NG tube feeds -continue dvt/pud ppx cc time 35 minutes - Date & Time Date: 01/06/18 Time: 13:33
--- NOTE | 2018-01-06 14:45 | CP.PCM.PN ---
Subjective - Date & Time of Evaluation Date of Evaluation: 01/06/18 Time of Evaluation: 09:20 - Subjective Subjective: Podiatry Progress Note- Dr. Peña. Pt seen at bedside s/p left great toe and potential 2nd digit level amputation. She is sedated at time of visit and intubated. Pt sleeping comfortably at time of visit. No recorded overnight events. Objective - Vital Signs/Intake and Output Vital Signs (last 24 hours): Temp Pulse Resp BP Pulse Ox 99.1 F 69 16 170/80 H 99 01/06/18 12:00 01/06/18 14:00 01/06/18 14:00 01/06/18 14:00 01/06/18 14:00 Intake and Output: 01/06/18 01/06/18 06:59 18:59 Intake Total 692.2 114.5 Output Total 215 10 Balance 477.2 104.5 - Medications Medications: Current Medications Albuterol/Ipratropium (Duoneb 3 Mg/0.5 Mg (3 Ml) Ud) 3 ml INH RQ6 [facility] Last Admin: 01/06/18 13:16 Dose: 3 ml Bumetanide (Bumex) 1 mg IVP Q1H [facility] Stop: 01/06/18 15:01 Last Admin: 01/06/18 13:00 Dose: 1 mg Calcium Acetate (Phoslo) 667 mg PO BIDCC [facility] Stop: 01/06/18 17:01 Epoetin Issa (Procrit) 10,000 unit IV ONCE ONE Stop: 01/06/18 17:01 Heparin Sodium (Porcine) (Heparin) 5,000 units SC Q12 [facility] Last Admin: 01/06/18 09:38 Dose: 5,000 units Propofol (Diprivan) 1,000 mg in 100 mls @ 2.708 mls/hr IV .Q24H PRN; Protocol; 5 MCG/KG/MIN PRN Reason: Restlessness Last Titration: 01/06/18 06:48 Dose: 30.46 mcg/kg/min, 16.5 mls/hr Imipenem/Cilastatin Sodium 250 (mg/ Sodium Chloride) 100 mls @ 100 mls/hr IVPB Q8H [facility] PRN Reason: Protocol Last Admin: 01/06/18 12:00 Dose: 100 mls/hr Dexmedetomidine HCl 200 mcg/ (Sodium Chloride) 50 mls @ 4.51 mls/hr IV TITR PRN ; Protocol; 0.2 MCG/KG/HR PRN Reason: Agitation Last Admin: 01/06/18 13:25 Dose: 0.2 mcg/kg/hr, 4.51 mls/hr Insulin Aspart (Novolog) 0 unit SC Q6 [facility] PRN Reason: Protocol Last Admin: 01/06/18 13:29 Dose: Not Given Insulin Detemir (Levemir) 40 unit SC QAM [facility] Levothyroxine Sodium (Synthroid) 125 mcg PO DAILY@0630 [facility] Last Admin: 01/06/18 06:30 Dose: 125 mcg Montelukast Sodium (Singulair) 10 mg PO HS [facility] Last Admin: 01/05/18 22:29 Dose: 10 mg Multivitamins (Hexavitamin) 1 tab PO DAILY [facility] Last Admin: 01/06/18 10:00 Dose: 1 tab Mupirocin (Bactroban Ointment) 0 gm TOP DAILY [facility] Last Admin: 01/06/18 09:33 Dose: Not Given Pantoprazole Sodium (Protonix Inj) 40 mg IVP DAILY [facility] Last Admin: 01/06/18 09:37 Dose: 40 mg Rosuvastatin Calcium (Crestor) 20 mg PO HS [facility] Last Admin: 01/05/18 22:29 Dose: 20 mg Topiramate (Topamax) 25 mg PO BID [facility] Last Admin: 01/06/18 09:40 Dose: 25 mg - Labs Labs: 01/06/18 06:24 01/06/18 06:24 PT 13.7 SECONDS (9.7-12.2) H 01/04/18 11:37 INR 1.3 01/04/18 11:37 APTT 31 SECONDS (21-34) 01/04/18 11:37 - Constitutional Appears: Well, Non-toxic, No Acute Distress - Extremities Exam Additional comments: Lower extremity focused exam. Dressings clean, dry, and intact. Vasc: DP/PT pulses palpable 2/4. Temperature gradient warm to cool. CFT < 3 sec to all digits. No pedal edema noted Derm: Left hallux and 2nd digit amputation sites noted with all sutures inact. Well coapted no strangulation pallor noted. Site warm to touch. No productive for hematoma. No purulence nor active drainage noted. Neuro: Protective sensation grossly intact Ortho: deffered to to pt being sedated. - Neurological Exam Neurological Exam: Alert, Awake Assessment and Plan - Assessment and Plan (Free Text) Assessment: 72 y/o female POD#2 s/p Left foot hallux and partial 2nd digit amputation (DOS ) due to chronic osteomyelitis Plan: Pt seen and evaluated with attending, Dr. Peña. Chart labs, and vitals reviewed. Afebrile, leukocytosis noted trending down, likely due to post-op stress. Will monitor. Continue Local Wound care. Cleansed site with saline; dressed with betadine, xeroform,and DSD. Continue IV abd per ID. Podiatry will follow pt while inhouse.
--- NOTE | 2018-01-06 15:01 | PCM.PROC ---
Procedures Attestation:: I certify that I have explained the specified Operation(s) or Procedure(s), risks, benefits and reasonable alternatives to the Patient and/or other person responsible. The opportunity was given to ask questions and all questions answered - Central Line Placement Right Internal Jugular Triple Lumen Catheter Aseptic technique was employed throughout the procedure: Hand Hygiene done prior to procedure, Full sterile barriers (mask, hair cover, sterile gown, sterile gloves), Full body sterile drape, Chloraprep Antiseptic: 30 second prep for IJ or SC sites CVP Time Out Performed: Yes Pt. Placed on Pulse Ox Monitor: Yes Central Line Prep: Chlorhexidine-Alcohol Combination Local Anesthesia Used: Lidocaine 1% Amount of Anesthesia Used (mls): 2 Ultrasound Used for Placement: Yes Central Line Lumen Inserted: triple Central Line Length: 16 cm Post Procedure: Sutured in Place, Good Blood Return, All Ports Aspirated, Flushed, Capped, Sterile Dressing Applied Secured by: Suture Post procedure dressing: Clear vapor permeable, Chlorhexidine disc (Biopatch) Post Procedure X-Ray: Yes Patient Tolerated Procedure: Well Immediate Complications: None
--- NOTE | 2018-01-06 15:20 | RAD ---
HISTORY: RIJ inserted COMPARISON: 01/06/2018 FINDINGS: LUNGS: Bibasilar homogeneous opacities compatible with bilateral pleural effusions are present. The right sided opacification is nearly 1/2 the height of the right ernestina thorax ; the overall density here appear slightly increased compared to the prior study The left lung base opacification is similar Inferred bibasilar compressive atelectasis. Concomitant underlying infiltrates not excluded PLEURA: Bilateral pleural effusions as referenced above. No pneumothorax apparent. CARDIOVASCULAR: Cardiomegaly. Central pulmonary venous congestion slightly increased OSSEOUS STRUCTURES: Right glenoid and humeral head orthopedic anchors noted Thoracic spondylosis. Positional rightward convexity VISUALIZED UPPER ABDOMEN: Normal. OTHER FINDINGS: Endotracheal tube tip at the inferior clavicular level. NG tube courses over stomach beyond inferior edge of this image Interval insertion of a right internal jugular vein central line tip estimated at the cavoatrial junction and study rotated towards the left. IMPRESSION: Intervalinsertion of a right internal jugular vein central line tip estimated at the cavoatrial junction. No pneumothorax Extensive bilateral pleural effusions right greater than left. Interval increased right pleural effusion. Cardiomegaly. Central pulmonary venous congestion in the latter appears increased since prior exam Other findings -as above.
--- NOTE | 2018-01-06 15:28 | CP.PCM.PN ---
Subjective - Date & Time of Evaluation Date of Evaluation: 01/06/18 Time of Evaluation: 15:24 - Subjective Subjective: INFECTIOUS DISEASE PROGRESS NOTES KELSI GAMBOA MD, FACP ICU #8 01/06/2018 CHART REVIEWED EXAMINE NOTED CASE APPRECIATED ID SPRAGUE ON PRIMAXIN POST BOTH ASTHMA/CHF EPISODE POST AMPUTATION STILL INTUBATED THE SUPERFICAL C/S DEMONSTRATING CORYNEBACTERIUM IS PROBABLY NOT SIGNIFICANT IN THIS CLINICAL SITUATION ON PRIMAXIN 2ND INTUBATION AND PULMONARY ISSUES, SEE WBC. Objective - Vital Signs/Intake and Output Vital Signs (last 24 hours): Temp Pulse Resp BP Pulse Ox 99.1 F 69 17 141/50 L 100 01/06/18 12:00 01/06/18 15:00 01/06/18 15:00 01/06/18 15:00 01/06/18 15:00 Intake and Output: 01/06/18 01/06/18 06:59 18:59 Intake Total 692.2 234.1 Output Total 215 10 Balance 477.2 224.1 - Medications Medications: Current Medications Albuterol/Ipratropium (Duoneb 3 Mg/0.5 Mg (3 Ml) Ud) 3 ml INH RQ6 [facility] Last Admin: 01/06/18 13:16 Dose: 3 ml Calcium Acetate (Phoslo) 667 mg PO BIDCC [facility] Stop: 01/06/18 17:01 Epoetin Issa (Procrit) 10,000 unit IV ONCE ONE Stop: 01/06/18 17:01 Heparin Sodium (Porcine) (Heparin) 5,000 units SC Q12 [facility] Last Admin: 01/06/18 09:38 Dose: 5,000 units Propofol (Diprivan) 1,000 mg in 100 mls @ 2.708 mls/hr IV .Q24H PRN; Protocol; 5 MCG/KG/MIN PRN Reason: Restlessness Last Titration: 01/06/18 06:48 Dose: 30.46 mcg/kg/min, 16.5 mls/hr Imipenem/Cilastatin Sodium 250 (mg/ Sodium Chloride) 100 mls @ 100 mls/hr IVPB Q8H [facility] PRN Reason: Protocol Last Admin: 01/06/18 12:00 Dose: 100 mls/hr Dexmedetomidine HCl 200 mcg/ (Sodium Chloride) 50 mls @ 4.51 mls/hr IV TITR PRN ; Protocol; 0.2 MCG/KG/HR PRN Reason: Agitation Last Admin: 01/06/18 13:25 Dose: 0.2 mcg/kg/hr, 4.51 mls/hr Insulin Aspart (Novolog) 0 unit SC Q6 [facility] PRN Reason: Protocol Last Admin: 01/06/18 13:29 Dose: Not Given Insulin Detemir (Levemir) 40 unit SC QAM [facility] Levothyroxine Sodium (Synthroid) 125 mcg PO DAILY@0630 [facility] Last Admin: 01/06/18 06:30 Dose: 125 mcg Montelukast Sodium (Singulair) 10 mg PO HS [facility] Last Admin: 01/05/18 22:29 Dose: 10 mg Multivitamins (Hexavitamin) 1 tab PO DAILY [facility] Last Admin: 01/06/18 10:00 Dose: 1 tab Mupirocin (Bactroban Ointment) 0 gm TOP DAILY [facility] Last Admin: 01/06/18 09:33 Dose: Not Given Pantoprazole Sodium (Protonix Inj) 40 mg IVP DAILY [facility] Last Admin: 01/06/18 09:37 Dose: 40 mg Rosuvastatin Calcium (Crestor) 20 mg PO HS [facility] Last Admin: 01/05/18 22:29 Dose: 20 mg Topiramate (Topamax) 25 mg PO BID [facility] Last Admin: 01/06/18 09:40 Dose: 25 mg - Labs Labs: 01/06/18 06:24 01/06/18 06:24 PT 13.7 SECONDS (9.7-12.2) H 01/04/18 11:37 INR 1.3 01/04/18 11:37 APTT 31 SECONDS (21-34) 01/04/18 11:37 Assessment and Plan (1) Osteomyelitis of toe of left foot Status: Acute (2) Diabetes 1.5, managed as type 2 Status: Chronic (3) Asthma Status: Chronic (4) Pulmonary arterial hypertension Status: Chronic (5) HTN (hypertension), benign Status: Chronic
--- NOTE | 2018-01-06 16:26 | CP.PCM.CON ---
History of Present Illness - History of Present Illness History of Present Illness: Nephrology Consultation Note: Assessment: critical oliguric Acute Kidney Injury (N17.9) likely hemodynamic injury leading to ATN HAGMA with respi compensation, hyperphos Acute respi failure with ? asthma exacerbation and pulmonary edema s/p intubation Anemia DM, pulmonary hypertension, obesity, asthma, MILTON, PVD initially admitted with left foot osteomyelitis s/p amputation on 01/04/18 moderate to severe Aortic stenosis Plan No acute need for renal replacement therapy at this time but may need soon and will need close follow up. overall maintaining O2 sat, K 4.5 supportive management for now. trial of diuretics but not much response. No ACEI/ARB due to IRASEMA. BP on low side. maintain hemodynamics stable. Monitor Input/Output, daily weights and renal function with basic metabolic panel PRBC as needed for anemia. she was given dose of epogen 01/06/18 started on phos binders. will add sodium bicarb check urine pro/cr, alb/cr, TSAT/Ferritin, SPEP/RIKY Dose meds/antibiotics for reduced GFR. Avoid fleets enema/magnesium based laxatives. Avoid nephrotoxins/NSAIDs/ iodinated contrast (unless needed emergently) Glycemic control Further work up/management as per primary team Thanks for allowing me to participate in care of your patient. Will follow patient with you. Please call if any Qs. d/w team Dr Tomy Gonzalez Office: [phone] Chief Complaint; unable to obtain reason for consult: IRASEMA source of info: EMR HPI: Pt is a 73 y/o female with history of DM, pulmonary hypertension, obesity, asthma, MILTON, PVD initially admitted with left foot osteomyelitis s/p amputation on 01/04/18. 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 asthma exacerbation and pulmonary edema s/p intubation and transferred to ICU. renal consult for IRASEMA eval. no OTC/herbal meds or NSAIDs Noted recent iodinated contrast exposure as CTA 12/30/17. Noted obvious episodes of low BP (93/31). ROS: unable as pt intubated/sedated Physical Examination: General Appearance: comfortable, in no acute respiratory distress, ill appearing. O2 sat 100% on FiO2 as 40% PEEP 5 Vitals reviewed and noted as below Head; Atraumatic, normocephalic ENT: orally intubated EYES: Pupils are equal, round and reactive to light accommodation. Eye muscles and extraocular movement intact. Sclera is anicteric. Neck; supple no lymphadenopathy, no thyromegaly or bruit Lungs: Normal respiratory rate/effort. Breath sounds bilateral equal and few rales + Heart: Normal rate. s1s2 normal. No rub or gallop. murmur + Extremities: no edema. No varicose veins. left foot dressed Neurological: Patient is sedated Skin: Warm and dry. Normal turgor. No rash. Palpitation: Normal elasticity for age Abdomen: soft non tender no abdominal tenderness without guarding no rigidity no organomegaly Psych: unable MSK: no joint tenderness or swelling. Digits and nails normal, no deformity : kidney or bladder not palpable. has russell Labs/imaging reviewed. Past medical history, past surgical history, family history, social history, allergy reviewed and noted as below Family hx: no hx of CKD. 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 - ANESTHESIA Hx Anesthesia: Yes Hx Anesthesia Reactions: No Hx Malignant Hyperthermia: No Meds Allergies/Adverse Reactions: Allergies Allergy/AdvReac Type Severity Reaction Status Date / Time morphine Allergy confusion Verified 12/29/17 15:15 - Medications Medications: Current Medications Albuterol/Ipratropium (Duoneb 3 Mg/0.5 Mg (3 Ml) Ud) 3 ml INH RQ6 [facility] Last Admin: 01/06/18 13:16 Dose: 3 ml Calcium Acetate (Phoslo) 667 mg PO BIDCC [facility] Stop: 01/06/18 17:01 Epoetin Issa (Procrit) 10,000 unit IV ONCE ONE Stop: 01/06/18 17:01 Heparin Sodium (Porcine) (Heparin) 5,000 units SC Q12 [facility] Last Admin: 01/06/18 09:38 Dose: 5,000 units Propofol (Diprivan) 1,000 mg in 100 mls @ 2.708 mls/hr IV .Q24H PRN; Protocol; 5 MCG/KG/MIN PRN Reason: Restlessness Last Titration: 01/06/18 06:48 Dose: 30.46 mcg/kg/min, 16.5 mls/hr Imipenem/Cilastatin Sodium 250 (mg/ Sodium Chloride) 100 mls @ 100 mls/hr IVPB Q8H [facility] PRN Reason: Protocol Last Admin: 01/06/18 12:00 Dose: 100 mls/hr Dexmedetomidine HCl 200 mcg/ (Sodium Chloride) 50 mls @ 4.51 mls/hr IV TITR PRN ; Protocol; 0.2 MCG/KG/HR PRN Reason: Agitation Last Admin: 01/06/18 13:25 Dose: 0.2 mcg/kg/hr, 4.51 mls/hr Insulin Aspart (Novolog) 0 unit SC Q6 [facility] PRN Reason: Protocol Last Admin: 01/06/18 13:29 Dose: Not Given Insulin Detemir (Levemir) 40 unit SC QAM [facility] Levothyroxine Sodium (Synthroid) 125 mcg PO DAILY@0630 [facility] Last Admin: 01/06/18 06:30 Dose: 125 mcg Montelukast Sodium (Singulair) 10 mg PO HS [facility] Last Admin: 01/05/18 22:29 Dose: 10 mg Multivitamins (Hexavitamin) 1 tab PO DAILY [facility] Last Admin: 01/06/18 10:00 Dose: 1 tab Mupirocin (Bactroban Ointment) 0 gm TOP DAILY [facility] Last Admin: 01/06/18 09:33 Dose: Not Given Pantoprazole Sodium (Protonix Inj) 40 mg IVP DAILY [facility] Last Admin: 01/06/18 09:37 Dose: 40 mg Rosuvastatin Calcium (Crestor) 20 mg PO HS [facility] Last Admin: 01/05/18 22:29 Dose: 20 mg Topiramate (Topamax) 25 mg PO BID [facility] Last Admin: 01/06/18 09:40 Dose: 25 mg Results - Vital Signs Recent Vital Signs: Last Vital Signs Temp 99.1 F 01/06/18 12:00 Pulse 69 01/06/18 15:00 Resp 17 01/06/18 15:00 BP 141/50 L 01/06/18 15:00 Pulse Ox 100 01/06/18 15:00 - Labs Result Diagrams: 01/06/18 06:24 01/06/18 06:24 Labs: Laboratory Results - last 24 hr 01/05/18 01/05/18 01/06/18 17:54 23:47 05:00 WBC RBC Hgb Hct MCV MCH MCHC RDW Plt Count MPV Neut % (Auto) Lymph % (Auto) Cook % (Auto) Eos % (Auto) Baso % (Auto) Neut # (Auto) Lymph # (Auto) Cook # (Auto) Eos # (Auto) Baso # (Auto) Neutrophils % (Manual) Lymphocytes % (Manual) Monocytes % (Manual) Nucleated RBC % Platelet Estimate Hypochromasia (manual) Poikilocytosis (manual Anisocytosis (manual) Target Cells Hardwick Cells Puncture Site Rb pCO2 33 L pO2 177 H HCO3 18.5 L ABG pH 7.32 L ABG Total CO2 18.0 L ABG O2 Saturation 99.9 H ABG Base Excess -8.2 L ABG Hemoglobin 10.3 L ABG Carboxyhemoglobin 1.5 POC ABG HHb (Measured) 0.1 ABG Methemoglobin 1.4 Saqib Test Na A-a O2 Difference 210.0 Respiratory Index 1.2 Hgb O2 Saturation 96.9 Vent Mode Prvc Mechanical Rate 14 FiO2 60.0 Tidal Volume 500 PEEP 5 Sodium Potassium Chloride Carbon Dioxide Anion Gap BUN Creatinine Est GFR ( Amer) Est GFR (Non-Af Amer) POC Glucose (mg/dL) 335 H 275 H Random Glucose Calcium Phosphorus Magnesium Total Bilirubin AST ALT Alkaline Phosphatase Total Protein Albumin Globulin Albumin/Globulin Ratio Hepatitis A IgM Ab Hep Bs Antigen Hep B Core IgM Ab Hepatitis C Antibody 01/06/18 01/06/18 01/06/18 06:09 06:24 06:24 WBC 16.8 H RBC 2.96 L Hgb 7.6 L Hct 24.4 L MCV 82.5 MCH 25.6 L MCHC 31.0 L RDW 16.3 H Plt Count 235 D MPV 11.1 Neut % (Auto) 92.8 H Lymph % (Auto) 2.3 L Cook % (Auto) 4.8 Eos % (Auto) 0.0 Baso % (Auto) 0.1 Neut # (Auto) 15.6 H Lymph # (Auto) 0.4 L Cook # (Auto) 0.8 Eos # (Auto) 0.0 Baso # (Auto) 0.0 Neutrophils % (Manual) 95 H Lymphocytes % (Manual) 3 L Monocytes % (Manual) 2 Nucleated RBC % 1 H Platelet Estimate Normal Hypochromasia (manual) Moderate Poikilocytosis (manual Slight Anisocytosis (manual) Slight Target Cells Slight Hardwick Cells Slight Puncture Site pCO2 pO2 HCO3 ABG pH ABG Total CO2 ABG O2 Saturation ABG Base Excess ABG Hemoglobin ABG Carboxyhemoglobin POC ABG HHb (Measured) ABG Methemoglobin Saqib Test A-a O2 Difference Respiratory Index Hgb O2 Saturation Vent Mode Mechanical Rate FiO2 Tidal Volume PEEP Sodium 144 Potassium 4.5 Chloride 111 H Carbon Dioxide 18 L Anion Gap 19 BUN 38 H Creatinine 3.2 H Est GFR ( Amer) 17 Est GFR (Non-Af Amer) 14 POC Glucose (mg/dL) 296 H Random Glucose 232 H Calcium 7.5 L Phosphorus 6.7 H Magnesium 2.2 Total Bilirubin 0.3 AST 58 H ALT 81 H Alkaline Phosphatase 99 Total Protein 5.5 L Albumin 3.2 L Globulin 2.3 Albumin/Globulin Ratio 1.4 Hepatitis A IgM Ab Hep Bs Antigen Hep B Core IgM Ab Hepatitis C Antibody 01/06/18 01/06/18 06:24 13:16 WBC RBC Hgb Hct MCV MCH MCHC RDW Plt Count MPV Neut % (Auto) Lymph % (Auto) Cook % (Auto) Eos % (Auto) Baso % (Auto) Neut # (Auto) Lymph # (Auto) Cook # (Auto) Eos # (Auto) Baso # (Auto) Neutrophils % (Manual) Lymphocytes % (Manual) Monocytes % (Manual) Nucleated RBC % Platelet Estimate Hypochromasia (manual) Poikilocytosis (manual Anisocytosis (manual) Target Cells Nishant Cells Puncture Site pCO2 pO2 HCO3 ABG pH ABG Total CO2 ABG O2 Saturation ABG Base Excess ABG Hemoglobin ABG Carboxyhemoglobin POC ABG HHb (Measured) ABG Methemoglobin Saqib Test A-a O2 Difference Respiratory Index Hgb O2 Saturation Vent Mode Mechanical Rate FiO2 Tidal Volume PEEP Sodium Potassium Chloride Carbon Dioxide Anion Gap BUN Creatinine Est GFR ( Amer) Est GFR (Non-Af Amer) POC Glucose (mg/dL) 258 H Random Glucose Calcium Phosphorus Magnesium Total Bilirubin AST ALT Alkaline Phosphatase Total Protein Albumin Globulin Albumin/Globulin Ratio Hepatitis A IgM Ab Negative Hep Bs Antigen Negative Hep B Core IgM Ab Negative Hepatitis C Antibody Negative
[2018-01-06] MEDS ORDERED: Epoetin Alfa 10,000 unit/ml Dialysis IV ONE ×2 (17:00→18:15)
--- NOTE | 2018-01-06 18:22 | CP.PCM.PN ---
Subjective - Date & Time of Evaluation Date of Evaluation: 01/06/18 Time of Evaluation: 18:15 - Subjective Subjective: Persistent chf. Pt is ahead in fluids, and now worsening kidney function, ATN. BP has crept up,ow high. Pt is still intubated., sedated. Objective - Vital Signs/Intake and Output Vital Signs (last 24 hours): Temp Pulse Resp BP Pulse Ox 98.8 F 68 16 156/60 H 100 01/06/18 16:00 01/06/18 16:00 01/06/18 16:00 01/06/18 16:00 01/06/18 16:00 Intake and Output: 01/06/18 01/06/18 06:59 18:59 Intake Total 692.2 253.7 Output Total 215 10 Balance 477.2 243.7 - Medications Medications: Current Medications Albuterol/Ipratropium (Duoneb 3 Mg/0.5 Mg (3 Ml) Ud) 3 ml INH RQ6 [facility] Last Admin: 01/06/18 13:16 Dose: 3 ml Epoetin Issa (Procrit) 10,000 unit IV ONCE ONE Stop: 01/06/18 18:16 Heparin Sodium (Porcine) (Heparin) 5,000 units SC Q12 [facility] Last Admin: 01/06/18 09:38 Dose: 5,000 units Propofol (Diprivan) 1,000 mg in 100 mls @ 2.708 mls/hr IV .Q24H PRN; Protocol; 5 MCG/KG/MIN PRN Reason: Restlessness Last Titration: 01/06/18 06:48 Dose: 30.46 mcg/kg/min, 16.5 mls/hr Imipenem/Cilastatin Sodium 250 (mg/ Sodium Chloride) 100 mls @ 100 mls/hr IVPB Q8H [facility] PRN Reason: Protocol Last Admin: 01/06/18 18:01 Dose: 100 mls/hr Dexmedetomidine HCl 200 mcg/ (Sodium Chloride) 50 mls @ 4.51 mls/hr IV TITR PRN ; Protocol; 0.2 MCG/KG/HR PRN Reason: Agitation Last Admin: 01/06/18 13:25 Dose: 0.2 mcg/kg/hr, 4.51 mls/hr Insulin Aspart (Novolog) 0 unit SC Q6 [facility] PRN Reason: Protocol Last Admin: 01/06/18 17:57 Dose: 4 u Insulin Detemir (Levemir) [facility] Levothyroxine Sodium (Synthroid) 125 mcg PO DAILY@0630 [facility] Last Admin: 01/06/18 06:30 Dose: 125 mcg Montelukast Sodium (Singulair) 10 mg PO HS [facility] Last Admin: 01/05/18 22:29 Dose: 10 mg Multivitamins (Hexavitamin) 1 tab PO DAILY [facility] Last Admin: 01/06/18 10:00 Dose: 1 tab Mupirocin (Bactroban Ointment) 0 gm TOP DAILY [facility] Last Admin: 01/06/18 09:33 Dose: Not Given Pantoprazole Sodium (Protonix Inj) 40 mg IVP DAILY [facility] Last Admin: 01/06/18 09:37 Dose: 40 mg Rosuvastatin Calcium (Crestor) 20 mg PO HS [facility] Last Admin: 01/05/18 22:29 Dose: 20 mg Sodium Bicarbonate (Sodium Bicarbonate Tab) 1,300 mg PO BID [facility] Last Admin: 01/06/18 17:59 Dose: 1,300 mg Topiramate (Topamax) 25 mg PO BID [facility] Last Admin: 01/06/18 09:40 Dose: 25 mg - Labs Labs: 01/06/18 06:24 01/06/18 06:24 PT 13.7 SECONDS (9.7-12.2) H 01/04/18 11:37 INR 1.3 01/04/18 11:37 APTT 31 SECONDS (21-34) 01/04/18 11:37 - Constitutional Appears: Chronically Ill - Head Exam Head Exam: ATRAUMATIC - Eye Exam Eye Exam: Normal appearance - ENT Exam ENT Exam: Mucous Membranes Dry - Respiratory Exam Respiratory Exam: Decreased Breath Sounds - Cardiovascular Exam Cardiovascular Exam: REGULAR RHYTHM - Extremities Exam Extremities Exam: Normal Inspection - Skin Skin Exam: Normal Color Assessment and Plan - Assessment and Plan (Free Text) Assessment: 1. Visually, moderate aortic stenosis. 2. normal LV EF, 3. Mild CAD: no evidence of ischemia 4. CHF: With worsening of kidney function, diuretics cannot be prescribed without exacerbating kidney function. The patient might need temporary dialysis to remove fluid. 5. HTN: Options to treat hypertension in this intubated patient are few. Cannot use kailey/arb. IV nitro must be uses with caution in (preload reduction). Cannot use beta yordy due to mobitz I. Will add norvasc through NGT. can also use hydralazine if needed. IV nitro small doses with caution f Bp remains high after above.
[2018-01-06 19:41] LABS: CK-MB 0.78 ng/mL (0.0-3.38); TROPONIN I 0.09 ng/mL (0.00-0.120)
[2018-01-07] MEDS: (Novolog) Insulin Aspart, Recombinant 100 u/ml 10 ml vial SC SCH ×4 (00:09→18:10)
[2018-01-07] MEDS: Propofol 10 mg/ml 1,000 MG/100 ML VIAL IV PRN ×2 (00:11→08:41)
[2018-01-07] MEDS: Albuterol-Ipratrop 3 mg / 0.5 (3 ml) UD INH SCH ×4 (01:27→19:48)
[2018-01-07 05:35] LABS: ARTERIAL BLOOD GAS HCO3 19.7 mmol/L (21-28); ARTERIAL BLOOD GAS HEMOGLOBIN 7.7 g/dL (11.7-17.4); ARTERIAL BLOOD GAS O2 SAT 99.4 % (95-98); ARTERIAL BLOOD GAS PCO2 31 mm/Hg (35-45); ARTERIAL BLOOD GAS PH 7.37 (7.35-7.45); ARTERIAL BLOOD GAS PO2 110 mm/Hg (80-100); ARTERIAL BLOOD GAS TCO2 18.9 mmol/L (22-28)
[2018-01-07 06:38] LABS: BASO % 0.2 % (0.0-2.0); EOS # 0.1 K/uL (0.0-0.7); EOS % 0.6 % (0.0-4.0); HEMOGLOBIN 7.8 g/dL (11.0-16.0); LYMPH # 0.9 K/uL (1.0-4.3); LYMPH % 7.5 % (20.0-40.0); MEAN CELL VOLUME 81.7 fL (81.0-99.0); MEAN CORPUSCULAR HEMOGLOBIN 26.1 pg (27.0-31.0); MEAN CORPUSCULAR HGB CONC 31.9 g/dL (33.0-37.0); MEAN PLATELET VOLUME 10.7 fL (7.2-11.7); MONO % 8.6 % (0.0-10.0); NEUT % 83.1 % (50.0-75.0); PLATELET COUNT 225 K/uL (130-400); RED CELL DISTRIBUTION WIDTH 16.4 % (11.5-14.5); WHITE BLOOD COUNT 12.1 K/uL (4.8-10.8)
[2018-01-07 06:46] LABS: IRON 16 ug/dL (37-170)
[2018-01-07 06:48] LABS: ALB/GLOB RATIO 1.3 (1.0-2.1); ALBUMIN 3.1 g/dL (3.5-5.0); CALCIUM 7.5 mg/dl (8.6-10.4)
[2018-01-07 06:56] LABS: % IRON SATURATION 7 (20-55); TOTAL IRON BINDING CAPACITY 233 ug/dL (250-450); VANCOMYCIN RANDOM < 5.0 ug/mL
[2018-01-07 07:22] LABS: FERRITIN 25.6 ng/mL
[2018-01-07] MEDS: Levothyroxine 125 MCG TAB PO SCH (07:46)
[2018-01-07] MEDS: Insulin Detemir 100 units/ml Vial (Levemir) SC SCH ×2 (08:18→10:10)
[2018-01-07 08:24] LABS: ANISOCYTOSIS SLIGHT; BANDS 1 % (0-2); EOSINOPHIL 1 % (0-4); HYPOCHROMIC SLIGHT; LYMPHOCYTE 9 % (20-40); MONOCYTE 9 % (0-10); NEUTROPHIL 80 % (50-75); PLATELET ESTIMATE NORMAL (NORMAL); POIKILOCYTOSIS SLIGHT; TOTAL CELLS COUNTED 100
[2018-01-07 08:25] LABS: BURR CELLS SLIGHT; LARGE PLATELETS PRESENT; OVALOCYTES SLIGHT; TARGET CELLS SLIGHT
--- NOTE | 2018-01-07 08:34 | RAD ---
HISTORY: intubated COMPARISON: 01/06/2018. FINDINGS: The endotracheal tube terminates 3.6 cm proximal to the meme. The nasogastric tube terminates in the stomach. The right IJV line terminates at the cavoatrial junction LUNGS: The lungs are clear. PLEURA: There are moderate layering pleural effusions, no pneumothorax apparent. CARDIOVASCULAR: The heart remains enlarged. OSSEOUS STRUCTURES: No significant abnormalities. VISUALIZED UPPER ABDOMEN: Normal. OTHER FINDINGS: None. IMPRESSION: Stable position of support line and tubes. Moderate layering pleural effusions.
[2018-01-07] MEDS ORDERED: Metoprolol 1 mg/ml Inj IVP PRN (09:46)
[2018-01-07] MEDS: Nitroglycerin 50mg in D5W 50 MG/250 ML BOTTLE IV SCH ×3 (09:50→23:09)
[2018-01-07] MEDS ORDERED: Metoprolol 1 mg/ml Inj IVP ONE (09:54)
[2018-01-07] MEDS: Multiple Vitamins Tab PO SCH (10:00)
--- NOTE | 2018-01-07 10:22 | CP.PCM.PN ---
Subjective - Date & Time of Evaluation Date of Evaluation: 01/07/18 Time of Evaluation: 10:20 - Subjective Subjective: sitting up in bed extubated no respiratory distress Objective - Vital Signs/Intake and Output Vital Signs (last 24 hours): Temp Pulse Resp BP Pulse Ox 97.8 F 67 20 179/70 H 100 01/07/18 08:00 01/07/18 07:00 01/07/18 08:00 01/07/18 08:00 01/07/18 08:00 Intake and Output: 01/07/18 01/07/18 06:59 18:59 Intake Total 773.9 149.7 Output Total 440 30 Balance 333.9 119.7 - Medications Medications: Current Medications Amlodipine Besylate (Norvasc) 5 mg PO DAILY [facility] Bumetanide (Bumex) 2 mg IVP ONCE ONE Stop: 01/07/18 10:31 Heparin Sodium (Porcine) (Heparin) 5,000 units SC Q12 [facility] Last Admin: 01/06/18 22:16 Dose: 5,000 units Hydralazine HCl (Apresoline) 50 mg PO TID [facility] Imipenem/Cilastatin Sodium 250 (mg/ Sodium Chloride) 100 mls @ 100 mls/hr IVPB Q8H [facility] PRN Reason: Protocol Last Admin: 01/07/18 02:35 Dose: 100 mls/hr Nitroglycerin/Dextrose (Nitroglycerin 50 Mg/250 Ml D5w) 50 mg in 250 mls @ 7.5 mls/hr IV .Q24H [facility]; 25 MCG/MIN PRN Reason: Protocol Insulin Aspart (Novolog) 0 unit SC Q6 [facility] PRN Reason: Protocol Last Admin: 01/07/18 06:47 Dose: 4 u Insulin Detemir (Levemir) 40 unit SC QAM [facility] Last Admin: 01/07/18 10:10 Dose: Not Given Levothyroxine Sodium (Synthroid) 125 mcg PO DAILY@0630 [facility] Last Admin: 01/07/18 07:46 Dose: 125 mcg Metoprolol Tartrate (Lopressor) 5 mg IVP Q6H PRN PRN Reason: Systolic Blood Pressure Metoprolol Tartrate (Lopressor) 50 mg PO Q12 [facility] Montelukast Sodium (Singulair) 10 mg PO HS [facility] Last Admin: 01/06/18 22:17 Dose: 10 mg Multivitamins (Hexavitamin) 1 tab PO DAILY [facility] Last Admin: 01/06/18 10:00 Dose: 1 tab Mupirocin (Bactroban Ointment) 0 gm TOP DAILY [facility] Last Admin: 01/06/18 09:33 Dose: Not Given Pantoprazole Sodium (Protonix Inj) 40 mg IVP DAILY [facility] Last Admin: 01/06/18 09:37 Dose: 40 mg Rosuvastatin Calcium (Crestor) 20 mg PO HS [facility] Last Admin: 01/06/18 22:16 Dose: 20 mg Sodium Bicarbonate (Sodium Bicarbonate Tab) 1,300 mg PO BID [facility] Last Admin: 01/06/18 17:59 Dose: 1,300 mg Topiramate (Topamax) 25 mg PO BID [facility] Last Admin: 01/06/18 18:21 Dose: 25 mg - Labs Labs: 01/07/18 06:26 01/07/18 06:27 PT 13.7 SECONDS (9.7-12.2) H 01/04/18 11:37 INR 1.3 01/04/18 11:37 APTT 31 SECONDS (21-34) 01/04/18 11:37 - Constitutional Appears: No Acute Distress, Chronically Ill - Head Exam Head Exam: ATRAUMATIC, NORMOCEPHALIC - Eye Exam Eye Exam: Normal appearance - ENT Exam ENT Exam: Mucous Membranes Moist - Neck Exam Neck Exam: Normal Inspection - Respiratory Exam Respiratory Exam: Decreased Breath Sounds - Cardiovascular Exam Cardiovascular Exam: +S1, +S2, +S4, Murmur - GI/Abdominal Exam GI & Abdominal Exam: Normal Bowel Sounds - Rectal Exam Rectal Exam: Deferred - Neurological Exam Neurological Exam: Alert, Awake, Oriented x3 - Psychiatric Exam Psychiatric exam: Normal Affect, Normal Mood - Skin Skin Exam: Intact Assessment and Plan (1) Osteomyelitis of ankle and foot Status: Acute (2) Diabetes 1.5, managed as type 2 Status: Chronic (3) HTN (hypertension), benign Status: Chronic (4) Pulmonary arterial hypertension Status: Chronic (5) Acute respiratory failure Status: Resolved (6) CHF (congestive heart failure) Status: Acute (7) IRASEMA (acute kidney injury) Status: Acute
--- NOTE | 2018-01-07 12:12 | CP.PCM.PN ---
Subjective - Date & Time of Evaluation Date of Evaluation: 01/07/18 Time of Evaluation: 12:07 - Subjective Subjective: Nephrology Consultation Note: Assessment: critical non-oliguric Acute Kidney Injury (N17.9) likely hemodynamic injury leading to ATN HAGMA with respi compensation, hyperphos Acute respi failure with ? asthma exacerbation and pulmonary edema and pleural effusion s/p intubation Anemia DM, pulmonary hypertension, obesity, asthma, MILTON, PVD initially admitted with left foot osteomyelitis s/p amputation on 01/04/18 moderate to severe Aortic stenosis Plan No acute need for renal replacement therapy at this time but may need soon and will need close follow up. supportive management for now. will attempt more diureiss iwth bumex 2 mg bid and metolazone 5 mg bid. if not successful then will need dialysis soon. d/w daughter and she agreed for dialysis when needed. No ACEI/ARB due to IRASEMA. maintain hemodynamics stable. HTN control with meds as ordered. Monitor Input/Output, daily weights and renal function with basic metabolic panel PRBC as needed for anemia. she was given dose of epogen 01/06/18 started on phos binders, iron supplements MVI. continue with sodium bicarb prbc as needed for anemia check urine pro/cr, alb/cr, TSAT/Ferritin, SPEP/RIKY Dose meds/antibiotics for reduced GFR. Avoid fleets enema/magnesium based laxatives. Avoid nephrotoxins/NSAIDs/ iodinated contrast (unless needed emergently) Glycemic control Further work up/management as per primary team Thanks for allowing me to participate in care of your patient. Will follow patient with you. Please call if any Qs. d/w team and daughter. Dr Tomy Gonzalez Office: [phone] Chief Complaint; tired reason for consult: IRASEMA source of info: EMR HPI: Pt is a 73 y/o female with history of DM, pulmonary hypertension, obesity, asthma, MILTON, PVD initially admitted with left foot osteomyelitis s/p amputation on 01/04/18. 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 asthma exacerbation and pulmonary edema s/p intubation and transferred to ICU. renal consult for IRASEMA eval. no OTC/herbal meds or NSAIDs Noted recent iodinated contrast exposure as CTA 12/30/17. Noted obvious episodes of low BP (93/31). ROS: pt feels tired. extubated 01/07/18. has SOB. denies CP/nausea/vomitting. rest limited to obtain Physical Examination: General Appearance: unccomfortable, ill appearing. Vitals reviewed and noted as below Head; Atraumatic, normocephalic ENT: normal mucosa EYES: Pupils are equal, round and reactive to light accommodation. Eye muscles and extraocular movement intact. Sclera is anicteric. Neck; supple no lymphadenopathy, no thyromegaly or bruit Lungs: Increased respiratory rate/effort. Breath sounds bilateral decreased with crackles/rales + Heart: Normal rate. s1s2 normal. No rub or gallop. murmur + Extremities: no edema. No varicose veins. left foot dressed Neurological: Patient is sedated Skin: Warm and dry. Normal turgor. No rash. Palpitation: Normal elasticity for age Abdomen: soft non tender no abdominal tenderness without guarding no rigidity no organomegaly Psych: unable MSK: no joint tenderness or swelling. Digits and nails normal, no deformity : kidney or bladder not palpable. has rsusell Labs/imaging reviewed. Past medical history, past surgical history, family history, social history, allergy reviewed and noted as below Family hx: no hx of CKD. Rest non-contributory renal imaging on CTA: WNL with atherosclerosis UA 1+ protein no blood Objective - Vital Signs/Intake and Output Vital Signs (last 24 hours): Temp Pulse Resp BP Pulse Ox 97.8 F 75 14 143/86 92 L 01/07/18 08:00 01/07/18 11:38 01/07/18 11:38 01/07/18 11:38 01/07/18 11:38 Intake and Output: 01/07/18 01/07/18 06:59 18:59 Intake Total 773.9 149.7 Output Total 440 30 Balance 333.9 119.7 - Medications Medications: Current Medications Albuterol/Ipratropium (Duoneb 3 Mg/0.5 Mg (3 Ml) Ud) 3 ml INH RQ6 [facility] Amlodipine Besylate (Norvasc) 5 mg PO DAILY [facility] Bumetanide (Bumex) 2 mg IVP BID [facility] Calcium Acetate (Phoslo) 1,334 mg PO TID [facility] Ferrous Gluconate (Fergon) 324 mg PO TID [facility] Heparin Sodium (Porcine) (Heparin) 5,000 units SC Q12 [facility] Last Admin: 01/06/18 22:16 Dose: 5,000 units Hydralazine HCl (Apresoline) 50 mg PO TID [facility] Imipenem/Cilastatin Sodium 250 (mg/ Sodium Chloride) 100 mls @ 100 mls/hr IVPB Q8H [facility] PRN Reason: Protocol Last Admin: 01/07/18 11:11 Dose: 100 mls/hr Nitroglycerin/Dextrose (Nitroglycerin 50 Mg/250 Ml D5w) 50 mg in 250 mls @ 7.5 mls/hr IV .Q24H MIGDALIA; 25 MCG/MIN PRN Reason: Protocol Last Admin: 01/07/18 09:50 Dose: 120 mcg/min, 36 mls/hr Insulin Aspart (Novolog) 0 unit SC Q6 [facility] PRN Reason: Protocol Last Admin: 01/07/18 06:47 Dose: 4 u Insulin Detemir (Levemir) 40 unit SC QAM [facility] Last Admin: 01/07/18 10:10 Dose: Not Given Levothyroxine Sodium (Synthroid) 125 mcg PO DAILY@0630 [facility] Last Admin: 01/07/18 07:46 Dose: 125 mcg Metolazone (Zaroxolyn) 5 mg PO BID [facility] Stop: 01/10/18 13:01 Metoprolol Tartrate (Lopressor) 5 mg IVP Q6H PRN PRN Reason: Systolic Blood Pressure Metoprolol Tartrate (Lopressor) 50 mg PO Q12 [facility] Montelukast Sodium (Singulair) 10 mg PO [facility] Last Admin: 01/06/18 22:17 Dose: 10 mg Multivitamins (Hexavitamin) 1 tab PO DAILY [facility] Last Admin: 01/06/18 10:00 Dose: 1 tab Mupirocin (Bactroban Ointment) 0 gm TOP DAILY [facility] Last Admin: 01/06/18 09:33 Dose: Not Given Pantoprazole Sodium (Protonix Inj) 40 mg IVP DAILY [facility] Last Admin: 01/06/18 09:37 Dose: 40 mg Rosuvastatin Calcium (Crestor) 20 mg PO HS [facility] Last Admin: 01/06/18 22:16 Dose: 20 mg Sodium Bicarbonate (Sodium Bicarbonate Tab) 1,300 mg PO BID [facility] Last Admin: 01/06/18 17:59 Dose: 1,300 mg Topiramate (Topamax) 25 mg PO BID [facility] Last Admin: 01/06/18 18:21 Dose: 25 mg - Labs Labs: 01/07/18 06:26 01/07/18 06:27 PT 13.7 SECONDS (9.7-12.2) H 01/04/18 11:37 INR 1.3 01/04/18 11:37 APTT 31 SECONDS (21-34) 01/04/18 11:37
--- NOTE | 2018-01-07 15:37 | CP.PCM.PN ---
Subjective - Date & Time of Evaluation Date of Evaluation: 01/07/18 Time of Evaluation: 10:10 - Subjective Subjective: Podiatry Progress Note- Dr. Peña. Pt seen at bedside s/p left great toe and potential 2nd digit level amputation. She is mildy sedated at time of visit and orally intubated. Pt resting comfortably at time of visit. Moderately responsive to presence and verbal prompting. No recorded overnight events. Objective - Vital Signs/Intake and Output Vital Signs (last 24 hours): Temp Pulse Resp BP Pulse Ox 98.9 F 79 14 165/63 H 97 01/07/18 12:00 01/07/18 14:00 01/07/18 14:00 01/07/18 14:00 01/07/18 14:00 Intake and Output: 01/07/18 01/07/18 06:59 18:59 Intake Total 773.9 444.0 Output Total 440 480 Balance 333.9 -36.0 - Medications Medications: Current Medications Albuterol/Ipratropium (Duoneb 3 Mg/0.5 Mg (3 Ml) Ud) 3 ml INH RQ6 [facility] Last Admin: 01/07/18 13:39 Dose: 3 ml Amlodipine Besylate (Norvasc) 5 mg PO DAILY [facility] Bumetanide (Bumex) 2 mg IVP BID [facility] Calcium Acetate (Phoslo) 1,334 mg PO TID [facility] Last Admin: 01/07/18 11:00 Dose: Not Given Ferrous Gluconate (Fergon) 324 mg PO TID [facility] Heparin Sodium (Porcine) (Heparin) 5,000 units SC Q12 [facility] Last Admin: 01/07/18 13:26 Dose: 5,000 units Hydralazine HCl (Apresoline) 50 mg PO TID [facility] Imipenem/Cilastatin Sodium 250 (mg/ Sodium Chloride) 100 mls @ 100 mls/hr IVPB Q8H [facility] PRN Reason: Protocol Last Admin: 01/07/18 11:11 Dose: 100 mls/hr Nitroglycerin/Dextrose (Nitroglycerin 50 Mg/250 Ml D5w) 50 mg in 250 mls @ 7.5 mls/hr IV .Q24H MIG[facility]ALIA; 25 MCG/MIN PRN Reason: Protocol Last Admin: 01/07/18 09:50 Dose: 120 mcg/min, 36 mls/hr Insulin Aspart (Novolog) 0 unit SC Q6 [facility] PRN Reason: Protocol Last Admin: 01/07/18 13:27 Dose: 2 u Insulin Detemir (Levemir) 40 unit SC QAM [facility] Last Admin: 01/07/18 10:10 Dose: Not Given Levothyroxine Sodium (Synthroid) 125 mcg PO DAILY@0630 [facility] Last Admin: 01/07/18 07:46 Dose: 125 mcg Metolazone (Zaroxolyn) 5 mg PO BID [facility] Stop: 01/10/18 13:01 Metoprolol Tartrate (Lopressor) 5 mg IVP Q6H PRN PRN Reason: Systolic Blood Pressure Metoprolol Tartrate (Lopressor) 50 mg PO Q12 [facility] Last Admin: 01/07/18 10:00 Dose: Not Given Montelukast Sodium (Singulair) 10 mg PO [facility] Last Admin: 01/06/18 22:17 Dose: 10 mg Multivitamins (Hexavitamin) 1 tab PO DAILY [facility] Last Admin: 01/07/18 10:00 Dose: Not Given Mupirocin (Bactroban Ointment) 0 gm TOP DAILY [facility] Last Admin: 01/06/18 09:33 Dose: Not Given Pantoprazole Sodium (Protonix Inj) 40 mg IVP DAILY [facility] Last Admin: 01/07/18 13:40 Dose: 40 mg Rosuvastatin Calcium (Crestor) 20 mg PO HS [facility] Last Admin: 01/06/18 22:16 Dose: 20 mg Sodium Bicarbonate (Sodium Bicarbonate Tab) 1,300 mg PO BID [facility] Last Admin: 01/07/18 10:00 Dose: Not Given Topiramate (Topamax) 25 mg PO BID [facility] Last Admin: 01/07/18 10:00 Dose: Not Given - Labs Labs: 01/07/18 06:26 01/07/18 06:27 PT 13.7 SECONDS (9.7-12.2) H 01/04/18 11:37 INR 1.3 01/04/18 11:37 APTT 31 SECONDS (21-34) 01/04/18 11:37 - Constitutional Appears: Well, Non-toxic, No Acute Distress - Extremities Exam Additional comments: Lower extremity focused exam. Dressings clean, dry, and intact. Vasc: DP/PT pulses palpable 2/4. Temperature gradient warm to cool. CFT < 3 sec to all digits. No pedal edema noted Derm: Left hallux and 2nd digit amputation sites noted with all sutures inact. Well coapted no strangulation pallor noted. Site warm to touch. No productive for hematoma. No purulence nor active drainage noted. Neuro: Protective sensation grossly intact Ortho: deffered to to pt being sedated. - Neurological Exam Neurological Exam: Awake Assessment and Plan - Assessment and Plan (Free Text) Assessment: 72 y/o female POD#3 s/p Left foot hallux and partial 2nd digit amputation (DOS ) due to chronic osteomyelitis Plan: Pt seen and evaluated with attending, Dr. Peña present. Chart labs, and vitals reviewed. Noted non-oliguric Acute Kidney Injury . Afebrile, leukocytosis noted WBC=12.1, trending down, likely due to post-op stress. Will monitor. Continue Local Wound care. Cleansed site with saline; dressed with betadine, xeroform,and DSD. Continue IV abd per ID. Podiatry will follow pt while inhouse.
[2018-01-07] MEDS: metOLazone 5 MG TAB PO SCH ×2 (16:06→18:31)
--- NOTE | 2018-01-07 17:20 | CP.CCUPN ---
<Belen Robert - Last Filed: 01/07/18 17:17> CCU Subjective - Physician Review Subjective (Free Text): Patient seen and examined at bedside. Patient was extubated today 9:40am. Patient undergoing aggressive diuresis. CCU Objective - Vital Signs / Intake & Output Vital Signs (Last 4 hours): Vital Signs Pulse Resp BP Pulse Ox 01/07/18 16:35 83 01/07/18 14:00 79 14 165/63 H 97 01/07/18 13:45 80 14 93 L 01/07/18 13:44 80 01/07/18 13:38 78 16 156/63 H 90 L 01/07/18 13:30 79 15 90 L 01/07/18 13:23 79 16 157/64 H 90 L Intake and Output (Last 8hrs): Intake & Output 01/07/18 01/07/18 01/07/18 06:59 14:59 22:59 Intake Total 496.8 444.0 Output Total 295 480 Balance 201.8 -36.0 Weight 218 lb 0.595 oz Intake: IV 100 100 Intake, IV Amount 211.8 309.0 Left External Jugular 111.8 14.7 Proximal Port 100 Right Medial Port 100 194.3 Oral 0 Tube Feeding 185 35 Output: Urine 295 480 Urethral (Johnson) 295 480 Other: # Bowel Movements 0 0 - Physical Exam Head: Positive for: Atraumatic, Normocephalic Pupils: Positive for: PERRL Extroacular Muscles: Positive for: EOMI Conjunctiva: Positive for: Normal Mouth: Positive for: Moist Mucous Membranes Respiratory/Chest: Positive for: Decreased Breath Sounds Abdomen: Positive for: Normal Bowel Sounds. Negative for: Tenderness, Distention Upper Extremity: Positive for: Normal Inspection, NORMAL PULSES, Neurovascularly Intact, Capillary Refill < 2s Lower Extremity: Positive for: Normal Inspection, Edema, NORMAL PULSES, Neurovascularly Intact, Capillary Refill < 2 s Skin: Positive for: Warm, Dry Psychiatric: Positive for: Alert - Medications Active Medications: Active Medications Generic Name Dose Route Start Last Admin Trade Name Freq PRN Reason Stop Dose Admin Albuterol/Ipratropium 3 ml 01/07/18 14:00 01/07/18 13:39 Duoneb 3 Mg/0.5 Mg (3 Ml) Ud INH 3 ml RQ6 MIGDALIA Administration Amlodipine Besylate 10 mg 01/07/18 15:49 Norvasc PO DAILY [facility] Bumetanide 2 mg 01/07/18 14:00 01/07/18 15:53 Bumex IVP 2 mg BID [facility] Administration Calcium Acetate 1,334 mg 01/07/18 10:45 01/07/18 11:00 Phoslo PO Not Given TID [facility] Ferrous Gluconate 324 mg 01/07/18 14:00 01/07/18 15:53 Fergon PO 324 mg TID [facility] Administration Heparin Sodium (Porcine) 5,000 units 01/05/18 11:00 01/07/18 13:26 Heparin SC 5,000 units Q12 [facility] Administration Hydralazine HCl 50 mg 01/07/18 10:00 01/07/18 16:06 Apresoline PO 50 mg TID [facility] Administration Imipenem/Cilastatin Sodium 250 100 mls @ 100 mls/hr 01/05/18 19:00 01/07/18 11:11 mg/ Sodium Chloride IVPB 100 mls/hr Q8H [facility] Administration Protocol Nitroglycerin/Dextrose 50 mg in 250 mls @ 7.5 mls/hr 01/07/18 09:45 01/07/18 09:50 Nitroglycerin 50 Mg/250 Ml D5w IV 120 mcg/min .Q24H [facility] 36 mls/hr Protocol Administration 25 MCG/MIN Insulin Aspart 0 unit 01/06/18 09:45 01/07/18 13:27 Novolog SC 2 u Q6 [facility] Administration Protocol Insulin Detemir 40 unit 01/07/18 07:30 01/07/18 10:10 Levemir SC Not Given QAM [facility] Levothyroxine Sodium 125 mcg 12/30/17 06:30 01/07/18 07:46 Synthroid PO 125 mcg DAILY@0630 [facility] Administration Metolazone 5 mg 01/07/18 13:00 01/07/18 16:06 Zaroxolyn PO 01/10/18 13:01 5 mg BID [facility] Administration Metoprolol Tartrate 5 mg 01/07/18 09:46 Lopressor IVP Q6H PRN Systolic Blood Pressure Metoprolol Tartrate 75 mg 01/07/18 15:50 Lopressor PO Q12 [facility] Montelukast Sodium 10 mg 12/29/17 22:00 01/06/18 22:17 Singulair PO 10 mg HS MIGDALIA Administration Multivitamins 1 tab 01/01/18 10:00 01/07/18 10:00 Hexavitamin PO Not Given DAILY [facility] Mupirocin 0 gm 12/30/17 10:00 01/07/18 08:25 Bactroban Ointment TOP Not Given DAILY MIGDALIA Pantoprazole Sodium 40 mg 01/05/18 10:00 01/07/18 13:40 Protonix Inj IVP 40 mg DAILY [facility]IGDALIA Administration Rosuvastatin Calcium 20 mg 12/29/17 22:00 01/06/18 22:16 Crestor PO 20 mg HS MIGDALIA Administration Sodium Bicarbonate 1,300 mg 01/06/18 18:00 01/07/18 10:00 Sodium Bicarbonate Tab PO Not Given BID MIGDALIA Topiramate 25 mg 12/31/17 18:00 01/07/18 10:00 Topamax PO Not Given BID MIGDALIA - Patient Studies Lab Studies: Microbiology Studies 01/05/18 13:44 Blood Culture - Preliminary Blood-Venous NO GROWTH AFTER 48 HOURS 01/05/18 13:44 Blood Culture - Preliminary Blood-Venous NO GROWTH AFTER 48 HOURS Lab Studies 01/07/18 01/07/18 01/07/18 Range/Units 11:47 06:33 06:27 WBC (4.8-10.8) K/uL RBC (3.80-5.20) Mil/uL Hgb (11.0-16.0) g/dL Hct (34.0-47.0) % MCV (81.0-99.0) fL MCH (27.0-31.0) pg MCHC (33.0-37.0) g/dL RDW (11.5-14.5) % Plt Count (130-400) K/uL MPV (7.2-11.7) fL Neut % (Auto) (50.0-75.0) % Lymph % (Auto) (20.0-40.0) % [place] % (Auto) (0.0-10.0) % Eos % (Auto) (0.0-4.0) % Baso % (Auto) (0.0-2.0) % Neut # (Auto) (1.8-7.0) K/uL Lymph # (Auto) (1.0-4.3) K/uL [place] # (Auto) (0.0-0.8) K/uL Eos # (Auto) (0.0-0.7) K/uL Baso # (Auto) (0.0-0.2) K/uL Neutrophils % (Manual) (50-75) % Band Neutrophils % (0-2) % Lymphocytes % (Manual) (20-40) % Monocytes % (Manual) (0-10) % Eosinophils % (Manual) (0-4) % Platelet Estimate (NORMAL) Large Platelets Hypochromasia (manual) Poikilocytosis (manual Anisocytosis (manual) Target Cells Ovalocytes Emigrant Cells Puncture Site pCO2 (35-45) mm/Hg pO2 (80-100) mm/Hg HCO3 (21-28) mmol/L ABG pH (7.35-7.45) ABG Total CO2 (22-28) mmol/L ABG O2 Saturation (95-98) % ABG Base Excess (-2.0-3.0) mmol/L ABG Hemoglobin (11.7-17.4) g/dL ABG Carboxyhemoglobin (0.5-1.5) % POC ABG HHb (Measured) (0.0-5.0) % ABG Methemoglobin (0.0-3.0) % Saqib Test A-a O2 Difference mm/Hg Respiratory Index Hgb O2 Saturation (95.0-98.0) % Vent Mode Mechanical Rate FiO2 % Tidal Volume PEEP Sodium (132-148) mmol/L Potassium (3.6-5.2) mmol/L Chloride (98-107) mmol/L Carbon Dioxide (22-30) mmol/L Anion Gap (10-20) BUN (7-17) mg/dL Creatinine (0.7-1.2) mg/dL Est GFR ( Amer) Est GFR (Non-Af Amer) POC Glucose (mg/dL) 190 H 272 H (65-110) mg/dL Random Glucose (65-105) mg/dL Calcium (8.6-10.4) mg/dl Phosphorus (2.5-4.5) mg/dL Magnesium (1.6-2.3) mg/dL Iron 16 L (37-170) ug/dL TIBC 233 L (250-450) ug/dL % Saturation 7 L (20-55) Ferritin ng/mL Total Bilirubin (0.2-1.3) mg/dL AST (14-36) U/L ALT (9-52) U/L Alkaline Phosphatase (38-126) U/L Total Creatine Kinase (30-135) U/L CK-MB (Mass) (0.0-3.38) ng/mL Troponin I (0.00-0.120) ng/mL Total Protein (6.3-8.3) g/dL Albumin (3.5-5.0) g/dL Globulin (2.2-3.9) gm/dL Albumin/Globulin Ratio (1.0-2.1) Random Vancomycin < 5.0 ug/mL 01/07/18 01/07/18 01/07/18 Range/Units 06:27 06:26 05:00 WBC 12.1 H (4.8-10.8) K/uL RBC 3.00 L (3.80-5.20) Mil/uL Hgb 7.8 L (11.0-16.0) g/dL Hct 24.5 L (34.0-47.0) % MCV 81.7 (81.0-99.0) fL MCH 26.1 L (27.0-31.0) pg MCHC 31.9 L (33.0-37.0) g/dL RDW 16.4 H (11.5-14.5) % Plt Count 225 (130-400) K/uL MPV 10.7 (7.2-11.7) fL Neut % (Auto) 83.1 H (50.0-75.0) % Lymph % (Auto) 7.5 L (20.0-40.0) % [place] % (Auto) 8.6 (0.0-10.0) % Eos % (Auto) 0.6 (0.0-4.0) % Baso % (Auto) 0.2 (0.0-2.0) % Neut # (Auto) 10.0 H (1.8-7.0) K/uL Lymph # (Auto) 0.9 L (1.0-4.3) K/uL [place] # (Auto) 1.0 H (0.0-0.8) K/uL Eos # (Auto) 0.1 (0.0-0.7) K/uL Baso # (Auto) 0.0 (0.0-0.2) K/uL Neutrophils % (Manual) 80 H (50-75) % Band Neutrophils % 1 (0-2) % Lymphocytes % (Manual) 9 L (20-40) % Monocytes % (Manual) 9 (0-10) % Eosinophils % (Manual) 1 (0-4) % Platelet Estimate Normal (NORMAL) Large Platelets Present Hypochromasia (manual) Slight Poikilocytosis (manual Slight Anisocytosis (manual) Slight Target Cells Slight Ovalocytes Slight Emigrant Cells Slight Puncture Site Rb pCO2 31 L (35-45) mm/Hg pO2 110 H (80-100) mm/Hg HCO3 19.7 L (21-28) mmol/L ABG pH 7.37 (7.35-7.45) ABG Total CO2 18.9 L (22-28) mmol/L ABG O2 Saturation 99.4 H (95-98) % ABG Base Excess -6.7 L (-2.0-3.0) mmol/L ABG Hemoglobin 7.7 L (11.7-17.4) g/dL ABG Carboxyhemoglobin 1.8 H (0.5-1.5) % POC ABG HHb (Measured) 0.6 (0.0-5.0) % ABG Methemoglobin 1.4 (0.0-3.0) % Saqib Test Na A-a O2 Difference 65.0 mm/Hg Respiratory Index 0.6 Hgb O2 Saturation 96.2 (95.0-98.0) % Vent Mode Prvc Mechanical Rate 14 FiO2 30.0 % Tidal Volume 500 PEEP 5 Sodium 146 (132-148) mmol/L Potassium 4.2 (3.6-5.2) mmol/L Chloride 111 H (98-107) mmol/L Carbon Dioxide 20 L (22-30) mmol/L Anion Gap 19 (10-20) BUN 51 H (7-17) mg/dL Creatinine 3.4 H (0.7-1.2) mg/dL Est GFR ( Amer) 16 Est GFR (Non-Af Amer) 13 POC Glucose (mg/dL) (65-110) mg/dL Random Glucose 191 H (65-105) mg/dL Calcium 7.5 L (8.6-10.4) mg/dl Phosphorus 7.5 H (2.5-4.5) mg/dL Magnesium 2.3 (1.6-2.3) mg/dL Iron (37-170) ug/dL TIBC (250-450) ug/dL % Saturation (20-55) Ferritin 25.6 ng/mL Total Bilirubin 0.3 (0.2-1.3) mg/dL AST 25 (14-36) U/L ALT 70 H (9-52) U/L Alkaline Phosphatase 92 (38-126) U/L Total Creatine Kinase (30-135) U/L CK-MB (Mass) (0.0-3.38) ng/mL Troponin I (0.00-0.120) ng/mL Total Protein 5.5 L (6.3-8.3) g/dL Albumin 3.1 L (3.5-5.0) g/dL Globulin 2.3 (2.2-3.9) gm/dL Albumin/Globulin Ratio 1.3 (1.0-2.1) Random Vancomycin ug/mL 01/06/18 01/06/18 01/06/18 Range/Units 23:45 19:10 17:32 WBC (4.8-10.8) K/uL RBC (3.80-5.20) Mil/uL Hgb (11.0-16.0) g/dL Hct (34.0-47.0) % MCV (81.0-99.0) fL MCH (27.0-31.0) pg MCHC (33.0-37.0) g/dL RDW (11.5-14.5) % Plt Count (130-400) K/uL MPV (7.2-11.7) fL Neut % (Auto) (50.0-75.0) % Lymph % (Auto) (20.0-40.0) % [place] % (Auto) (0.0-10.0) % Eos % (Auto) (0.0-4.0) % Baso % (Auto) (0.0-2.0) % Neut # (Auto) (1.8-7.0) K/uL Lymph # (Auto) (1.0-4.3) K/uL [place] # (Auto) (0.0-0.8) K/uL Eos # (Auto) (0.0-0.7) K/uL Baso # (Auto) (0.0-0.2) K/uL Neutrophils % (Manual) (50-75) % Band Neutrophils % (0-2) % Lymphocytes % (Manual) (20-40) % Monocytes % (Manual) (0-10) % Eosinophils % (Manual) (0-4) % Platelet Estimate (NORMAL) Large Platelets Hypochromasia (manual) Poikilocytosis (manual Anisocytosis (manual) Target Cells Ovalocytes Nishant Cells Puncture Site pCO2 (35-45) mm/Hg pO2 (80-100) mm/Hg HCO3 (21-28) mmol/L ABG pH (7.35-7.45) ABG Total CO2 (22-28) mmol/L ABG O2 Saturation (95-98) % ABG Base Excess (-2.0-3.0) mmol/L ABG Hemoglobin (11.7-17.4) g/dL ABG Carboxyhemoglobin (0.5-1.5) % POC ABG HHb (Measured) (0.0-5.0) % ABG Methemoglobin (0.0-3.0) % Saqib Test A-a O2 Difference mm/Hg Respiratory Index Hgb O2 Saturation (95.0-98.0) % Vent Mode Mechanical Rate FiO2 % Tidal Volume PEEP Sodium (132-148) mmol/L Potassium (3.6-5.2) mmol/L Chloride (98-107) mmol/L Carbon Dioxide (22-30) mmol/L Anion Gap (10-20) BUN (7-17) mg/dL Creatinine (0.7-1.2) mg/dL Est GFR ( Amer) Est GFR (Non-Af Amer) POC Glucose (mg/dL) 246 H 256 H (65-110) mg/dL Random Glucose (65-105) mg/dL Calcium (8.6-10.4) mg/dl Phosphorus (2.5-4.5) mg/dL Magnesium (1.6-2.3) mg/dL Iron (37-170) ug/dL TIBC (250-450) ug/dL % Saturation (20-55) Ferritin ng/mL Total Bilirubin (0.2-1.3) mg/dL AST (14-36) U/L ALT (9-52) U/L Alkaline Phosphatase (38-126) U/L Total Creatine Kinase 97 (30-135) U/L CK-MB (Mass) 0.78 (0.0-3.38) ng/mL Troponin I 0.0900 (0.00-0.120) ng/mL Total Protein (6.3-8.3) g/dL Albumin (3.5-5.0) g/dL Globulin (2.2-3.9) gm/dL Albumin/Globulin Ratio (1.0-2.1) Random Vancomycin ug/mL Laboratory Results - last 24 hr 01/06/18 01/06/18 01/06/18 17:32 19:10 23:45 WBC RBC Hgb Hct MCV MCH MCHC RDW Plt Count MPV Neut % (Auto) Lymph % (Auto) [place] % (Auto) Eos % (Auto) Baso % (Auto) Neut # (Auto) Lymph # (Auto) [place] # (Auto) Eos # (Auto) Baso # (Auto) Neutrophils % (Manual) Band Neutrophils % Lymphocytes % (Manual) Monocytes % (Manual) Eosinophils % (Manual) Platelet Estimate Large Platelets Hypochromasia (manual) Poikilocytosis (manual Anisocytosis (manual) Target Cells Ovalocytes Emigrant Cells Puncture Site pCO2 pO2 HCO3 ABG pH ABG Total CO2 ABG O2 Saturation ABG Base Excess ABG Hemoglobin ABG Carboxyhemoglobin POC ABG HHb (Measured) ABG Methemoglobin Saqib Test A-a O2 Difference Respiratory Index Hgb O2 Saturation Vent Mode Mechanical Rate FiO2 Tidal Volume PEEP Sodium Potassium Chloride Carbon Dioxide Anion Gap BUN Creatinine Est GFR ( Amer) Est GFR (Non-Af Amer) POC Glucose (mg/dL) 256 H 246 H Random Glucose Calcium Phosphorus Magnesium Iron TIBC % Saturation Ferritin Total Bilirubin AST ALT Alkaline Phosphatase Total Creatine Kinase 97 CK-MB (Mass) 0.78 Troponin I 0.0900 Total Protein Albumin Globulin Albumin/Globulin Ratio Random Vancomycin 01/07/18 01/07/18 01/07/18 05:00 06:26 06:27 WBC 12.1 H RBC 3.00 L Hgb 7.8 L Hct 24.5 L MCV 81.7 MCH 26.1 L MCHC 31.9 L RDW 16.4 H Plt Count 225 MPV 10.7 Neut % (Auto) 83.1 H Lymph % (Auto) 7.5 L [place] % (Auto) 8.6 Eos % (Auto) 0.6 Baso % (Auto) 0.2 Neut # (Auto) 10.0 H Lymph # (Auto) 0.9 L [place] # (Auto) 1.0 H Eos # (Auto) 0.1 Baso # (Auto) 0.0 Neutrophils % (Manual) 80 H Band Neutrophils % 1 Lymphocytes % (Manual) 9 L Monocytes % (Manual) 9 Eosinophils % (Manual) 1 Platelet Estimate Normal Large Platelets Present Hypochromasia (manual) Slight Poikilocytosis (manual Slight Anisocytosis (manual) Slight Target Cells Slight Ovalocytes Slight Emigrant Cells Slight Puncture Site Rb pCO2 31 L pO2 110 H HCO3 19.7 L ABG pH 7.37 ABG Total CO2 18.9 L ABG O2 Saturation 99.4 H ABG Base Excess -6.7 L ABG Hemoglobin 7.7 L ABG Carboxyhemoglobin 1.8 H POC ABG HHb (Measured) 0.6 ABG Methemoglobin 1.4 Saqib Test Na A-a O2 Difference 65.0 Respiratory Index 0.6 Hgb O2 Saturation 96.2 Vent Mode Prvc Mechanical Rate 14 FiO2 30.0 Tidal Volume 500 PEEP 5 Sodium 146 Potassium 4.2 Chloride 111 H Carbon Dioxide 20 L Anion Gap 19 BUN 51 H Creatinine 3.4 H Est GFR ( Amer) 16 Est GFR (Non-Af Amer) 13 POC Glucose (mg/dL) Random Glucose 191 H Calcium 7.5 L Phosphorus 7.5 H Magnesium 2.3 Iron TIBC % Saturation Ferritin 25.6 Total Bilirubin 0.3 AST 25 ALT 70 H Alkaline Phosphatase 92 Total Creatine Kinase CK-MB (Mass) Troponin I Total Protein 5.5 L Albumin 3.1 L Globulin 2.3 Albumin/Globulin Ratio 1.3 Random Vancomycin 01/07/18 01/07/18 01/07/18 06:27 06:33 11:47 WBC RBC Hgb Hct MCV MCH MCHC RDW Plt Count MPV Neut % (Auto) Lymph % (Auto) [place] % (Auto) Eos % (Auto) Baso % (Auto) Neut # (Auto) Lymph # (Auto) [place] # (Auto) Eos # (Auto) Baso # (Auto) Neutrophils % (Manual) Band Neutrophils % Lymphocytes % (Manual) Monocytes % (Manual) Eosinophils % (Manual) Platelet Estimate Large Platelets Hypochromasia (manual) Poikilocytosis (manual Anisocytosis (manual) Target Cells Ovalocytes Emigrant Cells Puncture Site pCO2 pO2 HCO3 ABG pH ABG Total CO2 ABG O2 Saturation ABG Base Excess ABG Hemoglobin ABG Carboxyhemoglobin POC ABG HHb (Measured) ABG Methemoglobin Saqib Test A-a O2 Difference Respiratory Index Hgb O2 Saturation Vent Mode Mechanical Rate FiO2 Tidal Volume PEEP Sodium Potassium Chloride Carbon Dioxide Anion Gap BUN Creatinine Est GFR ( Amer) Est GFR (Non-Af Amer) POC Glucose (mg/dL) 272 H 190 H Random Glucose Calcium Phosphorus Magnesium Iron 16 L TIBC 233 L % Saturation 7 L Ferritin Total Bilirubin AST ALT Alkaline Phosphatase Total Creatine Kinase CK-MB (Mass) Troponin I Total Protein Albumin Globulin Albumin/Globulin Ratio Random Vancomycin < 5.0 Fingerstick Blood Sugar Results: 190 Critical Care Progress Note - Nutrition Nutrition: Nutrition Category Date Time Status Dysphagia/Modified Consistency Diet [DIET] Diets 01/07/18 Lunch Active Assessment/Plan - Assessment and Plan (Free Text) Assessment: This is a 73 female with PMHx HTN, T2DM, pulm HTN, CVA with TIA, GERD, right ear deafness and MILTON patient was admitted 12/29/17 for left foot Osteo s/p Left foot hallux and 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 RIJ TLC placed . Extubated 01/07. Plan: Neuro: Extubated A: Hx CVA, TIA - Crestor 20mg PO QHS - Topamax 25mg PO BID Cardio: A: HTN - Norvasc 10mg, Hydralazine 50mg PO TID, Lopressor 75mg PO BID, Lopressor 5mg IVP Q6H PRN if HR > 100 - Currently on nitro drip A: Aortic Stenosis A: Pulmonary HTN - ECHO: LVEF 72%, moderate to severe aortic stenosis A: MILTON Pulm: A: Acute Respiratory Failure 2/2 Pulmonary Edema - Extubated 01/07 A: Asthma - Singular 10mg QHS GI: A: Transaminitis - downtrending - Baseline wnl - Likely medication induced - Hep panel - negative A: GERD Endo: A: T2DM - Accuchecks - Levemir 40 unit SC QAM, ISS - Q6H - HELD METFORMIN and GLIPIZIDE A: Hypothyroidism - Synthroid 125mcg Renal: A: ARF 2/2 ATN - Bumex 2mg x 1, Bumex 1mg Q1H x 5 doses 01/06 - Bumex 2mg IVP BID, metolazone 5 mg PO BID x 3 days, sodium bicarb tablets, phoslo TID and ferrous gluconate TID - Continue to monitor ID: A: Osteomyelitis, left foot - Initially on Rocephin and flagyl ---> Primaxin Q8H 01/05/18 - s/p Left foot hallux and 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 Peña - Wound culture - Corynebacterium - pending LENNY A: SIRS - Leukocytosis with left shift, bandemia, lactate 1.3 - BC, UC, UA - negative to date Heme/Onc A: Anemia of Chronic Disease - Baseline 9s - Patient is a Jehov[employer] Witness - NO BLOOD TRANSFUSIONS - Procrit 10,000 x 1 given - Continue to monitor Prophylaxis - Protonix - SCDs, Hep Q12 - RIJ TLC placed 01/06/18 - Patient is a Jehovah Witness - NO BLOOD TRANSFUSIONS. DW Belen Cobb DO, PGY-1 <Ortiz Terry - Last Filed: 01/07/18 18:44> CCU Subjective - Physician Review Critical Care Time Spent (in minutes): 55 CCU Objective - Vital Signs / Intake & Output Vital Signs (Last 4 hours): Vital Signs Temp Pulse Resp BP Pulse Ox 01/07/18 18:00 84 16 96 01/07/18 17:54 84 14 156/66 H 97 01/07/18 17:45 84 16 95 01/07/18 17:30 83 16 96 01/07/18 17:23 85 14 160/70 H 96 01/07/18 17:19 83 16 146/62 96 01/07/18 17:15 82 15 96 01/07/18 17:08 83 14 146/62 95 01/07/18 17:00 80 15 95 01/07/18 16:53 83 12 153/73 H 96 01/07/18 16:45 83 15 95 01/07/18 16:38 83 15 158/78 H 95 01/07/18 16:35 83 01/07/18 16:30 82 17 94 L 01/07/18 16:23 82 15 174/68 H 94 L 01/07/18 16:15 79 15 95 01/07/18 16:08 83 15 162/68 H 94 L 01/07/18 16:00 98.9 F 81 14 163/68 H 93 L 01/07/18 15:53 81 15 163/68 H 94 L 01/07/18 15:45 83 18 93 L 01/07/18 15:38 81 14 166/64 H 93 L 01/07/18 15:30 82 15 93 L 01/07/18 15:23 81 16 165/64 H 93 L 01/07/18 15:15 82 15 93 L 01/07/18 15:08 84 14 166/65 H 92 L 01/07/18 15:00 82 17 93 L 01/07/18 14:53 79 14 161/68 H 95 01/07/18 14:45 82 14 94 L Intake and Output (Last 8hrs): Intake & Output 01/07/18 01/07/18 01/07/18 06:59 14:59 22:59 Intake Total 496.8 444.0 444 Output Total 295 480 530 Balance 201.8 -36.0 -86 Weight 218 lb 0.595 oz Intake: IV 100 100 250 Intake, IV Amount 211.8 309.0 144 Left External Jugular 111.8 14.7 Proximal Port 100 Right Medial Port 100 194.3 144 Oral 0 50 Tube Feeding 185 35 Output: Urine 295 480 530 Urethral (Johnson) 295 480 530 Other: # Bowel Movements 0 0 - Medications Active Medications: Active Medications Generic Name Dose Route Start Last Admin Trade Name Freq PRN Reason Stop Dose Admin Albuterol/Ipratropium 3 ml 01/07/18 14:00 01/07/18 13:39 Duoneb 3 Mg/0.5 Mg (3 Ml) Ud INH 3 ml RQ6 MIGDALIA Administration Amlodipine Besylate 10 mg 01/07/18 15:49 Norvasc PO DAILY [facility] Bumetanide 2 mg 01/07/18 14:00 01/07/18 15:53 Bumex IVP 2 mg BID [facility] Administration Calcium Acetate 1,334 mg 01/07/18 10:45 01/07/18 18:20 Phoslo PO 1,334 mg TID [facility] Administration Ferrous Gluconate 324 mg 01/07/18 14:00 01/07/18 18:21 Fergon PO 324 mg TID [facility] Administration Heparin Sodium (Porcine) 5,000 units 01/05/18 11:00 01/07/18 13:26 Heparin SC 5,000 units Q12 [facility] Administration Hydralazine HCl 50 mg 01/07/18 10:00 01/07/18 18:21 Apresoline PO 50 mg TID [facility] Administration Nitroglycerin/Dextrose 50 mg in 250 mls @ 7.5 mls/hr 01/07/18 09:45 01/07/18 17:19 Nitroglycerin 50 Mg/250 Ml D5w IV 120 mcg/min .Q24H [facility] 36 mls/hr Protocol Administration 25 MCG/MIN Imipenem/Cilastatin Sodium 250 100 mls @ 100 mls/hr 01/07/18 18:15 01/07/18 18:19 mg/ Sodium Chloride IVPB 100 mls/hr Q12H [facility] Administration Protocol Insulin Aspart 0 unit 01/06/18 09:45 01/07/18 18:10 Novolog SC 2 u Q6 [facility] Administration Protocol Insulin Detemir 40 unit 01/07/18 07:30 01/07/18 10:10 Levemir SC Not Given QAM [facility] Levothyroxine Sodium 125 mcg 12/30/17 06:30 01/07/18 07:46 Synthroid PO 125 mcg DAILY@0630 [facility] Administration Metolazone 5 mg 01/07/18 13:00 01/07/18 16:06 Zaroxolyn PO 01/10/18 13:01 5 mg BID [facility] Administration Metoprolol Tartrate 5 mg 01/07/18 09:46 Lopressor IVP Q6H PRN Systolic Blood Pressure Metoprolol Tartrate 75 mg 01/07/18 15:50 Lopressor PO Q12 [facility] Montelukast Sodium 10 mg 12/29/17 22:00 06/14/18 22:17 Singulair PO 10 mg HS [facility] Administration Multivitamins 1 tab 01/01/18 10:00 01/07/18 10:00 Hexavitamin PO Not Given DAILY [facility] Mupirocin 0 gm 12/30/17 10:00 01/07/18 08:25 Bactroban Ointment TOP Not Given DAILY [facility] Pantoprazole Sodium 40 mg 01/05/18 10:00 01/07/18 13:40 Protonix Inj IVP 40 mg DAILY [facility] Administration Rosuvastatin Calcium 20 mg 12/29/17 22:00 01/06/18 22:16 Crestor PO 20 mg HS [facility] Administration Sodium Bicarbonate 1,300 mg 01/06/18 18:00 01/07/18 18:20 Sodium Bicarbonate Tab PO 1,300 mg BID [facility] Administration Topiramate 25 mg 12/31/17 18:00 01/07/18 18:21 Topamax PO 25 mg BID [facility] Administration - Patient Studies Lab Studies: Microbiology Studies 01/05/18 13:44 Blood Culture - Preliminary Blood-Venous NO GROWTH AFTER 48 HOURS 01/05/18 13:44 Blood Culture - Preliminary Blood-Venous NO GROWTH AFTER 48 HOURS Lab Studies 01/07/18 01/07/18 01/07/18 Range/Units 18:01 11:47 06:33 WBC (4.8-10.8) K/uL RBC (3.80-5.20) Mil/uL Hgb (11.0-16.0) g/dL Hct (34.0-47.0) % MCV (81.0-99.0) fL MCH (27.0-31.0) pg MCHC (33.0-37.0) g/dL RDW (11.5-14.5) % Plt Count (130-400) K/uL MPV (7.2-11.7) fL Neut % (Auto) (50.0-75.0) % Lymph % (Auto) (20.0-40.0) % [place] % (Auto) (0.0-10.0) % Eos % (Auto) (0.0-4.0) % Baso % (Auto) (0.0-2.0) % Neut # (Auto) (1.8-7.0) K/uL Lymph # (Auto) (1.0-4.3) K/uL [place] # (Auto) (0.0-0.8) K/uL Eos # (Auto) (0.0-0.7) K/uL Baso # (Auto) (0.0-0.2) K/uL Neutrophils % (Manual) (50-75) % Band Neutrophils % (0-2) % Lymphocytes % (Manual) (20-40) % Monocytes % (Manual) (0-10) % Eosinophils % (Manual) (0-4) % Platelet Estimate (NORMAL) Large Platelets Hypochromasia (manual) Poikilocytosis (manual Anisocytosis (manual) Target Cells Ovalocytes Nishant Cells Puncture Site pCO2 (35-45) mm/Hg pO2 (80-100) mm/Hg HCO3 (21-28) mmol/L ABG pH (7.35-7.45) ABG Total CO2 (22-28) mmol/L ABG O2 Saturation (95-98) % ABG Base Excess (-2.0-3.0) mmol/L ABG Hemoglobin (11.7-17.4) g/dL ABG Carboxyhemoglobin (0.5-1.5) % POC ABG HHb (Measured) (0.0-5.0) % ABG Methemoglobin (0.0-3.0) % Saqib Test A-a O2 Difference mm/Hg Respiratory Index Hgb O2 Saturation (95.0-98.0) % Vent Mode Mechanical Rate FiO2 % Tidal Volume PEEP Sodium (132-148) mmol/L Potassium (3.6-5.2) mmol/L Chloride (98-107) mmol/L Carbon Dioxide (22-30) mmol/L Anion Gap (10-20) BUN (7-17) mg/dL Creatinine (0.7-1.2) mg/dL Est GFR ( Amer) Est GFR (Non-Af Amer) POC Glucose (mg/dL) 160 H 190 H 272 H (65-110) mg/dL Random Glucose (65-105) mg/dL Calcium (8.6-10.4) mg/dl Phosphorus (2.5-4.5) mg/dL Magnesium (1.6-2.3) mg/dL Iron (37-170) ug/dL TIBC (250-450) ug/dL % Saturation (20-55) Ferritin ng/mL Total Bilirubin (0.2-1.3) mg/dL AST (14-36) U/L ALT (9-52) U/L Alkaline Phosphatase (38-126) U/L Total Creatine Kinase (30-135) U/L CK-MB (Mass) (0.0-3.38) ng/mL Troponin I (0.00-0.120) ng/mL Total Protein (6.3-8.3) g/dL Albumin (3.5-5.0) g/dL Globulin (2.2-3.9) gm/dL Albumin/Globulin Ratio (1.0-2.1) Random Vancomycin ug/mL 01/07/18 01/07/18 01/07/18 Range/Units 06:27 06:27 06:26 WBC 12.1 H (4.8-10.8) K/uL RBC 3.00 L (3.80-5.20) Mil/uL Hgb 7.8 L (11.0-16.0) g/dL Hct 24.5 L (34.0-47.0) % MCV 81.7 (81.0-99.0) fL MCH 26.1 L (27.0-31.0) pg MCHC 31.9 L (33.0-37.0) g/dL RDW 16.4 H (11.5-14.5) % Plt Count 225 (130-400) K/uL MPV 10.7 (7.2-11.7) fL Neut % (Auto) 83.1 H (50.0-75.0) % Lymph % (Auto) 7.5 L (20.0-40.0) % [place] % (Auto) 8.6 (0.0-10.0) % Eos % (Auto) 0.6 (0.0-4.0) % Baso % (Auto) 0.2 (0.0-2.0) % Neut # (Auto) 10.0 H (1.8-7.0) K/uL Lymph # (Auto) 0.9 L (1.0-4.3) K/uL [place] # (Auto) 1.0 H (0.0-0.8) K/uL Eos # (Auto) 0.1 (0.0-0.7) K/uL Baso # (Auto) 0.0 (0.0-0.2) K/uL Neutrophils % (Manual) 80 H (50-75) % Band Neutrophils % 1 (0-2) % Lymphocytes % (Manual) 9 L (20-40) % Monocytes % (Manual) 9 (0-10) % Eosinophils % (Manual) 1 (0-4) % Platelet Estimate Normal (NORMAL) Large Platelets Present Hypochromasia (manual) Slight Poikilocytosis (manual Slight Anisocytosis (manual) Slight Target Cells Slight Ovalocytes Slight Emigrant Cells Slight Puncture Site pCO2 (35-45) mm/Hg pO2 (80-100) mm/Hg HCO3 (21-28) mmol/L ABG pH (7.35-7.45) ABG Total CO2 (22-28) mmol/L ABG O2 Saturation (95-98) % ABG Base Excess (-2.0-3.0) mmol/L ABG Hemoglobin (11.7-17.4) g/dL ABG Carboxyhemoglobin (0.5-1.5) % POC ABG HHb (Measured) (0.0-5.0) % ABG Methemoglobin (0.0-3.0) % Saqib Test A-a O2 Difference mm/Hg Respiratory Index Hgb O2 Saturation (95.0-98.0) % Vent Mode Mechanical Rate FiO2 % Tidal Volume PEEP Sodium 146 (132-148) mmol/L Potassium 4.2 (3.6-5.2) mmol/L Chloride 111 H (98-107) mmol/L Carbon Dioxide 20 L (22-30) mmol/L Anion Gap 19 (10-20) BUN 51 H (7-17) mg/dL Creatinine 3.4 H (0.7-1.2) mg/dL Est GFR ( Amer) 16 Est GFR (Non-Af Amer) 13 POC Glucose (mg/dL) (65-110) mg/dL Random Glucose 191 H (65-105) mg/dL Calcium 7.5 L (8.6-10.4) mg/dl Phosphorus 7.5 H (2.5-4.5) mg/dL Magnesium 2.3 (1.6-2.3) mg/dL Iron 16 L (37-170) ug/dL TIBC 233 L (250-450) ug/dL % Saturation 7 L (20-55) Ferritin 25.6 ng/mL Total Bilirubin 0.3 (0.2-1.3) mg/dL AST 25 (14-36) U/L ALT 70 H (9-52) U/L Alkaline Phosphatase 92 (38-126) U/L Total Creatine Kinase (30-135) U/L CK-MB (Mass) (0.0-3.38) ng/mL Troponin I (0.00-0.120) ng/mL Total Protein 5.5 L (6.3-8.3) g/dL Albumin 3.1 L (3.5-5.0) g/dL Globulin 2.3 (2.2-3.9) gm/dL Albumin/Globulin Ratio 1.3 (1.0-2.1) Random Vancomycin < 5.0 ug/mL 01/07/18 01/06/18 01/06/18 Range/Units 05:00 23:45 19:10 WBC (4.8-10.8) K/uL RBC (3.80-5.20) Mil/uL Hgb (11.0-16.0) g/dL Hct (34.0-47.0) % MCV (81.0-99.0) fL MCH (27.0-31.0) pg MCHC (33.0-37.0) g/dL RDW (11.5-14.5) % Plt Count (130-400) K/uL MPV (7.2-11.7) fL Neut % (Auto) (50.0-75.0) % Lymph % (Auto) (20.0-40.0) % [place] % (Auto) (0.0-10.0) % Eos % (Auto) (0.0-4.0) % Baso % (Auto) (0.0-2.0) % Neut # (Auto) (1.8-7.0) K/uL Lymph # (Auto) (1.0-4.3) K/uL [place] # (Auto) (0.0-0.8) K/uL Eos # (Auto) (0.0-0.7) K/uL Baso # (Auto) (0.0-0.2) K/uL Neutrophils % (Manual) (50-75) % Band Neutrophils % (0-2) % Lymphocytes % (Manual) (20-40) % Monocytes % (Manual) (0-10) % Eosinophils % (Manual) (0-4) % Platelet Estimate (NORMAL) Large Platelets Hypochromasia (manual) Poikilocytosis (manual Anisocytosis (manual) Target Cells Ovalocytes Nishant Cells Puncture Site Rb pCO2 31 L (35-45) mm/Hg pO2 110 H (80-100) mm/Hg HCO3 19.7 L (21-28) mmol/L ABG pH 7.37 (7.35-7.45) ABG Total CO2 18.9 L (22-28) mmol/L ABG O2 Saturation 99.4 H (95-98) % ABG Base Excess -6.7 L (-2.0-3.0) mmol/L ABG Hemoglobin 7.7 L (11.7-17.4) g/dL ABG Carboxyhemoglobin 1.8 H (0.5-1.5) % POC ABG HHb (Measured) 0.6 (0.0-5.0) % ABG Methemoglobin 1.4 (0.0-3.0) % Saqib Test Na A-a O2 Difference 65.0 mm/Hg Respiratory Index 0.6 Hgb O2 Saturation 96.2 (95.0-98.0) % Vent Mode Prvc Mechanical Rate 14 FiO2 30.0 % Tidal Volume 500 PEEP 5 Sodium (132-148) mmol/L Potassium (3.6-5.2) mmol/L Chloride (98-107) mmol/L Carbon Dioxide (22-30) mmol/L Anion Gap (10-20) BUN (7-17) mg/dL Creatinine (0.7-1.2) mg/dL Est GFR ( Amer) Est GFR (Non-Af Amer) POC Glucose (mg/dL) 246 H (65-110) mg/dL Random Glucose (65-105) mg/dL Calcium (8.6-10.4) mg/dl Phosphorus (2.5-4.5) mg/dL Magnesium (1.6-2.3) mg/dL Iron (37-170) ug/dL TIBC (250-450) ug/dL % Saturation (20-55) Ferritin ng/mL Total Bilirubin (0.2-1.3) mg/dL AST (14-36) U/L ALT (9-52) U/L Alkaline Phosphatase (38-126) U/L Total Creatine Kinase 97 (30-135) U/L CK-MB (Mass) 0.78 (0.0-3.38) ng/mL Troponin I 0.0900 (0.00-0.120) ng/mL Total Protein (6.3-8.3) g/dL Albumin (3.5-5.0) g/dL Globulin (2.2-3.9) gm/dL Albumin/Globulin Ratio (1.0-2.1) Random Vancomycin ug/mL Laboratory Results - last 24 hr 01/06/18 01/06/18 01/07/18 19:10 23:45 05:00 WBC RBC Hgb Hct MCV MCH MCHC RDW Plt Count MPV Neut % (Auto) Lymph % (Auto) [place] % (Auto) Eos % (Auto) Baso % (Auto) Neut # (Auto) Lymph # (Auto) [place] # (Auto) Eos # (Auto) Baso # (Auto) Neutrophils % (Manual) Band Neutrophils % Lymphocytes % (Manual) Monocytes % (Manual) Eosinophils % (Manual) Platelet Estimate Large Platelets Hypochromasia (manual) Poikilocytosis (manual Anisocytosis (manual) Target Cells Ovalocytes Emigrant Cells Puncture Site Rb pCO2 31 L pO2 110 H HCO3 19.7 L ABG pH 7.37 ABG Total CO2 18.9 L ABG O2 Saturation 99.4 H ABG Base Excess -6.7 L ABG Hemoglobin 7.7 L ABG Carboxyhemoglobin 1.8 H POC ABG HHb (Measured) 0.6 ABG Methemoglobin 1.4 Saqib Test Na A-a O2 Difference 65.0 Respiratory Index 0.6 Hgb O2 Saturation 96.2 Vent Mode Prvc Mechanical Rate 14 FiO2 30.0 Tidal Volume 500 PEEP 5 Sodium Potassium Chloride Carbon Dioxide Anion Gap BUN Creatinine Est GFR ( Amer) Est GFR (Non-Af Amer) POC Glucose (mg/dL) 246 H Random Glucose Calcium Phosphorus Magnesium Iron TIBC % Saturation Ferritin Total Bilirubin AST ALT Alkaline Phosphatase Total Creatine Kinase 97 CK-MB (Mass) 0.78 Troponin I 0.0900 Total Protein Albumin Globulin Albumin/Globulin Ratio Random Vancomycin 01/07/18 01/07/18 01/07/18 06:26 06:27 06:27 WBC 12.1 H RBC 3.00 L Hgb 7.8 L Hct 24.5 L MCV 81.7 MCH 26.1 L MCHC 31.9 L RDW 16.4 H Plt Count 225 MPV 10.7 Neut % (Auto) 83.1 H Lymph % (Auto) 7.5 L [place] % (Auto) 8.6 Eos % (Auto) 0.6 Baso % (Auto) 0.2 Neut # (Auto) 10.0 H Lymph # (Auto) 0.9 L [place] # (Auto) 1.0 H Eos # (Auto) 0.1 Baso # (Auto) 0.0 Neutrophils % (Manual) 80 H Band Neutrophils % 1 Lymphocytes % (Manual) 9 L Monocytes % (Manual) 9 Eosinophils % (Manual) 1 Platelet Estimate Normal Large Platelets Present Hypochromasia (manual) Slight Poikilocytosis (manual Slight Anisocytosis (manual) Slight Target Cells Slight Ovalocytes Slight Nishant Cells Slight Puncture Site pCO2 pO2 HCO3 ABG pH ABG Total CO2 ABG O2 Saturation ABG Base Excess ABG Hemoglobin ABG Carboxyhemoglobin POC ABG HHb (Measured) ABG Methemoglobin Saqib Test A-a O2 Difference Respiratory Index Hgb O2 Saturation Vent Mode Mechanical Rate FiO2 Tidal Volume PEEP Sodium 146 Potassium 4.2 Chloride 111 H Carbon Dioxide 20 L Anion Gap 19 BUN 51 H Creatinine 3.4 H Est GFR ( Amer) 16 Est GFR (Non-Af Amer) 13 POC Glucose (mg/dL) Random Glucose 191 H Calcium 7.5 L Phosphorus 7.5 H Magnesium 2.3 Iron 16 L TIBC 233 L % Saturation 7 L Ferritin 25.6 Total Bilirubin 0.3 AST 25 ALT 70 H Alkaline Phosphatase 92 Total Creatine Kinase CK-MB (Mass) Troponin I Total Protein 5.5 L Albumin 3.1 L Globulin 2.3 Albumin/Globulin Ratio 1.3 Random Vancomycin < 5.0 01/07/18 01/07/18 01/07/18 06:33 11:47 18:01 WBC RBC Hgb Hct MCV MCH MCHC RDW Plt Count MPV Neut % (Auto) Lymph % (Auto) [place] % (Auto) Eos % (Auto) Baso % (Auto) Neut # (Auto) Lymph # (Auto) [place] # (Auto) Eos # (Auto) Baso # (Auto) Neutrophils % (Manual) Band Neutrophils % Lymphocytes % (Manual) Monocytes % (Manual) Eosinophils % (Manual) Platelet Estimate Large Platelets Hypochromasia (manual) Poikilocytosis (manual Anisocytosis (manual) Target Cells Ovalocytes [place]igrant Cells Puncture Site pCO2 pO2 HCO3 ABG pH ABG Total CO2 ABG O2 Saturation ABG Base Excess ABG Hemoglobin ABG Carboxyhemoglobin POC ABG HHb (Measured) ABG Methemoglobin Saqib Test A-a O2 Difference Respiratory Index Hgb O2 Saturation Vent Mode Mechanical Rate FiO2 Tidal Volume PEEP Sodium Potassium Chloride Carbon Dioxide Anion Gap BUN Creatinine Est GFR ( Amer) Est GFR (Non-Af Amer) POC Glucose (mg/dL) 272 H 190 H 160 H Random Glucose Calcium Phosphorus Magnesium Iron TIBC % Saturation Ferritin Total Bilirubin AST ALT Alkaline Phosphatase Total Creatine Kinase CK-MB (Mass) Troponin I Total Protein Albumin Globulin Albumin/Globulin Ratio Random Vancomycin Critical Care Progress Note - Nutrition Nutrition: Nutrition Category Date Time Status Dysphagia/Modified Consistency Diet [DIET] Diets 01/07/18 Lunch Active Assessment/Plan - Assessment and Plan (Free Text) Plan: Above resident note reviewed and verified. PAtietn Fio2 30% with saturation 100% -WEaning parameters good -extubated -HTN: uncontrolled: started nitro ggt, lopresso and hdyralazine + norvasc -IRASEMA/CKD: continue to monitor urine output, avoid nephrotoxic drgus -obtaon speach and swalloe eval -continue dvt/pud ppx -foleyh to monitor urine output in IRASEMA cc tie 55 minutes managing BP post extubation - Date & Time Date: 01/07/18 Time: 18:44
--- NOTE | 2018-01-07 17:57 | CP.PCM.PN ---
Subjective - Date & Time of Evaluation Date of Evaluation: 01/07/18 Time of Evaluation: 17:50 - Subjective Subjective: Pt is extubated, appears tired. Nos her head that she understands BP has been an issue, still hypertensive with more meds. IV nitro started, pt on high dose. Cr remains elevated, also she remains anemic. Good diuresis with bumex. Objective - Vital Signs/Intake and Output Vital Signs (last 24 hours): Temp Pulse Resp BP Pulse Ox 98.9 F 83 16 146/62 96 01/07/18 12:00 01/07/18 17:19 01/07/18 17:19 01/07/18 17:19 01/07/18 17:19 Intake and Output: 01/07/18 01/07/18 06:59 18:59 Intake Total 773.9 694.0 Output Total 440 480 Balance 333.9 214.0 - Medications Medications: Current Medications Albuterol/Ipratropium (Duoneb 3 Mg/0.5 Mg (3 Ml) Ud) 3 ml INH RQ6 [facility] Last Admin: 01/07/18 13:39 Dose: 3 ml Amlodipine Besylate (Norvasc) 10 mg PO DAILY [facility] Bumetanide (Bumex) 2 mg IVP BID [facility] Last Admin: 01/07/18 15:53 Dose: 2 mg Calcium Acetate (Phoslo) 1,334 mg PO TID [facility] Last Admin: 01/07/18 14:00 Dose: Not Given Ferrous Gluconate (Fergon) 324 mg PO TID [facility] Last Admin: 01/07/18 15:53 Dose: 324 mg Heparin Sodium (Porcine) (Heparin) 5,000 units SC Q12 [facility] Last Admin: 01/07/18 13:26 Dose: 5,000 units Hydralazine HCl (Apresoline) 50 mg PO TID [facility] Last Admin: 01/07/18 16:06 Dose: 50 mg Imipenem/Cilastatin Sodium 250 (mg/ Sodium Chloride) 100 mls @ 100 mls/hr IVPB Q8H [facility] PRN Reason: Protocol Last Admin: 01/07/18 11:11 Dose: 100 mls/hr Nitroglycerin/Dextrose (Nitroglycerin 50 Mg/250 Ml D5w) 50 mg in 250 mls @ 7.5 mls/hr IV .Q24H [facility]; 25 MCG/MIN PRN Reason: Protocol Last Admin: 01/07/18 17:19 Dose: 120 mcg/min, 36 mls/hr Insulin Aspart (Novolog) 0 unit SC Q6 [facility] PRN Reason: Protocol Last Admin: 01/07/18 13:27 Dose: 2 u Insulin Detemir (Levemir) 40 unit SC QAM [facility] Last Admin: 01/07/18 10:10 Dose: Not Given Levothyroxine Sodium (Synthroid) 125 mcg PO DAILY@0630 [facility] Last Admin: 01/07/18 07:46 Dose: 125 mcg Metolazone (Zaroxolyn) 5 mg PO BID [facility] Stop: 01/10/18 13:01 Last Admin: 01/07/18 16:06 Dose: 5 mg Metoprolol Tartrate (Lopressor) 5 mg IVP Q6H PRN PRN Reason: Systolic Blood Pressure Metoprolol Tartrate (Lopressor) 75 mg PO Q12 [facility] Montelukast Sodium (Singulair) 10 mg PO [facility] Last Admin: 01/06/18 22:17 Dose: 10 mg Multivitamins (Hexavitamin) 1 tab PO DAILY [facility] Last Admin: 01/07/18 10:00 Dose: Not Given Mupirocin (Bactroban Ointment) 0 gm TOP DAILY [facility] Last Admin: 01/07/18 08:25 Dose: Not Given Pantoprazole Sodium (Protonix Inj) 40 mg IVP DAILY [facility] Last Admin: 01/07/18 13:40 Dose: 40 mg Rosuvastatin Calcium (Crestor) 20 mg PO HS [facility] Last Admin: 01/06/18 22:16 Dose: 20 mg Sodium Bicarbonate (Sodium Bicarbonate Tab) 1,300 mg PO BID [facility] Last Admin: 01/07/18 10:00 Dose: Not Given Topiramate (Topamax) 25 mg PO BID [facility] Last Admin: 01/07/18 10:00 Dose: Not Given - Labs Labs: 01/07/18 06:26 01/07/18 06:27 PT 13.7 SECONDS (9.7-12.2) H 01/04/18 11:37 INR 1.3 01/04/18 11:37 APTT 31 SECONDS (21-34) 01/04/18 11:37 - Constitutional Appears: Chronically Ill - Head Exam Head Exam: NORMAL INSPECTION - Eye Exam Eye Exam: EOMI - ENT Exam ENT Exam: Mucous Membranes Dry - Neck Exam Neck Exam: Normal Inspection - Respiratory Exam Respiratory Exam: Decreased Breath Sounds, Clear to Ausculation Bilateral - Cardiovascular Exam Cardiovascular Exam: REGULAR RHYTHM - Exam External exam: NORMAL EXTERNAL EXAM - Back Exam Back Exam: NORMAL INSPECTION - Neurological Exam Neurological Exam: Alert, Awake - Psychiatric Exam Psychiatric exam: Flat Affect - Skin Skin Exam: Normal Color Assessment and Plan - Assessment and Plan (Free Text) Assessment: 1. Agree with anti-hypertensive regimen but pt has h/o mobitz I , also has first degree av block, and caution is advised. 2. Although pt has aortic stenosis, no adverse effects with IV nitro and preload reduction. 3. Would be very hesitant to add clonidine fo htn as beta yordy clonidine interaction is potentially very significant and heart block can develop 4. better urine output.
--- NOTE | 2018-01-07 18:09 | CP.PCM.PN ---
Subjective - Date & Time of Evaluation Date of Evaluation: 01/07/18 Time of Evaluation: 18:07 - Subjective Subjective: INFECTIOUS DISEASE ICU#8 PROGRESS NOTES KELSI GAMBOA MD, FACP 01/07/2018 EXTUBATED, RESPONDS BY SHAKING HER HEAD YES OR NO APPROPIATELY DECREASED BREATH SOUNDS COR NOTED, AORTIC STENOSIS CREAT AND GFR NOTED TO ADDRESS PRIMAXIN DOSE FOR NOW. Objective - Vital Signs/Intake and Output Vital Signs (last 24 hours): Temp Pulse Resp BP Pulse Ox 98.9 F 84 16 156/66 H 96 01/07/18 16:00 01/07/18 18:00 01/07/18 18:00 01/07/18 17:54 01/07/18 18:00 Intake and Output: 01/07/18 01/07/18 06:59 18:59 Intake Total 773.9 888.0 Output Total 440 1010 Balance 333.9 -122 - Medications Medications: Current Medications Albuterol/Ipratropium (Duoneb 3 Mg/0.5 Mg (3 Ml) Ud) 3 ml INH RQ6 [facility] Last Admin: 01/07/18 13:39 Dose: 3 ml Amlodipine Besylate (Norvasc) 10 mg PO DAILY [facility] Bumetanide (Bumex) 2 mg IVP BID [facility] Last Admin: 01/07/18 15:53 Dose: 2 mg Calcium Acetate (Phoslo) 1,334 mg PO TID [facility] Last Admin: 01/07/18 14:00 Dose: Not Given Ferrous Gluconate (Fergon) 324 mg PO TID [facility] Last Admin: 01/07/18 15:53 Dose: 324 mg Heparin Sodium (Porcine) (Heparin) 5,000 units SC Q12 [facility] Last Admin: 01/07/18 13:26 Dose: 5,000 units Hydralazine HCl (Apresoline) 50 mg PO TID [facility] Last Admin: 01/07/18 16:06 Dose: 50 mg Nitroglycerin/Dextrose (Nitroglycerin 50 Mg/250 Ml D5w) 50 mg in 250 mls @ 7.5 mls/hr IV .Q24H [facility]; 25 MCG/MIN PRN Reason: Protocol Last Admin: 01/07/18 17:19 Dose: 120 mcg/min, 36 mls/hr Imipenem/Cilastatin Sodium 250 (mg/ Sodium Chloride) 100 mls @ 100 mls/hr IVPB Q12H [facility] PRN Reason: Protocol Insulin Aspart (Novolog) 0 unit SC Q6 [facility] PRN Reason: Protocol Last Admin: 01/07/18 13:27 Dose: 2 u Insulin Detemir (Levemir) 40 unit SC QAM [facility] Last Admin: 01/07/18 10:10 Dose: Not Given Levothyroxine Sodium (Synthroid) 125 mcg PO DAILY@0630 [facility] Last Admin: 01/07/18 07:46 Dose: 125 mcg Metolazone (Zaroxolyn) 5 mg PO BID [facility] Stop: 01/10/18 13:01 Last Admin: 01/07/18 16:06 Dose: 5 mg Metoprolol Tartrate (Lopressor) 5 mg IVP Q6H PRN PRN Reason: Systolic Blood Pressure Metoprolol Tartrate (Lopressor) 75 mg PO Q12 [facility] Montelukast Sodium (Singulair) 10 mg PO HS [facility] Last Admin: 01/06/18 22:17 Dose: 10 mg Multivitamins (Hexavitamin) 1 tab PO DAILY [facility] Last Admin: 01/07/18 10:00 Dose: Not Given Mupirocin (Bactroban Ointment) 0 gm TOP DAILY [facility] Last Admin: 01/07/18 08:25 Dose: Not Given Pantoprazole Sodium (Protonix Inj) 40 mg IVP DAILY [facility] Last Admin: 01/07/18 13:40 Dose: 40 mg Rosuvastatin Calcium (Crestor) 20 mg PO HS [facility] Last Admin: 01/06/18 22:16 Dose: 20 mg Sodium Bicarbonate (Sodium Bicarbonate Tab) 1,300 mg PO BID [facility] Last Admin: 01/07/18 10:00 Dose: Not Given Topiramate (Topamax) 25 mg PO BID [facility] Last Admin: 01/07/18 10:00 Dose: Not Given - Labs Labs: 01/07/18 06:26 01/07/18 06:27 PT 13.7 SECONDS (9.7-12.2) H 01/04/18 11:37 INR 1.3 01/04/18 11:37 APTT 31 SECONDS (21-34) 01/04/18 11:37 Assessment and Plan (1) Osteomyelitis of toe of left foot Status: Acute (2) Diabetes 1.5, managed as type 2 Status: Chronic (3) Asthma Status: Chronic (4) Pulmonary arterial hypertension Status: Chronic (5) HTN (hypertension), benign Status: Chronic
[2018-01-08] MEDS: (Novolog) Insulin Aspart, Recombinant 100 u/ml 10 ml vial SC SCH ×5 (00:15→23:53)
[2018-01-08] MEDS: Albuterol-Ipratrop 3 mg / 0.5 (3 ml) UD INH SCH ×4 (01:05→19:46)
[2018-01-08 05:24] LABS: ABG ALLEN TEST POS; ARTERIAL BLOOD GAS HCO3 22.3 mmol/L (21-28); ARTERIAL BLOOD GAS O2 SAT 98.3 % (95-98); ARTERIAL BLOOD GAS PCO2 26 mm/Hg (35-45); ARTERIAL BLOOD GAS PH 7.48 (7.35-7.45); ARTERIAL BLOOD GAS PO2 76 mm/Hg (80-100); ARTERIAL BLOOD GAS TCO2 20.2 mmol/L (22-28)
[2018-01-08] MEDS: Levothyroxine 125 MCG TAB PO SCH (05:46)
[2018-01-08 06:24] LABS: BASO # 0.1 K/uL (0.0-0.2); BASO % 0.6 % (0.0-2.0); EOS # 0.3 K/uL (0.0-0.7); EOS % 2.3 % (0.0-4.0); HEMOGLOBIN 7.9 g/dL (11.0-16.0); LYMPH # 1.3 K/uL (1.0-4.3); LYMPH % 10.6 % (20.0-40.0); MEAN CELL VOLUME 80.9 fL (81.0-99.0); MEAN CORPUSCULAR HEMOGLOBIN 25.8 pg (27.0-31.0); MEAN CORPUSCULAR HGB CONC 31.9 g/dL (33.0-37.0); MEAN PLATELET VOLUME 10.6 fL (7.2-11.7); MONO # 1.4 K/uL (0.0-0.8); MONO % 11.1 % (0.0-10.0); NEUT # 9.4 K/uL (1.8-7.0); NEUT % 75.4 % (50.0-75.0); NRBC % 0.1 % (0.0-2.0); RBC 3.07 Mil/uL (3.80-5.20); WHITE BLOOD COUNT 12.5 K/uL (4.8-10.8)
[2018-01-08 06:39] LABS: ALB/GLOB RATIO 1.4 (1.0-2.1); CALCIUM 7.3 mg/dl (8.6-10.4)
[2018-01-08] MEDS ORDERED: Potassium Chloride 20 mEq/15 ml LIQ UD PO ONE (08:30)
[2018-01-08] MEDS: Nitroglycerin 50mg in D5W 50 MG/250 ML BOTTLE IV SCH ×2 (08:31→09:45)
--- NOTE | 2018-01-08 08:35 | CP.CCUPN ---
<Belen Robert - Last Filed: 01/08/18 08:33> CCU Subjective - Physician Review Subjective (Free Text): Patient seen and examined at bedside. Patient reports breathing has improved. CCU Objective - Vital Signs / Intake & Output Vital Signs (Last 4 hours): Vital Signs Pulse Resp BP Pulse Ox 01/08/18 08:31 93 H 17 150/65 94 L 01/08/18 07:30 83 01/08/18 06:00 83 15 94 L 01/08/18 05:54 177/65 H 01/08/18 05:50 81 01/08/18 05:00 85 14 94 L 01/08/18 04:54 178/65 H Intake and Output (Last 8hrs): Intake & Output 01/07/18 01/08/18 01/08/18 22:59 06:59 14:59 Intake Total 862 482 120 Output Total 1250 1630 Balance -388 -1148 120 Weight 193 lb Intake: IV 450 180 120 Intake, IV Amount 282 252 Right Medial Port 282 252 Oral 130 50 Output: Urine 1250 1630 Urethral (Johnson) 1250 1630 Stool 0 - Physical Exam Head: Positive for: Atraumatic, Normocephalic Pupils: Positive for: PERRL Extroacular Muscles: Positive for: EOMI Conjunctiva: Positive for: Normal Mouth: Positive for: Moist Mucous Membranes Respiratory/Chest: Positive for: Decreased Breath Sounds Abdomen: Positive for: Normal Bowel Sounds. Negative for: Tenderness, Distention Upper Extremity: Positive for: Normal Inspection, NORMAL PULSES, Neurovascularly Intact, Capillary Refill < 2s Lower Extremity: Positive for: Normal Inspection, Edema, NORMAL PULSES, Neurovascularly Intact, Capillary Refill < 2 s Skin: Positive for: Warm, Dry Psychiatric: Positive for: Alert - Medications Active Medications: Active Medications Generic Name Dose Route Start Last Admin Trade Name Freq PRN Reason Stop Dose Admin Albuterol/Ipratropium 3 ml 01/07/18 14:00 01/08/18 07:30 Duoneb 3 Mg/0.5 Mg (3 Ml) Ud INH 3 ml RQ6 MIGDALIA Administration Amlodipine Besylate 10 mg 01/07/18 15:49 Norvasc PO DAILY MIGDALIA Bumetanide 2 mg 01/07/18 14:00 01/07/18 18:00 Bumex IVP Not Given BID [facility] Calcium Acetate 1,334 mg 01/07/18 10:45 01/07/18 18:20 Phoslo PO 1,334 mg TID MIGDALIA Administration Ferrous Gluconate 324 mg 01/07/18 14:00 01/07/18 18:21 Fergon PO 324 mg TID MIGDALIA Administration Heparin Sodium (Porcine) 5,000 units 01/05/18 11:00 01/07/18 21:05 Heparin SC 5,000 units Q12 MIGDALIA Administration Hydralazine HCl 50 mg 01/07/18 10:00 01/07/18 18:21 Apresoline PO 50 mg TID MIGDALIA Administration Nitroglycerin/Dextrose 50 mg in 250 mls @ 7.5 mls/hr 01/07/18 09:45 01/08/18 08:31 Nitroglycerin 50 Mg/250 Ml D5w IV 120 mcg/min .Q24H MIGDALIA 36 mls/hr Protocol Administration 25 MCG/MIN Imipenem/Cilastatin Sodium 250 100 mls @ 100 mls/hr 01/07/18 18:15 01/08/18 05:47 mg/ Sodium Chloride IVPB 100 mls/hr Q12H MIGDALIA Administration Protocol Potassium Chloride 20 meq in 100 mls @ 50 mls/hr 01/08/18 08:30 01/08/18 08: 24 Potassium Chloride 20 Meq/100 Ml IVPB 01/08/18 10:29 50 mls/hr ONCE ONE Administration Potassium Chloride 20 meq in 100 mls @ 50 mls/hr 01/08/18 11:30 Potassium Chloride 20 Meq/100 Ml IVPB 01/08/18 13:29 ONCE ONE Insulin Aspart 0 unit 01/08/18 11:30 Novolog SC ACHS [facility] Protocol Insulin Detemir 40 unit 01/07/18 07:30 01/07/18 10:10 Levemir SC Not Given QAM [facility] Levothyroxine Sodium 125 mcg 12/30/17 06:30 01/08/18 05:46 Synthroid PO 125 mcg DAILY@0630 [facility] Administration Metolazone 5 mg 01/07/18 13:00 01/07/18 18:31 Zaroxolyn PO 01/10/18 13:01 Not Given BID [facility] Metoprolol Tartrate 5 mg 01/07/18 09:46 Lopressor IVP Q6H PRN Systolic Blood Pressure Metoprolol Tartrate 75 mg 01/07/18 15:50 01/07/18 21:04 Lopressor PO 75 mg Q12 MIGDALIA Administration Montelukast Sodium 10 mg 12/29/17 22:00 01/07/18 21:05 Singulair PO 10 mg HS MIGDALIA Administration Multivitamins 1 tab 01/01/18 10:00 01/07/18 10:00 Hexavitamin PO Not Given DAILY MIGDALIA Mupirocin 0 gm 12/30/17 10:00 01/07/18 08:25 Bactroban Ointment TOP Not Given DAILY MIGDALIA Pantoprazole Sodium 40 mg 01/05/18 10:00 01/07/18 13:40 Protonix Inj IVP 40 mg DAILY MIGDALIA Administration Rosuvastatin Calcium 20 mg 12/29/17 22:00 01/07/18 21:05 Crestor PO 20 mg HS MIGDALIA Administration Sodium Bicarbonate 1,300 mg 01/06/18 18:00 01/07/18 18:20 Sodium Bicarbonate Tab PO 1,300 mg BID MIGDALIA Administration Topiramate 25 mg 12/31/17 18:00 01/07/18 18:21 Topamax PO 25 mg BID MIGDALIA Administration - Patient Studies Lab Studies: Microbiology Studies 01/05/18 13:44 Blood Culture - Preliminary Blood-Venous NO GROWTH AFTER 48 HOURS 01/05/18 13:44 Blood Culture - Preliminary Blood-Venous NO GROWTH AFTER 48 HOURS Lab Studies 01/08/18 01/08/18 01/08/18 Range/Units 07:57 06:13 06:13 WBC 12.5 H (4.8-10.8) K/uL RBC 3.07 L (3.80-5.20) Mil/uL Hgb 7.9 L (11.0-16.0) g/dL Hct 24.8 L (34.0-47.0) % MCV 80.9 L (81.0-99.0) fL MCH 25.8 L (27.0-31.0) pg MCHC 31.9 L (33.0-37.0) g/dL RDW 16.0 H (11.5-14.5) % Plt Count 240 (130-400) K/uL MPV 10.6 (7.2-11.7) fL Neut % (Auto) 75.4 H (50.0-75.0) % Lymph % (Auto) 10.6 L (20.0-40.0) % [place] % (Auto) 11.1 H (0.0-10.0) % Eos % (Auto) 2.3 (0.0-4.0) % Baso % (Auto) 0.6 (0.0-2.0) % Neut # (Auto) 9.4 H (1.8-7.0) K/uL Lymph # (Auto) 1.3 (1.0-4.3) K/uL [place] # (Auto) 1.4 H (0.0-0.8) K/uL Eos # (Auto) 0.3 (0.0-0.7) K/uL Baso # (Auto) 0.1 (0.0-0.2) K/uL Puncture Site pCO2 (35-45) mm/Hg pO2 (80-100) mm/Hg HCO3 (21-28) mmol/L ABG pH (7.35-7.45) ABG Total CO2 (22-28) mmol/L ABG O2 Saturation (95-98) % ABG Base Excess (-2.0-3.0) mmol/L ABG Hemoglobin (11.7-17.4) g/dL ABG Carboxyhemoglobin (0.5-1.5) % POC ABG HHb (Measured) (0.0-5.0) % ABG Methemoglobin (0.0-3.0) % Saqib Test A-a O2 Difference mm/Hg Respiratory Index Hgb O2 Saturation (95.0-98.0) % Vent Mode FiO2 % Inspiratory BiPAP Expiratory BiPAP Sodium 148 (132-148) mmol/L Potassium 3.2 L (3.6-5.2) mmol/L Chloride 113 H (98-107) mmol/L Carbon Dioxide 21 L (22-30) mmol/L Anion Gap 18 (10-20) BUN 52 H (7-17) mg/dL Creatinine 2.7 H (0.7-1.2) mg/dL Est GFR ( Amer) 21 Est GFR (Non-Af Amer) 17 POC Glucose (mg/dL) 168 H (65-110) mg/dL Random Glucose 131 H (65-105) mg/dL Calcium 7.3 L (8.6-10.4) mg/dl Phosphorus 5.6 H (2.5-4.5) mg/dL Magnesium 2.1 (1.6-2.3) mg/dL Total Bilirubin 0.4 (0.2-1.3) mg/dL AST 17 (14-36) U/L ALT 52 D (9-52) U/L Alkaline Phosphatase 95 (38-126) U/L Total Protein 5.1 L (6.3-8.3) g/dL Total Protein (PEP) (6.1-8.1) g/dL Albumin 3.0 L (3.5-5.0) g/dL Globulin 2.1 L (2.2-3.9) gm/dL Albumin/Globulin Ratio 1.4 (1.0-2.1) Ur Random Creatinine (20-320) mg/dL U Random Total Protein (21-161) mg/g creat Urine Total Volume mg/dL Microalb/Creat Ratio (<30) 01/08/18 01/08/18 01/07/18 Range/Units 05:05 04:52 23:38 WBC (4.8-10.8) K/uL RBC (3.80-5.20) Mil/uL Hgb (11.0-16.0) g/dL Hct (34.0-47.0) % MCV (81.0-99.0) fL MCH (27.0-31.0) pg MCHC (33.0-37.0) g/dL RDW (11.5-14.5) % Plt Count (130-400) K/uL MPV (7.2-11.7) fL Neut % (Auto) (50.0-75.0) % Lymph % (Auto) (20.0-40.0) % [place] % (Auto) (0.0-10.0) % Eos % (Auto) (0.0-4.0) % Baso % (Auto) (0.0-2.0) % Neut # (Auto) (1.8-7.0) K/uL Lymph # (Auto) (1.0-4.3) K/uL [place] # (Auto) (0.0-0.8) K/uL Eos # (Auto) (0.0-0.7) K/uL Baso # (Auto) (0.0-0.2) K/uL Puncture Site Rr pCO2 26 L (35-45) mm/Hg pO2 76 L (80-100) mm/Hg HCO3 22.3 (21-28) mmol/L ABG pH 7.48 H (7.35-7.45) ABG Total CO2 20.2 L (22-28) mmol/L ABG O2 Saturation 98.3 H (95-98) % ABG Base Excess -3.4 L (-2.0-3.0) mmol/L ABG Hemoglobin 8.0 L (11.7-17.4) g/dL ABG Carboxyhemoglobin 2.1 H (0.5-1.5) % POC ABG HHb (Measured) 1.6 (0.0-5.0) % ABG Methemoglobin 1.1 (0.0-3.0) % Saqib Test Pos A-a O2 Difference 105.0 mm/Hg Respiratory Index 1.4 Hgb O2 Saturation 95.2 (95.0-98.0) % Vent Mode Bipap FiO2 30.0 % Inspiratory BiPAP 14 Expiratory BiPAP 8 Sodium (132-148) mmol/L Potassium (3.6-5.2) mmol/L Chloride (98-107) mmol/L Carbon Dioxide (22-30) mmol/L Anion Gap (10-20) BUN (7-17) mg/dL Creatinine (0.7-1.2) mg/dL Est GFR ( Amer) Est GFR (Non-Af Amer) POC Glucose (mg/dL) 161 H 143 H (65-110) mg/dL Random Glucose (65-105) mg/dL Calcium (8.6-10.4) mg/dl Phosphorus (2.5-4.5) mg/dL Magnesium (1.6-2.3) mg/dL Total Bilirubin (0.2-1.3) mg/dL AST (14-36) U/L ALT (9-52) U/L Alkaline Phosphatase (38-126) U/L Total Protein (6.3-8.3) g/dL Total Protein (PEP) (6.1-8.1) g/dL Albumin (3.5-5.0) g/dL Globulin (2.2-3.9) gm/dL Albumin/Globulin Ratio (1.0-2.1) Ur Random Creatinine (20-320) mg/dL U Random Total Protein (21-161) mg/g creat Urine Total Volume mg/dL Microalb/Creat Ratio (<30) 01/07/18 01/07/18 01/07/18 Range/Units 18:01 11:47 06:27 WBC (4.8-10.8) K/uL RBC (3.80-5.20) Mil/uL Hgb (11.0-16.0) g/dL Hct (34.0-47.0) % MCV (81.0-99.0) fL MCH (27.0-31.0) pg MCHC (33.0-37.0) g/dL RDW (11.5-14.5) % Plt Count (130-400) K/uL MPV (7.2-11.7) fL Neut % (Auto) (50.0-75.0) % Lymph % (Auto) (20.0-40.0) % [place] % (Auto) (0.0-10.0) % Eos % (Auto) (0.0-4.0) % Baso % (Auto) (0.0-2.0) % Neut # (Auto) (1.8-7.0) K/uL Lymph # (Auto) (1.0-4.3) K/uL [place] # (Auto) (0.0-0.8) K/uL Eos # (Auto) (0.0-0.7) K/uL Baso # (Auto) (0.0-0.2) K/uL Puncture Site pCO2 (35-45) mm/Hg pO2 (80-100) mm/Hg HCO3 (21-28) mmol/L ABG pH (7.35-7.45) ABG Total CO2 (22-28) mmol/L ABG O2 Saturation (95-98) % ABG Base Excess (-2.0-3.0) mmol/L ABG Hemoglobin (11.7-17.4) g/dL ABG Carboxyhemoglobin (0.5-1.5) % POC ABG HHb (Measured) (0.0-5.0) % ABG Methemoglobin (0.0-3.0) % Saqib Test A-a O2 Difference mm/Hg Respiratory Index Hgb O2 Saturation (95.0-98.0) % Vent Mode FiO2 % Inspiratory BiPAP Expiratory BiPAP Sodium (132-148) mmol/L Potassium (3.6-5.2) mmol/L Chloride (98-107) mmol/L Carbon Dioxide (22-30) mmol/L Anion Gap (10-20) BUN (7-17) mg/dL Creatinine (0.7-1.2) mg/dL Est GFR ( Amer) Est GFR (Non-Af Amer) POC Glucose (mg/dL) 160 H 190 H (65-110) mg/dL Random Glucose (65-105) mg/dL Calcium (8.6-10.4) mg/dl Phosphorus (2.5-4.5) mg/dL Magnesium (1.6-2.3) mg/dL Total Bilirubin (0.2-1.3) mg/dL AST (14-36) U/L ALT (9-52) U/L Alkaline Phosphatase (38-126) U/L Total Protein (6.3-8.3) g/dL Total Protein (PEP) 5.2 L (6.1-8.1) g/dL Albumin (3.5-5.0) g/dL Globulin (2.2-3.9) gm/dL Albumin/Globulin Ratio (1.0-2.1) Ur Random Creatinine (20-320) mg/dL U Random Total Protein (21-161) mg/g creat Urine Total Volume mg/dL Microalb/Creat Ratio (<30) 01/06/18 01/06/18 Range/Units 21:02 21:02 WBC (4.8-10.8) K/uL RBC (3.80-5.20) Mil/uL Hgb (11.0-16.0) g/dL Hct (34.0-47.0) % MCV (81.0-99.0) fL MCH (27.0-31.0) pg MCHC (33.0-37.0) g/dL RDW (11.5-14.5) % Plt Count (130-400) K/uL MPV (7.2-11.7) fL Neut % (Auto) (50.0-75.0) % Lymph % (Auto) (20.0-40.0) % [place] % (Auto) (0.0-10.0) % Eos % (Auto) (0.0-4.0) % Baso % (Auto) (0.0-2.0) % Neut # (Auto) (1.8-7.0) K/uL Lymph # (Auto) (1.0-4.3) K/uL [place] # (Auto) (0.0-0.8) K/uL Eos # (Auto) (0.0-0.7) K/uL Baso # (Auto) (0.0-0.2) K/uL Puncture Site pCO2 (35-45) mm/Hg pO2 (80-100) mm/Hg HCO3 (21-28) mmol/L ABG pH (7.35-7.45) ABG Total CO2 (22-28) mmol/L ABG O2 Saturation (95-98) % ABG Base Excess (-2.0-3.0) mmol/L ABG Hemoglobin (11.7-17.4) g/dL ABG Carboxyhemoglobin (0.5-1.5) % POC ABG HHb (Measured) (0.0-5.0) % ABG Methemoglobin (0.0-3.0) % Saqib Test A-a O2 Difference mm/Hg Respiratory Index Hgb O2 Saturation (95.0-98.0) % Vent Mode FiO2 % Inspiratory BiPAP Expiratory BiPAP Sodium (132-148) mmol/L Potassium (3.6-5.2) mmol/L Chloride (98-107) mmol/L Carbon Dioxide (22-30) mmol/L Anion Gap (10-20) BUN (7-17) mg/dL Creatinine (0.7-1.2) mg/dL Est GFR ( Amer) Est GFR (Non-Af Amer) POC Glucose (mg/dL) (65-110) mg/dL Random Glucose (65-105) mg/dL Calcium (8.6-10.4) mg/dl Phosphorus (2.5-4.5) mg/dL Magnesium (1.6-2.3) mg/dL Total Bilirubin (0.2-1.3) mg/dL AST (14-36) U/L ALT (9-52) U/L Alkaline Phosphatase (38-126) U/L Total Protein (6.3-8.3) g/dL Total Protein (PEP) (6.1-8.1) g/dL Albumin (3.5-5.0) g/dL Globulin (2.2-3.9) gm/dL Albumin/Globulin Ratio (1.0-2.1) Ur Random Creatinine 101 (20-320) mg/dL U Random Total Protein 236 H (21-161) mg/g creat Urine Total Volume 3.6 mg/dL Microalb/Creat Ratio 36 H (<30) Laboratory Results - last 24 hr 01/06/18 01/06/18 01/07/18 21:02 21:02 06:27 WBC RBC Hgb Hct MCV MCH MCHC RDW Plt Count MPV Neut % (Auto) Lymph % (Auto) [place] % (Auto) Eos % (Auto) Baso % (Auto) Neut # (Auto) Lymph # (Auto) [place] # (Auto) Eos # (Auto) Baso # (Auto) Puncture Site pCO2 pO2 HCO3 ABG pH ABG Total CO2 ABG O2 Saturation ABG Base Excess ABG Hemoglobin ABG Carboxyhemoglobin POC ABG HHb (Measured) ABG Methemoglobin Saqib Test A-a O2 Difference Respiratory Index Hgb O2 Saturation Vent Mode FiO2 Inspiratory BiPAP Expiratory BiPAP Sodium Potassium Chloride Carbon Dioxide Anion Gap BUN Creatinine Est GFR ( Amer) Est GFR (Non-Af Amer) POC Glucose (mg/dL) Random Glucose Calcium Phosphorus Magnesium Total Bilirubin AST ALT Alkaline Phosphatase Total Protein Total Protein (PEP) 5.2 L Albumin Globulin Albumin/Globulin Ratio Ur Random Creatinine 101 U Random Total Protein 236 H Urine Total Volume 3.6 Microalb/Creat Ratio 36 H 01/07/18 01/07/18 01/07/18 11:47 18:01 23:38 WBC RBC Hgb Hct MCV MCH MCHC RDW Plt Count MPV Neut % (Auto) Lymph % (Auto) [place] % (Auto) Eos % (Auto) Baso % (Auto) Neut # (Auto) Lymph # (Auto) [place] # (Auto) Eos # (Auto) Baso # (Auto) Puncture Site pCO2 pO2 HCO3 ABG pH ABG Total CO2 ABG O2 Saturation ABG Base Excess ABG Hemoglobin ABG Carboxyhemoglobin POC ABG HHb (Measured) ABG Methemoglobin Saqib Test A-a O2 Difference Respiratory Index Hgb O2 Saturation Vent Mode FiO2 Inspiratory BiPAP Expiratory BiPAP Sodium Potassium Chloride Carbon Dioxide Anion Gap BUN Creatinine Est GFR ( Amer) Est GFR (Non-Af Amer) POC Glucose (mg/dL) 190 H 160 H 143 H Random Glucose Calcium Phosphorus Magnesium Total Bilirubin AST ALT Alkaline Phosphatase Total Protein Total Protein (PEP) Albumin Globulin Albumin/Globulin Ratio Ur Random Creatinine U Random Total Protein Urine Total Volume Microalb/Creat Ratio 01/08/18 01/08/18 01/08/18 04:52 05:05 06:13 WBC 12.5 H RBC 3.07 L Hgb 7.9 L Hct 24.8 L MCV 80.9 L MCH 25.8 L MCHC 31.9 L RDW 16.0 H Plt Count 240 MPV 10.6 Neut % (Auto) 75.4 H Lymph % (Auto) 10.6 L [place] % (Auto) 11.1 H Eos % (Auto) 2.3 Baso % (Auto) 0.6 Neut # (Auto) 9.4 H Lymph # (Auto) 1.3 [place] # (Auto) 1.4 H Eos # (Auto) 0.3 Baso # (Auto) 0.1 Puncture Site Rr pCO2 26 L pO2 76 L HCO3 22.3 ABG pH 7.48 H ABG Total CO2 20.2 L ABG O2 Saturation 98.3 H ABG Base Excess -3.4 L ABG Hemoglobin 8.0 L ABG Carboxyhemoglobin 2.1 H POC ABG HHb (Measured) 1.6 ABG Methemoglobin 1.1 Saqib Test Pos A-a O2 Difference 105.0 Respiratory Index 1.4 Hgb O2 Saturation 95.2 Vent Mode Bipap FiO2 30.0 Inspiratory BiPAP 14 Expiratory BiPAP 8 Sodium Potassium Chloride Carbon Dioxide Anion Gap BUN Creatinine Est GFR ( Amer) Est GFR (Non-Af Amer) POC Glucose (mg/dL) 161 H Random Glucose Calcium Phosphorus Magnesium Total Bilirubin AST ALT Alkaline Phosphatase Total Protein Total Protein (PEP) Albumin Globulin Albumin/Globulin Ratio Ur Random Creatinine U Random Total Protein Urine Total Volume Microalb/Creat Ratio 01/08/18 01/08/18 06:13 07:57 WBC RBC Hgb Hct MCV MCH MCHC RDW Plt Count MPV Neut % (Auto) Lymph % (Auto) [place] % (Auto) Eos % (Auto) Baso % (Auto) Neut # (Auto) Lymph # (Auto) [place] # (Auto) Eos # (Auto) Baso # (Auto) Puncture Site pCO2 pO2 HCO3 ABG pH ABG Total CO2 ABG O2 Saturation ABG Base Excess ABG Hemoglobin ABG Carboxyhemoglobin POC ABG HHb (Measured) ABG Methemoglobin Saqib Test A-a O2 Difference Respiratory Index Hgb O2 Saturation Vent Mode FiO2 Inspiratory BiPAP Expiratory BiPAP Sodium 148 Potassium 3.2 L Chloride 113 H Carbon Dioxide 21 L Anion Gap 18 BUN 52 H Creatinine 2.7 H Est GFR ( Amer) 21 Est GFR (Non-Af Amer) 17 POC Glucose (mg/dL) 168 H Random Glucose 131 H Calcium 7.3 L Phosphorus 5.6 H Magnesium 2.1 Total Bilirubin 0.4 AST 17 ALT 52 D Alkaline Phosphatase 95 Total Protein 5.1 L Total Protein (PEP) Albumin 3.0 L Globulin 2.1 L Albumin/Globulin Ratio 1.4 Ur Random Creatinine U Random Total Protein Urine Total Volume Microalb/Creat Ratio Fingerstick Blood Sugar Results: 161 Critical Care Progress Note - Nutrition Nutrition: Nutrition Category Date Time Status Dysphagia/Modified Consistency Diet [DIET] Diets 01/07/18 Lunch Active Assessment/Plan - Assessment and Plan (Free Text) Assessment: This is a 73 female with PMHx HTN, T2DM, pulm HTN, CVA with TIA, GERD, right ear deafness and MILTON patient was admitted 12/29/17 for left foot Osteo s/p Left foot hallux and 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 RIJ TLC placed . Extubated 01/07. Plan: Neuro: Extubated 01/07 A: Hx CVA, TIA - Crestor 20mg PO QHS - Topamax 25mg PO BID Cardio: A: HTN - Norvasc 10mg, Hydralazine 50mg PO TID, Lopressor 75mg PO BID, Lopressor 5mg IVP Q6H PRN if HR > 100 - Currently on nitro drip A: Aortic Stenosis A: Pulmonary HTN - ECHO: LVEF 72%, moderate to severe aortic stenosis A: MILTON Pulm: A: Acute Respiratory Failure 2/2 Pulmonary Edema - Extubated 01/07 A: Asthma - Singular 10mg QHS GI: A: Transaminitis - downtrending - Baseline wnl - Likely medication induced - Hep panel - negative A: GERD Endo: A: T2DM - Accuchecks - Levemir 40 unit SC QAM, ISS - Q6H - HELD METFORMIN and GLIPIZIDE A: Hypothyroidism - Synthroid 125mcg Renal: A: ARF 2/2 ATN - improving - Bumex 2mg x 1, Bumex 1mg Q1H x 5 doses 01/06 - Bumex 2mg IVP BID, metolazone 5 mg PO BID x 3 days, sodium bicarb tablets, phoslo TID and ferrous gluconate TID - will continue with aggressive diuresis - Continue to monitor ID: A: Osteomyelitis, left foot - Initially on Rocephin and flagyl ---> Primaxin Q8H 01/05/18 - s/p Left foot hallux and 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 Peña - Wound culture - Corynebacterium - pending LENNY A: SIRS - Leukocytosis with left shift, bandemia, lactate 1.3 - BC, UC, UA - negative to date Heme/Onc A: Anemia of Chronic Disease - Baseline 9s - Patient is a Je[employer] Witness - NO BLOOD TRANSFUSIONS - Procrit 10,000 x 1 given - Continue to monitor Prophylaxis - Protonix - SCDs, Hep Q12 - RIJ TLC placed 01/06/18 - Patient is a Jehovah Witness - NO BLOOD TRANSFUSIONS. DW Belen Cobb DO, PGY-1 <Ortiz Terry - Last Filed: 01/08/18 15:10> CCU Objective - Vital Signs / Intake & Output Vital Signs (Last 4 hours): Vital Signs Temp Pulse 01/08/18 14:17 76 01/08/18 12:24 101.6 F H Intake and Output (Last 8hrs): Intake & Output 0601/08/18 01/08/18 06:59 14:59 22:59 Intake Total 482 961 Output Total 1630 1225 Balance -1148 -264 Weight 193 lb Intake: IV 180 120 Intake, IV Amount 252 401 Proximal Port 200 Right Medial Port 252 201 Oral 50 440 Output: Urine 1630 1225 Urethral (Johnson) 1630 1225 - Medications Active Medications: Active Medications Generic Name Dose Route Start Last Admin Trade Name Freq PRN Reason Stop Dose Admin Albuterol/Ipratropium 3 ml 01/07/18 14:00 01/08/18 14:17 Duoneb 3 Mg/0.5 Mg (3 Ml) Ud INH 3 ml RQ6 MIGDALIA Administration Amlodipine Besylate 10 mg 01/07/18 15:49 01/08/18 10:12 Norvasc PO 10 mg DAILY MIGDALIA Administration Calcium Acetate 1,334 mg 01/07/18 10:45 01/08/18 10:11 Phoslo PO 1,334 mg TID MIGDALIA Administration Ferrous Gluconate 324 mg 01/07/18 14:00 01/08/18 10:47 Fergon PO 324 mg TID MIGDALIA Administration Heparin Sodium (Porcine) 5,000 units 01/05/18 11:00 01/08/18 10:13 Heparin SC 5,000 units Q12 MIGDALIA Administration Hydralazine HCl 50 mg 01/07/18 10:00 01/08/18 10:12 Apresoline PO 50 mg TID MIGDALIA Administration Nitroglycerin/Dextrose 50 mg in 250 mls @ 7.5 mls/hr 01/07/18 09:45 01/08/18 09:45 Nitroglycerin 50 Mg/250 Ml D5w IV Not Given .Q24H MIGDALIA Protocol 25 MCG/MIN Imipenem/Cilastatin Sodium 250 100 mls @ 100 mls/hr 01/07/18 18:15 01/08/18 05:47 mg/ Sodium Chloride IVPB 100 mls/hr Q12H MIGDALIA Administration Protocol Insulin Aspart 0 unit 01/08/18 11:30 01/08/18 12:04 Novolog SC 3 unit ACHS MIGDALIA Administration Protocol Insulin Detemir 40 unit 01/07/18 07:30 01/08/18 10:16 Levemir SC 40 unit QAM MIGDALIA Administration Levothyroxine Sodium 125 mcg 12/30/17 06:30 01/08/18 05:46 Synthroid PO 125 mcg DAILY@0630 MIGDALIA Administration Metolazone 5 mg 01/07/18 13:00 01/08/18 10:25 Zaroxolyn PO 01/10/18 13:01 5 mg BID MIGDALIA Administration Metoprolol Tartrate 5 mg 01/07/18 09:46 Lopressor IVP Q6H PRN Systolic Blood Pressure Metoprolol Tartrate 100 mg 01/08/18 10:01 Lopressor PO Q12 MIGDALIA Montelukast Sodium 10 mg 12/29/17 22:00 01/07/18 21:05 Singulair PO 10 mg HS MIGDALIA Administration Multivitamins 1 tab 01/01/18 10:00 01/08/18 10:12 Hexavitamin PO 1 tab DAILY MIGDALIA Administration Mupirocin 0 gm 12/30/17 10:00 01/08/18 10:28 Bactroban Ointment TOP Not Given DAILY MIGDALIA Pantoprazole Sodium 40 mg 01/05/18 10:00 01/08/18 10:13 Protonix Inj IVP 40 mg DAILY MIGDALIA Administration Rosuvastatin Calcium 20 mg 12/29/17 22:00 01/07/18 21:05 Crestor PO 20 mg HS MIGDALIA Administration Sodium Bicarbonate 1,300 mg 01/06/18 18:00 01/08/18 10:13 Sodium Bicarbonate Tab PO 1,300 mg BID MIGDALIA Administration Topiramate 25 mg 12/31/17 18:00 01/08/18 10:12 Topamax PO 25 mg BID MIGDALIA Administration - Patient Studies Lab Studies: Microbiology Studies 01/05/18 13:44 Blood Culture - Preliminary Blood-Venous NO GROWTH AFTER 3 DAYS 01/05/18 13:44 Blood Culture - Preliminary Blood-Venous NO GROWTH AFTER 3 DAYS Lab Studies 01/08/18 01/08/18 01/08/18 Range/Units 13:50 12:00 07:57 WBC (4.8-10.8) K/uL RBC (3.80-5.20) Mil/uL Hgb (11.0-16.0) g/dL Hct (34.0-47.0) % MCV (81.0-99.0) fL MCH (27.0-31.0) pg MCHC (33.0-37.0) g/dL RDW (11.5-14.5) % Plt Count (130-400) K/uL MPV (7.2-11.7) fL Neut % (Auto) (50.0-75.0) % Lymph % (Auto) (20.0-40.0) % [place] % (Auto) (0.0-10.0) % Eos % (Auto) (0.0-4.0) % Baso % (Auto) (0.0-2.0) % Neut # (Auto) (1.8-7.0) K/uL Lymph # (Auto) (1.0-4.3) K/uL [place] # (Auto) (0.0-0.8) K/uL Eos # (Auto) (0.0-0.7) K/uL Baso # (Auto) (0.0-0.2) K/uL Puncture Site pCO2 (35-45) mm/Hg pO2 (80-100) mm/Hg HCO3 (21-28) mmol/L ABG pH (7.35-7.45) ABG Total CO2 (22-28) mmol/L ABG O2 Saturation (95-98) % ABG Base Excess (-2.0-3.0) mmol/L ABG Hemoglobin (11.7-17.4) g/dL ABG Carboxyhemoglobin (0.5-1.5) % POC ABG HHb (Measured) (0.0-5.0) % ABG Methemoglobin (0.0-3.0) % Saqib Test A-a O2 Difference mm/Hg Respiratory Index Hgb O2 Saturation (95.0-98.0) % Vent Mode FiO2 % Inspiratory BiPAP Expiratory BiPAP Sodium (132-148) mmol/L Potassium (3.6-5.2) mmol/L Chloride (98-107) mmol/L Carbon Dioxide (22-30) mmol/L Anion Gap (10-20) BUN (7-17) mg/dL Creatinine (0.7-1.2) mg/dL Est GFR ( Amer) Est GFR (Non-Af Amer) POC Glucose (mg/dL) 243 H 168 H (65-110) mg/dL Random Glucose (65-105) mg/dL Calcium (8.6-10.4) mg/dl Phosphorus (2.5-4.5) mg/dL Magnesium (1.6-2.3) mg/dL Total Bilirubin (0.2-1.3) mg/dL AST (14-36) U/L ALT (9-52) U/L Alkaline Phosphatase (38-126) U/L Total Protein (6.3-8.3) g/dL Total Protein (PEP) (6.1-8.1) g/dL Albumin (3.5-5.0) g/dL Globulin (2.2-3.9) gm/dL Albumin/Globulin Ratio (1.0-2.1) Urine Color Straw (YELLOW) Urine Clarity Hazy (Clear) Urine pH 5.0 (5.0-8.0) Ur Specific Anthony 1.006 (1.003-1.030) Urine Protein Negative (NEGATIVE) mg/dL Urine Glucose (UA) 1+ (Normal) mg/dL Urine Ketones Negative (NEGATIVE) mg/dL Urine Blood Negative (NEGATIVE) Urine Nitrate Negative (NEGATIVE) Urine Bilirubin Negative (NEGATIVE) Urine Urobilinogen Normal (0.2-1.0) mg/dL Ur Leukocyte Esterase Trace (Negative) [place]/uL Urine WBC (Auto) 3 (0-5) /hpf Urine RBC (Auto) 11 H (0-3) /hpf Ur Squamous Epith Cells 2 (0-5) /hpf Urine Bacteria Rare (<OCC) Hyaline Casts 0-2 (0-2) /lpf Ur Random Creatinine (20-320) mg/dL U Random Total Protein (21-161) mg/g creat Urine Total Volume mg/dL Microalb/Creat Ratio (<30) 01/08/18 01/08/18 01/08/18 Range/Units 06:13 06:13 05:05 WBC 12.5 H (4.8-10.8) K/uL RBC 3.07 L (3.80-5.20) Mil/uL Hgb 7.9 L (11.0-16.0) g/dL Hct 24.8 L (34.0-47.0) % MCV 80.9 L (81.0-99.0) fL MCH 25.8 L (27.0-31.0) pg MCHC 31.9 L (33.0-37.0) g/dL RDW 16.0 H (11.5-14.5) % Plt Count 240 (130-400) K/uL MPV 10.6 (7.2-11.7) fL Neut % (Auto) 75.4 H (50.0-75.0) % Lymph % (Auto) 10.6 L (20.0-40.0) % [place] % (Auto) 11.1 H (0.0-10.0) % Eos % (Auto) 2.3 (0.0-4.0) % Baso % (Auto) 0.6 (0.0-2.0) % Neut # (Auto) 9.4 H (1.8-7.0) K/uL Lymph # (Auto) 1.3 (1.0-4.3) K/uL [place] # (Auto) 1.4 H (0.0-0.8) K/uL Eos # (Auto) 0.3 (0.0-0.7) K/uL Baso # (Auto) 0.1 (0.0-0.2) K/uL Puncture Site Rr pCO2 26 L (35-45) mm/Hg pO2 76 L (80-100) mm/Hg HCO3 22.3 (21-28) mmol/L ABG pH 7.48 H (7.35-7.45) ABG Total CO2 20.2 L (22-28) mmol/L ABG O2 Saturation 98.3 H (95-98) % ABG Base Excess -3.4 L (-2.0-3.0) mmol/L ABG Hemoglobin 8.0 L (11.7-17.4) g/dL ABG Carboxyhemoglobin 2.1 H (0.5-1.5) % POC ABG HHb (Measured) 1.6 (0.0-5.0) % ABG Methemoglobin 1.1 (0.0-3.0) % Saqib Test Pos A-a O2 Difference 105.0 mm/Hg Respiratory Index 1.4 Hgb O2 Saturation 95.2 (95.0-98.0) % Vent Mode Bipap FiO2 30.0 % Inspiratory BiPAP 14 Expiratory BiPAP 8 Sodium 148 (132-148) mmol/L Potassium 3.2 L (3.6-5.2) mmol/L Chloride 113 H (98-107) mmol/L Carbon Dioxide 21 L (22-30) mmol/L Anion Gap 18 (10-20) BUN 52 H (7-17) mg/dL Creatinine 2.7 H (0.7-1.2) mg/dL Est GFR ( Amer) 21 Est GFR (Non-Af Amer) 17 POC Glucose (mg/dL) (65-110) mg/dL Random Glucose 131 H (65-105) mg/dL Calcium 7.3 L (8.6-10.4) mg/dl Phosphorus 5.6 H (2.5-4.5) mg/dL Magnesium 2.1 (1.6-2.3) mg/dL Total Bilirubin 0.4 (0.2-1.3) mg/dL AST 17 (14-36) U/L ALT 52 D (9-52) U/L Alkaline Phosphatase 95 (38-126) U/L Total Protein 5.1 L (6.3-8.3) g/dL Total Protein (PEP) (6.1-8.1) g/dL Albumin 3.0 L (3.5-5.0) g/dL Globulin 2.1 L (2.2-3.9) gm/dL Albumin/Globulin Ratio 1.4 (1.0-2.1) Urine Color (YELLOW) Urine Clarity (Clear) Urine pH (5.0-8.0) Ur Specific Anthony (1.003-1.030) Urine Protein (NEGATIVE) mg/dL Urine Glucose (UA) (Normal) mg/dL Urine Ketones (NEGATIVE) mg/dL Urine Blood (NEGATIVE) Urine Nitrate (NEGATIVE) Urine Bilirubin (NEGATIVE) Urine Urobilinogen (0.2-1.0) mg/dL Ur Leukocyte Esterase (Negative) Arcelia/uL Urine WBC (Auto) (0-5) /hpf Urine RBC (Auto) (0-3) /hpf Ur Squamous Epith Cells (0-5) /hpf Urine Bacteria (<OCC) Hyaline Casts (0-2) /lpf Ur Random Creatinine (20-320) mg/dL U Random Total Protein (21-161) mg/g creat Urine Total Volume mg/dL Microalb/Creat Ratio (<30) 01/08/18 01/07/18 01/07/18 Range/Units 04:52 23:38 18:01 WBC (4.8-10.8) K/uL RBC (3.80-5.20) Mil/uL Hgb (11.0-16.0) g/dL Hct (34.0-47.0) % MCV (81.0-99.0) fL MCH (27.0-31.0) pg MCHC (33.0-37.0) g/dL RDW (11.5-14.5) % Plt Count (130-400) K/uL MPV (7.2-11.7) fL Neut % (Auto) (50.0-75.0) % Lymph % (Auto) (20.0-40.0) % [place] % (Auto) (0.0-10.0) % Eos % (Auto) (0.0-4.0) % Baso % (Auto) (0.0-2.0) % Neut # (Auto) (1.8-7.0) K/uL Lymph # (Auto) (1.0-4.3) K/uL [place] # (Auto) (0.0-0.8) K/uL Eos # (Auto) (0.0-0.7) K/uL Baso # (Auto) (0.0-0.2) K/uL Puncture Site pCO2 (35-45) mm/Hg pO2 (80-100) mm/Hg HCO3 (21-28) mmol/L ABG pH (7.35-7.45) ABG Total CO2 (22-28) mmol/L ABG O2 Saturation (95-98) % ABG Base Excess (-2.0-3.0) mmol/L ABG Hemoglobin (11.7-17.4) g/dL ABG Carboxyhemoglobin (0.5-1.5) % POC ABG HHb (Measured) (0.0-5.0) % ABG Methemoglobin (0.0-3.0) % Saqib Test A-a O2 Difference mm/Hg Respiratory Index Hgb O2 Saturation (95.0-98.0) % Vent Mode FiO2 % Inspiratory BiPAP Expiratory BiPAP Sodium (132-148) mmol/L Potassium (3.6-5.2) mmol/L Chloride (98-107) mmol/L Carbon Dioxide (22-30) mmol/L Anion Gap (10-20) BUN (7-17) mg/dL Creatinine (0.7-1.2) mg/dL Est GFR ( Amer) Est GFR (Non-Af Amer) POC Glucose (mg/dL) 161 H 143 H 160 H (65-110) mg/dL Random Glucose (65-105) mg/dL Calcium (8.6-10.4) mg/dl Phosphorus (2.5-4.5) mg/dL Magnesium (1.6-2.3) mg/dL Total Bilirubin (0.2-1.3) mg/dL AST (14-36) U/L ALT (9-52) U/L Alkaline Phosphatase (38-126) U/L Total Protein (6.3-8.3) g/dL Total Protein (PEP) (6.1-8.1) g/dL Albumin (3.5-5.0) g/dL Globulin (2.2-3.9) gm/dL Albumin/Globulin Ratio (1.0-2.1) Urine Color (YELLOW) Urine Clarity (Clear) Urine pH (5.0-8.0) Ur Specific Anthony (1.003-1.030) Urine Protein (NEGATIVE) mg/dL Urine Glucose (UA) (Normal) mg/dL Urine Ketones (NEGATIVE) mg/dL Urine Blood (NEGATIVE) Urine Nitrate (NEGATIVE) Urine Bilirubin (NEGATIVE) Urine Urobilinogen (0.2-1.0) mg/dL Ur Leukocyte Esterase (Negative) Arcelia/uL Urine WBC (Auto) (0-5) /hpf Urine RBC (Auto) (0-3) /hpf Ur Squamous Epith Cells (0-5) /hpf Urine Bacteria (<OCC) Hyaline Casts (0-2) /lpf Ur Random Creatinine (20-320) mg/dL U Random Total Protein (21-161) mg/g creat Urine Total Volume mg/dL Microalb/Creat Ratio (<30) 01/07/18 01/06/18 01/06/18 Range/Units 06:27 21:02 21:02 WBC (4.8-10.8) K/uL RBC (3.80-5.20) Mil/uL Hgb (11.0-16.0) g/dL Hct (34.0-47.0) % MCV (81.0-99.0) fL MCH (27.0-31.0) pg MCHC (33.0-37.0) g/dL RDW (11.5-14.5) % Plt Count (130-400) K/uL MPV (7.2-11.7) fL Neut % (Auto) (50.0-75.0) % Lymph % (Auto) (20.0-40.0) % [place] % (Auto) (0.0-10.0) % Eos % (Auto) (0.0-4.0) % Baso % (Auto) (0.0-2.0) % Neut # (Auto) (1.8-7.0) K/uL Lymph # (Auto) (1.0-4.3) K/uL [place] # (Auto) (0.0-0.8) K/uL Eos # (Auto) (0.0-0.7) K/uL Baso # (Auto) (0.0-0.2) K/uL Puncture Site pCO2 (35-45) mm/Hg pO2 (80-100) mm/Hg HCO3 (21-28) mmol/L ABG pH (7.35-7.45) ABG Total CO2 (22-28) mmol/L ABG O2 Saturation (95-98) % ABG Base Excess (-2.0-3.0) mmol/L ABG Hemoglobin (11.7-17.4) g/dL ABG Carboxyhemoglobin (0.5-1.5) % POC ABG HHb (Measured) (0.0-5.0) % ABG Methemoglobin (0.0-3.0) % Saqib Test A-a O2 Difference mm/Hg Respiratory Index Hgb O2 Saturation (95.0-98.0) % Vent Mode FiO2 % Inspiratory BiPAP Expiratory BiPAP Sodium (132-148) mmol/L Potassium (3.6-5.2) mmol/L Chloride (98-107) mmol/L Carbon Dioxide (22-30) mmol/L Anion Gap (10-20) BUN (7-17) mg/dL Creatinine (0.7-1.2) mg/dL Est GFR ( Amer) Est GFR (Non-Af Amer) POC Glucose (mg/dL) (65-110) mg/dL Random Glucose (65-105) mg/dL Calcium (8.6-10.4) mg/dl Phosphorus (2.5-4.5) mg/dL Magnesium (1.6-2.3) mg/dL Total Bilirubin (0.2-1.3) mg/dL AST (14-36) U/L ALT (9-52) U/L Alkaline Phosphatase (38-126) U/L Total Protein (6.3-8.3) g/dL Total Protein (PEP) 5.2 L (6.1-8.1) g/dL Albumin (3.5-5.0) g/dL Globulin (2.2-3.9) gm/dL Albumin/Globulin Ratio (1.0-2.1) Urine Color (YELLOW) Urine Clarity (Clear) Urine pH (5.0-8.0) Ur Specific Anthony (1.003-1.030) Urine Protein (NEGATIVE) mg/dL Urine Glucose (UA) (Normal) mg/dL Urine Ketones (NEGATIVE) mg/dL Urine Blood (NEGATIVE) Urine Nitrate (NEGATIVE) Urine Bilirubin (NEGATIVE) Urine Urobilinogen (0.2-1.0) mg/dL Ur Leukocyte Esterase (Negative) Arcelia/uL Urine WBC (Auto) (0-5) /hpf Urine RBC (Auto) (0-3) /hpf Ur Squamous Epith Cells (0-5) /hpf Urine Bacteria (<OCC) Hyaline Casts (0-2) /lpf Ur Random Creatinine 101 (20-320) mg/dL U Random Total Protein 236 H (21-161) mg/g creat Urine Total Volume 3.6 mg/dL Microalb/Creat Ratio 36 H (<30) Laboratory Results - last 24 hr 01/06/18 01/06/18 01/07/18 21:02 21:02 06:27 WBC RBC Hgb Hct MCV MCH MCHC RDW Plt Count MPV Neut % (Auto) Lymph % (Auto) [place] % (Auto) Eos % (Auto) Baso % (Auto) Neut # (Auto) Lymph # (Auto) [place] # (Auto) Eos # (Auto) Baso # (Auto) Puncture Site pCO2 pO2 HCO3 ABG pH ABG Total CO2 ABG O2 Saturation ABG Base Excess ABG Hemoglobin ABG Carboxyhemoglobin POC ABG HHb (Measured) ABG Methemoglobin Saqib Test A-a O2 Difference Respiratory Index Hgb O2 Saturation Vent Mode FiO2 Inspiratory BiPAP Expiratory BiPAP Sodium Potassium Chloride Carbon Dioxide Anion Gap BUN Creatinine Est GFR ( Amer) Est GFR (Non-Af Amer) POC Glucose (mg/dL) Random Glucose Calcium Phosphorus Magnesium Total Bilirubin AST ALT Alkaline Phosphatase Total Protein Total Protein (PEP) 5.2 L Albumin Globulin Albumin/Globulin Ratio Urine Color Urine Clarity Urine pH Ur Specific Anthony Urine Protein Urine Glucose (UA) Urine Ketones Urine Blood Urine Nitrate Urine Bilirubin Urine Urobilinogen Ur Leukocyte Esterase Urine WBC (Auto) Urine RBC (Auto) Ur Squamous Epith Cells Urine Bacteria Hyaline Casts Ur Random Creatinine 101 U Random Total Protein 236 H Urine Total Volume 3.6 Microalb/Creat Ratio 36 H 01/07/18 01/07/18 01/08/18 18:01 23:38 04:52 WBC RBC Hgb Hct MCV MCH MCHC RDW Plt Count MPV Neut % (Auto) Lymph % (Auto) [place] % (Auto) Eos % (Auto) Baso % (Auto) Neut # (Auto) Lymph # (Auto) [place] # (Auto) Eos # (Auto) Baso # (Auto) Puncture Site pCO2 pO2 HCO3 ABG pH ABG Total CO2 ABG O2 Saturation ABG Base Excess ABG Hemoglobin ABG Carboxyhemoglobin POC ABG HHb (Measured) ABG Methemoglobin Saqib Test A-a O2 Difference Respiratory Index Hgb O2 Saturation Vent Mode FiO2 Inspiratory BiPAP Expiratory BiPAP Sodium Potassium Chloride Carbon Dioxide Anion Gap BUN Creatinine Est GFR ( Amer) Est GFR (Non-Af Amer) POC Glucose (mg/dL) 160 H 143 H 161 H Random Glucose Calcium Phosphorus Magnesium Total Bilirubin AST ALT Alkaline Phosphatase Total Protein Total Protein (PEP) Albumin Globulin Albumin/Globulin Ratio Urine Color Urine Clarity Urine pH Ur Specific Anthony Urine Protein Urine Glucose (UA) Urine Ketones Urine Blood Urine Nitrate Urine Bilirubin Urine Urobilinogen Ur Leukocyte Esterase Urine WBC (Auto) Urine RBC (Auto) Ur Squamous Epith Cells Urine Bacteria Hyaline Casts Ur Random Creatinine U Random Total Protein Urine Total Volume Microalb/Creat Ratio 01/08/18 01/08/18 01/08/18 05:05 06:13 06:13 WBC 12.5 H RBC 3.07 L Hgb 7.9 L Hct 24.8 L MCV 80.9 L MCH 25.8 L MCHC 31.9 L RDW 16.0 H Plt Count 240 MPV 10.6 Neut % (Auto) 75.4 H Lymph % (Auto) 10.6 L [place] % (Auto) 11.1 H Eos % (Auto) 2.3 Baso % (Auto) 0.6 Neut # (Auto) 9.4 H Lymph # (Auto) 1.3 [place] # (Auto) 1.4 H Eos # (Auto) 0.3 Baso # (Auto) 0.1 Puncture Site Rr pCO2 26 L pO2 76 L HCO3 22.3 ABG pH 7.48 H ABG Total CO2 20.2 L ABG O2 Saturation 98.3 H ABG Base Excess -3.4 L ABG Hemoglobin 8.0 L ABG Carboxyhemoglobin 2.1 H POC ABG HHb (Measured) 1.6 ABG Methemoglobin 1.1 Saqib Test Pos A-a O2 Difference 105.0 Respiratory Index 1.4 Hgb O2 Saturation 95.2 Vent Mode Bipap FiO2 30.0 Inspiratory BiPAP 14 Expiratory BiPAP 8 Sodium 148 Potassium 3.2 L Chloride 113 H Carbon Dioxide 21 L Anion Gap 18 BUN 52 H Creatinine 2.7 H Est GFR ( Amer) 21 Est GFR (Non-Af Amer) 17 POC Glucose (mg/dL) Random Glucose 131 H Calcium 7.3 L Phosphorus 5.6 H Magnesium 2.1 Total Bilirubin 0.4 AST 17 ALT 52 D Alkaline Phosphatase 95 Total Protein 5.1 L Total Protein (PEP) Albumin 3.0 L Globulin 2.1 L Albumin/Globulin Ratio 1.4 Urine Color Urine Clarity Urine pH Ur Specific Anthony Urine Protein Urine Glucose (UA) Urine Ketones Urine Blood Urine Nitrate Urine Bilirubin Urine Urobilinogen Ur Leukocyte Esterase Urine WBC (Auto) Urine RBC (Auto) Ur Squamous Epith Cells Urine Bacteria Hyaline Casts Ur Random Creatinine U Random Total Protein Urine Total Volume Microalb/Creat Ratio 01/08/18 01/08/18 01/08/18 07:57 12:00 13:50 WBC RBC Hgb Hct MCV MCH MCHC RDW Plt Count MPV Neut % (Auto) Lymph % (Auto) [place] % (Auto) Eos % (Auto) Baso % (Auto) Neut # (Auto) Lymph # (Auto) [place] # (Auto) Eos # (Auto) Baso # (Auto) Puncture Site pCO2 pO2 HCO3 ABG pH ABG Total CO2 ABG O2 Saturation ABG Base Excess ABG Hemoglobin ABG Carboxyhemoglobin POC ABG HHb (Measured) ABG Methemoglobin Saqib Test A-a O2 Difference Respiratory Index Hgb O2 Saturation Vent Mode FiO2 Inspiratory BiPAP Expiratory BiPAP Sodium Potassium Chloride Carbon Dioxide Anion Gap BUN Creatinine Est GFR ( Amer) Est GFR (Non-Af Amer) POC Glucose (mg/dL) 168 H 243 H Random Glucose Calcium Phosphorus Magnesium Total Bilirubin AST ALT Alkaline Phosphatase Total Protein Total Protein (PEP) Albumin Globulin Albumin/Globulin Ratio Urine Color Straw Urine Clarity Hazy Urine pH 5.0 Ur Specific Anthony 1.006 Urine Protein Negative Urine Glucose (UA) 1+ Urine Ketones Negative Urine Blood Negative Urine Nitrate Negative Urine Bilirubin Negative Urine Urobilinogen Normal Ur Leukocyte Esterase Trace Urine WBC (Auto) 3 Urine RBC (Auto) 11 H Ur Squamous Epith Cells 2 Urine Bacteria Rare Hyaline Casts 0-2 Ur Random Creatinine U Random Total Protein Urine Total Volume Microalb/Creat Ratio Critical Care Progress Note - Nutrition Nutrition: Nutrition Category Date Time Status Dysphagia/Modified Consistency Diet [DIET] Diets 01/07/18 Lunch Active Assessment/Plan - Assessment and Plan (Free Text) Plan: Patient seen and examined at bedside with above resident. Above resident note reviewed and verified. -Hypoxic respiratory failure: improving with diuresis -Pulmonary congestion improving -IRASEMA: 2nd ACEI/ARB, avoid nephrotoxic drugs -/Chronic diastolice heart failure -HTN-controlled with combintaion of hydralaZine/lopressor and norvasc + diuretics -tolerating oral diet -continue dvt/pud ppx -requiring bi-pap PRN -hypernatremia 2nd diuretics, hold bumex today -d/c drew - Date & Time Date: 01/08/18 Time: 15:10
--- NOTE | 2018-01-08 09:06 | CP.PCM.PN ---
Subjective - Date & Time of Evaluation Date of Evaluation: 01/08/18 Time of Evaluation: 09:04 - Subjective Subjective: Nephrology Consultation Note: Assessment: critical non-oliguric Acute Kidney Injury (N17.9) likely hemodynamic injury leading to ATN HAGMA with respi compensation, hyperphos, hypernatremia, hypokalemia Acute respi failure with ? asthma exacerbation and pulmonary edema and pleural effusion s/p intubation Anemia DM, pulmonary hypertension, obesity, asthma, MILTON, PVD initially admitted with left foot osteomyelitis s/p amputation on 01/04/18 moderate to severe Aortic stenosis Plan No acute need for renal replacement therapy at this time . supportive management for now. continue diuresis with bumex 2 mg bid and metolazone 5 mg bid. No ACEI/ARB due to IRASEMA. maintain hemodynamics stable. HTN control with meds as ordered. Monitor Input/Output, daily weights and renal function with basic metabolic panel PRBC as needed for anemia. she was given dose of epogen 01/06/18 started on phos binders, continue with sodium bicarb: will be able to d/c soon if renal function continue to improve prbc as needed for anemia. on iron supplements MVI. she had got dose of epogen. dose of KCL today 40 meq check urine pro/cr, alb/cr, TSAT/Ferritin, SPEP/RIKY Dose meds/antibiotics for reduced GFR. Avoid fleets enema/magnesium based laxatives. Avoid nephrotoxins/NSAIDs/ iodinated contrast (unless needed emergently) Glycemic control Further work up/management as per primary team Thanks for allowing me to participate in care of your patient. Will follow patient with you. Please call if any Qs. d/w team and daughter. Dr Tomy Gonzalez Office: [phone] Chief Complaint; tired reason for consult: IRASEMA source of info: EMR HPI: Pt is a 73 y/o female with history of DM, pulmonary hypertension, obesity, asthma, MILTON, PVD initially admitted with left foot osteomyelitis s/p amputation on 01/04/18. pt had NAIL ARTIST 01/05/18 with respi failure with ? asthma exacerbation and pulmonary edema s/p intubation and transferred to ICU. renal consult for IRASEMA eval. no OTC/herbal meds or NSAIDs Noted recent iodinated contrast exposure as CTA 12/30/17. Noted obvious episodes of low BP (93/31). ROS: extubated 01/07/18. had SOB but better now. denies CP/nausea/vomiting. rest limited to obtain Physical Examination: General Appearance: comfortable, ill appearing. on BiPAP Vitals reviewed and noted as below Head; Atraumatic, normocephalic ENT: normal mucosa EYES: Pupils are equal, round and reactive to light accommodation. Eye muscles and extraocular movement intact. Sclera is anicteric. Neck; supple no lymphadenopathy, no thyromegaly or bruit Lungs: Increased respiratory rate/effort. Breath sounds bilateral decreased with crackles/rales + Heart: Normal rate. s1s2 normal. No rub or gallop. murmur + Extremities: no edema. No varicose veins. left foot dressed Neurological: Patient is sedated Skin: Warm and dry. Normal turgor. No rash. Palpitation: Normal elasticity for age Abdomen: soft non tender no abdominal tenderness without guarding no rigidity no organomegaly Psych: unable MSK: no joint tenderness or swelling. Digits and nails normal, no deformity : kidney or bladder not palpable. has russell Labs/imaging reviewed. Past medical history, past surgical history, family history, social history, allergy reviewed and noted as below Family hx: no hx of CKD. Rest non-contributory renal imaging on CTA: WNL with atherosclerosis UA 1+ protein no blood Objective - Vital Signs/Intake and Output Vital Signs (last 24 hours): Temp Pulse Resp BP Pulse Ox 98.7 F 93 H 17 150/65 94 L 01/08/18 04:00 01/08/18 08:31 01/08/18 08:31 01/08/18 08:31 01/08/18 08:31 Intake and Output: 01/08/18 01/08/18 06:59 18:59 Intake Total 900 120 Output Total 2350 Balance -1450 120 - Medications Medications: Current Medications Albuterol/Ipratropium (Duoneb 3 Mg/0.5 Mg (3 Ml) Ud) 3 ml INH RQ6 [facility] Last Admin: 01/08/18 07:30 Dose: 3 ml Amlodipine Besylate (Norvasc) 10 mg PO DAILY [facility] Bumetanide (Bumex) 2 mg IVP BID [facility] Last Admin: 01/07/18 18:00 Dose: Not Given Calcium Acetate (Phoslo) 1,334 mg PO TID [facility] Last Admin: 01/07/18 18:20 Dose: 1,334 mg Ferrous Gluconate (Fergon) 324 mg PO TID [facility] Last Admin: 01/07/18 18:21 Dose: 324 mg Heparin Sodium (Porcine) (Heparin) 5,000 units SC Q12 [facility] Last Admin: 01/07/18 21:05 Dose: 5,000 units Hydralazine HCl (Apresoline) 50 mg PO TID [facility] Last Admin: 01/07/18 18:21 Dose: 50 mg Nitroglycerin/Dextrose (Nitroglycerin 50 Mg/250 Ml D5w) 50 mg in 250 mls @ 7.5 mls/hr IV .Q24H [facility]; 25 MCG/MIN PRN Reason: Protocol Last Admin: 01/08/18 08:31 Dose: 120 mcg/min, 36 mls/hr Imipenem/Cilastatin Sodium 250 (mg/ Sodium Chloride) 100 mls @ 100 mls/hr IVPB Q12H [facility] PRN Reason: Protocol Last Admin: 01/08/18 05:47 Dose: 100 mls/hr Potassium Chloride (Potassium Chloride 20 Meq/100 Ml) 20 meq in 100 mls @ 50 mls/hr IVPB ONCE ONE Stop: 01/08/18 10:29 Last Admin: 01/08/18 08:24 Dose: 50 mls/hr Potassium Chloride (Potassium Chloride 20 Meq/100 Ml) 20 meq in 100 mls @ 50 mls/hr IVPB ONCE ONE Stop: 01/08/18 13:29 Insulin Aspart (Novolog) 0 unit SC ACHS [facility] PRN Reason: Protocol Insulin [facility]) [facility] Admin: 01/07/18 10:10 Dose: Not Given Levothyroxine Sodium (Synthroid) 125 mcg PO DAILY@0630 [facility] Last Admin: 01/08/18 05:46 Dose: 125 mcg Metolazone (Zaroxolyn) 5 mg PO BID [facility] Stop: 01/10/18 13:01 Last Admin: 01/07/18 18:31 Dose: Not Given Metoprolol Tartrate (Lopressor) 5 mg IVP Q6H PRN PRN Reason: Systolic Blood Pressure Metoprolol Tartrate (Lopressor) 75 mg PO Q12 [facility] Last Admin: 01/07/18 21:04 Dose: 75 mg Montelukast Sodium (Singulair) 10 mg PO HS [facility] Last Admin: 01/07/18 21:05 Dose: 10 mg Multivitamins (Hexavitamin) 1 tab PO DAILY [facility] Last Admin: 01/07/18 10:00 Dose: Not Given Mupirocin (Bactroban Ointment) 0 gm TOP DAILY [facility] Last Admin: 01/07/18 08:25 Dose: Not Given Pantoprazole Sodium (Protonix Inj) 40 mg IVP DAILY [facility] Last Admin: 01/07/18 13:40 Dose: 40 mg Rosuvastatin Calcium (Crestor) 20 mg PO HS [facility] Last Admin: 01/07/18 21:05 Dose: 20 mg Sodium Bicarbonate (Sodium Bicarbonate Tab) 1,300 mg PO BID [facility] Last Admin: 01/07/18 18:20 Dose: 1,300 mg Topiramate (Topamax) 25 mg PO BID [facility] Last Admin: 01/07/18 18:21 Dose: 25 mg - Labs Labs: 01/08/18 06:13 01/08/18 06:13 PT 13.7 SECONDS (9.7-12.2) H 01/04/18 11:37 INR 1.3 01/04/18 11:37 APTT 31 SECONDS (21-34) 01/04/18 11:37
[2018-01-08] MEDS: Multiple Vitamins Tab PO SCH (10:12)
[2018-01-08] MEDS: Insulin Detemir 100 units/ml Vial (Levemir) SC SCH (10:16)
[2018-01-08] MEDS: metOLazone 5 MG TAB PO SCH ×2 (10:25→18:07)
--- NOTE | 2018-01-08 12:13 | CP.PCM.PN ---
Subjective - Date & Time of Evaluation Date of Evaluation: 01/08/18 Time of Evaluation: 12:10 - Subjective Subjective: Podiatry Progress Note- Dr. Peña. 73 year old female patient seen at bedside with attending Dr. Peña s/p left great toe and potential 2nd digit level amputation. Family member at bedside. Pt resting comfortably at time of visit. Moderately responsive to presence and verbal prompting. No recorded overnight events. Objective - Vital Signs/Intake and Output Vital Signs (last 24 hours): Temp Pulse Resp BP Pulse Ox 100 F H 102 H 15 130/60 96 01/08/18 08:00 01/08/18 11:00 01/08/18 11:00 01/08/18 10:54 01/08/18 11:00 Intake and Output: 01/08/18 01/08/18 06:59 18:59 Intake Total 900 801 Output Total 2350 700 Balance -1450 101 - Medications Medications: Current Medications Albuterol/Ipratropium (Duoneb 3 Mg/0.5 Mg (3 Ml) Ud) 3 ml INH RQ6 [facility] Last Admin: 01/08/18 07:30 Dose: 3 ml Amlodipine Besylate (Norvasc) 10 mg PO DAILY [facility] Last Admin: 01/08/18 10:12 Dose: 10 mg Bumetanide (Bumex) 2 mg IVP BID [facility] Last Admin: 01/08/18 10:26 Dose: 2 mg Calcium Acetate (Phoslo) 1,334 mg PO TID [facility] Last Admin: 01/08/18 10:11 Dose: 1,334 mg Ferrous Gluconate (Fergon) 324 mg PO TID [facility] Last Admin: 01/08/18 10:47 Dose: 324 mg Heparin Sodium (Porcine) (Heparin) 5,000 units SC Q12 [facility] Last Admin: 01/08/18 10:13 Dose: 5,000 units Hydralazine HCl (Apresoline) 50 mg PO TID [facility] Last Admin: 01/08/18 10:12 Dose: 50 mg Nitroglycerin/Dextrose (Nitroglycerin 50 Mg/250 Ml D5w) 50 mg in 250 mls @ 7.5 mls/hr IV .Q24H [facility]; 25 MCG/MIN PRN Reason: Protocol Last Admin: 01/08/18 09:45 Dose: Not Given Imipenem/Cilastatin Sodium 250 (mg/ Sodium Chloride) 100 mls @ 100 mls/hr IVPB Q12H [facility] PRN Reason: Protocol Last Admin: 01/08/18 05:47 Dose: 100 mls/hr Potassium Chloride (Potassium Chloride 20 Meq/100 Ml) 20 meq in 100 mls @ 50 mls/hr IVPB ONCE ONE Stop: 01/08/18 13:29 Last Admin: 01/08/18 12:03 Dose: 50 mls/hr Insulin Aspart (Novolog) 0 unit SC ACHS [facility] PRN Reason: Protocol Last Admin: 01/08/18 12:04 Dose: 3 unit Insulin Detemir (Levemir) 40 unit SC QAM [facility] Last Admin: 01/08/18 10:16 Dose: 40 unit Levothyroxine Sodium (Synthroid) 125 mcg PO DAILY@0630 [facility] Last Admin: 01/08/18 05:46 Dose: 125 mcg Metolazone (Zaroxolyn) 5 mg PO BID [facility] Stop: 01/10/18 13:01 Last Admin: 01/08/18 10:25 Dose: 5 mg Metoprolol Tartrate (Lopressor) 5 mg IVP Q6H PRN PRN Reason: Systolic Blood Pressure Metoprolol Tartrate (Lopressor) 100 mg PO Q12 [facility] Montelukast Sodium (Singulair) 10 mg PO [facility] Last Admin: 01/07/18 21:05 Dose: 10 mg Multivitamins (Hexavitamin) 1 tab PO DAILY [facility] Last Admin: 01/08/18 10:12 Dose: 1 tab Mupirocin (Bactroban Ointment) 0 gm TOP DAILY [facility] Last Admin: 01/08/18 10:28 Dose: Not Given Pantoprazole Sodium (Protonix Inj) 40 mg IVP DAILY [facility] Last Admin: 01/08/18 10:13 Dose: 40 mg Rosuvastatin Calcium (Crestor) 20 mg PO HS [facility] Last Admin: 01/07/18 21:05 Dose: 20 mg Sodium Bicarbonate (Sodium Bicarbonate Tab) 1,300 mg PO BID [facility] Last Admin: 01/08/18 10:13 Dose: 1,300 mg Topiramate (Topamax) 25 mg PO BID [facility] Last Admin: 01/08/18 10:12 Dose: 25 mg - Labs Labs: 01/08/18 06:13 01/08/18 06:13 PT 13.7 SECONDS (9.7-12.2) H 01/04/18 11:37 INR 1.3 01/04/18 11:37 APTT 31 SECONDS (21-34) 01/04/18 11:37 - Constitutional Appears: Well, Non-toxic, No Acute Distress - Extremities Exam Additional comments: Lower extremity focused exam. Dressings clean, dry, and intact. Vasc: DP/PT pulses palpable 2/4. Temperature gradient warm to cool. CFT < 3 sec to all digits. No pedal edema noted Derm: Left hallux and 2nd digit amputation sites noted with all sutures inact. Well coapted no strangulation pallor noted. Site warm to touch. No productive for hematoma. No purulence nor active drainage noted. Neuro: Protective sensation grossly intact Ortho: no pain on palpation of the surgical site - Neurological Exam Neurological Exam: Alert, Awake, Oriented x3 - Psychiatric Exam Psychiatric exam: Normal Affect, Normal Mood Assessment and Plan - Assessment and Plan (Free Text) Assessment: 72 y/o female POD#4 s/p Left foot hallux and partial 2nd digit amputation (DOS ) due to chronic osteomyelitis Plan: Pt seen and evaluated with attending, Dr. Peña present. Chart labs, and vitals reviewed. Afebrile, leukocytosis noted WBC=12.5, trending down, likely due to post-op stress. Will monitor. Continue Local Wound care. Cleansed site with saline; dressed with DSD Continue IV abd per ID. Podiatry will follow pt while inhouse.
--- NOTE | 2018-01-08 12:26 | RAD ---
HISTORY: s/p extubation; acute on chronic respiratory failu COMPARISON: 01/07/2018 FINDINGS: LUNGS: Opacity at left lung base. This may reflect consolidation or elevated left hemidiaphragm. There is a small left pleural effusion. PLEURA: As above CARDIOVASCULAR: Right IJ central venous catheter unchanged. Status post removal of endotracheal tube. Status post removal of nasogastric tube. OSSEOUS STRUCTURES: No significant abnormalities. VISUALIZED UPPER ABDOMEN: Normal. OTHER FINDINGS: None. IMPRESSION: Opacity at left base may reflect consolidation, elevated hemidiaphragm or pleural fluid. Follow-up advised. Status post extubation.
[2018-01-08 14:08] LABS: SQUAMOUS EPITHIAL 2 /hpf (0-5); URINE BACTERIA RARE (<OCC); URINE BILIRUBIN NEGATIVE (NEGATIVE); URINE BLOOD NEGATIVE (NEGATIVE); URINE CLARITY Hazy (Clear); URINE COLOR Straw (YELLOW); URINE GLUCOSE (UA) 1+ mg/dL (Normal); URINE HYALINE CAST 0-2 /lpf (0-2); URINE LEUKOCYTE ESTERASE TRACE Leu/uL (Negative); URINE PROTEIN NEGATIVE (NEGATIVE); URINE UROBILINOGEN NORMAL mg/dL (0.2-1.0)
--- NOTE | 2018-01-08 16:14 | CP.PCM.PN ---
Subjective - Date & Time of Evaluation Date of Evaluation: 01/08/18 Time of Evaluation: 16:09 - Subjective Subjective: INFECTIOUS DISEASE PROGRESS NOTE KELSI GAMBOA MD, FACP CCU/ICU #[id number] 01/08/2018 CHART REVIEWED EXAMINE NOTED CASE DISCUSSED NEW TEMP SPIKE, REVIEWED WITH RN NEW BLOOD C/S, URINE C/C AND SPUTUM IF POSSIBLE TEMP RELATED TO LINES VS LUNG VS OTHER SOURCES...TO BE IDENTIFIED D/C PRIMAXIN START CEFEPIME AND SINGLE DOSE VANCOMYCIN PROGNOSIS LIMITED DISCUSSED WITH [facility] LAST EVENING KELSI GAMBOA MD, FACP Objective - Vital Signs/Intake and Output Vital Signs (last 24 hours): Temp Pulse Resp BP Pulse Ox 99.8 F H 77 14 119/46 L 99 01/08/18 15:00 01/08/18 15:00 01/08/18 15:00 01/08/18 15:00 01/08/18 15:00 Intake and Output: 01/08/18 01/08/18 06:59 18:59 Intake Total 900 961 Output Total 2350 1455 Balance -1450 -494 - Medications Medications: Current Medications Albuterol/Ipratropium (Duoneb 3 Mg/0.5 Mg (3 Ml) Ud) 3 ml INH RQ6 [facility] Last Admin: 01/08/18 14:17 Dose: 3 ml Amlodipine Besylate (Norvasc) 10 mg PO DAILY [facility] Last Admin: 01/08/18 10:12 Dose: 10 mg Calcium Acetate (Phoslo) 1,334 mg PO TID [facility] Last Admin: 01/08/18 14:00 Dose: Not Given Ferrous Gluconate (Fergon) 324 mg PO TID [facility] Last Admin: 01/08/18 14:00 Dose: Not Given Heparin Sodium (Porcine) (Heparin) 5,000 units SC Q12 [facility] Last Admin: 01/08/18 10:13 Dose: 5,000 units Hydralazine HCl (Apresoline) 50 mg PO TID [facility] Last Admin: 01/08/18 14:00 Dose: Not Given Cefepime HCl 1 gm/ Sodium (Chloride) 50 mls @ 100 mls/hr IVPB Q12H [facility] PRN Reason: Protocol Insulin Aspart (Novolog) 0 unit SC ACHS [facility] PRN Reason: Protocol Last Admin: 01/08/18 12:04 Dose: 3 unit Insulin Detemir (Levemir) 40 unit SC QAM [facility] Last Admin: 01/08/18 10:16 Dose: 40 unit Levothyroxine Sodium (Synthroid) 125 mcg PO DAILY@0630 [facility] Last Admin: 01/08/18 05:46 Dose: 125 mcg Metolazone (Zaroxolyn) 5 mg PO BID [facility] Stop: 01/10/18 13:01 Last Admin: 01/08/18 10:25 Dose: 5 mg Metoprolol Tartrate (Lopressor) 5 mg IVP Q6H PRN PRN Reason: Systolic Blood Pressure Metoprolol Tartrate (Lopressor) 100 mg PO Q12 [facility] Montelukast Sodium (Singulair) 10 mg PO HS [facility] Last Admin: 01/07/18 21:05 Dose: 10 mg Multivitamins (Hexavitamin) 1 tab PO DAILY [facility] Last Admin: 01/08/18 10:12 Dose: 1 tab Mupirocin (Bactroban Ointment) 0 gm TOP DAILY [facility] Last Admin: 01/08/18 10:28 Dose: Not Given Pantoprazole Sodium (Protonix Inj) 40 mg IVP DAILY [facility] Last Admin: 01/08/18 10:13 Dose: 40 mg Rosuvastatin Calcium (Crestor) 20 mg PO HS [facility] Last Admin: 01/07/18 21:05 Dose: 20 mg Sodium Bicarbonate (Sodium Bicarbonate Tab) 1,300 mg PO BID [facility] Last Admin: 01/08/18 10:13 Dose: 1,300 mg Topiramate (Topamax) 25 mg PO BID [facility] Last Admin: 01/08/18 10:12 Dose: 25 mg Vancomycin HCl (Vancomycin Inj) 1,250 mg 15 mg/kg (1250 mg) IVPB ONCE ONE PRN Reason: Protocol Stop: 01/08/18 17:01 - Labs Labs: 01/08/18 06:13 01/08/18 06:13 PT 13.7 SECONDS (9.7-12.2) H 01/04/18 11:37 INR 1.3 01/04/18 11:37 APTT 31 SECONDS (21-34) 01/04/18 11:37 Assessment and Plan (1) Osteomyelitis of toe of left foot Status: Acute (2) Diabetes 1.5, managed as type 2 Status: Chronic (3) Asthma Status: Chronic (4) Pulmonary arterial hypertension Status: Chronic (5) HTN (hypertension), benign Status: Chronic
[2018-01-08] MEDS ORDERED: Cefepime 1 GM in Sodium Chloride 0.9% 50 ML IVPB SCH (16:15)
[2018-01-08] MEDS ORDERED: Vancomycin 500 mg Inj IVPB ONE (17:00)
[2018-01-08] MEDS: Cefepime IV 1 gm in Dextrose 1 GM/50 ML BAG IVPB SCH (17:41)
[2018-01-09] MEDS: Albuterol-Ipratrop 3 mg / 0.5 (3 ml) UD INH SCH ×4 (03:18→20:12)
[2018-01-09] MEDS: Cefepime IV 1 gm in Dextrose 1 GM/50 ML BAG IVPB SCH ×2 (03:22→15:39)
[2018-01-09] MEDS: Levothyroxine 125 MCG TAB PO SCH (06:26)
[2018-01-09 06:29] LABS: BASO # 0.1 K/uL (0.0-0.2); BASO % 0.6 % (0.0-2.0); EOS # 0.4 K/uL (0.0-0.7); EOS % 4.1 % (0.0-4.0); HEMOGLOBIN 8.6 g/dL (11.0-16.0); LYMPH % 9.8 % (20.0-40.0); MEAN CELL VOLUME 80.9 fL (81.0-99.0); MEAN CORPUSCULAR HEMOGLOBIN 25.9 pg (27.0-31.0); MEAN PLATELET VOLUME 10.6 fL (7.2-11.7); MONO % 9.5 % (0.0-10.0); NEUT # 7.8 K/uL (1.8-7.0); PLATELET COUNT 221 K/uL (130-400); RBC 3.31 Mil/uL (3.80-5.20); RED CELL DISTRIBUTION WIDTH 16.2 % (11.5-14.5); WHITE BLOOD COUNT 10.2 K/uL (4.8-10.8)
[2018-01-09 06:47] LABS: ALB/GLOB RATIO 1.2 (1.0-2.1); ALBUMIN 3.1 g/dL (3.5-5.0); CALCIUM 8.3 mg/dl (8.6-10.4)
[2018-01-09] MEDS: (Novolog) Insulin Aspart, Recombinant 100 u/ml 10 ml vial SC SCH ×4 (07:45→21:17)
[2018-01-09 08:53] LABS: EOSINOPHIL 7 % (0-4); LYMPHOCYTE 7 % (20-40); MONOCYTE 6 % (0-10); NEUTROPHIL 80 % (50-75); TOTAL CELLS COUNTED 100
[2018-01-09 08:54] LABS: ANISOCYTOSIS SLIGHT; LARGE PLATELETS PRESENT; PLATELET ESTIMATE NORMAL (NORMAL)
[2018-01-09 08:57] LABS: HYPOCHROMIC SLIGHT; POLYCHROMIC SLIGHT
[2018-01-09] MEDS: Insulin Detemir 100 units/ml Vial (Levemir) SC SCH (09:40)
[2018-01-09] MEDS: metOLazone 5 MG TAB PO SCH ×2 (09:42→18:06)
--- NOTE | 2018-01-09 09:42 | RAD ---
HISTORY: Status postextubation. Acute on chronic respiratory failure. COMPARISON: Multiple serial examinations preceding the most recent study: January 08, 2018. Spell FINDINGS: LUNGS: Lobe stable consolidative changes right lower lobe. Improved aeration left lower lobe. PLEURA: No significant pleural effusion identified, no pneumothorax apparent. CARDIOVASCULAR: No radiographic findings to suggest acute or significant cardiovascular disease. Venous access catheter in stable, satisfactory position. OSSEOUS STRUCTURES: No significant abnormalities. VISUALIZED UPPER ABDOMEN: Normal. OTHER FINDINGS: None. IMPRESSION: Modest interval improvement left lower lobe infiltrate.
[2018-01-09] MEDS: Multiple Vitamins Tab PO SCH (09:43)
--- NOTE | 2018-01-09 14:05 | CP.PCM.PN ---
Subjective - Date & Time of Evaluation Date of Evaluation: 01/09/18 Time of Evaluation: 14:02 - Subjective Subjective: Podiatry Progress Note- Dr. Peña. 73 year old female patient seen at bedside s/p left great toe and potential 2nd digit level amputation. Family member at bedside. Pt resting comfortably at time of visit. Moderately responsive to presence and verbal prompting. No acute overnight events. Denies of having N/V. No other pedal complains at this time. Objective - Vital Signs/Intake and Output Vital Signs (last 24 hours): Temp Pulse Resp BP Pulse Ox 100.2 F H 81 11 L 153/61 H 96 01/09/18 12:00 01/09/18 13:24 01/09/18 12:00 01/09/18 12:54 01/09/18 12:00 Intake and Output: 01/09/18 01/09/18 06:59 18:59 Intake Total 100 660 Output Total 1820 580 Balance -1720 80 - Medications Medications: Current Medications Albuterol/Ipratropium (Duoneb 3 Mg/0.5 Mg (3 Ml) Ud) 3 ml INH RQ6 [facility] Last Admin: 01/09/18 13:24 Dose: 3 ml Amlodipine Besylate (Norvasc) 10 mg PO DAILY [facility] Last Admin: 01/09/18 09:43 Dose: 10 mg Carvedilol (Coreg) 12.5 mg PO BID [facility] Ferrous Gluconate (Fergon) 324 mg PO TID [facility] Last Admin: 01/09/18 09:42 Dose: 324 mg Heparin Sodium (Porcine) (Heparin) 5,000 units SC Q12 [facility] Last Admin: 01/09/18 09:41 Dose: 5,000 units Hydralazine HCl (Apresoline) 50 mg PO TID [facility] Last Admin: 01/09/18 09:42 Dose: 50 mg Cefepime HCl (Maxipime Iv 1 Gm Premix) 1 gm in 50 mls @ 100 mls/hr IVPB Q12H [facility] PRN Reason: Protocol Last Admin: 01/09/18 03:22 Dose: 100 mls/hr Insulin Aspart (Novolog) 0 unit SC ACHS [facility] PRN Reason: Protocol Last Admin: 01/09/18 12:00 Dose: 4 unit Insulin Detemir (Levemir) 40 unit SC QAM [facility] Last Admin: 01/09/18 09:40 Dose: 40 unit Levothyroxine Sodium (Synthroid) 125 mcg PO DAILY@0630 [facility] Last Admin: 01/09/18 06:26 Dose: 125 mcg Metolazone (Zaroxolyn) 5 mg PO BID [facility] Stop: 01/10/18 13:01 Last Admin: 01/09/18 09:42 Dose: 5 mg Montelukast Sodium (Singulair) 10 mg PO [facility] Last Admin: 01/08/18 21:00 Dose: 10 mg Multivitamins (Hexavitamin) 1 tab PO DAILY [facility] Last Admin: 01/09/18 09:43 Dose: 1 tab Mupirocin (Bactroban Ointment) 0 gm TOP DAILY [facility] Last Admin: 01/08/18 10:28 Dose: Not Given Pantoprazole Sodium (Protonix Inj) 40 mg IVP DAILY [facility] Last Admin: 01/09/18 09:43 Dose: 40 mg Rosuvastatin Calcium (Crestor) 20 mg PO [facility] Last Admin: 01/08/18 21:00 Dose: 20 mg Topiramate (Topamax) 25 mg PO BID [facility] Last Admin: 01/09/18 09:42 Dose: 25 mg - Labs Labs: 01/09/18 06:21 01/09/18 06:21 PT 13.7 SECONDS (9.7-12.2) H 01/04/18 11:37 INR 1.3 01/04/18 11:37 APTT 31 SECONDS (21-34) 01/04/18 11:37 - Constitutional Appears: Well, Non-toxic, No Acute Distress - Extremities Exam Additional comments: Lower extremity focused exam. Dressings clean, dry, and intact. Vasc: DP/PT pulses palpable 2/4. Temperature gradient warm to cool. CFT < 3 sec to all digits. No pedal edema noted Derm: Left hallux and 2nd digit amputation sites noted with all sutures inact. Well coapted no strangulation pallor noted. Site warm to touch. No productive for hematoma. No purulence nor active drainage noted. Neuro: Protective sensation grossly intact Ortho: no pain on palpation of the surgical site - Neurological Exam Neurological Exam: Alert, Awake, Oriented x3 - Psychiatric Exam Psychiatric exam: Normal Affect, Normal Mood Assessment and Plan - Assessment and Plan (Free Text) Assessment: 72 y/o female POD#5 s/p Left foot hallux and partial 2nd digit amputation (DOS ) due to chronic osteomyelitis Plan: Pt seen and evaluated Discussed plan with attending, Dr. Peña Chart labs, and vitals reviewed. Afebrile, leukocytosis noted WBC=10.2, trending down Continue Local Wound care. Cleansed site with saline; dressed with DSD Continue IV abd per ID. Podiatry will follow pt while inhouse.
--- NOTE | 2018-01-09 14:25 | CP.PCM.PN ---
Subjective - Date & Time of Evaluation Date of Evaluation: 01/09/18 Time of Evaluation: 14:23 - Subjective Subjective: Nephrology Consultation Note: Assessment: critical non-oliguric Acute Kidney Injury (N17.9) likely hemodynamic injury leading to ATN HAGMA with respi compensation, hyperphos, hypernatremia, hypokalemia Acute respi failure with ? asthma exacerbation and pulmonary edema and pleural effusion s/p intubation Anemia DM, pulmonary hypertension, obesity, asthma, MILTON, PVD initially admitted with left foot osteomyelitis s/p amputation on 01/04/18 moderate to severe Aortic stenosis Plan No acute need for renal replacement therapy at this time . Continue with diuretics No ACEI/ARB due to IRASEMA. maintain hemodynamics stable. HTN control with meds as ordered. Monitor Input/Output, daily weights and renal function with basic metabolic panel PRBC as needed for anemia. she was given dose of epogen 01/06/18 started on phos binders, continue with sodium bicarb: will be able to d/c soon if renal function continue to improve prbc as needed for anemia. on iron supplements MVI. she had got dose of epogen. check urine pro/cr, alb/cr, TSAT/Ferritin, SPEP/RIKY Dose meds/antibiotics for reduced GFR. Avoid fleets enema/magnesium based laxatives. Avoid nephrotoxins/NSAIDs/ iodinated contrast (unless needed emergently) Glycemic control Further work up/management as per primary team Thanks for allowing me to participate in care of your patient. Will follow patient with you. Please call if any Qs. d/w team and daughter. Dr Tomy Gonzalez Office: [phone] Chief Complaint; tired reason for consult: IRASEMA source of info: EMR HPI: Pt is a 73 y/o female with history of DM, pulmonary hypertension, obesity, asthma, MILTON, PVD initially admitted with left foot osteomyelitis s/p amputation on 01/04/18. pt had [employer]ER 01/05/18 with respi failure with ? asthma exacerbation and pulmonary edema s/p intubation and transferred to ICU. renal consult for IRASEMA eval. no OTC/herbal meds or NSAIDs Noted recent iodinated contrast exposure as CTA 12/30/17. Noted obvious episodes of low BP (93/31). ROS: extubated 01/07/18. had SOB but better now. denies CP/nausea/vomiting. rest limited to obtain Physical Examination: General Appearance: comfortable, better appearing. on O2 via NC Vitals reviewed and noted as below Head; Atraumatic, normocephalic ENT: normal mucosa EYES: Pupils are equal, round and reactive to light accommodation. Eye muscles and extraocular movement intact. Sclera is anicteric. Neck; supple no lymphadenopathy, no thyromegaly or bruit Lungs: Increased respiratory rate/effort. Breath sounds bilateral improved with some wheeze now Heart: Normal rate. s1s2 normal. No rub or gallop. murmur + Extremities: no edema. No varicose veins. left foot dressed Neurological: Patient is awake alert follow commands, no focal deificit Skin: Warm and dry. Normal turgor. No rash. Palpitation: Normal elasticity for age Abdomen: soft non tender no abdominal tenderness without guarding no rigidity no organomegaly Psych: normal insight/affect and mood MSK: no joint tenderness or swelling. Digits and nails normal, no deformity : kidney or bladder not palpable. has russell Labs/imaging reviewed. Past medical history, past surgical history, family history, social history, allergy reviewed and noted as below Family hx: no hx of CKD. Rest non-contributory renal imaging on CTA: WNL with atherosclerosis UA 1+ protein no blood Objective - Vital Signs/Intake and Output Vital Signs (last 24 hours): Temp Pulse Resp BP Pulse Ox 100.2 F H 81 11 L 153/61 H 96 01/09/18 12:00 01/09/18 13:24 01/09/18 12:00 01/09/18 12:54 01/09/18 12:00 Intake and Output: 01/09/18 01/09/18 06:59 18:59 Intake Total 100 660 Output Total 1820 580 Balance -1720 80 - Medications Medications: Current Medications Albuterol/Ipratropium (Duoneb 3 Mg/0.5 Mg (3 Ml) Ud) 3 ml INH RQ6 [facility] Last Admin: 01/09/18 13:24 Dose: 3 ml Amlodipine Besylate (Norvasc) 10 mg PO DAILY [facility] Last Admin: 01/09/18 09:43 Dose: 10 mg Carvedilol (Coreg) 12.5 mg PO BID [facility] Ferrous Gluconate (Fergon) 324 mg PO TID [facility] Last Admin: 01/09/18 09:42 Dose: 324 mg Heparin Sodium (Porcine) (Heparin) 5,000 units SC Q12 [facility] Last Admin: 01/09/18 09:41 Dose: 5,000 units Hydralazine HCl (Apresoline) 50 mg PO TID [facility] Last Admin: 01/09/18 09:42 Dose: 50 mg Cefepime HCl (Maxipime Iv 1 Gm Premix) 1 gm in 50 mls @ 100 mls/hr IVPB Q12H [facility] PRN Reason: Protocol Last Admin: 01/09/18 03:22 Dose: 100 mls/hr Insulin Aspart (Novolog) 0 unit SC ACHS [facility] PRN Reason: Protocol Last Admin: 01/09/18 12:00 Dose: 4 unit Insulin Detemir (Levemir) 40 unit SC QAM [facility] Last Admin: 01/09/18 09:40 Dose: 40 unit Levothyroxine Sodium (Synthroid) 125 mcg PO DAILY@0630 [facility] Last Admin: 01/09/18 06:26 Dose: 125 mcg Metolazone (Zaroxolyn) 5 mg PO BID [facility] Stop: 01/10/18 13:01 Last Admin: 01/09/18 09:42 Dose: 5 mg Montelukast Sodium (Singulair) 10 mg PO HS [facility] Last Admin: 01/08/18 21:00 Dose: 10 mg Multivitamins (Hexavitamin) 1 tab PO DAILY [facility] Last Admin: 01/09/18 09:43 Dose: 1 tab Mupirocin (Bactroban Ointment) 0 gm TOP DAILY [facility] Last Admin: 01/08/18 10:28 Dose: Not Given Pantoprazole Sodium (Protonix Inj) 40 mg IVP DAILY [facility] Last Admin: 01/09/18 09:43 Dose: 40 mg Rosuvastatin Calcium (Crestor) 20 mg PO HS [facility] Last Admin: 01/08/18 21:00 Dose: 20 mg Topiramate (Topamax) 25 mg PO BID [facility] Last Admin: 01/09/18 09:42 Dose: 25 mg - Labs Labs: 01/09/18 06:21 01/09/18 06:21 PT 13.7 SECONDS (9.7-12.2) H 01/04/18 11:37 INR 1.3 01/04/18 11:37 APTT 31 SECONDS (21-34) 01/04/18 11:37
--- NOTE | 2018-01-09 18:09 | CP.CCUPN ---
CCU Subjective - Physician Review Events Since Last Encounter (Free Text): 01/09/18 18:07 patient had a respiratory distress yesterday Today feeling bettePatient is using CPAP nighttime Cough noted Eating better Leg swellingnegative Family concernedabout right-sided weakness Patient had a history of CVA with right-sided weakness Subjective (Free Text): 01/09/18 18:08 sitting up comfortably Critical Care Time Spent (in minutes): 45 CCU Objective - Vital Signs / Intake & Output Vital Signs (Last 4 hours): Vital Signs Pulse Resp BP Pulse Ox 01/09/18 18:05 127/57 L 01/09/18 16:00 83 13 98 01/09/18 15:57 82 15 142/75 97 01/09/18 15:00 80 16 96 01/09/18 14:56 81 15 129/52 L 96 Intake and Output (Last 8hrs): Intake & Output 01/09/18 01/09/18 01/09/18 06:59 14:59 22:59 Intake Total 50 660 50 Output Total 1120 920 420 Balance -1070 -260 -370 Weight 192 lb 8 oz Intake: Intake, IV Amount 50 50 Proximal Port 50 50 Oral 660 Output: Urine 1120 920 420 Urethral (Johnson) 1120 920 420 Emesis 0 0 Other: # Bowel Movements 0 0 - Physical Exam Narrative Physical Exam (Free Text): 01/09/18 18:08 on examination: Vital signs stable Blood pressure better Urine output better Chest good air entry Regular heart sound Head: Positive for: Atraumatic, Normocephalic Pupils: Positive for: PERRL Extroacular Muscles: Positive for: EOMI Conjunctiva: Positive for: Normal Mouth: Positive for: Moist Mucous Membranes Respiratory/Chest: Positive for: Decreased Breath Sounds Abdomen: Positive for: Normal Bowel Sounds. Negative for: Tenderness, Distention Upper Extremity: Positive for: Normal Inspection, NORMAL PULSES, Neurovascularly Intact, Capillary Refill < 2s Lower Extremity: Positive for: Normal Inspection, Edema, NORMAL PULSES, Neurovascularly Intact, Capillary Refill < 2 s Skin: Positive for: Warm, Dry Psychiatric: Positive for: Alert - Medications Active Medications: Active Medications Generic Name Dose Route Start Last Admin Trade Name Freq PRN Reason Stop Dose Admin Albuterol/Ipratropium 3 ml 01/07/18 14:00 01/09/18 13:24 Duoneb 3 Mg/0.5 Mg (3 Ml) Ud INH 3 ml RQ6 MIGDALIA Administration Amlodipine Besylate 10 mg 01/07/18 15:49 01/09/18 09:43 Norvasc PO 10 mg DAILY MIGDALIA Administration Carvedilol 12.5 mg 01/09/18 18:00 01/09/18 18:05 Coreg PO 12.5 mg BID MIGDALIA Administration Ferrous Gluconate 324 mg 01/07/18 14:00 01/09/18 18:05 Fergon PO 324 mg TID MIGDALIA Administration Heparin Sodium (Porcine) 5,000 units 01/05/18 11:00 01/09/18 09:41 Heparin SC 5,000 units Q12 MIGDALIA Administration Hydralazine HCl 50 mg 01/07/18 10:00 01/09/18 18:05 Apresoline PO 50 mg TID MIGDALIA Administration Cefepime HCl 1 gm in 50 mls @ 100 mls/hr 01/08/18 16:15 01/09/18 15:39 Maxipime Iv 1 Gm Premix IVPB 100 mls/hr Q12H MIGDALIA Administration Protocol Insulin Aspart 0 unit 01/08/18 11:30 01/09/18 18:06 Novolog SC 6 unit ACHS [facility] Administration Protocol Insulin Detemir 40 unit 01/07/18 07:30 01/09/18 09:40 Levemir SC 40 unit QAM MIGDALIA Administration Levothyroxine Sodium 125 mcg 12/30/17 06:30 01/09/18 06:26 Synthroid PO 125 mcg DAILY@0630 M[facility]ALIA Administration Metolazone 5 mg 01/07/18 13:00 01/09/18 18:06 Zaroxolyn PO 01/10/18 13:01 Not Given BID MIGDALIA Montelukast Sodium 10 mg 12/29/17 22:00 01/08/18 21:00 Singulair PO 10 mg HS MIGDALIA Administration Multivitamins 1 tab 01/01/18 10:00 01/09/18 09:43 Hexavitamin PO 1 tab DAILY [facility]AL[facility] Administration Mupirocin 0 gm 12/30/17 10:00 01/09/18 13:00 Bactroban Ointment TOP Not Given DAILY [facility] Pantoprazole Sodium 40 mg 01/05/18 10:00 01/09/18 09:43 Protonix Inj IVP 40 mg DAILY M[facility]ALIA Administration Rosuvastatin Calcium 20 mg 12/29/17 22:00 01/08/18 21:00 Crestor PO 20 mg HS MIGDALIA Administration Topiramate 25 mg 12/31/17 18:00 01/09/18 09:42 Topamax PO 25 mg BID MIGDALIA Administration - Patient Studies Lab Studies: Microbiology Studies 01/08/18 13:50 Urine Culture - Final Urine No Growth (<1,000 CFU/ML) 01/08/18 13:50 Blood Culture - Preliminary Blood-Venous NO GROWTH AFTER 24 HOURS 01/08/18 13:50 Blood Culture - Preliminary Blood-Venous NO GROWTH AFTER 24 HOURS 01/05/18 13:44 Blood Culture - Preliminary Blood-Venous NO GROWTH AFTER 4 DAYS 01/05/18 13:44 Blood Culture - Preliminary Blood-Venous NO GROWTH AFTER 4 DAYS 01/08/18 19:42 Gram Stain - Final Sputum Induced Sputum Culture - Preliminary Gram Negative [facility] Studies 01/09/18 01/09/18 01/09/18 Range/Units 16:29 11:52 07:19 WBC (4.8-10.8) K/uL RBC (3.80-5.20) Mil/uL Hgb (11.0-16.0) g/dL Hct (34.0-47.0) % MCV (81.0-99.0) fL MCH (27.0-31.0) pg MCHC (33.0-37.0) g/dL RDW (11.5-14.5) % Plt Count (130-400) K/uL MPV (7.2-11.7) fL Neut % (Auto) (50.0-75.0) % Lymph % (Auto) (20.0-40.0) % [place] % (Auto) (0.0-10.0) % Eos % (Auto) (0.0-4.0) % Baso % (Auto) (0.0-2.0) % Neut # (Auto) (1.8-7.0) K/uL Lymph # (Auto) (1.0-4.3) K/uL [place]bers[place] # (Auto) (0.0-0.8) K/uL Eos # (Auto) (0.0-0.7) K/uL Baso # (Auto) (0.0-0.2) K/uL Neutrophils % (Manual) (50-75) % Lymphocytes % (Manual) (20-40) % Monocytes % (Manual) (0-10) % Eosinophils % (Manual) (0-4) % Platelet Estimate (NORMAL) Large Platelets Polychromasia Hypochromasia (manual) Anisocytosis (manual) Sodium (132-148) mmol/L Potassium (3.6-5.2) mmol/L Chloride (98-107) mmol/L Carbon Dioxide (22-30) mmol/L Anion Gap (10-20) BUN (7-17) mg/dL Creatinine (0.7-1.2) mg/dL Est GFR ( Amer) Est GFR (Non-Af Amer) POC Glucose (mg/dL) 304 H 258 H 154 H (65-110) mg/dL Random Glucose (65-105) mg/dL Calcium (8.6-10.4) mg/dl Phosphorus (2.5-4.5) mg/dL Magnesium (1.6-2.3) mg/dL Total Bilirubin (0.2-1.3) mg/dL AST (14-36) U/L ALT (9-52) U/L Alkaline Phosphatase (38-126) U/L Total Protein (6.3-8.3) g/dL Albumin (3.5-5.0) g/dL Globulin (2.2-3.9) gm/dL Albumin/Globulin Ratio (1.0-2.1) 01/09/1818 01/08/18 Range/Units 06:21 06:21 21:15 WBC 10.2 (4.8-10.8) K/uL RBC 3.31 L (3.80-5.20) Mil/uL Hgb 8.6 L (11.0-16.0) g/dL Hct 26.8 L (34.0-47.0) % MCV 80.9 L (81.0-99.0) fL MCH 25.9 L (27.0-31.0) pg MCHC 32.0 L (33.0-37.0) g/dL RDW 16.2 H (11.5-14.5) % Plt Count 221 (130-400) K/uL MPV 10.6 (7.2-11.7) fL Neut % (Auto) 76.0 H (50.0-75.0) % Lymph % (Auto) 9.8 L (20.0-40.0) % [place]berson % (Auto) 9.5 (0.0-10.0) % Eos % (Auto) 4.1 H (0.0-4.0) % Baso % (Auto) 0.6 (0.0-2.0) % Neut # (Auto) 7.8 H (1.8-7.0) K/uL Lymph # (Auto) 1.0 (1.0-4.3) K/uL [place]berson # (Auto) 1.0 H (0.0-0.8) K/uL Eos # (Auto) 0.4 (0.0-0.7) K/uL Baso # (Auto) 0.1 (0.0-0.2) K/uL Neutrophils % (Manual) 80 H (50-75) % Lymphocytes % (Manual) 7 L (20-40) % Monocytes % (Manual) 6 (0-10) % Eosinophils % (Manual) 7 H (0-4) % Platelet Estimate Normal (NORMAL) Large Platelets Present Polychromasia Slight Hypochromasia (manual) Slight Anisocytosis (manual) Slight Sodium 149 H (132-148) mmol/L Potassium 3.9 (3.6-5.2) mmol/L Chloride 113 H (98-107) mmol/L Carbon Dioxide 25 (22-30) mmol/L Anion Gap 16 (10-20) BUN 50 H (7-17) mg/dL Creatinine 2.5 H (0.7-1.2) mg/dL Est GFR ( Amer) 23 Est GFR (Non-Af Amer) 19 POC Glucose (mg/dL) 208 H (65-110) mg/dL Random Glucose 125 H (65-105) mg/dL Calcium 8.3 L (8.6-10.4) mg/dl Phosphorus 5.0 H (2.5-4.5) mg/dL Magnesium 2.1 (1.6-2.3) mg/dL Total Bilirubin 0.6 (0.2-1.3) mg/dL AST 22 (14-36) U/L ALT 46 (9-52) U/L Alkaline Phosphatase 87 (38-126) U/L Total Protein 5.6 L (6.3-8.3) g/dL Albumin 3.1 L (3.5-5.0) g/dL Globulin 2.5 (2.2-3.9) gm/dL Albumin/Globulin Ratio 1.2 (1.0-2.1) Laboratory Results - last 24 hr 01/08/18 01/09/18 01/09/18 21:15 06:21 06:21 WBC 10.2 RBC 3.31 L Hgb 8.6 L Hct 26.8 L MCV 80.9 L MCH 25.9 L MCHC 32.0 L RDW 16.2 H Plt Count 221 MPV 10.6 Neut % (Auto) 76.0 H Lymph % (Auto) 9.8 L Culberson % (Auto) 9.5 Eos % (Auto) 4.1 H Baso % (Auto) 0.6 Neut # (Auto) 7.8 H Lymph # (Auto) 1.0 [place] # (Auto) 1.0 H Eos # (Auto) 0.4 Baso # (Auto) 0.1 Neutrophils % (Manual) 80 H Lymphocytes % (Manual) 7 L Monocytes % (Manual) 6 Eosinophils % (Manual) 7 H Platelet Estimate Normal Large Platelets Present Polychromasia Slight Hypochromasia (manual) Slight Anisocytosis (manual) Slight Sodium 149 H Potassium 3.9 Chloride 113 H Carbon Dioxide 25 Anion Gap 16 BUN 50 H Creatinine 2.5 H Est GFR ( Amer) 23 Est GFR (Non-Af Amer) 19 POC Glucose (mg/dL) 208 H Random Glucose 125 H Calcium 8.3 L Phosphorus 5.0 H Magnesium 2.1 Total Bilirubin 0.6 AST 22 ALT 46 Alkaline Phosphatase 87 Total Protein 5.6 L Albumin 3.1 L Globulin 2.5 Albumin/Globulin Ratio 1.2 01/09/18 01/09/18 01/09/18 07:19 11:52 16:29 WBC RBC Hgb Hct MCV MCH MCHC RDW Plt Count MPV Neut % (Auto) Lymph % (Auto) [place]bers[place] % (Auto) Eos % (Auto) Baso % (Auto) Neut # (Auto) Lymph # (Auto) [place] # (Auto) Eos # (Auto) Baso # (Auto) Neutrophils % (Manual) Lymphocytes % (Manual) Monocytes % (Manual) Eosinophils % (Manual) Platelet Estimate Large Platelets Polychromasia Hypochromasia (manual) Anisocytosis (manual) Sodium Potassium Chloride Carbon Dioxide Anion Gap BUN Creatinine Est GFR ( Amer) Est GFR (Non-Af Amer) POC Glucose (mg/dL) 154 H 258 H 304 H Random Glucose Calcium Phosphorus Magnesium Total Bilirubin AST ALT Alkaline Phosphatase Total Protein Albumin Globulin Albumin/Globulin Ratio Fingerstick Blood Sugar Results: 304 Review of Systems - Review of Systems Review of Systems: reviewed Critical Care Progress Note - Nutrition Nutrition: Nutrition Category Date Time Status Dysphagia/Modified Consistency Diet [DIET] Diets 01/07/18 Lunch Active Assessment/Plan - Assessment and Plan (Free Text) Assessment: chest x-ray better than yesterday Patient with the 79-year-old female aortic stenosis Heart failure Improving We'll continue the current treatment
[2018-01-09] MEDS ORDERED: Magnesium Citrate Oral SOL (300 ml) PO ONE (22:15)
[2018-01-10] MEDS: Albuterol-Ipratrop 3 mg / 0.5 (3 ml) UD INH SCH ×3 (01:10→19:52)
[2018-01-10] MEDS: Cefepime IV 1 gm in Dextrose 1 GM/50 ML BAG IVPB SCH ×2 (03:16→15:51)
[2018-01-10 05:48] LABS: BASO # 0.1 K/uL (0.0-0.2); BASO % 0.8 % (0.0-2.0); EOS # 0.5 K/uL (0.0-0.7); EOS % 5.1 % (0.0-4.0); HEMOGLOBIN 8.8 g/dL (11.0-16.0); LYMPH % 9.8 % (20.0-40.0); MEAN CELL VOLUME 81.1 fL (81.0-99.0); MEAN CORPUSCULAR HEMOGLOBIN 26.2 pg (27.0-31.0); MEAN CORPUSCULAR HGB CONC 32.3 g/dL (33.0-37.0); MEAN PLATELET VOLUME 10.9 fL (7.2-11.7); MONO # 1.1 K/uL (0.0-0.8); MONO % 9.9 % (0.0-10.0); NEUT # 7.9 K/uL (1.8-7.0); NEUT % 74.4 % (50.0-75.0); NRBC % 0.1 % (0.0-2.0); PLATELET COUNT 227 K/uL (130-400); RBC 3.33 Mil/uL (3.80-5.20); RED CELL DISTRIBUTION WIDTH 16.4 % (11.5-14.5); WHITE BLOOD COUNT 10.7 K/uL (4.8-10.8)
[2018-01-10] MEDS: Levothyroxine 125 MCG TAB PO SCH (06:10)
[2018-01-10 06:13] LABS: ALB/GLOB RATIO 1.2 (1.0-2.1); CALCIUM 8.3 mg/dl (8.6-10.4)
--- NOTE | 2018-01-10 07:17 | CP.PCM.PN ---
Subjective - Date & Time of Evaluation Date of Evaluation: 01/10/18 Time of Evaluation: 07:13 - Subjective Subjective: feels better this am, wants to get up OOB CXR with small bilat effusions improved from previous to resume home meds letairis Objective - Vital Signs/Intake and Output Vital Signs (last 24 hours): Temp Pulse Resp BP Pulse Ox 99.3 F 77 12 161/69 H 97 01/10/18 04:00 01/10/18 06:00 01/10/18 06:00 01/10/18 05:56 01/10/18 06:00 Intake and Output: 01/10/18 01/10/18 06:59 18:59 Intake Total 200 Output Total 1000 Balance -800 - Medications Medications: Current Medications Albuterol/Ipratropium (Duoneb 3 Mg/0.5 Mg (3 Ml) Ud) 3 ml INH RQ6 [facility] Last Admin: 01/10/18 01:10 Dose: 3 ml Amlodipine Besylate (Norvasc) 10 mg PO DAILY [facility] Last Admin: 01/09/18 09:43 Dose: 10 mg Carvedilol (Coreg) 12.5 mg PO BID [facility] Last Admin: 01/09/18 18:05 Dose: 12.5 mg Ferrous Gluconate (Fergon) 324 mg PO TID [facility] Last Admin: 01/09/18 18:05 Dose: 324 mg Heparin Sodium (Porcine) (Heparin) 5,000 units SC Q12 [facility] Last Admin: 01/09/18 21:14 Dose: 5,000 units Home Med (Home Med) 1 unit PO DAILY [facility] Hydralazine HCl (Apresoline) 50 mg PO TID [facility] Last Admin: 01/09/18 18:05 Dose: 50 mg Cefepime HCl (Maxipime Iv 1 Gm Premix) 1 gm in 50 mls @ 100 mls/hr IVPB Q12H [facility] PRN Reason: Protocol Last Admin: 01/10/18 03:16 Dose: 100 mls/hr Insulin Aspart (Novolog) 0 unit SC ACHS [facility] PRN Reason: Protocol Last Admin: 01/09/18 21:17 Dose: Not Given Insulin Detemir (Levemir) 40 unit SC QAM [facility] Last Admin: 01/09/18 09:40 Dose: 40 unit Levothyroxine Sodium (Synthroid) 125 mcg PO DAILY@0630 [facility] Last Admin: 01/10/18 06:10 Dose: 125 mcg Metolazone (Zaroxolyn) 5 mg PO BID [facility] Stop: 01/10/18 13:01 Last Admin: 01/09/18 18:06 Dose: Not Given Montelukast Sodium (Singulair) 10 mg PO [facility] Last Admin: 01/09/18 21:14 Dose: 10 mg Multivitamins (Hexavitamin) 1 tab PO DAILY [facility] Last Admin: 01/09/18 09:43 Dose: 1 tab Mupirocin (Bactroban Ointment) 0 gm TOP DAILY [facility] Last Admin: 01/09/18 13:00 Dose: Not Given Pantoprazole Sodium (Protonix Inj) 40 mg IVP DAILY [facility] Last Admin: 01/09/18 09:43 Dose: 40 mg Rosuvastatin Calcium (Crestor) 20 mg PO [facility] Last Admin: 01/09/18 21:14 Dose: 20 mg Topiramate (Topamax) 25 mg PO BID [facility] Last Admin: 01/09/18 19:00 Dose: 25 mg - Labs Labs: 01/10/18 05:37 01/10/18 05:38 PT 13.7 SECONDS (9.7-12.2) H 01/04/18 11:37 INR 1.3 01/04/18 11:37 APTT 31 SECONDS (21-34) 01/04/18 11:37 - Constitutional Appears: No Acute Distress, Chronically Ill - Head Exam Head Exam: ATRAUMATIC, NORMOCEPHALIC - Eye Exam Eye Exam: Normal appearance - ENT Exam ENT Exam: Mucous Membranes Moist - Respiratory Exam Respiratory Exam: Decreased Breath Sounds - Cardiovascular Exam Cardiovascular Exam: +S1, +S2, +S4, Murmur - GI/Abdominal Exam GI & Abdominal Exam: Normal Bowel Sounds - Rectal Exam Rectal Exam: Deferred - Neurological Exam Neurological Exam: Alert, Awake, Oriented x3 - Psychiatric Exam Psychiatric exam: Normal Affect, Normal Mood - Skin Skin Exam: Dry Assessment and Plan (1) Osteomyelitis of ankle and foot Status: Acute (2) Diabetes 1.5, managed as type 2 Status: Chronic (3) HTN (hypertension), benign Status: Chronic (4) Pulmonary arterial hypertension Status: Chronic (5) Acute respiratory failure Status: Resolved (6) CHF (congestive heart failure) Status: Acute (7) IRASEMA (acute kidney injury) Status: Acute
[2018-01-10] MEDS: (Novolog) Insulin Aspart, Recombinant 100 u/ml 10 ml vial SC SCH ×4 (08:05→21:01)
[2018-01-10 08:30] LABS: EOSINOPHIL 9 % (0-4); LYMPHOCYTE 13 % (20-40); MONOCYTE 7 % (0-10); MYELOCYTE 1 % (0-0); NEUTROPHIL 70 % (50-75); PLATELET ESTIMATE NORMAL (NORMAL); TOTAL CELLS COUNTED 100
[2018-01-10 08:31] LABS: ANISOCYTOSIS SLIGHT; HYPOCHROMIC SLIGHT; MICROCYTOSIS SLIGHT; POIKILOCYTOSIS SLIGHT; TARGET CELLS SLIGHT; TEARDROP CELLS SLIGHT
[2018-01-10 08:32] LABS: BURR CELLS SLIGHT; LARGE PLATELETS PRESENT; OVALOCYTES SLIGHT
--- NOTE | 2018-01-10 09:22 | RAD ---
HISTORY: s/p extubation; acute on chronic respiratory failu COMPARISON: 01/09/2018 FINDINGS: LUNGS: No active pulmonary disease. PLEURA: Bilateral small pleural effusion. No pneumothorax. CARDIOVASCULAR: Normal heart size. Right IJ central venous catheter unchanged. No congestive change. OSSEOUS STRUCTURES: No significant abnormalities. VISUALIZED UPPER ABDOMEN: Normal. OTHER FINDINGS: None. IMPRESSION: Bilateral pleural effusion.
--- NOTE | 2018-01-10 09:29 | CP.PCM.PN ---
Subjective - Date & Time of Evaluation Date of Evaluation: 01/10/18 Time of Evaluation: 09:26 - Subjective Subjective: Pt is alert, nad. Feeling better. Cr imrproving, toerated transfusion, cxr is clear. Objective - Vital Signs/Intake and Output Vital Signs (last 24 hours): Temp Pulse Resp BP Pulse Ox 98.8 F 76 16 177/80 H 97 01/10/18 08:00 01/10/18 09:00 01/10/18 09:00 01/10/18 08:56 01/10/18 09:00 Intake and Output: 01/10/18 01/10/18 06:59 18:59 Intake Total 200 50 Output Total 1000 175 Balance -800 -125 - Medications Medications: Current Medications Albuterol/Ipratropium (Duoneb 3 Mg/0.5 Mg (3 Ml) Ud) 3 ml INH RQ6 [facility] Last Admin: 01/10/18 07:50 Dose: 3 ml Amlodipine Besylate (Norvasc) 10 mg PO DAILY [facility] Last Admin: 01/09/18 09:43 Dose: 10 mg Carvedilol (Coreg) 12.5 mg PO BID [facility] Last Admin: 01/09/18 18:05 Dose: 12.5 mg Ferrous Gluconate (Fergon) 324 mg PO TID [facility] Last Admin: 01/09/18 18:05 Dose: 324 mg Heparin Sodium (Porcine) (Heparin) 5,000 units SC Q12 [facility] Last Admin: 01/09/18 21:14 Dose: 5,000 units Home Med (Home Med) 1 unit PO DAILY [facility] Hydralazine HCl (Apresoline) 50 mg PO TID [facility] Last Admin: 01/09/18 18:05 Dose: 50 mg Cefepime HCl (Maxipime Iv 1 Gm Premix) 1 gm in 50 mls @ 100 mls/hr IVPB Q12H [facility] PRN Reason: Protocol Last Admin: 01/10/18 03:16 Dose: 100 mls/hr Potassium Chloride (Potassium Chloride 20 Meq/100 Ml) 20 meq in 100 mls @ 50 mls/hr IVPB ONCE ONE Stop: 01/10/18 09:59 Last Admin: 01/10/18 08:05 Dose: 50 mls/hr Potassium Chloride (Potassium Chloride 20 Meq/100 Ml) 20 meq in 100 mls @ 50 mls/hr IVPB ONCE ONE Stop: 01/10/18 12:59 Insulin Aspart (Novolog) 0 unit SC ACHS [facility] PRN Reason: Protocol Last Admin: 01/10/18 08:05 Dose: 3 unit Insulin Detemir (Levemir) 40 unit SC QAM [facility] Last Admin: 01/09/18 09:40 Dose: 40 unit Levothyroxine Sodium (Synthroid) 125 mcg PO DAILY@0630 [facility] Last Admin: 01/10/18 06:10 Dose: 125 mcg Metolazone (Zaroxolyn) 5 mg PO BID [facility] Stop: 01/10/18 13:01 Last Admin: 01/09/18 18:06 Dose: Not Given Montelukast Sodium (Singulair) 10 mg PO HS [facility] Last Admin: 01/09/18 21:14 Dose: 10 mg Multivitamins (Hexavitamin) 1 tab PO DAILY [facility] Last Admin: 01/09/18 09:43 Dose: 1 tab Mupirocin (Bactroban Ointment) 0 gm TOP DAILY [facility] Last Admin: 01/09/18 13:00 Dose: Not Given Pantoprazole Sodium (Protonix Inj) 40 mg IVP DAILY [facility] Last Admin: 01/09/18 09:43 Dose: 40 mg Rosuvastatin Calcium (Crestor) 20 mg PO HS [facility] Last Admin: 01/09/18 21:14 Dose: 20 mg Topiramate (Topamax) 25 mg PO BID [facility] Last Admin: 01/09/18 19:00 Dose: 25 mg - Labs Labs: 01/10/18 05:37 01/10/18 05:38 PT 13.7 SECONDS (9.7-12.2) H 01/04/18 11:37 INR 1.3 01/04/18 11:37 APTT 31 SECONDS (21-34) 01/04/18 11:37 - Constitutional Appears: Well - Head Exam Head Exam: ATRAUMATIC - Eye Exam Eye Exam: EOMI Pupil Exam: PERRL - ENT Exam ENT Exam: Mucous Membranes Moist - Respiratory Exam Respiratory Exam: Clear to Ausculation Bilateral - Cardiovascular Exam Cardiovascular Exam: Murmur - GI/Abdominal Exam GI & Abdominal Exam: Normal Bowel Sounds - Extremities Exam Extremities Exam: Normal Inspection - Back Exam Back Exam: NORMAL INSPECTION - Neurological Exam Neurological Exam: Alert, Altered, Awake, Oriented x3 - Psychiatric Exam Psychiatric exam: Normal Affect - Skin Skin Exam: Normal Color Assessment and Plan - Assessment and Plan (Free Text) Assessment: Previous assessment of AV not to long ago was , mild to moderte. Echo this admissionL severe by continuity equation was .9. As pt has improved, must consider ultimate TAVR. pt will get better, get over osteo, and eventualy be referred for tavr.
[2018-01-10] MEDS: Insulin Detemir 100 units/ml Vial (Levemir) SC SCH (10:09)
[2018-01-10] MEDS: Multiple Vitamins Tab PO SCH (10:11)
[2018-01-10] MEDS: metOLazone 5 MG TAB PO SCH (10:12)
--- NOTE | 2018-01-10 10:38 | CP.CCUPN ---
CCU Subjective - Physician Review Subjective (Free Text): Patient seen and examined at bedside. Patient reports breathing has improved. CCU Objective - Vital Signs / Intake & Output Vital Signs (Last 4 hours): Vital Signs Temp Pulse Resp BP Pulse Ox 01/10/18 10:11 161/67 H 01/10/18 10:10 161/67 H 01/10/18 09:00 76 16 97 01/10/18 08:56 81 18 177/80 H 96 01/10/18 08:09 79 10 L 162/57 H 94 L 01/10/18 08:00 98.8 F 78 12 96 01/10/18 07:57 79 13 183/70 H 92 L 01/10/18 07:50 78 01/10/18 07:00 73 12 97 01/10/18 06:56 79 16 155/73 H 98 Intake and Output (Last 8hrs): Intake & Output 01/09/18 01/10/18 01/10/18 22:59 06:59 14:59 Intake Total 150 100 50 Output Total 550 770 175 Balance -400 -670 -125 Weight 193 lb Intake: Intake, IV Amount 50 50 Proximal Port 50 Right Distal Port 50 Internal Jugular Oral 100 100 Output: Urine 550 770 175 Urethral (Johnson) 550 770 175 Stool 0 Emesis 0 Other: # Bowel Movements 0 - Physical Exam Head: Positive for: Atraumatic, Normocephalic Pupils: Positive for: PERRL Extroacular Muscles: Positive for: EOMI Conjunctiva: Positive for: Normal Mouth: Positive for: Moist Mucous Membranes Respiratory/Chest: Positive for: Decreased Breath Sounds Abdomen: Positive for: Normal Bowel Sounds. Negative for: Tenderness, Distention Upper Extremity: Positive for: Normal Inspection, NORMAL PULSES, Neurovascularly Intact, Capillary Refill < 2s Lower Extremity: Positive for: Normal Inspection, Edema, NORMAL PULSES, Neurovascularly Intact, Capillary Refill < 2 s Skin: Positive for: Warm, Dry Psychiatric: Positive for: Alert - Medications Active Medications: Active Medications Generic Name Dose Route Start Last Admin Trade Name Freq PRN Reason Stop Dose Admin Albuterol/Ipratropium 3 ml 01/07/18 14:00 01/10/18 07:50 Duoneb 3 Mg/0.5 Mg (3 Ml) Ud INH 3 ml RQ6 MIGDALIA Administration Amlodipine Besylate 10 mg 01/07/18 15:49 01/10/18 10:11 Norvasc PO 10 mg DAILY MIGDALIA Administration Carvedilol 12.5 mg 01/09/18 18:00 01/10/18 10:10 Coreg PO 12.5 mg BID MIGDALIA Administration Ferrous Gluconate 324 mg 01/07/18 14:00 01/10/18 10:10 Fergon PO 324 mg TID MIGDALIA Administration Furosemide 40 mg 01/10/18 10:00 01/10/18 10:11 Lasix PO 40 mg DAILY MIGDALIA Administration Heparin Sodium (Porcine) 5,000 units 01/05/18 11:00 01/10/18 10:10 Heparin SC 5,000 units Q12 MIGDALIA Administration Home Med 1 tab 01/10/18 10:00 Patient's Own Medication PO DAILY [facility] Hydralazine HCl 100 mg 01/10/18 10:34 Apresoline PO TID MIGDALIA Cefepime HCl 1 gm in 50 mls @ 100 mls/hr 01/08/18 16:15 01/10/18 03:16 Maxipime Iv 1 Gm Premix IVPB 100 mls/hr Q12H MIGDALIA Administration Protocol Potassium Chloride 20 meq in 100 mls @ 50 mls/hr 01/10/18 11:00 01/10/18 10: 08 Potassium Chloride 20 Meq/100 Ml IVPB 01/10/18 12:59 50 mls/hr ONCE ONE Administration Insulin Aspart 0 unit 01/08/18 11:30 01/10/18 08:05 Novolog SC 3 unit ACHS MIGDALIA Administration Protocol Insulin Detemir 40 unit 01/07/18 07:30 01/10/18 10:09 Levemir SC 40 unit QAM MIGDALIA Administration Levothyroxine Sodium 125 mcg 12/30/17 06:30 01/10/18 06:10 Synthroid PO 125 mcg DAILY@0630 MIGDALIA Administration Metolazone 5 mg 01/07/18 13:00 01/10/18 10:12 Zaroxolyn PO 01/10/18 13:01 5 mg BID MIGDALIA Administration Montelukast Sodium 10 mg 12/29/17 22:00 01/09/18 21:14 Singulair PO 10 mg HS MIGDALIA Administration Multivitamins 1 tab 01/01/18 10:00 01/10/18 10:11 Hexavitamin PO 1 tab DAILY [facility]IGDALIA Administration Mupirocin 0 gm 12/30/17 10:00 01/09/18 13:00 Bactroban Ointment TOP Not Given DAILY MIGDALIA Pantoprazole Sodium 40 mg 01/05/18 10:00 01/09/18 09:43 Protonix Inj IVP 40 mg DAILY MIGDALIA Administration Rosuvastatin Calcium 20 mg 12/29/17 22:00 01/09/18 21:14 Crestor PO 20 mg HS MIGDALIA Administration Topiramate 25 mg 12/31/17 18:00 01/10/18 10:12 Topamax PO 25 mg BID MIGDALIA Administration - Patient Studies Lab Studies: Microbiology Studies 01/08/18 19:42 Gram Stain - Final Sputum Induced Sputum Culture - Final Pseudomonas Aeruginosa 01/08/18 13:50 Urine Culture - Final Urine No Growth (<1,000 CFU/ML) 01/08/18 13:50 Blood Culture - Preliminary Blood-Venous NO GROWTH AFTER 24 HOURS 01/08/18 13:50 Blood Culture - Preliminary Blood-Venous NO GROWTH AFTER 24 HOURS 01/05/18 13:44 Blood Culture - Preliminary Blood-Venous NO GROWTH AFTER 4 DAYS 01/05/18 13:44 Blood Culture - Preliminary Blood-Venous NO GROWTH AFTER 4 DAYS Lab Studies 01/10/18 01/10/18 01/10/18 Range/Units 07:39 05:38 05:37 WBC 10.7 (4.8-10.8) K/uL RBC 3.33 L (3.80-5.20) Mil/uL Hgb 8.8 L (11.0-16.0) g/dL Hct 27.1 L (34.0-47.0) % MCV 81.1 (81.0-99.0) fL MCH 26.2 L (27.0-31.0) pg MCHC 32.3 L (33.0-37.0) g/dL RDW 16.4 H (11.5-14.5) % Plt Count 227 (130-400) K/uL MPV 10.9 (7.2-11.7) fL Neut % (Auto) 74.4 (50.0-75.0) % Lymph % (Auto) 9.8 L (20.0-40.0) % [place] % (Auto) 9.9 (0.0-10.0) % Eos % (Auto) 5.1 H (0.0-4.0) % Baso % (Auto) 0.8 (0.0-2.0) % Neut # (Auto) 7.9 H (1.8-7.0) K/uL Lymph # (Auto) 1.0 (1.0-4.3) K/uL [place] # (Auto) 1.1 H (0.0-0.8) K/uL Eos # (Auto) 0.5 (0.0-0.7) K/uL Baso # (Auto) 0.1 (0.0-0.2) K/uL Neutrophils % (Manual) 70 (50-75) % Lymphocytes % (Manual) 13 L (20-40) % Monocytes % (Manual) 7 (0-10) % Eosinophils % (Manual) 9 H (0-4) % Myelocytes % 1 H (0-0) % Platelet Estimate Normal (NORMAL) Large Platelets Present Hypochromasia (manual) Slight Poikilocytosis (manual Slight Anisocytosis (manual) Slight Microcytosis (manual) Slight Target Cells Slight Tear Drop Cells Slight Ovalocytes Slight Nishant Cells Slight Sodium 148 (132-148) mmol/L Potassium 3.5 L (3.6-5.2) mmol/L Chloride 108 H (98-107) mmol/L Carbon Dioxide 30 (22-30) mmol/L Anion Gap 13 (10-20) BUN 45 H (7-17) mg/dL Creatinine 2.4 H (0.7-1.2) mg/dL Est GFR ( Amer) 24 Est GFR (Non-Af Amer) 20 POC Glucose (mg/dL) 210 H (65-110) mg/dL Random Glucose 207 H (65-105) mg/dL Calcium 8.3 L (8.6-10.4) mg/dl Phosphorus 4.7 H (2.5-4.5) mg/dL Magnesium 2.0 (1.6-2.3) mg/dL Total Bilirubin 0.6 (0.2-1.3) mg/dL AST 26 (14-36) U/L ALT 43 (9-52) U/L Alkaline Phosphatase 96 (38-126) U/L Total Protein 5.5 L (6.3-8.3) g/dL Albumin 3.0 L (3.5-5.0) g/dL Globulin 2.5 (2.2-3.9) gm/dL Albumin/Globulin Ratio 1.2 (1.0-2.1) 01/09/18 01/09/18 01/09/18 Range/Units 21:15 16:29 11:52 WBC (4.8-10.8) K/uL RBC (3.80-5.20) Mil/uL Hgb (11.0-16.0) g/dL Hct (34.0-47.0) % MCV (81.0-99.0) fL MCH (27.0-31.0) pg MCHC (33.0-37.0) g/dL RDW (11.5-14.5) % Plt Count (130-400) K/uL MPV (7.2-11.7) fL Neut % (Auto) (50.0-75.0) % Lymph % (Auto) (20.0-40.0) % [place] % (Auto) (0.0-10.0) % Eos % (Auto) (0.0-4.0) % Baso % (Auto) (0.0-2.0) % Neut # (Auto) (1.8-7.0) K/uL Lymph # (Auto) (1.0-4.3) K/uL [place] # (Auto) (0.0-0.8) K/uL Eos # (Auto) (0.0-0.7) K/uL Baso # (Auto) (0.0-0.2) K/uL Neutrophils % (Manual) (50-75) % Lymphocytes % (Manual) (20-40) % Monocytes % (Manual) (0-10) % Eosinophils % (Manual) (0-4) % Myelocytes % (0-0) % Platelet Estimate (NORMAL) Large Platelets Hypochromasia (manual) Poikilocytosis (manual Anisocytosis (manual) Microcytosis (manual) Target Cells Tear Drop Cells Ovalocytes Nishant Cells Sodium (132-148) mmol/L Potassium (3.6-5.2) mmol/L Chloride (98-107) mmol/L Carbon Dioxide (22-30) mmol/L Anion Gap (10-20) BUN (7-17) mg/dL Creatinine (0.7-1.2) mg/dL Est GFR ( Amer) Est GFR (Non-Af Amer) POC Glucose (mg/dL) 296 H 304 H 258 H (65-110) mg/dL Random Glucose (65-105) mg/dL Calcium (8.6-10.4) mg/dl Phosphorus (2.5-4.5) mg/dL Magnesium (1.6-2.3) mg/dL Total Bilirubin (0.2-1.3) mg/dL AST (14-36) U/L ALT (9-52) U/L Alkaline Phosphatase (38-126) U/L Total Protein (6.3-8.3) g/dL Albumin (3.5-5.0) g/dL Globulin (2.2-3.9) gm/dL Albumin/Globulin Ratio (1.0-2.1) Laboratory Results - last 24 hr 01/09/18 01/09/18 01/09/18 11:52 16:29 21:15 WBC RBC Hgb Hct MCV MCH MCHC RDW Plt Count MPV Neut % (Auto) Lymph % (Auto) [place] % (Auto) Eos % (Auto) Baso % (Auto) Neut # (Auto) Lymph # (Auto) [place] # (Auto) Eos # (Auto) Baso # (Auto) Neutrophils % (Manual) Lymphocytes % (Manual) Monocytes % (Manual) Eosinophils % (Manual) Myelocytes % Platelet Estimate Large Platelets Hypochromasia (manual) Poikilocytosis (manual Anisocytosis (manual) Microcytosis (manual) Target Cells Tear Drop Cells Ovalocytes Christine Cells Sodium Potassium Chloride Carbon Dioxide Anion Gap BUN Creatinine Est GFR ( Amer) Est GFR (Non-Af Amer) POC Glucose (mg/dL) 258 H 304 H 296 H Random Glucose Calcium Phosphorus Magnesium Total Bilirubin AST ALT Alkaline Phosphatase Total Protein Albumin Globulin Albumin/Globulin Ratio 01/10/18 01/10/18 01/10/18 05:37 05:38 07:39 WBC 10.7 RBC 3.33 L Hgb 8.8 L Hct 27.1 L MCV 81.1 MCH 26.2 L MCHC 32.3 L RDW 16.4 H Plt Count 227 MPV 10.9 Neut % (Auto) 74.4 Lymph % (Auto) 9.8 L [place] % (Auto) 9.9 Eos % (Auto) 5.1 H Baso % (Auto) 0.8 Neut # (Auto) 7.9 H Lymph # (Auto) 1.0 [place] # (Auto) 1.1 H Eos # (Auto) 0.5 Baso # (Auto) 0.1 Neutrophils % (Manual) 70 Lymphocytes % (Manual) 13 L Monocytes % (Manual) 7 Eosinophils % (Manual) 9 H Myelocytes % 1 H Platelet Estimate Normal Large Platelets Present Hypochromasia (manual) Slight Poikilocytosis (manual Slight Anisocytosis (manual) Slight Microcytosis (manual) Slight Target Cells Slight Tear Drop Cells Slight Ovalocytes Slight Christine Cells Slight Sodium 148 Potassium 3.5 L Chloride 108 H Carbon Dioxide 30 Anion Gap 13 BUN 45 H Creatinine 2.4 H Est GFR ( Amer) 24 Est GFR (Non-Af Amer) 20 POC Glucose (mg/dL) 210 H Random Glucose 207 H Calcium 8.3 L Phosphorus 4.7 H Magnesium 2.0 Total Bilirubin 0.6 AST 26 ALT 43 Alkaline Phosphatase 96 Total Protein 5.5 L Albumin 3.0 L Globulin 2.5 Albumin/Globulin Ratio 1.2 Fingerstick Blood Sugar Results: 210 Critical Care Progress Note - Nutrition Nutrition: Nutrition Category Date Time Status Dysphagia/Modified Consistency Diet [DIET] Diets 01/07/18 Lunch Active Assessment/Plan - Assessment and Plan (Free Text) Assessment: This is a 73 female with PMHx HTN, T2DM, pulm HTN, CVA with TIA, GERD, right ear deafness and MILTON patient was admitted 12/29/17 for left foot Osteo s/p Left foot hallux and 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 RIJ TLC placed . Extubated 01/07. Plan: Neuro: Extubated 01/07 A: Hx CVA, TIA - Crestor 20mg PO QHS - Topamax 25mg PO BID Cardio: A: HTN - Norvasc 10mg, Hydralazine 50mg PO TID, Lopressor 75mg PO BID, Lopressor 5mg IVP Q6H PRN if HR > 100 - Currently on nitro drip A: Aortic Stenosis A: Pulmonary HTN - ECHO: LVEF 72%, moderate to severe aortic stenosis A: MILTON Pulm: A: Acute Respiratory Failure 2/2 Pulmonary Edema - Extubated 01/07 A: Asthma - Singular 10mg QHS GI: A: Transaminitis - downtrending - Baseline wnl - Likely medication induced - Hep panel - negative A: GERD Endo: A: T2DM - Accuchecks - Levemir 40 unit SC QAM, ISS - Q6H - HELD METFORMIN and GLIPIZIDE A: Hypothyroidism - Synthroid 125mcg Renal: A: ARF 2/2 ATN - improving - Bumex 2mg x 1, Bumex 1mg Q1H x 5 doses 01/06 - Bumex 2mg IVP BID, metolazone 5 mg PO BID x 3 days, sodium bicarb tablets, phoslo TID and ferrous gluconate TID - will continue with aggressive diuresis - Continue to monitor ID: A: Osteomyelitis, left foot - Initially on Rocephin and flagyl ---> Primaxin Q8H 01/05/18 - s/p Left foot hallux and 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 Peña - Wound culture - Corynebacterium - pending LENNY A: SIRS - Leukocytosis with left shift, bandemia, lactate 1.3 - BC, UC, UA - negative to date Heme/Onc A: Anemia of Chronic Disease - Baseline 9s - Patient is a Jehovah Witness - NO BLOOD TRANSFUSIONS - Procrit 10,000 x 1 given - Continue to monitor Prophylaxis - Protonix - SCDs, Hep Q12 - RIJ TLC placed 01/06/18 - Patient is a Jehovah Witness - NO BLOOD TRANSFUSIONS. DISPOSITION: PATIENT TRANSFERRED TO TELEMETRY. DW Dr. Ch, Belen Robert DO, PGY-1
[2018-01-10] MEDS: AMBRISENTAN PO SCH (12:17)
--- NOTE | 2018-01-10 13:09 | CP.PCM.PN ---
Subjective - Date & Time of Evaluation Date of Evaluation: 01/10/18 Time of Evaluation: 13:07 - Subjective Subjective: Nephrology Consultation Note: Assessment: Stable non-oliguric Acute Kidney Injury (N17.9) likely hemodynamic injury leading to ATN HAGMA with respi compensation, hyperphos, hypernatremia, hypokalemia Acute respi failure with ? asthma exacerbation and pulmonary edema and pleural effusion s/p intubation Anemia DM, pulmonary hypertension, obesity, asthma, MILTON, PVD initially admitted with left foot osteomyelitis s/p amputation on 01/04/18 moderate to severe Aortic stenosis Plan No acute need for renal replacement therapy at this time . Continue with diuretics No ACEI/ARB due to IRASEMA. maintain hemodynamics stable. HTN control with meds as ordered. increased hydralazine 100 mg TID Monitor Input/Output, daily weights and renal function with basic metabolic panel PRBC as needed for anemia. she was given dose of epogen 01/06/18, on iron supplements MVI. plan for TAVR later as per cardiology supplement lytes as needed Dose meds/antibiotics for reduced GFR. Avoid fleets enema/magnesium based laxatives. Avoid nephrotoxins/NSAIDs/ iodinated contrast (unless needed emergently) Glycemic control Further work up/management as per primary team Thanks for allowing me to participate in care of your patient. Will follow patient with you. Please call if any Qs. d/w team and daughter. Dr Tomy Gonzalez Office: [phone] reason for consult: IRASEMA source of info: EMR HPI: Pt is a 73 y/o female with history of DM, pulmonary hypertension, obesity, asthma, MILTON, PVD initially admitted with left foot osteomyelitis s/p amputation on 01/04/18. pt had [employer]PER[employer] 01/05/18 with respi failure with ? asthma exacerbation and pulmonary edema s/p intubation and transferred to ICU. renal consult for IRASEMA eval. no OTC/herbal meds or NSAIDs Noted recent iodinated contrast exposure as CTA 12/30/17. Noted obvious episodes of low BP (93/31). ROS: extubated 01/07/18. denies SOB now. denies CP/nausea/vomiting. feels better. Physical Examination: General Appearance: comfortable, better appearing. on O2 via NC Vitals reviewed and noted as below Head; Atraumatic, normocephalic ENT: normal mucosa EYES: Pupils are equal, round and reactive to light accommodation. Eye muscles and extraocular movement intact. Sclera is anicteric. Neck; supple no lymphadenopathy, no thyromegaly or bruit Lungs: Increased respiratory rate/effort. Breath sounds bilateral improved and clearer Heart: Normal rate. s1s2 normal. No rub or gallop. murmur + Extremities: no edema. No varicose veins. left foot dressed Neurological: Patient is awake alert follow commands, no focal deificit Skin: Warm and dry. Normal turgor. No rash. Palpitation: Normal elasticity for age Abdomen: soft non tender no abdominal tenderness without guarding no rigidity no organomegaly Psych: normal insight/affect and mood MSK: no joint tenderness or swelling. Digits and nails normal, no deformity : kidney or bladder not palpable. has russell Labs/imaging reviewed. Past medical history, past surgical history, family history, social history, allergy reviewed and noted as below Family hx: no hx of CKD. Rest non-contributory renal imaging on CTA: WNL with atherosclerosis UA 1+ protein no blood TSAT 7% Ferritin 25 Objective - Vital Signs/Intake and Output Vital Signs (last 24 hours): Temp Pulse Resp BP Pulse Ox 98.8 F 81 20 135/56 L 100 01/10/18 12:00 01/10/18 12:21 01/10/18 12:00 01/10/18 11:57 01/10/18 12:21 Intake and Output: 01/10/18 01/10/18 06:59 18:59 Intake Total 200 650 Output Total 1000 475 Balance -800 175 - Medications Medications: Current Medications Albuterol/Ipratropium (Duoneb 3 Mg/0.5 Mg (3 Ml) Ud) 3 ml INH RQ6 [facility] Last Admin: 01/10/18 07:50 Dose: 3 ml Amlodipine Besylate (Norvasc) 10 mg PO DAILY [facility] Last Admin: 01/10/18 10:11 Dose: 10 mg Carvedilol (Coreg) 12.5 mg PO BID [facility] Last Admin: 01/10/18 10:10 Dose: 12.5 mg Ferrous Gluconate (Fergon) 324 mg PO TID [facility] Last Admin: 01/10/18 10:10 Dose: 324 mg Furosemide (Lasix) 40 mg PO DAILY [facility] Last Admin: 01/10/18 10:11 Dose: 40 mg Heparin Sodium (Porcine) (Heparin) 5,000 units SC Q12 [facility] Last Admin: 01/10/18 10:10 Dose: 5,000 units Home Med (Patient's Own Medication) 1 tab PO DAILY [facility] Last Admin: 01/10/18 12:17 Dose: 1 tab Hydralazine HCl (Apresoline) 100 mg PO TID [facility] Cefepime HCl (Maxipime Iv 1 Gm Premix) 1 gm in 50 mls @ 100 mls/hr IVPB Q12H [facility] PRN Reason: Protocol Last Admin: 01/10/18 03:16 Dose: 100 mls/hr Insulin Aspart (Novolog) 0 unit SC ACHS [facility] PRN Reason: Protocol Last Admin: 01/10/18 12:17 Dose: 4 unit Insulin Detemir (Levemir) 40 unit SC QAM [facility] Last Admin: 01/10/18 10:09 Dose: 40 unit Levothyroxine Sodium (Synthroid) 125 mcg PO DAILY@0630 [facility] Last Admin: 01/10/18 06:10 Dose: 125 mcg Montelukast Sodium (Singulair) 10 mg PO HS [facility] Last Admin: 01/09/18 21:14 Dose: 10 mg Multivitamins (Hexavitamin) 1 tab PO DAILY [facility] Last Admin: 01/10/18 10:11 Dose: 1 tab Mupirocin (Bactroban Ointment) 0 gm TOP DAILY [facility] Last Admin: 01/10/18 10:42 Dose: Not Given Pantoprazole Sodium (Protonix Inj) 40 mg IVP DAILY [facility] Last Admin: 01/10/18 10:43 Dose: 40 mg Rosuvastatin Calcium (Crestor) 20 mg PO HS [facility] Last Admin: 01/09/18 21:14 Dose: 20 mg Topiramate (Topamax) 25 mg PO BID [facility] Last Admin: 01/10/18 10:12 Dose: 25 mg - Labs Labs: 01/10/18 05:37 01/10/18 05:38 PT 13.7 SECONDS (9.7-12.2) H 01/04/18 11:37 INR 1.3 01/04/18 11:37 APTT 31 SECONDS (21-34) 01/04/18 11:37
--- NOTE | 2018-01-10 18:37 | CP.PCM.PN ---
Subjective - Date & Time of Evaluation Date of Evaluation: 01/10/18 Time of Evaluation: 18:33 - Subjective Subjective: INFECTIOUS DISEASE ICU PROGRESS NOTE KELSI GAMBOA MD, FACP ICU #8 01/10/2018 CLINICALLY BETTER, BREATHING BETTER SPUTUM +PSEUDOMONAS AERUGINOSA ON APPROPIATE THERAPY COMPLAINING OF PROGRESSIVE NAIL FUNGUS-TO GIVE SINGLE DOSE OF DIFLUCAN PROGNOSIS IS GUARDED KELSI GAMBOA MD, FACP Objective - Vital Signs/Intake and Output Vital Signs (last 24 hours): Temp Pulse Resp BP Pulse Ox 99.8 F H 81 18 131/59 L 100 01/10/18 16:00 01/10/18 16:00 01/10/18 16:00 01/10/18 17:52 01/10/18 16:00 Intake and Output: 01/10/18 01/10/18 06:59 18:59 Intake Total 200 800 Output Total 1000 700 Balance -800 100 - Medications Medications: Current Medications Albuterol/Ipratropium (Duoneb 3 Mg/0.5 Mg (3 Ml) Ud) 3 ml INH RQ6 [facility] Last Admin: 01/10/18 07:50 Dose: 3 ml Amlodipine Besylate (Norvasc) 10 mg PO DAILY [facility] Last Admin: 01/10/18 10:11 Dose: 10 mg Carvedilol (Coreg) 12.5 mg PO BID [facility] Last Admin: 01/10/18 17:52 Dose: 12.5 mg Ferrous Gluconate (Fergon) 324 mg PO TID [facility] Last Admin: 01/10/18 17:52 Dose: 324 mg Furosemide (Lasix) 40 mg PO DAILY [facility] Last Admin: 01/10/18 10:11 Dose: 40 mg Heparin Sodium (Porcine) (Heparin) 5,000 units SC Q12 [facility] Last Admin: 01/10/18 10:10 Dose: 5,000 units Home Med (Patient's Own Medication) 1 tab PO DAILY [facility] Last Admin: 01/10/18 12:17 Dose: 1 tab Hydralazine HCl (Apresoline) 100 mg PO TID [facility] Last Admin: 01/10/18 17:52 Dose: 100 mg Cefepime HCl (Maxipime Iv 1 Gm Premix) 1 gm in 50 mls @ 100 mls/hr IVPB DAILY [facility] PRN Reason: Protocol Insulin Aspart (Novolog) 0 unit SC ACHS [facility] PRN Reason: Protocol Last Admin: 01/10/18 16:55 Dose: 6 unit Insulin Detemir (Levemir) 40 unit SC QAM [facility] Last Admin: 01/10/18 10:09 Dose: 40 unit Levothyroxine Sodium (Synthroid) 125 mcg PO DAILY@0630 [facility] Last Admin: 01/10/18 06:10 Dose: 125 mcg Montelukast Sodium (Singulair) 10 mg PO HS [facility] Last Admin: 01/09/18 21:14 Dose: 10 mg Multivitamins (Hexavitamin) 1 tab PO DAILY [facility] Last Admin: 01/10/18 10:11 Dose: 1 tab Mupirocin (Bactroban Ointment) 0 gm TOP DAILY [facility] Last Admin: 01/10/18 10:42 Dose: Not Given Pantoprazole Sodium (Protonix Ec Tab) 40 mg PO DAILY [facility] Rosuvastatin Calcium (Crestor) 20 mg PO HS [facility] Last Admin: 01/09/18 21:14 Dose: 20 mg Topiramate (Topamax) 25 mg PO BID [facility] Last Admin: 01/10/18 17:52 Dose: 25 mg - Labs Labs: 01/10/18 05:37 01/10/18 05:38 PT 13.7 SECONDS (9.7-12.2) H 01/04/18 11:37 INR 1.3 01/04/18 11:37 APTT 31 SECONDS (21-34) 01/04/18 11:37 Assessment and Plan (1) Osteomyelitis of toe of left foot Status: Acute (2) Diabetes 1.5, managed as type 2 Status: Chronic (3) Asthma Status: Chronic (4) Pulmonary arterial hypertension Status: Chronic (5) HTN (hypertension), benign Status: Chronic
--- NOTE | 2018-01-10 22:37 | CP.PCM.PN ---
Subjective - Date & Time of Evaluation Date of Evaluation: 01/10/18 Time of Evaluation: 10:30 - Subjective Subjective: Podiatry Progress Note- Dr. Peña. 72 y/o female POD#6 s/p Left foot hallux and partial 2nd digit amputation (DOS ) due to chronic osteomyelitis. Patient is seen with attending Dr. Peña at bedside. Patient is seen resting out of bed, in chair, in NAD. Family member at bedside during visitation. No acute overnight events. Denies of having N/V. No other pedal complains at this time. Objective - Vital Signs/Intake and Output Vital Signs (last 24 hours): Temp Pulse Resp BP Pulse Ox 99.5 F 65 15 121/58 L 100 01/10/18 20:00 01/10/18 22:07 01/10/18 20:00 01/10/18 19:56 01/10/18 20:00 Intake and Output: 01/10/18 01/11/18 18:59 06:59 Intake Total 1050 50 Output Total 700 0 Balance 350 50 - Medications Medications: Current Medications Albuterol/Ipratropium (Duoneb 3 Mg/0.5 Mg (3 Ml) Ud) 3 ml INH RQ6 [facility] Last Admin: 01/10/18 19:52 Dose: 3 ml Amlodipine Besylate (Norvasc) 10 mg PO DAILY [facility] Last Admin: 01/10/18 10:11 Dose: 10 mg Carvedilol (Coreg) 12.5 mg PO BID [facility] Last Admin: 01/10/18 17:52 Dose: 12.5 mg Ferrous Gluconate (Fergon) 324 mg PO TID ON [facility] Last Admin: 01/10/18 17:52 Dose: 324 mg Furosemide (Lasix) 40 mg PO DAILY [facility] Last Admin: 01/10/18 10:11 Dose: 40 mg Heparin Sodium (Porcine) (Heparin) 5,000 units SC Q12 [facility] Last Admin: 01/10/18 21:00 Dose: 5,000 units Home Med (Patient's Own Medication) 1 tab PO DAILY [facility] Last Admin: 01/10/18 12:17 Dose: 1 tab Hydralazine HCl (Apresoline) 100 mg PO TID [facility] Last Admin: 01/10/18 17:52 Dose: 100 mg Cefepime HCl (Maxipime Iv 1 Gm Premix) 1 gm in 50 mls @ 100 mls/hr IVPB DAILY [facility] PRN Reason: Protocol Insulin Aspart (Novolog) 0 unit SC ACHS [facility] PRN Reason: Protocol Last Admin: 01/10/18 21:01 Dose: Not Given Insulin Detemir (Levemir) 40 unit SC QAM [facility] Last Admin: 01/10/18 10:09 Dose: 40 unit Levothyroxine Sodium (Synthroid) 125 mcg PO DAILY@0630 [facility] Last Admin: 01/10/18 06:10 Dose: 125 mcg Montelukast Sodium (Singulair) 10 mg PO HS [facility] Last Admin: 01/10/18 21:00 Dose: 10 mg Multivitamins (Hexavitamin) 1 tab PO DAILY [facility] Last Admin: 01/10/18 10:11 Dose: 1 tab Mupirocin (Bactroban Ointment) 0 gm TOP DAILY [facility] Last Admin: 01/10/18 10:42 Dose: Not Given Pantoprazole Sodium (Protonix Ec Tab) 40 mg PO DAILY [facility] Rosuvastatin Calcium (Crestor) 20 mg PO [facility] Last Admin: 01/10/18 21:00 Dose: 20 mg Topiramate (Topamax) 25 mg PO BID [facility] Last Admin: 01/10/18 17:52 Dose: 25 mg - Labs Labs: 01/10/18 05:37 01/10/18 05:38 PT 13.7 SECONDS (9.7-12.2) H 01/04/18 11:37 INR 1.3 01/04/18 11:37 APTT 31 SECONDS (21-34) 01/04/18 11:37 - Constitutional Appears: Well, Non-toxic, No Acute Distress - Extremities Exam Extremities Exam: absent: Calf Tenderness Additional comments: Lower extremity focused exam. Dressings clean, dry, and intact. Vasc: DP/PT pulses palpable 2/4. Temperature gradient warm to cool. CFT < 3 sec to all digits. No pedal edema noted Derm: Left hallux and 2nd digit amputation sites noted with all sutures inact. Well coapted no strangulation pallor noted. Site warm to touch. No productive for hematoma. No purulence nor active drainage noted. No odor, no streaking, no abscess or flucatance appreciated Neuro: Protective sensation grossly intact Ortho: no pain elicited with palpation Assessment and Plan - Assessment and Plan (Free Text) Assessment: 72 y/o female POD#6 s/p Left foot hallux and partial 2nd digit amputation (DOS ) due to chronic osteomyelitis Plan: Pt seen and evaluated Discussed plan with attending, Dr. Peña Chart labs, and vitals reviewed. Afebrile, absent leukocytosis noted WBC=10.7 Continue Local Wound care. Cleansed surgical site with copious saline; dressed with DSD and cling Continue IV abd per ID. Podiatry will follow pt while inhouse.
[2018-01-11] MEDS: Albuterol-Ipratrop 3 mg / 0.5 (3 ml) UD INH SCH ×7 (02:30→20:12)
[2018-01-11] MEDS: Levothyroxine 125 MCG TAB PO SCH (05:52)
[2018-01-11 06:33] LABS: BASO # 0.1 K/uL (0.0-0.2); BASO % 0.7 % (0.0-2.0); EOS # 0.6 K/uL (0.0-0.7); EOS % 6.3 % (0.0-4.0); HEMOGLOBIN 8.5 g/dL (11.0-16.0); LYMPH # 1.4 K/uL (1.0-4.3); LYMPH % 13.2 % (20.0-40.0); MEAN CELL VOLUME 81.7 fL (81.0-99.0); MEAN CORPUSCULAR HEMOGLOBIN 25.7 pg (27.0-31.0); MEAN CORPUSCULAR HGB CONC 31.5 g/dL (33.0-37.0); MEAN PLATELET VOLUME 10.8 fL (7.2-11.7); MONO # 1.1 K/uL (0.0-0.8); MONO % 10.8 % (0.0-10.0); NEUT # 7.1 K/uL (1.8-7.0); NRBC % 0.2 % (0.0-2.0); RBC 3.29 Mil/uL (3.80-5.20); RED CELL DISTRIBUTION WIDTH 16.2 % (11.5-14.5); WHITE BLOOD COUNT 10.3 K/uL (4.8-10.8)
[2018-01-11 06:37] LABS: ALPHA-1-GLOBULIN (PEP) 0.4 g/dL (0.2-0.3)
[2018-01-11 06:42] LABS: ALB/GLOB RATIO 1.3 (1.0-2.1); ALBUMIN 3.1 g/dL (3.5-5.0)
[2018-01-11] MEDS: (Novolog) Insulin Aspart, Recombinant 100 u/ml 10 ml vial SC SCH ×4 (07:30→21:21)
--- NOTE | 2018-01-11 09:36 | CP.PCM.PN ---
Subjective - Date & Time of Evaluation Date of Evaluation: 01/11/18 Time of Evaluation: 09:25 - Subjective Subjective: Podiatry Progress Note- Dr. Peña. 72 y/o female POD#7 s/p Left foot hallux and partial 2nd digit amputation (DOS ) was seen at bedside with attending Dr. Peña. Patient is seen resting out of bed, in chair, in NAD. Family member at bedside during visitation. No acute overnight events. Denies of having N/V. No other pedal complains at this time. Objective - Vital Signs/Intake and Output Vital Signs (last 24 hours): Temp Pulse Resp BP Pulse Ox 99 F 69 12 129/59 L 100 01/11/18 08:00 01/11/18 08:00 01/11/18 08:00 01/11/18 08:00 01/11/18 08:00 Intake and Output: 01/11/18 01/11/18 06:59 18:59 Intake Total 290 Output Total 0 Balance 290 - Medications Medications: Current Medications Albuterol/Ipratropium (Duoneb 3 Mg/0.5 Mg (3 Ml) Ud) 3 ml INH RQ6 [facility] Last Admin: 01/11/18 07:49 Dose: Not Given Amlodipine Besylate (Norvasc) 10 mg PO DAILY [facility] Last Admin: 01/10/18 10:11 Dose: 10 mg Carvedilol (Coreg) 12.5 mg PO BID [facility] Last Admin: 01/10/18 17:52 Dose: 12.5 mg Ferrous Gluconate (Fergon) 324 mg PO TID [facility] Last Admin: 01/10/18 17:52 Dose: 324 mg Furosemide (Lasix) 40 mg PO DAILY [facility] Last Admin: 01/10/18 10:11 Dose: 40 mg Heparin Sodium (Porcine) (Heparin) 5,000 units SC Q12 [facility] Last Admin: 01/10/18 21:00 Dose: 5,000 units Home Med (Patient's Own Medication) 1 tab PO DAILY [facility] Last Admin: 01/10/18 12:17 Dose: 1 tab Hydralazine HCl (Apresoline) 100 mg PO TID [facility] Last Admin: 01/10/18 17:52 Dose: 100 mg Cefepime HCl (Maxipime Iv 1 Gm Premix) 1 gm in 50 mls @ 100 mls/hr IVPB DAILY [facility] PRN Reason: Protocol Insulin Aspart (Novolog) 0 unit SC ACHS [facility] PRN Reason: Protocol Last Admin: 01/10/18 21:01 Dose: Not Given Insulin Detemir (Levemir) 40 unit SC QAM [facility] Last Admin: 01/10/18 10:09 Dose: 40 unit Levothyroxine Sodium (Synthroid) 125 mcg PO DAILY@0630 [facility] Last Admin: 01/11/18 05:52 Dose: 125 mcg Montelukast Sodium (Singulair) 10 mg PO HS [facility] Last Admin: 01/10/18 21:00 Dose: 10 mg Multivitamins (Hexavitamin) 1 tab PO DAILY [facility] Last Admin: 01/10/18 10:11 Dose: 1 tab Mupirocin (Bactroban Ointment) 0 gm TOP DAILY [facility] Last Admin: 01/10/18 10:42 Dose: Not Given Pantoprazole Sodium (Protonix Ec Tab) 40 mg PO DAILY [facility] Rosuvastatin Calcium (Crestor) 20 mg PO [facility] Last Admin: 01/10/18 21:00 Dose: 20 mg Topiramate (Topamax) 25 mg PO BID [facility] Last Admin: 01/10/18 17:52 Dose: 25 mg - Labs Labs: 01/11/18 06:24 01/11/18 06:14 PT 13.7 SECONDS (9.7-12.2) H 01/04/18 11:37 INR 1.3 01/04/18 11:37 APTT 31 SECONDS (21-34) 01/04/18 11:37 - Constitutional Appears: Well, Non-toxic, No Acute Distress - Head Exam Head Exam: ATRAUMATIC - Extremities Exam Additional comments: Lower extremity focused exam. Dressings clean, dry, and intact. Vasc: DP/PT pulses palpable 2/4. Temperature gradient warm to cool. CFT < 3 sec to all digits. No pedal edema noted Derm: Left hallux and 2nd digit amputation sites noted with all sutures intact. Well coapted no strangulation pallor noted. Site warm to touch. No productive for hematoma. No purulence nor active drainage noted. No odor, no streaking, no abscess or fluctuance appreciated Neuro: Protective sensation grossly intact Ortho: no pain elicited with palpation - Neurological Exam Neurological Exam: Alert, Awake, Oriented x3 - Psychiatric Exam Psychiatric exam: Normal Affect, Normal Mood - Skin Skin Exam: Warm Assessment and Plan - Assessment and Plan (Free Text) Assessment: 72 y/o female POD#7 s/p Left foot hallux and partial 2nd digit amputation (DOS ) due to chronic osteomyelitis Plan: Patient seen and evaluated Discussed plan with attending, Dr. Peña Chart labs, and vitals reviewed. Afebrile, absent leukocytosis noted WBC=10.3 Continue Local Wound care. Cleansed surgical site with copious saline; dressed with DSD and cling Continue IV abd per ID. Podiatry will follow pt while inhouse.
[2018-01-11] MEDS: Pantoprazole 40 mg EC Tab PO SCH (10:34)
[2018-01-11] MEDS: Multiple Vitamins Tab PO SCH (10:36)
[2018-01-11] MEDS: Cefepime IV 1 gm in Dextrose 1 GM/50 ML BAG IVPB SCH (10:37)
[2018-01-11] MEDS: Insulin Detemir 100 units/ml Vial (Levemir) SC SCH (10:40)
[2018-01-11] MEDS: AMBRISENTAN PO SCH (10:58)
--- NOTE | 2018-01-11 14:29 | CP.PCM.PN ---
Subjective - Date & Time of Evaluation Date of Evaluation: 01/11/18 Time of Evaluation: 14:28 - Subjective Subjective: Nephrology Consultation Note: Assessment: Stable non-oliguric Acute Kidney Injury (N17.9) likely hemodynamic injury leading to ATN HAGMA with respi compensation, hyperphos, hypernatremia, hypokalemia Acute respi failure with ? asthma exacerbation and pulmonary edema and pleural effusion s/p intubation Anemia DM, pulmonary hypertension, obesity, asthma, MILTON, PVD initially admitted with left foot osteomyelitis s/p amputation on 01/04/18 moderate to severe Aortic stenosis Plan No acute need for renal replacement therapy at this time. good UOP and serum cr improving Continue with diuretics No ACEI/ARB due to IRASEMA. maintain hemodynamics stable. HTN control with meds as ordered. increased hydralazine 100 mg TID Monitor Input/Output, daily weights and renal function with basic metabolic panel PRBC as needed for anemia. she was given dose of epogen 01/06/18, on iron supplements MVI. plan for TAVR later as per cardiology supplement lytes as needed Dose meds/antibiotics for reduced GFR. Avoid fleets enema/magnesium based laxatives. Avoid nephrotoxins/NSAIDs/ iodinated contrast (unless needed emergently) Glycemic control Further work up/management as per primary team Thanks for allowing me to participate in care of your patient. Will follow patient with you. Please call if any Qs. had d/w team and daughter. Dr Tomy Gonzalez Office: [phone] reason for consult: IRASEMA source of info: EMR HPI: Pt is a 73 y/o female with history of DM, pulmonary hypertension, obesity, asthma, MILTON, PVD initially admitted with left foot osteomyelitis s/p amputation on 01/04/18. pt had [employer] 01/05/18 with respi failure with ? asthma exacerbation and pulmonary edema s/p intubation and transferred to ICU. renal consult for IRASEMA eval. no OTC/herbal meds or NSAIDs Noted recent iodinated contrast exposure as CTA 12/30/17. Noted obvious episodes of low BP (93/31). ROS: extubated 01/07/18. denies SOB now. denies CP/nausea/vomiting. feels better. Physical Examination: General Appearance: comfortable, better appearing. on O2 via NC Vitals reviewed and noted as below Head; Atraumatic, normocephalic ENT: normal mucosa EYES: Pupils are equal, round and reactive to light accommodation. Eye muscles and extraocular movement intact. Sclera is anicteric. Neck; supple no lymphadenopathy, no thyromegaly or bruit Lungs: Increased respiratory rate/effort. Breath sounds bilateral improved and clearer Heart: Normal rate. s1s2 normal. No rub or gallop. murmur + Extremities: no edema. No varicose veins. left foot dressed Neurological: Patient is awake alert follow commands, no focal deificit Skin: Warm and dry. Normal turgor. No rash. Palpitation: Normal elasticity for age Abdomen: soft non tender no abdominal tenderness without guarding no rigidity no organomegaly Psych: normal insight/affect and mood MSK: no joint tenderness or swelling. Digits and nails normal, no deformity : kidney or bladder not palpable. has russell Labs/imaging reviewed. Past medical history, past surgical history, family history, social history, allergy reviewed and noted as below Family hx: no hx of CKD. Rest non-contributory renal imaging on CTA: WNL with atherosclerosis UA 1+ protein no blood TSAT 7% Ferritin 25 Objective - Vital Signs/Intake and Output Vital Signs (last 24 hours): Temp Pulse Resp BP Pulse Ox 99 F 69 12 143/52 L 100 01/11/18 08:00 01/11/18 08:00 01/11/18 08:00 01/11/18 10:35 01/11/18 08:00 Intake and Output: 01/11/18 01/11/18 06:59 18:59 Intake Total 290 Output Total 0 Balance 290 - Medications Medications: Current Medications Albuterol/Ipratropium (Duoneb 3 Mg/0.5 Mg (3 Ml) Ud) 3 ml INH RQ6 [facility] Last Admin: 01/11/18 13:37 Dose: 3 ml Amlodipine Besylate (Norvasc) 10 mg PO DAILY [facility] Last Admin: 01/11/18 10:35 Dose: 10 mg Carvedilol (Coreg) 12.5 mg PO BID [facility] Last Admin: 01/11/18 10:35 Dose: 12.5 mg Ferrous Gluconate (Fergon) 324 mg PO TID [facility] Last Admin: 01/11/18 10:34 Dose: 324 mg Furosemide (Lasix) 40 mg PO DAILY [facility] Last Admin: 01/11/18 10:35 Dose: 40 mg Heparin Sodium (Porcine) (Heparin) 5,000 units SC Q12 [facility] Last Admin: 01/11/18 10:34 Dose: 5,000 units Home Med (Patient's Own Medication) 1 tab PO DAILY [facility] Last Admin: 01/11/18 10:58 Dose: 1 tab Hydralazine HCl (Apresoline) 100 mg PO TID [facility] Last Admin: 01/11/18 10:36 Dose: 100 mg Cefepime HCl (Maxipime Iv 1 Gm Premix) 1 gm in 50 mls @ 100 mls/hr IVPB DAILY [facility] PRN Reason: Protocol Last Admin: 01/11/18 10:37 Dose: 100 mls/hr Insulin Aspart (Novolog) 0 unit SC ACHS [facility] PRN Reason: Protocol Last Admin: 01/11/18 13:00 Dose: 3 unit Insulin Detemir (Levemir) 40 unit SC QAM [facility] Last Admin: 01/11/18 10:40 Dose: 40 unit Levothyroxine Sodium (Synthroid) 125 mcg PO DAILY@0630 [facility] Last Admin: 01/11/18 05:52 Dose: 125 mcg Montelukast Sodium (Singulair) 10 mg PO HS [facility] Last Admin: 01/10/18 21:00 Dose: 10 mg Multivitamins (Hexavitamin) 1 tab PO DAILY [facility] Last Admin: 01/11/18 10:36 Dose: 1 tab Mupirocin (Bactroban Ointment) 0 gm TOP DAILY [facility] Last Admin: 01/10/18 10:42 Dose: Not Given Pantoprazole Sodium (Protonix Ec Tab) 40 mg PO DAILY [facility] Last Admin: 01/11/18 10:34 Dose: 40 mg Rosuvastatin Calcium (Crestor) 20 mg PO HS [facility] Last Admin: 01/10/18 21:00 Dose: 20 mg Topiramate (Topamax) 25 mg PO BID [facility] Last Admin: 01/11/18 10:36 Dose: 25 mg - Labs Labs: 01/11/18 06:24 01/11/18 06:14 PT 13.7 SECONDS (9.7-12.2) H 01/04/18 11:37 INR 1.3 01/04/18 11:37 APTT 31 SECONDS (21-34) 01/04/18 11:37
--- NOTE | 2018-01-11 17:11 | CP.PCM.PN ---
Subjective - Date & Time of Evaluation Date of Evaluation: 01/11/18 Time of Evaluation: 17:09 - Subjective Subjective: feels better, tolerating NC, for transfer out of ICU CXR with stable bilat pleural effusions Objective - Vital Signs/Intake and Output Vital Signs (last 24 hours): Temp Pulse Resp BP Pulse Ox 99.6 F 69 17 115/43 L 96 01/11/18 12:00 01/11/18 14:54 01/11/18 14:54 01/11/18 14:54 01/11/18 14:54 Intake and Output: 01/11/18 01/11/18 06:59 18:59 Intake Total 290 500 Output Total 0 Balance 290 500 - Medications Medications: Current Medications Albuterol/Ipratropium (Duoneb 3 Mg/0.5 Mg (3 Ml) Ud) 3 ml INH RQ6 [facility] Last Admin: 01/11/18 13:37 Dose: 3 ml Amlodipine Besylate (Norvasc) 10 mg PO DAILY [facility] Last Admin: 01/11/18 10:35 Dose: 10 mg Carvedilol (Coreg) 12.5 mg PO BID [facility] Last Admin: 01/11/18 10:35 Dose: 12.5 mg Ferrous Gluconate (Fergon) 324 mg PO TID [facility] Last Admin: 01/11/18 14:52 Dose: 324 mg Furosemide (Lasix) 40 mg PO DAILY [facility] Last Admin: 01/11/18 10:35 Dose: 40 mg Heparin Sodium (Porcine) (Heparin) 5,000 units SC Q12 [facility] Last Admin: 01/11/18 10:34 Dose: 5,000 units Home Med (Patient's Own Medication) 1 tab PO DAILY [facility] Last Admin: 01/11/18 10:58 Dose: 1 tab Hydralazine HCl (Apresoline) 100 mg PO TID [facility] Last Admin: 01/11/18 14:52 Dose: 100 mg Cefepime HCl (Maxipime Iv 1 Gm Premix) 1 gm in 50 mls @ 100 mls/hr IVPB DAILY [facility] PRN Reason: Protocol Last Admin: 01/11/18 10:37 Dose: 100 mls/hr Insulin Aspart (Novolog) 0 unit SC ACHS [facility] PRN Reason: Protocol Last Admin: 01/11/18 16:34 Dose: 3 unit Insulin Detemir (Levemir) 40 unit SC QAM [facility] Last Admin: 01/11/18 10:40 Dose: 40 unit Levothyroxine Sodium (Synthroid) 125 mcg PO DAILY@0630 [facility] Last Admin: 01/11/18 05:52 Dose: 125 mcg Montelukast Sodium (Singulair) 10 mg PO HS [facility] Last Admin: 01/10/18 21:00 Dose: 10 mg Multivitamins (Hexavitamin) 1 tab PO DAILY [facility] Last Admin: 01/11/18 10:36 Dose: 1 tab Mupirocin (Bactroban Ointment) 0 gm TOP DAILY [facility] Last Admin: 01/10/18 10:42 Dose: Not Given Pantoprazole Sodium (Protonix Ec Tab) 40 mg PO DAILY [facility] Last Admin: 01/11/18 10:34 Dose: 40 mg Rosuvastatin Calcium (Crestor) 20 mg PO HS [facility] Last Admin: 01/10/18 21:00 Dose: 20 mg Topiramate (Topamax) 25 mg PO BID [facility] Last Admin: 01/11/18 10:36 Dose: 25 mg - Labs Labs: 01/11/18 06:24 01/11/18 06:14 PT 13.7 SECONDS (9.7-12.2) H 01/04/18 11:37 INR 1.3 01/04/18 11:37 APTT 31 SECONDS (21-34) 01/04/18 11:37 - Constitutional Appears: No Acute Distress, Chronically Ill - Head Exam Head Exam: ATRAUMATIC, NORMOCEPHALIC - Eye Exam Eye Exam: Normal appearance - ENT Exam ENT Exam: Mucous Membranes Moist - Respiratory Exam Respiratory Exam: Decreased Breath Sounds - Cardiovascular Exam Cardiovascular Exam: +S1, +S2, +S4, Murmur - GI/Abdominal Exam GI & Abdominal Exam: Normal Bowel Sounds - Rectal Exam Rectal Exam: Deferred - Neurological Exam Neurological Exam: Alert, Awake, Oriented x3 - Psychiatric Exam Psychiatric exam: Normal Affect, Normal Mood Assessment and Plan (1) Osteomyelitis of ankle and foot Status: Acute (2) Diabetes 1.5, managed as type 2 Status: Chronic (3) HTN (hypertension), benign Status: Chronic (4) Pulmonary arterial hypertension Status: Chronic (5) Acute respiratory failure Status: Resolved (6) CHF (congestive heart failure) Status: Acute (7) IRASEMA (acute kidney injury) Status: Acute
[2018-01-11] MEDS: POLYETHYLENE GLYCOL 3350 17 GM/Dose PACKET PO PRN (18:11)
[2018-01-12] MEDS: Albuterol-Ipratrop 3 mg / 0.5 (3 ml) UD INH SCH ×6 (00:18→20:12)
[2018-01-12 06:33] LABS: BASO # 0.1 K/uL (0.0-0.2); BASO % 1.1 % (0.0-2.0); EOS # 0.7 K/uL (0.0-0.7); EOS % 6.6 % (0.0-4.0); HEMOGLOBIN 9.3 g/dL (11.0-16.0); LYMPH # 1.4 K/uL (1.0-4.3); MEAN CELL VOLUME 81.7 fL (81.0-99.0); MEAN CORPUSCULAR HEMOGLOBIN 26.3 pg (27.0-31.0); MEAN CORPUSCULAR HGB CONC 32.2 g/dL (33.0-37.0); MEAN PLATELET VOLUME 10.5 fL (7.2-11.7); MONO # 1.1 K/uL (0.0-0.8); MONO % 11.6 % (0.0-10.0); NEUT # 6.6 K/uL (1.8-7.0); NEUT % 66.7 % (50.0-75.0); NRBC % 0.1 % (0.0-2.0); RBC 3.53 Mil/uL (3.80-5.20); RED CELL DISTRIBUTION WIDTH 16.4 % (11.5-14.5); WHITE BLOOD COUNT 9.9 K/uL (4.8-10.8)
[2018-01-12] MEDS: Levothyroxine 125 MCG TAB PO SCH (06:42)
[2018-01-12 07:17] LABS: ALB/GLOB RATIO 1.2 (1.0-2.1); ALBUMIN 3.2 g/dL (3.5-5.0); CALCIUM 8.5 mg/dl (8.6-10.4)
[2018-01-12] MEDS: (Novolog) Insulin Aspart, Recombinant 100 u/ml 10 ml vial SC SCH ×4 (07:30→22:48)
[2018-01-12] MEDS: Pantoprazole 40 mg EC Tab PO SCH (09:43)
[2018-01-12] MEDS: Multiple Vitamins Tab PO SCH (09:43)
[2018-01-12] MEDS: POLYETHYLENE GLYCOL 3350 17 GM/Dose PACKET PO PRN (09:44)
[2018-01-12] MEDS: AMBRISENTAN PO SCH (09:49)
[2018-01-12] MEDS: Cefepime IV 1 gm in Dextrose 1 GM/50 ML BAG IVPB SCH (09:49)
[2018-01-12] MEDS: Insulin Detemir 100 units/ml Vial (Levemir) SC SCH (10:00)
--- NOTE | 2018-01-12 10:58 | CP.PCM.PN ---
Subjective - Date & Time of Evaluation Date of Evaluation: 01/12/18 Time of Evaluation: 10:52 - Subjective Subjective: Podiatry note for Dr. Peña 73YO female patient 7 days s/p left hallux and partial 2nd digit amputation was seen at bedside this morning. Patient is resting comfortably in bed, with no report of acute distress. AAO x3. Dressing to left foot remains clean, dry and intact. Prevlone boots applied bilaterally. Patient denies any pain or any new history overnight. Patients daughter was present at bedside, importance of prevlone boot application was explained to the patient and daughter. Patient was advised to wear surgical shoes when ambulating or resting in chair. Patient denies F/N/V/C/or SOB. Objective - Vital Signs/Intake and Output Vital Signs (last 24 hours): Temp Pulse Resp BP Pulse Ox 99.2 F 82 16 122/53 L 96 01/12/18 08:00 01/12/18 08:32 01/12/18 08:00 01/12/18 09:44 01/12/18 08:00 Intake and Output: 01/12/18 01/12/18 06:59 18:59 Intake Total 240 Output Total 1200 Balance -960 - Medications Medications: Current Medications Albuterol/Ipratropium (Duoneb 3 Mg/0.5 Mg (3 Ml) Ud) 3 ml INH RQ6 [facility] Last Admin: 01/12/18 07:30 Dose: 3 ml Amlodipine Besylate (Norvasc) 10 mg PO DAILY [facility] Last Admin: 01/11/18 10:35 Dose: 10 mg Apixaban (Eliquis) 2.5 mg PO BID [facility] Last Admin: 01/12/18 09:44 Dose: 2.5 mg Carvedilol (Coreg) 12.5 mg PO BID [facility] Last Admin: 01/12/18 09:44 Dose: 12.5 mg Clopidogrel Bisulfate (Plavix) 75 mg PO DAILY [facility] Last Admin: 01/12/18 09:43 Dose: 75 mg Ferrous Gluconate (Fergon) 324 mg PO TID [facility] Last Admin: 01/12/18 09:44 Dose: 324 mg Furosemide (Lasix) 40 mg PO DAILY [facility] Last Admin: 01/12/18 09:43 Dose: 40 mg Home Med (Patient's Own Medication) 1 tab PO DAILY [facility] Last Admin: 01/12/18 09:49 Dose: 1 tab Hydralazine HCl (Apresoline) 100 mg PO TID [facility] Last Admin: 01/11/18 17:53 Dose: 100 mg Cefepime HCl (Maxipime Iv 1 Gm Premix) 1 gm in 50 mls @ 100 mls/hr IVPB DAILY [facility] PRN Reason: Protocol Last Admin: 01/12/18 09:49 Dose: 100 mls/hr Insulin Aspart (Novolog) 0 unit SC ACHS [facility] PRN Reason: Protocol Last Admin: 01/12/18 07:30 Dose: Not Given Insulin Detemir (Levemir) 40 unit SC QAM [facility] Last Admin: 01/11/18 10:40 Dose: 40 unit Levothyroxine Sodium (Synthroid) 125 mcg PO DAILY@0630 [facility] Last Admin: 01/12/18 06:42 Dose: 125 mcg Montelukast Sodium (Singulair) 10 mg PO HS [facility] Last Admin: 01/11/18 21:17 Dose: 10 mg Multivitamins (Hexavitamin) 1 tab PO DAILY [facility] Last Admin: 01/12/18 09:43 Dose: 1 tab Mupirocin (Bactroban Ointment) 0 gm TOP DAILY [facility] Last Admin: 01/10/18 10:42 Dose: Not Given Pantoprazole Sodium (Protonix Ec Tab) 40 mg PO DAILY [facility] Last Admin: 01/12/18 09:43 Dose: 40 mg Polyethylene Glycol (Miralax) 17 gm PO DAILY PRN PRN Reason: Constipation Last Admin: 01/12/18 09:44 Dose: 17 gm Rosuvastatin Calcium (Crestor) 20 mg PO HS [facility] Last Admin: 01/11/18 21:17 Dose: 20 mg Topiramate (Topamax) 25 mg PO BID [facility] Last Admin: 01/11/18 17:49 Dose: 25 mg Zolpidem Tartrate (Ambien) 5 mg PO HS PRN PRN Reason: Insomnia Last Admin: 01/11/18 21:16 Dose: 5 mg - Labs Labs: 01/12/18 06:28 01/12/18 06:28 PT 13.7 SECONDS (9.7-12.2) H 01/04/18 11:37 INR 1.3 01/04/18 11:37 APTT 31 SECONDS (21-34) 01/04/18 11:37 - Constitutional Appears: Well, Non-toxic, No Acute Distress - Head Exam Head Exam: ATRAUMATIC - Extremities Exam Additional comments: Left lower extremity examination: Vascular: DP/PT 2/4, CFT <3 secs x3, TG warm to warm from proximal to distal, no pedal edema noted Derm: No open lesions noted, Left hallux and 2nd digit amputation sites noted with all sutures are intact and well coapted with no signs of dehiscence, no malodor, no purulence, no drainage, no abscess or fluctuance appreciated, mild periwound erythema, and no clinical signs of acute infection. Neuro: Protective sensation grossly intact Ortho: Pain on palpation noted surrounding the surgical site, decreased range of motion to joints distal to ankle joint secondary to guarding. - Neurological Exam Neurological Exam: Alert, Awake, Oriented x3 - Skin Skin Exam: Normal Color, Warm Assessment and Plan - Assessment and Plan (Free Text) Assessment: 73YO female patient 7 days S/P left hallux and partial 2nd digit amputation. Plan: Patient seen and evaluated by bedside. All questions were answered. Labs and vitals are reviewed; Afebrile WBC 9.9. Discussed in detail with attending doctor, Dr. Peña. Stable dressing change performed to the left foot utilizing betadine soaked 4x4 , ABD and DSD. Continue IV abx. Podiatry will continue to follow in-house.
--- NOTE | 2018-01-12 11:07 | CP.PCM.PN ---
Subjective - Date & Time of Evaluation Date of Evaluation: 01/12/18 Time of Evaluation: 11:06 - Subjective Subjective: Nephrology Consultation Note: Assessment: Stable non-oliguric Acute Kidney Injury (N17.9) likely hemodynamic injury leading to ATN: IMPROVING HAGMA with respi compensation, hyperphos, hypernatremia, hypokalemia: IMPROVED Acute respi failure with ? asthma exacerbation and pulmonary edema and pleural effusion s/p intubation: RESOLVED Anemia DM, pulmonary hypertension, obesity, asthma, MILTON, PVD initially admitted with left foot osteomyelitis s/p amputation on 01/04/18 moderate to severe Aortic stenosis Plan No acute need for renal replacement therapy at this time. good UOP and serum cr improving Continue with diuretics No ACEI/ARB due to IRASEMA. maintain hemodynamics stable. HTN control with meds as ordered. lowered hydralazine 100 mg BID Monitor Input/Output, daily weights and renal function with basic metabolic panel PRBC as needed for anemia. she was given dose of epogen 01/06/18, on iron supplements MVI. plan for TAVR later as per cardiology supplement lytes as needed Dose meds/antibiotics for reduced GFR. Avoid fleets enema/magnesium based laxatives. Avoid nephrotoxins/NSAIDs/ iodinated contrast (unless needed emergently) Glycemic control Further work up/management as per primary team Thanks for allowing me to participate in care of your patient. Will follow patient with you. Please call if any Qs. had d/w team and daughter. Dr Tomy Gonzalez Office: [phone] reason for consult: IRASEMA source of info: EMR HPI: Pt is a 73 y/o female with history of DM, pulmonary hypertension, obesity, asthma, MILTON, PVD initially admitted with left foot osteomyelitis s/p amputation on 01/04/18. pt had MIMEOGRAPHER 01/05/18 with respi failure with ? asthma exacerbation and pulmonary edema s/p intubation and transferred to ICU. renal consult for IRASEMA eval. no OTC/herbal meds or NSAIDs Noted recent iodinated contrast exposure as CTA 12/30/17. Noted obvious episodes of low BP (93/31). ROS: extubated 01/07/18. denies SOB now. denies CP/nausea/vomiting. feels better. Physical Examination: General Appearance: comfortable, better appearing. on O2 via NC Vitals reviewed and noted as below Head; Atraumatic, normocephalic ENT: normal mucosa EYES: Pupils are equal, round and reactive to light accommodation. Eye muscles and extraocular movement intact. Sclera is anicteric. Neck; supple no lymphadenopathy, no thyromegaly or bruit Lungs: Increased respiratory rate/effort. Breath sounds bilateral improved and clearer Heart: Normal rate. s1s2 normal. No rub or gallop. murmur + Extremities: no edema. No varicose veins. left foot dressed Neurological: Patient is awake alert follow commands, no focal deificit Skin: Warm and dry. Normal turgor. No rash. Palpitation: Normal elasticity for age Abdomen: soft non tender no abdominal tenderness without guarding no rigidity no organomegaly Psych: normal insight/affect and mood MSK: no joint tenderness or swelling. Digits and nails normal, no deformity : kidney or bladder not palpable. has russell Labs/imaging reviewed. Past medical history, past surgical history, family history, social history, allergy reviewed and noted as below Family hx: no hx of CKD. Rest non-contributory renal imaging on CTA: WNL with atherosclerosis UA 1+ protein no blood TSAT 7% Ferritin 25 Objective - Vital Signs/Intake and Output Vital Signs (last 24 hours): Temp Pulse Resp BP Pulse Ox 99.2 F 82 16 122/53 L 96 01/12/18 08:00 01/12/18 08:32 01/12/18 08:00 01/12/18 09:44 01/12/18 08:00 Intake and Output: 01/12/18 01/12/18 06:59 18:59 Intake Total 240 Output Total 1200 Balance -960 - Medications Medications: Current Medications Albuterol/Ipratropium (Duoneb 3 Mg/0.5 Mg (3 Ml) Ud) 3 ml INH RQ6 [facility] Last Admin: 01/12/18 07:30 Dose: 3 ml Amlodipine Besylate (Norvasc) 10 mg PO DAILY [facility] Last Admin: 01/11/18 10:35 Dose: 10 mg Apixaban (Eliquis) 2.5 mg PO BID [facility] Last Admin: 01/12/18 09:44 Dose: 2.5 mg Carvedilol (Coreg) 12.5 mg PO BID [facility] Last Admin: 01/12/18 09:44 Dose: 12.5 mg Clopidogrel Bisulfate (Plavix) 75 mg PO DAILY [facility] Last Admin: 01/12/18 09:43 Dose: 75 mg Ferrous Gluconate (Fergon) 324 mg PO TID [facility] Last Admin: 01/12/18 09:44 Dose: 324 mg Furosemide (Lasix) 40 mg PO DAILY [facility] Last Admin: 01/12/18 09:43 Dose: 40 mg Home Med (Patient's Own Medication) 1 tab PO DAILY [facility] Last Admin: 01/12/18 09:49 Dose: 1 tab Hydralazine HCl (Apresoline) 100 mg PO BID [facility] Cefepime HCl (Maxipime Iv 1 Gm Premix) 1 gm in 50 mls @ 100 mls/hr IVPB DAILY [facility] PRN Reason: Protocol Last Admin: 01/12/18 09:49 Dose: 100 mls/hr Insulin Aspart (Novolog) 0 unit SC ACHS [facility] PRN Reason: Protocol Last Admin: 01/12/18 07:30 Dose: Not Given Insulin Detemir (Levemir) 40 unit SC QAM [facility] Last Admin: 01/11/18 10:40 Dose: 40 unit Levothyroxine Sodium (Synthroid) 125 mcg PO DAILY@0630 [facility] Last Admin: 01/12/18 06:42 Dose: 125 mcg Montelukast Sodium (Singulair) 10 mg PO HS [facility] Last Admin: 01/11/18 21:17 Dose: 10 mg Multivitamins (Hexavitamin) 1 tab PO DAILY [facility] Last Admin: 01/12/18 09:43 Dose: 1 tab Mupirocin (Bactroban Ointment) 0 gm TOP DAILY [facility] Last Admin: 01/10/18 10:42 Dose: Not Given Pantoprazole Sodium (Protonix Ec Tab) 40 mg PO DAILY [facility] Last Admin: 01/12/18 09:43 Dose: 40 mg Polyethylene Glycol (Miralax) 17 gm PO DAILY PRN PRN Reason: Constipation Last Admin: 01/12/18 09:44 Dose: 17 gm Rosuvastatin Calcium (Crestor) 20 mg PO HS [facility] Last Admin: 01/11/18 21:17 Dose: 20 mg Topiramate (Topamax) 25 mg PO BID [facility] Last Admin: 01/11/18 17:49 Dose: 25 mg Zolpidem Tartrate (Ambien) 5 mg PO HS PRN PRN Reason: Insomnia Last Admin: 01/11/18 21:16 Dose: 5 mg - Labs Labs: 01/12/18 06:28 01/12/18 06:28 PT 13.7 SECONDS (9.7-12.2) H 01/04/18 11:37 INR 1.3 01/04/18 11:37 APTT 31 SECONDS (21-34) 01/04/18 11:37
--- NOTE | 2018-01-12 13:44 | CP.PCM.PN ---
Subjective - Date & Time of Evaluation Date of Evaluation: 01/12/18 Time of Evaluation: 13:41 - Subjective Subjective: Pt is in the chair, breathing better. Objective - Vital Signs/Intake and Output Vital Signs (last 24 hours): Temp Pulse Resp BP Pulse Ox 98.9 F 82 20 133/57 L 100 01/12/18 12:00 01/12/18 12:00 01/12/18 12:00 01/12/18 12:00 01/12/18 12:00 Intake and Output: 01/12/18 01/12/18 06:59 18:59 Intake Total 240 500 Output Total 1200 100 Balance -960 400 - Medications Medications: Current Medications Albuterol/Ipratropium (Duoneb 3 Mg/0.5 Mg (3 Ml) Ud) 3 ml INH RQ6 [facility] Last Admin: 01/12/18 13:18 Dose: 3 ml Amlodipine Besylate (Norvasc) 10 mg PO DAILY [facility] Last Admin: 01/12/18 11:13 Dose: 10 mg Apixaban (Eliquis) 2.5 mg PO BID [facility] Last Admin: 01/12/18 09:44 Dose: 2.5 mg Carvedilol (Coreg) 12.5 mg PO BID [facility] Last Admin: 01/12/18 09:44 Dose: 12.5 mg Clopidogrel Bisulfate (Plavix) 75 mg PO DAILY [facility] Last Admin: 01/12/18 09:43 Dose: 75 mg Ferrous Gluconate (Fergon) 324 mg PO TID [facility] Last Admin: 01/12/18 09:44 Dose: 324 mg Furosemide (Lasix) 40 mg PO DAILY [facility] Last Admin: 01/12/18 09:43 Dose: 40 mg Home Med (Patient's Own Medication) 1 tab PO DAILY [facility] Last Admin: 01/12/18 09:49 Dose: 1 tab Hydralazine HCl (Apresoline) 100 mg PO BID [facility] Cefepime HCl (Maxipime Iv 1 Gm Premix) 1 gm in 50 mls @ 100 mls/hr IVPB DAILY [facility] PRN Reason: Protocol Last Admin: 01/12/18 09:49 Dose: 100 mls/hr Insulin Aspart (Novolog) 0 unit SC ACHS [facility] PRN Reason: Protocol Last Admin: 01/12/18 12:11 Dose: 4 unit Insulin Detemir (Levemir) 40 unit SC QAM [facility] Last Admin: 01/12/18 10:00 Dose: Not Given Levothyroxine Sodium (Synthroid) 125 mcg PO DAILY@0630 [facility] Last Admin: 01/12/18 06:42 Dose: 125 mcg Montelukast Sodium (Singulair) 10 mg PO HS [facility] Last Admin: 01/11/18 21:17 Dose: 10 mg Multivitamins (Hexavitamin) 1 tab PO DAILY [facility] Last Admin: 01/12/18 09:43 Dose: 1 tab Mupirocin (Bactroban Ointment) 0 gm TOP DAILY [facility] Last Admin: 01/10/18 10:42 Dose: Not Given Pantoprazole Sodium (Protonix Ec Tab) 40 mg PO DAILY [facility] Last Admin: 01/12/18 09:43 Dose: 40 mg Polyethylene Glycol (Miralax) 17 gm PO DAILY PRN PRN Reason: Constipation Last Admin: 01/12/18 09:44 Dose: 17 gm Rosuvastatin Calcium (Crestor) 20 mg PO [facility] Last Admin: 01/11/18 21:17 Dose: 20 mg Topiramate (Topamax) 25 mg PO BID [facility] Last Admin: 01/12/18 11:10 Dose: 25 mg Zolpidem Tartrate (Ambien) 5 mg PO HS PRN PRN Reason: Insomnia Last Admin: 01/11/18 21:16 Dose: 5 mg - Labs Labs: 01/12/18 06:28 01/12/18 06:28 PT 13.7 SECONDS (9.7-12.2) H 01/04/18 11:37 INR 1.3 01/04/18 11:37 APTT 31 SECONDS (21-34) 01/04/18 11:37 - Constitutional Appears: Well, No Acute Distress - Eye Exam Eye Exam: EOMI - ENT Exam ENT Exam: Mucous Membranes Moist - Neck Exam Neck Exam: Full ROM - Respiratory Exam Respiratory Exam: Clear to Ausculation Bilateral - Cardiovascular Exam Cardiovascular Exam: REGULAR RHYTHM - Exam External exam: NORMAL EXTERNAL EXAM - Extremities Exam Extremities Exam: Normal Inspection - Back Exam Back Exam: NORMAL INSPECTION - Neurological Exam Neurological Exam: Alert, Normal Gait - Psychiatric Exam Psychiatric exam: Normal Affect Assessment and Plan - Assessment and Plan (Free Text) Assessment: 1. Pt has recovered well. 2. Low risk surgery resulted in considerably decompensation. Previous assessment of Aortic stenosis was moderate, now severe on latest echo. Once infection of osteo/foot has resolved, pt will be referred for TAVR. 3. CHF clinically resolved. pt has normal LV EF. 4. BP is better. 5. Cr improving.
[2018-01-13] MEDS: Albuterol-Ipratrop 3 mg / 0.5 (3 ml) UD INH SCH ×4 (02:49→20:22)
[2018-01-13] MEDS: Levothyroxine 125 MCG TAB PO SCH (05:34)
[2018-01-13 07:36] LABS: BASO # 0.1 K/uL (0.0-0.2); BASO % 0.8 % (0.0-2.0); EOS # 0.5 K/uL (0.0-0.7); HEMOGLOBIN 8.7 g/dL (11.0-16.0); LYMPH # 1.1 K/uL (1.0-4.3); LYMPH % 11.4 % (20.0-40.0); MEAN CELL VOLUME 81.3 fL (81.0-99.0); MEAN CORPUSCULAR HEMOGLOBIN 26.4 pg (27.0-31.0); MEAN CORPUSCULAR HGB CONC 32.5 g/dL (33.0-37.0); MEAN PLATELET VOLUME 10.6 fL (7.2-11.7); MONO % 9.8 % (0.0-10.0); NEUT # 7.4 K/uL (1.8-7.0); RBC 3.28 Mil/uL (3.80-5.20); RED CELL DISTRIBUTION WIDTH 16.5 % (11.5-14.5); WHITE BLOOD COUNT 10.1 K/uL (4.8-10.8)
[2018-01-13] MEDS: (Novolog) Insulin Aspart, Recombinant 100 u/ml 10 ml vial SC SCH ×4 (08:18→22:25)
[2018-01-13 08:37] LABS: ALB/GLOB RATIO 1.3 (1.0-2.1); ALBUMIN 3.2 g/dL (3.5-5.0); CALCIUM 8.1 mg/dl (8.6-10.4)
[2018-01-13] MEDS: Multiple Vitamins Tab PO SCH (10:26)
[2018-01-13] MEDS: AMBRISENTAN PO SCH (10:27)
[2018-01-13] MEDS: POLYETHYLENE GLYCOL 3350 17 GM/Dose PACKET PO PRN ×2 (10:27→10:33)
[2018-01-13] MEDS: Insulin Detemir 100 units/ml Vial (Levemir) SC SCH (10:27)
[2018-01-13] MEDS: Pantoprazole 40 mg EC Tab PO SCH (10:28)
[2018-01-13] MEDS ORDERED: Epoetin Alfa 10,000 unit/ml Dialysis SC SCH (10:30)
[2018-01-13] MEDS: Cefepime IV 1 gm in Dextrose 1 GM/50 ML BAG IVPB SCH (10:33)
--- NOTE | 2018-01-13 11:19 | CP.PCM.PN ---
Subjective - Date & Time of Evaluation Date of Evaluation: 01/13/18 Time of Evaluation: 11:15 - Subjective Subjective: Podiatry Note for Dr. Peña 72 y/o female patient 8 days s/p Left hallux and partial 2nd digit amputation was seen at bedside this morning. Patient was resting comfortably in bed with no report of acute distress AAOX3 and patient's daughter was present at bedside. Dressing to left foot appears C/D/I. Patient denies N/V/F/SOB/D/pain to posterior calf. Patient complains of mild pain to the surgical and has requested pain medication. Patient is allergic to morphine. Prevlone boot were applied bilaterally. Objective - Vital Signs/Intake and Output Vital Signs (last 24 hours): Temp Pulse Resp BP Pulse Ox 99.5 F 76 20 117/68 94 L 01/13/18 08:34 01/13/18 08:43 01/13/18 08:34 01/13/18 10:26 01/13/18 08:34 Intake and Output: 01/13/18 01/13/18 06:59 18:59 Intake Total 50 Output Total 400 Balance -350 - Medications Medications: Current Medications Albuterol/Ipratropium (Duoneb 3 Mg/0.5 Mg (3 Ml) Ud) 3 ml INH RQ6 [facility] Last Admin: 01/13/18 08:41 Dose: 3 ml Amlodipine Besylate (Norvasc) 10 mg PO DAILY [facility] Last Admin: 01/13/18 10:25 Dose: 10 mg Apixaban (Eliquis) 2.5 mg PO BID [facility] Last Admin: 01/13/18 10:25 Dose: 2.5 mg Carvedilol (Coreg) 12.5 mg PO BID [facility] Last Admin: 01/13/18 10:26 Dose: 12.5 mg Clopidogrel Bisulfate (Plavix) 75 mg PO DAILY [facility] Last Admin: 01/13/18 10:24 Dose: 75 mg Epoetin Issa (Procrit) 10,000 unit SC TTS [facility] Stop: 01/15/18 10:01 Ferrous Gluconate (Fergon) 324 mg PO TID [facility] Last Admin: 01/13/18 10:25 Dose: 324 mg Furosemide (Lasix) 40 mg PO DAILY [facility] Last Admin: 01/13/18 10:25 Dose: 40 mg Home Med (Patient's Own Medication) 1 tab PO DAILY [facility] Last Admin: 01/13/18 10:27 Dose: 1 tab Hydralazine HCl (Apresoline) 50 mg PO BID [facility] Cefepime HCl (Maxipime Iv 1 Gm Premix) 1 gm in 50 mls @ 100 mls/hr IVPB DAILY [facility] PRN Reason: Protocol Last Admin: 01/13/18 10:33 Dose: 100 mls/hr Insulin Aspart (Novolog) 0 unit SC ACHS [facility] PRN Reason: Protocol Last Admin: 01/13/18 08:18 Dose: 4 unit Insulin Detemir (Levemir) 40 unit SC QAM [facility] Last Admin: 01/13/18 10:27 Dose: 40 u Levothyroxine Sodium (Synthroid) 125 mcg PO DAILY@0630 [facility] Last Admin: 01/13/18 05:34 Dose: 125 mcg Montelukast Sodium (Singulair) 10 mg PO HS [facility] Last Admin: 01/12/18 22:48 Dose: 10 mg Multivitamins (Hexavitamin) 1 tab PO DAILY [facility] Last Admin: 01/13/18 10:26 Dose: 1 tab Mupirocin (Bactroban Ointment) 0 gm TOP DAILY [facility] Last Admin: 01/12/18 10:00 Dose: Not Given Pantoprazole Sodium (Protonix Ec Tab) 40 mg PO DAILY [facility] Last Admin: 01/13/18 10:28 Dose: 40 mg Polyethylene Glycol (Miralax) 17 gm PO DAILY PRN PRN Reason: Constipation Last Admin: 01/13/18 10:33 Dose: 17 gm Rosuvastatin Calcium (Crestor) 20 mg PO HS [facility] Last Admin: 01/12/18 22:48 Dose: 20 mg Topiramate (Topamax) 25 mg PO BID [facility] Last Admin: 01/13/18 10:24 Dose: 25 mg Zolpidem Tartrate (Ambien) 5 mg PO HS PRN PRN Reason: Insomnia Last Admin: 01/11/18 21:16 Dose: 5 mg - Labs Labs: 01/13/18 07:18 01/13/18 07:18 PT 13.7 SECONDS (9.7-12.2) H 01/04/18 11:37 INR 1.3 01/04/18 11:37 APTT 31 SECONDS (21-34) 01/04/18 11:37 - Constitutional Appears: Well, Non-toxic, No Acute Distress - Head Exam Head Exam: ATRAUMATIC, NORMOCEPHALIC - Extremities Exam Additional comments: Left Lower Extremity Examination: VASC: DP and PT 2/4 B/L; TG warm to warm proximal to distal; no pedal edema notes NEURO: grossly intact B/L DERM: left hallux and 2nd digit partial amputation- surgical site sutures intact and well-coapted, mild arturo-wound erythema, no wound dehiscence noted, no drainage, no malodor, no fluctuance, no clinical signs of acute infection MSK: pain on palpation at the surgical site, decreased range of motion noted at joints distal to ankle secondary to guarding - Neurological Exam Neurological Exam: Alert, Awake, Oriented x3 - Psychiatric Exam Psychiatric exam: Normal Affect, Normal Mood Assessment and Plan - Assessment and Plan (Free Text) Assessment: 73 y/o female patient 8 days s/p Left hallux and partial 2nd digit amputation Plan: Patient seen and evaluated at bedside and Patient's daughter present at bedside All questions answered Patient plan discussed with Dr. Peña Labs and Vitals reviewed- WBC 10.1 Patient wound dressed with xeroform, DSD, 4X4, and cling Patient advised to leave the Prevlone boot on bilaterally to prevent heel ulceration Ordered Tylenol 650 mg PO PRN fernando Continue IV Antibiotics Podiatry will continue to follow patient
--- NOTE | 2018-01-13 15:11 | CP.PCM.PN ---
Subjective - Date & Time of Evaluation Date of Evaluation: 01/13/18 Time of Evaluation: 15:10 - Subjective Subjective: Nephrology Consultation Note: Assessment: Stable non-oliguric Acute Kidney Injury (N17.9) likely hemodynamic injury leading to ATN: IMPROVING HAGMA with respi compensation, hyperphos, hypernatremia, hypokalemia: IMPROVED Acute respi failure with ? asthma exacerbation and pulmonary edema and pleural effusion s/p intubation: RESOLVED Anemia DM, pulmonary hypertension, obesity, asthma, MILTON, PVD initially admitted with left foot osteomyelitis s/p amputation on 01/04/18 moderate to severe Aortic stenosis Plan No acute need for renal replacement therapy at this time. good UOP and serum cr improved Continue with diuretics, will hold if cr continue to rise. No ACEI/ARB due to IRASEMA. maintain hemodynamics stable. HTN control with meds as ordered. lowered hydralazine 50 mg BID Monitor Input/Output, daily weights and renal function with basic metabolic panel PRBC as needed for anemia. she was given dose of epogen 01/06/18, on iron supplements MVI. plan for TAVR later as per cardiology supplement lytes as needed Dose meds/antibiotics for reduced GFR. Avoid fleets enema/magnesium based laxatives. Avoid nephrotoxins/NSAIDs/ iodinated contrast (unless needed emergently) Glycemic control Further work up/management as per primary team Thanks for allowing me to participate in care of your patient. Will follow patient with you. Please call if any Qs. had d/w team and daughter. Dr Tomy Gonzalez Office: [phone] reason for consult: IRASEMA source of info: EMR HPI: Pt is a 73 y/o female with history of DM, pulmonary hypertension, obesity, asthma, MILTON, PVD initially admitted with left foot osteomyelitis s/p amputation on 01/04/18. pt had [employer] 01/05/18 with respi failure with ? asthma exacerbation and pulmonary edema s/p intubation and transferred to ICU. renal consult for IRASEMA eval. no OTC/herbal meds or NSAIDs Noted recent iodinated contrast exposure as CTA 12/30/17. Noted obvious episodes of low BP (93/31). ROS: extubated 01/07/18. denies SOB now. denies CP/nausea/vomiting. feels better. Physical Examination: General Appearance: comfortable, better appearing. on O2 via NC Vitals reviewed and noted as below Head; Atraumatic, normocephalic ENT: normal mucosa EYES: Pupils are equal, round and reactive to light accommodation. Eye muscles and extraocular movement intact. Sclera is anicteric. Neck; supple no lymphadenopathy, no thyromegaly or bruit Lungs: Increased respiratory rate/effort. Breath sounds bilateral improved and clearer Heart: Normal rate. s1s2 normal. No rub or gallop. murmur + Extremities: no edema. No varicose veins. left foot dressed Neurological: Patient is awake alert follow commands, no focal deificit Skin: Warm and dry. Normal turgor. No rash. Palpitation: Normal elasticity for age Abdomen: soft non tender no abdominal tenderness without guarding no rigidity no organomegaly Psych: normal insight/affect and mood MSK: no joint tenderness or swelling. Digits and nails normal, no deformity : kidney or bladder not palpable. has russell Labs/imaging reviewed. Past medical history, past surgical history, family history, social history, allergy reviewed and noted as below Family hx: no hx of CKD. Rest non-contributory renal imaging on CTA: WNL with atherosclerosis UA 1+ protein no blood TSAT 7% Ferritin 25 Objective - Vital Signs/Intake and Output Vital Signs (last 24 hours): Temp Pulse Resp BP Pulse Ox 99.5 F 76 20 117/68 94 L 01/13/18 08:34 01/13/18 08:43 01/13/18 08:34 01/13/18 10:26 01/13/18 08:34 Intake and Output: 01/13/18 01/13/18 06:59 18:59 Intake Total 50 Output Total 400 Balance -350 - Medications Medications: Current Medications Acetaminophen (Tylenol 325mg Tab) 650 mg PO Q6 PRN PRN Reason: Pain, moderate (4-7) Albuterol/Ipratropium (Duoneb 3 Mg/0.5 Mg (3 Ml) Ud) 3 ml INH RQ6 [facility] Last Admin: 01/13/18 14:11 Dose: 3 ml Amlodipine Besylate (Norvasc) 10 mg PO DAILY [facility] Last Admin: 01/13/18 10:25 Dose: 10 mg Apixaban (Eliquis) 2.5 mg PO BID [facility] Last Admin: 01/13/18 10:25 Dose: 2.5 mg Carvedilol (Coreg) 12.5 mg PO BID [facility] Last Admin: 01/13/18 10:26 Dose: 12.5 mg Clopidogrel Bisulfate (Plavix) 75 mg PO DAILY [facility] Last Admin: 01/13/18 10:24 Dose: 75 mg Epoetin Issa (Procrit) 10,000 unit SC TTS [facility] Stop: 01/15/18 10:01 Last Admin: 01/13/18 12:52 Dose: 10,000 unit Ferrous Gluconate (Fergon) 324 mg PO TID [facility] Last Admin: 01/13/18 14:21 Dose: 324 mg Furosemide (Lasix) 40 mg PO DAILY [facility] Last Admin: 01/13/18 10:25 Dose: 40 mg Home Med (Patient's Own Medication) 1 tab PO DAILY [facility] Last Admin: 01/13/18 10:27 Dose: 1 tab Hydralazine HCl (Apresoline) 50 mg PO BID [facility] Cefepime HCl (Maxipime Iv 1 Gm Premix) 1 gm in 50 mls @ 100 mls/hr IVPB DAILY [facility] PRN Reason: Protocol Last Admin: 01/13/18 10:33 Dose: 100 mls/hr Insulin Aspart (Novolog) 0 unit SC ACHS [facility] PRN Reason: Protocol Last Admin: 01/13/18 12:53 Dose: 4 unit Insulin Detemir (Levemir) 40 unit SC QAM [facility] Last Admin: 01/13/18 10:27 Dose: 40 u Levothyroxine Sodium (Synthroid) 125 mcg PO DAILY@0630 [facility] Last Admin: 01/13/18 05:34 Dose: 125 mcg Montelukast Sodium (Singulair) 10 mg PO HS [facility] Last Admin: 01/12/18 22:48 Dose: 10 mg Multivitamins (Hexavitamin) 1 tab PO DAILY [facility] Last Admin: 01/13/18 10:26 Dose: 1 tab Mupirocin (Bactroban Ointment) 0 gm TOP DAILY [facility] Last Admin: 01/13/18 10:00 Dose: Not Given Pantoprazole Sodium (Protonix Ec Tab) 40 mg PO DAILY [facility] Last Admin: 01/13/18 10:28 Dose: 40 mg Polyethylene Glycol (Miralax) 17 gm PO DAILY PRN PRN Reason: Constipation Last Admin: 01/13/18 10:33 Dose: 17 gm Rosuvastatin Calcium (Crestor) 20 mg PO HS [facility] Last Admin: 01/12/18 22:48 Dose: 20 mg Topiramate (Topamax) 25 mg PO BID [facility] Last Admin: 01/13/18 10:24 Dose: 25 mg Zolpidem Tartrate (Ambien) 5 mg PO HS PRN PRN Reason: Insomnia Last Admin: 01/11/18 21:16 Dose: 5 mg - Labs Labs: 01/13/18 07:18 01/13/18 07:18 PT 13.7 SECONDS (9.7-12.2) H 01/04/18 11:37 INR 1.3 01/04/18 11:37 APTT 31 SECONDS (21-34) 01/04/18 11:37
--- NOTE | 2018-01-13 21:10 | CP.PCM.PN ---
Subjective - Date & Time of Evaluation Date of Evaluation: 01/13/18 Time of Evaluation: 21:07 - Subjective Subjective: INFECTIOUS DISEASE PROGRESS NOTE KELSI GAMBOA MD, FACP 6T [id number] 01/13/2018 CHART REVIEWED PT EXAMINED CASE DISCUSSED 1. Pt has recovered well. 2. Low risk surgery resulted in considerably decompensation. Previous assessment of Aortic stenosis was moderate, now severe on latest echo. Once infection of osteo/foot has resolved, pt will be referred for TAVR. 3. CHF clinically resolved. pt has normal LV EF. 4. BP is better. 5. Cr improving. 6. D/C IV ANTIBIOTICS-SWITCH TO PO CIPRO BOTH FOR BOTH SPUTUM TREATMENT AND MORE IMPORTANTLY CONTINUED WOUND CARE. TO OBSERVE MANAGEMENT AND DISCUSS WITH DR LEMUS AND PMD. Objective - Vital Signs/Intake and Output Vital Signs (last 24 hours): Temp Pulse Resp BP Pulse Ox 99.5 F 80 20 122/78 98 01/13/18 16:00 01/13/18 20:22 01/13/18 16:00 01/13/18 18:05 01/13/18 16:00 Intake and Output: 01/13/18 01/14/18 18:59 06:59 Intake Total 350 Output Total 400 Balance -50 - Medications Medications: Current Medications Acetaminophen (Tylenol 325mg Tab) 650 mg PO Q6 PRN PRN Reason: Pain, moderate (4-7) Albuterol/Ipratropium (Duoneb 3 Mg/0.5 Mg (3 Ml) Ud) 3 ml INH RQ6 [facility] Last Admin: 01/13/18 20:22 Dose: 3 ml Amlodipine Besylate (Norvasc) 10 mg PO DAILY [facility] Last Admin: 01/13/18 10:25 Dose: 10 mg Apixaban (Eliquis) 2.5 mg PO BID [facility] Last Admin: 01/13/18 18:06 Dose: 2.5 mg Carvedilol (Coreg) 12.5 mg PO BID [facility] Last Admin: 01/13/18 18:05 Dose: 12.5 mg Ciprofloxacin (Cipro) 250 mg PO DAILY [facility] PRN Reason: Protocol Clopidogrel Bisulfate (Plavix) 75 mg PO DAILY [facility] Last Admin: 01/13/18 10:24 Dose: 75 mg Epoetin Issa (Procrit) 10,000 unit SC TTS [facility] Stop: 01/15/18 10:01 Last Admin: 01/13/18 12:52 Dose: 10,000 unit Ferrous Gluconate (Fergon) 324 mg PO TID [facility] Last Admin: 01/13/18 18:06 Dose: 324 mg Furosemide (Lasix) 40 mg PO DAILY [facility] Last Admin: 01/13/18 10:25 Dose: 40 mg Home Med (Patient's Own Medication) 1 tab PO DAILY [facility] Last Admin: 01/13/18 10:27 Dose: 1 tab Hydralazine HCl (Apresoline) 50 mg PO BID [facility] Last Admin: 01/13/18 18:05 Dose: 50 mg Insulin Aspart (Novolog) 0 unit SC ACHS [facility] PRN Reason: Protocol Last Admin: 01/13/18 18:13 Dose: 6 unit Insulin Detemir (Levemir) 40 unit SC QAM [facility] Last Admin: 01/13/18 10:27 Dose: 40 u Levothyroxine Sodium (Synthroid) 125 mcg PO DAILY@0630 [facility] Last Admin: 01/13/18 05:34 Dose: 125 mcg Montelukast Sodium (Singulair) 10 mg PO HS [facility] Last Admin: 01/12/18 22:48 Dose: 10 mg Multivitamins (Hexavitamin) 1 tab PO DAILY [facility] Last Admin: 01/13/18 10:26 Dose: 1 tab Mupirocin (Bactroban Ointment) 0 gm TOP DAILY [facility] Last Admin: 01/13/18 10:00 Dose: Not Given Pantoprazole Sodium (Protonix Ec Tab) 40 mg PO DAILY [facility] Last Admin: 01/13/18 10:28 Dose: 40 mg Polyethylene Glycol (Miralax) 17 gm PO DAILY PRN PRN Reason: Constipation Last Admin: 01/13/18 10:33 Dose: 17 gm Rosuvastatin Calcium (Crestor) 20 mg PO HS [facility] Last Admin: 01/12/18 22:48 Dose: 20 mg Topiramate (Topamax) 25 mg PO BID [facility] Last Admin: 01/13/18 18:06 Dose: 25 mg Zolpidem Tartrate (Ambien) 5 mg PO HS PRN PRN Reason: Insomnia Last Admin: 01/11/18 21:16 Dose: 5 mg - Labs Labs: 01/13/18 07:18 01/13/18 07:18 PT 13.7 SECONDS (9.7-12.2) H 01/04/18 11:37 INR 1.3 01/04/18 11:37 APTT 31 SECONDS (21-34) 01/04/18 11:37 Assessment and Plan (1) Osteomyelitis of toe of left foot Status: Acute (2) Diabetes 1.5, managed as type 2 Status: Chronic (3) Asthma Status: Chronic (4) Pulmonary arterial hypertension Status: Chronic (5) HTN (hypertension), benign Status: Chronic
--- NOTE | 2018-01-13 21:16 | CP.PCM.PN ---
Subjective - Date & Time of Evaluation Date of Evaluation: 01/11/18 Time of Evaluation: 18:20 - Subjective Subjective: INFECTIOUS DISEASE PROGRESS NOTE KELSI GAMBOA MD, FACP 01/11/2018 CHART REVIEWED CASE DISCUSSED feels better, tolerating NC, for transfer out of ICU CXR with stable bilat pleural effusions Objective - Vital Signs/Intake and Output Vital Signs (last 24 hours): Temp Pulse Resp BP Pulse Ox 99.6 F 69 17 115/43 L 96 01/11/18 12:00 01/11/18 14:54 01/11/18 14:54 01/11/18 14:54 01/11/18 14:54 Intake and Output: 01/11/18 01/11/18 06:59 18:59 Intake Total 290 500 Output Total 0 Balance 290 500 - Medications Medications: Current Medications Albuterol/Ipratropium (Duoneb 3 Mg/0.5 Mg (3 Ml) Ud) 3 ml INH RQ6 [facility] Last Admin: 01/11/18 13:37 Dose: 3 ml Amlodipine Besylate (Norvasc) 10 mg PO DAILY [facility] Last Admin: 01/11/18 10:35 Dose: 10 mg Carvedilol (Coreg) 12.5 mg PO BID [facility] Last Admin: 01/11/18 10:35 Dose: 12.5 mg Ferrous Gluconate (Fergon) 324 mg PO TID [facility] Last Admin: 01/11/18 14:52 Dose: 324 mg Furosemide (Lasix) 40 mg PO DAILY [facility] Last Admin: 01/11/18 10:35 Dose: 40 mg Heparin Sodium (Porcine) (Heparin) 5,000 units SC Q12 [facility] Last Admin: 01/11/18 10:34 Dose: 5,000 units Home Med (Patient's Own Medication) 1 tab PO DAILY [facility] Last Admin: 01/11/18 10:58 Dose: 1 tab Hydralazine HCl (Apresoline) 100 mg PO TID [facility] Last Admin: 01/11/18 14:52 Dose: 100 mg Cefepime HCl (Maxipime Iv 1 Gm Premix) 1 gm in 50 mls @ 100 mls/hr IVPB DAILY [facility] PRN Reason: Protocol Last Admin: 01/11/18 10:37 Dose: 100 mls/hr Insulin Aspart (Novolog) 0 unit SC ACHS [facility] PRN Reason: Protocol Last Admin: 01/11/18 16:34 Dose: 3 unit Insulin Detemir (Levemir) 40 unit SC QAM [facility] Last Admin: 01/11/18 10:40 Dose: 40 unit Levothyroxine Sodium (Synthroid) 125 mcg PO DAILY@0630 [facility] Last Admin: 01/11/18 05:52 Dose: 125 mcg Montelukast Sodium (Singulair) 10 mg PO HS [facility] Last Admin: 01/10/18 21:00 Dose: 10 mg Multivitamins (Hexavitamin) 1 tab PO DAILY [facility] Last Admin: 01/11/18 10:36 Dose: 1 tab Mupirocin (Bactroban Ointment) 0 gm TOP DAILY [facility] Last Admin: 01/10/18 10:42 Dose: Not Given Pantoprazole Sodium (Protonix Ec Tab) 40 mg PO DAILY [facility] Last Admin: 01/11/18 10:34 Dose: 40 mg Rosuvastatin Calcium (Crestor) 20 mg PO [facility] Last Admin: 01/10/18 21:00 Dose: 20 mg Topiramate (Topamax) 25 mg PO BID [facility] Last Admin: 01/11/18 10:36 Dose: 25 mg - Labs Labs: 01/11/18 06:24 01/11/18 06:14 PT 13.7 SECONDS (9.7-12.2) H 01/04/18 11:37 INR 1.3 01/04/18 11:37 APTT 31 SECONDS (21-34) 01/04/18 11:37 - Constitutional Appears: No Acute Distress, Chronically Ill - Head Exam Head Exam: ATRAUMATIC, NORMOCEPHALIC - Eye Exam Eye Exam: Normal appearance - ENT Exam ENT Exam: Mucous Membranes Moist - Respiratory Exam Respiratory Exam: Decreased Breath Sounds - Cardiovascular Exam Cardiovascular Exam: +S1, +S2, +S4, Murmur - GI/Abdominal Exam GI & Abdominal Exam: Normal Bowel Sounds - Rectal Exam Rectal Exam: Deferred - Neurological Exam Neurological Exam: Alert, Awake, Oriented x3 - Psychiatric Exam Psychiatric exam: Normal Affect, Normal Mood Assessment and Plan (1) Osteomyelitis of ankle and foot Status: Acute/POST AMPUTATION OF SITE IN [facility], COVER FOR WOUND CARE. (2) Diabetes 1.5, managed as type 2 Status: Chronic (3) HTN (hypertension), benign Status: Chronic (4) Pulmonary arterial hypertension Status: Chronic (5) Acute respiratory failure Status: Resolved (6) CHF (congestive heart failure) Status: Acute (7) IRASEMA (acute kidney injury) Status: Acute Objective - Vital Signs/Intake and Output Vital Signs (last 24 hours): Temp Pulse Resp BP Pulse Ox 99.5 F 80 20 122/78 98 01/13/18 16:00 01/13/18 20:22 01/13/18 16:00 01/13/18 18:05 01/13/18 16:00 Intake and Output: 01/13/18 01/14/18 18:59 06:59 Intake Total 350 Output Total 400 Balance -50 - Medications Medications: Current Medications Acetaminophen (Tylenol 325mg Tab) 650 mg PO Q6 PRN PRN Reason: Pain, moderate (4-7) Albuterol/Ipratropium (Duoneb 3 Mg/0.5 Mg (3 Ml) Ud) 3 ml INH RQ6 [facility] Last Admin: 01/13/18 20:22 Dose: 3 ml Amlodipine Besylate (Norvasc) 10 mg PO DAILY [facility] Last Admin: 01/13/18 10:25 Dose: 10 mg Apixaban (Eliquis) 2.5 mg PO BID [facility] Last Admin: 01/13/18 18:06 Dose: 2.5 mg Carvedilol (Coreg) 12.5 mg PO BID [facility] Last Admin: 01/13/18 18:05 Dose: 12.5 mg Ciprofloxacin (Cipro) 250 mg PO DAILY [facility] PRN Reason: Protocol Clopidogrel Bisulfate (Plavix) 75 mg PO DAILY [facility] Last Admin: 01/13/18 10:24 Dose: 75 mg Epoetin Issa (Procrit) 10,000 unit SC TTS [facility] Stop: 01/15/18 10:01 Last Admin: 01/13/18 12:52 Dose: 10,000 unit Ferrous Gluconate (Fergon) 324 mg PO TID [facility] Last Admin: 01/13/18 18:06 Dose: 324 mg Furosemide (Lasix) 40 mg PO DAILY [facility] Last Admin: 01/13/18 10:25 Dose: 40 mg Home Med (Patient's Own Medication) 1 tab PO DAILY [facility] Last Admin: 01/13/18 10:27 Dose: 1 tab Hydralazine HCl (Apresoline) 50 mg PO BID [facility] Last Admin: 01/13/18 18:05 Dose: 50 mg Insulin Aspart (Novolog) 0 unit SC ACHS [facility] PRN Reason: Protocol Last Admin: 01/13/18 18:13 Dose: 6 unit Insulin Detemir (Levemir) 40 unit SC QAM [facility] Last Admin: 01/13/18 10:27 Dose: 40 u Levothyroxine Sodium (Synthroid) 125 mcg PO DAILY@0630 [facility] Last Admin: 01/13/18 05:34 Dose: 125 mcg Montelukast Sodium (Singulair) 10 mg PO HS [facility] Last Admin: 01/12/18 22:48 Dose: 10 mg Multivitamins (Hexavitamin) 1 tab PO DAILY [facility] Last Admin: 01/13/18 10:26 Dose: 1 tab Mupirocin (Bactroban Ointment) 0 gm TOP DAILY [facility] Last Admin: 01/13/18 10:00 Dose: Not Given Pantoprazole Sodium (Protonix Ec Tab) 40 mg PO DAILY [facility] Last Admin: 01/13/18 10:28 Dose: 40 mg Polyethylene Glycol (Miralax) 17 gm PO DAILY PRN PRN Reason: Constipation Last Admin: 01/13/18 10:33 Dose: 17 gm Rosuvastatin Calcium (Crestor) 20 mg PO HS [facility] Last Admin: 01/12/18 22:48 Dose: 20 mg Topiramate (Topamax) 25 mg PO BID [facility] Last Admin: 01/13/18 18:06 Dose: 25 mg Zolpidem Tartrate (Ambien) 5 mg PO HS PRN PRN Reason: Insomnia Last Admin: 01/11/18 21:16 Dose: 5 mg - Labs Labs: 01/13/18 07:18 01/13/18 07:18 PT 13.7 SECONDS (9.7-12.2) H 01/04/18 11:37 INR 1.3 01/04/18 11:37 APTT 31 SECONDS (21-34) 01/04/18 11:37 Assessment and Plan (1) Osteomyelitis of toe of left foot Status: Acute (2) Diabetes 1.5, managed as type 2 Status: Chronic (3) Asthma Status: Chronic (4) Pulmonary arterial hypertension Status: Chronic (5) HTN (hypertension), benign Status: Chronic
[2018-01-14] MEDS: Albuterol-Ipratrop 3 mg / 0.5 (3 ml) UD INH SCH ×3 (01:28→13:20)
[2018-01-14] MEDS: Levothyroxine 125 MCG TAB PO SCH (06:02)
[2018-01-14] MEDS: (Novolog) Insulin Aspart, Recombinant 100 u/ml 10 ml vial SC SCH ×3 (08:12→16:57)
[2018-01-14 08:19] LABS: BASO # 0.1 K/uL (0.0-0.2); EOS # 0.6 K/uL (0.0-0.7); EOS % 4.8 % (0.0-4.0); HEMOGLOBIN 9.2 g/dL (11.0-16.0); LYMPH # 1.6 K/uL (1.0-4.3); LYMPH % 12.9 % (20.0-40.0); MEAN CELL VOLUME 81.7 fL (81.0-99.0); MEAN CORPUSCULAR HEMOGLOBIN 26.1 pg (27.0-31.0); MEAN CORPUSCULAR HGB CONC 31.9 g/dL (33.0-37.0); MEAN PLATELET VOLUME 10.6 fL (7.2-11.7); MONO % 7.9 % (0.0-10.0); NEUT # 9.2 K/uL (1.8-7.0); NEUT % 73.4 % (50.0-75.0); RBC 3.55 Mil/uL (3.80-5.20); RED CELL DISTRIBUTION WIDTH 16.5 % (11.5-14.5); WHITE BLOOD COUNT 12.5 K/uL (4.8-10.8)
[2018-01-14 08:33] LABS: ALB/GLOB RATIO 1.3 (1.0-2.1); ALBUMIN 3.8 g/dL (3.5-5.0); CALCIUM 8.7 mg/dl (8.6-10.4)
[2018-01-14 08:48] VITALS: O2SAT 95
--- NOTE | 2018-01-14 10:00 | CP.PCM.PN ---
Subjective - Date & Time of Evaluation Date of Evaluation: 01/14/18 Time of Evaluation: 09:55 - Subjective Subjective: 73 Y/O famale patient 9 day S/P L foot hallux and partial 2nd digit amputation was seen and evaluated at bedside this morning. The patient was resting comfortably in bed with no acute distress. Patient denies any acute overnight distress. patient is AAO X 3. Dressing to Left foot remains c/d/i. Patient admits to mild pain to the surgical site. Patient denies any new pedal complain. Patient denies any F/N/V/C or SOB today. Objective - Vital Signs/Intake and Output Vital Signs (last 24 hours): Temp Pulse Resp BP Pulse Ox 98.4 F 80 20 149/77 95 01/14/18 08:46 01/14/18 08:46 01/14/18 08:46 01/14/18 08:46 01/14/18 08:46 Intake and Output: 01/14/18 01/14/18 06:59 18:59 Intake Total 120 Output Total 150 Balance -30 - Medications Medications: Current Medications Acetaminophen (Tylenol 325mg Tab) 650 mg PO Q6 PRN PRN Reason: Pain, moderate (4-7) Albuterol/Ipratropium (Duoneb 3 Mg/0.5 Mg (3 Ml) Ud) 3 ml INH RQ6 [facility] Last Admin: 01/14/18 07:57 Dose: 3 ml Amlodipine Besylate (Norvasc) 10 mg PO DAILY [facility] Last Admin: 01/13/18 10:25 Dose: 10 mg Apixaban (Eliquis) 2.5 mg PO BID [facility] Last Admin: 01/13/18 18:06 Dose: 2.5 mg Carvedilol (Coreg) 12.5 mg PO BID [facility] Last Admin: 01/13/18 18:05 Dose: 12.5 mg Ciprofloxacin (Cipro) 250 mg PO DAILY [facility] PRN Reason: Protocol Clopidogrel Bisulfate (Plavix) 75 mg PO DAILY [facility] Last Admin: 01/13/18 10:24 Dose: 75 mg Epoetin Issa (Procrit) 10,000 unit SC TTS [facility] Stop: 01/15/18 10:01 Last Admin: 01/13/18 12:52 Dose: 10,000 unit Ferrous Gluconate (Fergon) 324 mg PO TID [facility] Last Admin: 01/13/18 18:06 Dose: 324 mg Furosemide (Lasix) 40 mg PO DAILY [facility] Last Admin: 01/13/18 10:25 Dose: 40 mg Home Med (Patient's Own Medication) 1 tab PO DAILY [facility] Last Admin: 01/13/18 10:27 Dose: 1 tab Hydralazine HCl (Apresoline) 50 mg PO BID [facility] Last Admin: 01/13/18 18:05 Dose: 50 mg Insulin Aspart (Novolog) 0 unit SC ACHS [facility] PRN Reason: Protocol Last Admin: 01/14/18 08:12 Dose: 3 unit Insulin Detemir (Levemir) 40 unit SC QAM [facility] Last Admin: 01/13/18 10:27 Dose: 40 u Levothyroxine Sodium (Synthroid) 125 mcg PO DAILY@0630 [facility] Last Admin: 01/14/18 06:02 Dose: 125 mcg Montelukast Sodium (Singulair) 10 mg PO HS [facility] Last Admin: 01/13/18 22:17 Dose: 10 mg Multivitamins (Hexavitamin) 1 tab PO DAILY [facility] Last Admin: 01/13/18 10:26 Dose: 1 tab Mupirocin (Bactroban Ointment) 0 gm TOP DAILY [facility] Last Admin: 01/13/18 10:00 Dose: Not Given Pantoprazole Sodium (Protonix Ec Tab) 40 mg PO DAILY [facility] Last Admin: 01/13/18 10:28 Dose: 40 mg Polyethylene Glycol (Miralax) 17 gm PO DAILY PRN PRN Reason: Constipation Last Admin: 01/13/18 10:33 Dose: 17 gm Rosuvastatin Calcium (Crestor) 20 mg PO HS [facility] Last Admin: 01/13/18 22:17 Dose: 20 mg Topiramate (Topamax) 25 mg PO BID [facility] Last Admin: 01/13/18 18:06 Dose: 25 mg Zolpidem Tartrate (Ambien) 5 mg PO HS PRN PRN Reason: Insomnia Last Admin: 01/11/18 21:16 Dose: 5 mg - Labs Labs: 01/14/18 08:04 01/14/18 08:04 PT 13.7 SECONDS (9.7-12.2) H 01/04/18 11:37 INR 1.3 01/04/18 11:37 APTT 31 SECONDS (21-34) 01/04/18 11:37 - Constitutional Appears: Well, Non-toxic, No Acute Distress - Head Exam Head Exam: ATRAUMATIC, NORMOCEPHALIC - Extremities Exam Additional comments: Left Lower extremity focused exam: Vasc: Palpable DP/PT noted 2/4 bilaterally, Cap refill < 3 sec to all digits. Temp gradient warm to cool. No edema noted. Neuro: Grossly intact. Derm: Surgical site at the L hallux and 2nd toe appears clean, Incision site appears well coapted. Sutures intact, No signs of wound dehiscence, no Acute infection, no erythema, no drainage, no flactuance or malodour. MSK: Pain on palpating the surgical site. - Neurological Exam Neurological Exam: Alert, Awake, Oriented x3 - Psychiatric Exam Psychiatric exam: Normal Affect, Normal Mood Assessment and Plan - Assessment and Plan (Free Text) Assessment: 73 Y/O female patient 9 days S/P L hallux and 2nd digit amputation Plan: Patient seen and evaluated at the bed side. Plan discussed with Mariana Jackson. labs and vitals reviewed: Afebrile, WBC 12.5 Left foot dressing applied with betadine soaked 4x4 gauze, DSD and kerlix. Patient advised to leave the Prevlone boot on bilaterally to prevent heel ulceration Continue IV Antibiotics Continue pain medication prn Podiatry to continue following up patient in house.
[2018-01-14] MEDS: Multiple Vitamins Tab PO SCH (11:00)
[2018-01-14] MEDS: Insulin Detemir 100 units/ml Vial (Levemir) SC SCH (11:00)
[2018-01-14] MEDS: AMBRISENTAN PO SCH (11:00)
[2018-01-14] MEDS: Pantoprazole 40 mg EC Tab PO SCH (11:00)
--- NOTE | 2018-01-14 12:24 | PCM.HF ---
Heart Failure Core Measure - Heart Failure Ejection Fraction: 40 % or Greater JACOB Inhibitor Prescribed: No Contraindication/Reason for not providing: EF >40 Beta-Cedric Prescribed: Carvedilol Angiotensin II Receptor Cedric Prescribed: No Contraindication/Reason for not providing: EF >40 AnticoagulationTherapy for Atrial Fibrillation/Atrialflutter: Yes Aldosterone Antagonist Prescribed: No Contraindication/Reason for not providing: EF >40 Hydralazine Nitrate Prescribed: Yes Implantable Cardioverter Defibrillator Therapy: No Contraindication/Reason for not providing: EF >40 Cardiac Resynchronization Therapy Prescribed: No Contraindication/Reason for not providing: EF >40 - Follow up Will be discharged to: Senior Living Facility ([facility]) Follow Up Date (must be within 7 days from discharge): 01/17/18 Follow Up Time: 09:00
--- NOTE | 2018-01-14 12:36 | CP.PCM.PN ---
Subjective - Date & Time of Evaluation Date of Evaluation: 01/14/18 Time of Evaluation: 12:32 - Subjective Subjective: PT CLEARED FOR D/C TODAY TO REHAB AT [facility] PER DR. DELGADO. DR. DELGADO REQUESTING TO ADMIT PT UNDER Lizzy ONEAL SINCE HE DOES NOT GO THERE. I DISCUSSED PT WITH DR. ONEAL WHO HAS ACCEPTED HER UNDER THIS SERVICE WHILE AT [facility] [place]. I ALSO DISCUSSED WITH DR. GAMBOA THE CIPRO DURATION--PER Lizzy GAMBOA PT SHOULD BE ON CIPRO PO FOR A MINIMUM OF 2 WEEKS (01/14-01/28) BUT SHE SHOULD BE RE-EVALUATED BY ID AT [facility] FOR NEED OF FURTHER ABX AFTER THE 2 WEEKS OF CIPRO IS COMPLETED--I DOCUMENTED THIS ON THE PT'S D/C PAPERWORK SO THAT ID CONSULT CAN BE DETERMINED BY DR. ONEAL UPON ARRIVAL TO FACILITY. PT TO F/U WITH DR. DELGADO AFTER RANDA D/C WELL PODIATRY. NO FURTHER ORDERS. SW TO ARRANGE TRANSPORTATION TO THE FACILITY. -PLACE UNDER THE SERVICE OF DR. Maribeth ONEAL WHILE AT [facility] REHAB---CALL DR. ONEAL FOR ADMITTING ORDERS. -PLEASE ENSURE THAT MRS. ENAMORADO FOLLOWS UP WITH DR. DELGADO IN THE OFFICE AFTER DISCHARGE FROM [facility]. -PER THE RECOMMENDATION OF DR. GAMBOA (ID), PLEASE HAVE MRS. ENAMORADO EVALUATED BY INFECTIOUS DISEASE SPECIALIST WHILE AT [facility]. PLEASE REQUEST ID CONSULT FROM DR. ONEAL WITH ADMITTING ORDERS AND HAVE THEM SEE PATIENT WITHIN 1 WEEK TO RE-EVALUATE NEED FOR ANTIBIOTIC NEED AND CONTINUATION -CONTINUE MEDICATIONS PER THE MED REC FORM---CHANGES CAN BE MADE BY DR. Maribeth ONEAL. -TO CONTINUE CIPRO 250 MG PO DAILY FOR AT LEAST 2 WEEKS (STARTED ON 01/14/18- 01/28) PER DR. GAMBOA (ID). MAY BE EXTENDED PENDING ID CONSULT AT [facility] [place]. -PHYSICAL THERAPY TOLERATED. -FALL PRECAUTIONS PER FACILITY PROTOCOL. -FOR ORDERS, CONTACT DR. Maribeth ONEAL. Objective - Vital Signs/Intake and Output Vital Signs (last 24 hours): Temp Pulse Resp BP Pulse Ox 98.4 F 80 20 121/68 95 01/14/18 08:46 01/14/18 11:00 01/14/18 08:46 01/14/18 11:16 01/14/18 08:46 Intake and Output: 01/14/18 01/14/18 06:59 18:59 Intake Total 120 Output Total 150 Balance -30 - Medications Medications: Current Medications Acetaminophen (Tylenol 325mg Tab) 650 mg PO Q6 PRN PRN Reason: Pain, moderate (4-7) Albuterol/Ipratropium (Duoneb 3 Mg/0.5 Mg (3 Ml) Ud) 3 ml INH RQ6 [facility] Last Admin: 01/14/18 07:57 Dose: 3 ml Amlodipine Besylate (Norvasc) 10 mg PO DAILY [facility] Last Admin: 01/14/18 11:00 Dose: 10 mg Apixaban (Eliquis) 2.5 mg PO BID [facility] Last Admin: 01/14/18 11:00 Dose: 2.5 mg Carvedilol (Coreg) 12.5 mg PO BID [facility] Last Admin: 01/14/18 11:16 Dose: 12.5 mg Ciprofloxacin (Cipro) 250 mg PO DAILY [facility] PRN Reason: Protocol Last Admin: 01/14/18 11:00 Dose: 250 mg Clopidogrel Bisulfate (Plavix) 75 mg PO DAILY [facility] Last Admin: 01/14/18 11:00 Dose: 75 mg Epoetin Issa (Procrit) 10,000 unit SC TTS [facility] Stop: 01/15/18 10:01 Last Admin: 01/13/18 12:52 Dose: 10,000 unit Ferrous Gluconate (Fergon) 324 mg PO TID [facility] Last Admin: 01/14/18 11:00 Dose: 324 mg Home Med (Patient's Own Medication) 1 tab PO DAILY [facility] Last Admin: 01/14/18 11:00 Dose: 1 tab Hydralazine HCl (Apresoline) 25 mg PO Q6 PRN PRN Reason: Other Last Admin: 01/14/18 11:17 Dose: 25 mg Insulin Aspart (Novolog) 0 unit SC ACHS [facility] PRN Reason: Protocol Last Admin: 01/14/18 08:12 Dose: 3 unit Insulin Detemir (Levemir) 40 unit SC QAM [facility] Last Admin: 01/14/18 11:00 Dose: 40 u Levothyroxine Sodium (Synthroid) 125 mcg PO DAILY@0630 [facility] Last Admin: 01/14/18 06:02 Dose: 125 mcg Montelukast Sodium (Singulair) 10 mg PO HS [facility] Last Admin: 01/13/18 22:17 Dose: 10 mg Multivitamins (Hexavitamin) 1 tab PO DAILY [facility] Last Admin: 01/14/18 11:00 Dose: 1 tab Mupirocin (Bactroban Ointment) 0 gm TOP DAILY [facility] Last Admin: 01/14/18 11:00 Dose: Not Given Pantoprazole Sodium (Protonix Ec Tab) 40 mg PO DAILY [facility] Last Admin: 01/14/18 11:00 Dose: 40 mg Polyethylene Glycol (Miralax) 17 gm PO DAILY PRN PRN Reason: Constipation Last Admin: 01/13/18 10:33 Dose: 17 gm Rosuvastatin Calcium (Crestor) 20 mg PO HS [facility] Last Admin: 01/13/18 22:17 Dose: 20 mg Topiramate (Topamax) 25 mg PO BID [facility] Last Admin: 01/14/18 11:00 Dose: 25 mg Zolpidem Tartrate (Ambien) 5 mg PO HS PRN PRN Reason: Insomnia Last Admin: 01/11/18 21:16 Dose: 5 mg - Labs Labs: 01/14/18 08:04 01/14/18 08:04 PT 13.7 SECONDS (9.7-12.2) H 01/04/18 11:37 INR 1.3 01/04/18 11:37 APTT 31 SECONDS (21-34) 01/04/18 11:37
--- NOTE | 2018-01-14 14:45 | CP.PCM.PN ---
Subjective - Date & Time of Evaluation Date of Evaluation: 01/14/18 Time of Evaluation: 14:44 - Subjective Subjective: Nephrology Consultation Note: Assessment: Stable non-oliguric Acute Kidney Injury (N17.9) likely hemodynamic injury leading to ATN: IMPROVING HAGMA with respi compensation, hyperphos, hypernatremia, hypokalemia: IMPROVED Acute respi failure with ? asthma exacerbation and pulmonary edema and pleural effusion s/p intubation: RESOLVED Anemia DM, pulmonary hypertension, obesity, asthma, MILTON, PVD initially admitted with left foot osteomyelitis s/p amputation on 01/04/18 moderate to severe Aortic stenosis Plan No acute need for renal replacement therapy at this time. good UOP and serum cr improved hold lasix as cr was higher No ACEI/ARB due to IRASEMA. maintain hemodynamics stable. HTN control with meds as ordered. stopped hydralazine Monitor Input/Output, daily weights and renal function with basic metabolic panel PRBC as needed for anemia. she was given dose of epogen 01/06/18, on iron supplements MVI. plan for TAVR later as per cardiology supplement lytes as needed Dose meds/antibiotics for reduced GFR. Avoid fleets enema/magnesium based laxatives. Avoid nephrotoxins/NSAIDs/ iodinated contrast (unless needed emergently) Glycemic control Further work up/management as per primary team Thanks for allowing me to participate in care of your patient. Will follow patient with you. Please call if any Qs. had d/w team and daughter. Dr Tomy Gonzalez Office: [phone] reason for consult: IRASEMA source of info: EMR HPI: Pt is a 73 y/o female with history of DM, pulmonary hypertension, obesity, asthma, MILTON, PVD initially admitted with left foot osteomyelitis s/p amputation on 01/04/18. pt had MENDER HAND 01/05/18 with respi failure with ? asthma exacerbation and pulmonary edema s/p intubation and transferred to ICU. renal consult for IRASEMA eval. no OTC/herbal meds or NSAIDs Noted recent iodinated contrast exposure as CTA 12/30/17. Noted obvious episodes of low BP (93/31). ROS: extubated 01/07/18. denies SOB now. denies CP/nausea/vomiting. feels better. Physical Examination: General Appearance: comfortable, better appearing. on O2 via NC Vitals reviewed and noted as below Head; Atraumatic, normocephalic ENT: normal mucosa EYES: Pupils are equal, round and reactive to light accommodation. Eye muscles and extraocular movement intact. Sclera is anicteric. Neck; supple no lymphadenopathy, no thyromegaly or bruit Lungs: Increased respiratory rate/effort. Breath sounds bilateral improved and clearer Heart: Normal rate. s1s2 normal. No rub or gallop. murmur + Extremities: no edema. No varicose veins. left foot dressed Neurological: Patient is awake alert follow commands, no focal deificit Skin: Warm and dry. Normal turgor. No rash. Palpitation: Normal elasticity for age Abdomen: soft non tender no abdominal tenderness without guarding no rigidity no organomegaly Psych: normal insight/affect and mood MSK: no joint tenderness or swelling. Digits and nails normal, no deformity : kidney or bladder not palpable. has russell Labs/imaging reviewed. Past medical history, past surgical history, family history, social history, allergy reviewed and noted as below Family hx: no hx of CKD. Rest non-contributory renal imaging on CTA: WNL with atherosclerosis UA 1+ protein no blood TSAT 7% Ferritin 25 Objective - Vital Signs/Intake and Output Vital Signs (last 24 hours): Temp Pulse Resp BP Pulse Ox 98.4 F 80 20 121/68 95 01/14/18 08:46 01/14/18 11:00 01/14/18 08:46 01/14/18 11:16 01/14/18 08:46 Intake and Output: 01/14/18 01/14/18 06:59 18:59 Intake Total 120 Output Total 150 Balance -30 - Medications Medications: Current Medications Acetaminophen (Tylenol 325mg Tab) 650 mg PO Q6 PRN PRN Reason: Pain, moderate (4-7) Albuterol/Ipratropium (Duoneb 3 Mg/0.5 Mg (3 Ml) Ud) 3 ml INH RQ6 [facility] Last Admin: 01/14/18 13:20 Dose: 3 ml Amlodipine Besylate (Norvasc) 10 mg PO DAILY [facility] Last Admin: 01/14/18 11:00 Dose: 10 mg Apixaban (Eliquis) 2.5 mg PO BID [facility] Last Admin: 01/14/18 11:00 Dose: 2.5 mg Carvedilol (Coreg) 12.5 mg PO BID [facility] Last Admin: 01/14/18 11:16 Dose: 12.5 mg Ciprofloxacin (Cipro) 250 mg PO DAILY [facility] PRN Reason: Protocol Last Admin: 01/14/18 11:00 Dose: 250 mg Clopidogrel Bisulfate (Plavix) 75 mg PO DAILY [facility] Last Admin: 01/14/18 11:00 Dose: 75 mg Epoetin Issa (Procrit) 10,000 unit SC TTS [facility] Stop: 01/15/18 10:01 Last Admin: 01/13/18 12:52 Dose: 10,000 unit Ferrous Gluconate (Fergon) 324 mg PO TID [facility] Last Admin: 01/14/18 11:00 Dose: 324 mg Home Med (Patient's Own Medication) 1 tab PO DAILY [facility] Last Admin: 01/14/18 11:00 Dose: 1 tab Hydralazine HCl (Apresoline) 25 mg PO Q6 PRN PRN Reason: Other Last Admin: 01/14/18 11:17 Dose: 25 mg Insulin Aspart (Novolog) 0 unit SC ACHS [facility] PRN Reason: Protocol Last Admin: 01/14/18 12:40 Dose: 6 unit Insulin Detemir (Levemir) 40 unit SC QAM [facility] Last Admin: 01/14/18 11:00 Dose: 40 u Levothyroxine Sodium (Synthroid) 125 mcg PO DAILY@0630 [facility] Last Admin: 01/14/18 06:02 Dose: 125 mcg Montelukast Sodium (Singulair) 10 mg PO [facility] Last Admin: 01/13/18 22:17 Dose: 10 mg Multivitamins (Hexavitamin) 1 tab PO DAILY [facility] Last Admin: 01/14/18 11:00 Dose: 1 tab Mupirocin (Bactroban Ointment) 0 gm TOP DAILY [facility] Last Admin: 01/14/18 11:00 Dose: Not Given Pantoprazole Sodium (Protonix Ec Tab) 40 mg PO DAILY [facility] Last Admin: 01/14/18 11:00 Dose: 40 mg Polyethylene Glycol (Miralax) 17 gm PO DAILY PRN PRN Reason: Constipation Last Admin: 01/13/18 10:33 Dose: 17 gm Rosuvastatin Calcium (Crestor) 20 mg PO [facility] Last Admin: 01/13/18 22:17 Dose: 20 mg Topiramate (Topamax) 25 mg PO BID [facility] Last Admin: 01/14/18 11:00 Dose: 25 mg Zolpidem Tartrate (Ambien) 5 mg PO HS PRN PRN Reason: Insomnia Last Admin: 01/11/18 21:16 Dose: 5 mg - Labs Labs: 01/14/18 08:04 01/14/18 08:04 PT 13.7 SECONDS (9.7-12.2) H 01/04/18 11:37 INR 1.3 01/04/18 11:37 APTT 31 SECONDS (21-34) 01/04/18 11:37
[2018-01-14 16:48] VITALS: PULSE 65; RESP 18; TEMP 99.2
[2018-01-14 17:00] VITALS: BP 111/66
--- NOTE | 2018-01-18 17:38 | CP.PCM.DIS ---
Provider - Provider Date of Admission: 12/29/17 14:00 Attending physician: Jeff Vázquez MD Primary care physician: Mahamed Peña DPM Time Spent in preparation of Discharge (in minutes): 25 Diagnosis - Discharge Diagnosis (1) Osteomyelitis of ankle and foot Status: Acute (2) Diabetes 1.5, managed as type 2 Status: Chronic (3) HTN (hypertension), benign Status: Chronic (4) Pulmonary arterial hypertension Status: Chronic (5) Acute respiratory failure Status: Resolved (6) CHF (congestive heart failure) Status: Acute (7) IRASEMA (acute kidney injury) Status: Acute Hospital Course - Lab Results Lab Results: Micro Results 01/08/18 13:50 Blood-Venous Blood Culture - Final NO GROWTH AFTER 5 DAYS 01/08/18 13:50 Blood-Venous Gram Stain - Final TEST NOT PERFORMED 01/08/18 13:50 Blood-Venous Blood Culture - Final NO GROWTH AFTER 5 DAYS 01/08/18 13:50 Blood-Venous Gram Stain - Final TEST NOT PERFORMED 01/12/18 22:42 Naris MRSA Culture - Final MRSA NOT DETECTED 01/05/18 13:44 Blood-Venous Blood Culture - Final NO GROWTH AFTER 5 DAYS 01/05/18 13:44 Blood-Venous Gram Stain - Final TEST NOT PERFORMED 01/05/18 13:44 Blood-Venous Blood Culture - Final NO GROWTH AFTER 5 DAYS 01/05/18 13:44 Blood-Venous Gram Stain - Final TEST NOT PERFORMED 01/08/18 19:42 Sputum Induced Gram Stain - Final 01/08/18 19:42 Sputum Induced Sputum Culture - Final Pseudomonas Aeruginosa 01/08/18 13:50 Urine Urine Culture - Final No Growth (<1,000 CFU/ML) 01/05/18 06:09 Nose MRSA Culture (Admit) - Final MRSA NOT DETECTED 01/05/18 06:03 Urine Urine Culture - Final No Growth (<1,000 CFU/ML) 12/29/17 19:14 Foot - Left Gram Stain - Final 12/29/17 19:14 Foot - Left Wound Culture - Final Corynebacterium Species Most Recent Lab Values WBC 12.5 K/uL (4.8-10.8) H 01/14/18 08:04 RBC 3.55 Mil/uL (3.80-5.20) L 01/14/18 08:04 Hgb 9.2 g/dL (11.0-16.0) L 01/14/18 08:04 Hct 29.0 % (34.0-47.0) L 01/14/18 08:04 MCV 81.7 fL (81.0-99.0) 01/14/18 08:04 MCH 26.1 pg (27.0-31.0) L 01/14/18 08:04 MCHC 31.9 g/dL (33.0-37.0) L 01/14/18 08:04 RDW 16.5 % (11.5-14.5) H 01/14/18 08:04 Plt Count 227 K/uL (130-400) 01/14/18 08:04 MPV 10.6 fL (7.2-11.7) 01/14/18 08:04 Neut % (Auto) 73.4 % (50.0-75.0) 01/14/18 08:04 Lymph % (Auto) 12.9 % (20.0-40.0) L 01/14/18 08:04 [place] % (Auto) 7.9 % (0.0-10.0) 01/14/18 08:04 Eos % (Auto) 4.8 % (0.0-4.0) H 01/14/18 08:04 Baso % (Auto) 1.0 % (0.0-2.0) 01/14/18 08:04 Neut # (Auto) 9.2 K/uL (1.8-7.0) H 01/14/18 08:04 Lymph # (Auto) 1.6 K/uL (1.0-4.3) 01/14/18 08:04 [place] # (Auto) 1.0 K/uL (0.0-0.8) H 01/14/18 08:04 Eos # (Auto) 0.6 K/uL (0.0-0.7) 01/14/18 08:04 Baso # (Auto) 0.1 K/uL (0.0-0.2) 01/14/18 08:04 Neutrophils % (Manual) 70 % (50-75) 01/10/18 05:37 Band Neutrophils % 1 % (0-2) 01/07/18 06:26 Lymphocytes % (Manual) 13 % (20-40) L 01/10/18 05:37 Monocytes % (Manual) 7 % (0-10) 01/10/18 05:37 Eosinophils % (Manual) 9 % (0-4) H 01/10/18 05:37 Basophils % (Manual) 2 % (0-2) 01/05/18 04:13 Myelocytes % 1 % (0-0) H 01/10/18 05:37 Nucleated RBC % 1 % (0-0) H 01/06/18 06:24 Platelet Estimate Normal (NORMAL) 01/10/18 05:37 Large Platelets Present 01/10/18 05:37 Polychromasia Slight 01/09/18 06:21 Hypochromasia (manual) Slight 01/10/18 05:37 Poikilocytosis (manual Slight 01/10/18 05:37 Anisocytosis (manual) Slight 01/10/18 05:37 Microcytosis (manual) Slight 01/10/18 05:37 Target Cells Slight 01/10/18 05:37 Tear Drop Cells Slight 01/10/18 05:37 Ovalocytes Slight 01/10/18 05:37 Nishant Cells Slight 01/10/18 05:37 ESR 30 mm/hr (0-20) H 12/30/17 06:24 PT 13.7 SECONDS (9.7-12.2) H 01/04/18 11:37 INR 1.3 01/04/18 11:37 APTT 31 SECONDS (21-34) 01/04/18 11:37 Puncture Site Rr 01/08/18 05:05 pCO2 26 mm/Hg (35-45) L 01/08/18 05:05 pO2 76 mm/Hg (80-100) L 01/08/18 05:05 HCO3 22.3 mmol/L (21-28) 01/08/18 05:05 ABG pH 7.48 (7.35-7.45) H 01/08/18 05:05 ABG Total CO2 20.2 mmol/L (22-28) L 01/08/18 05:05 ABG O2 Saturation 98.3 % (95-98) H 01/08/18 05:05 ABG Base Excess -3.4 mmol/L (-2.0-3.0) L 01/08/18 05:05 ABG Hemoglobin 8.0 g/dL (11.7-17.4) L 01/08/18 05:05 ABG Carboxyhemoglobin 2.1 % (0.5-1.5) H 01/08/18 05:05 POC ABG HHb (Measured) 1.6 % (0.0-5.0) 01/08/18 05:05 ABG Methemoglobin 1.1 % (0.0-3.0) 01/08/18 05:05 Saqib Test Pos 01/08/18 05:05 ABG Potassium 3.7 mmol/L (3.6-5.2) 01/05/18 02:39 A-a O2 Difference 105.0 mm/Hg 01/08/18 05:05 Respiratory Index 1.4 01/08/18 05:05 Hgb O2 Saturation 95.2 % (95.0-98.0) 01/08/18 05:05 Sodium 144.0 mmol/l (132-148) 01/05/18 02:39 Chloride 117.0 mmol/L (98-107) H 01/05/18 02:39 Glucose 266 mg/dl (65-105) H 01/05/18 02:39 Lactate 1.3 mmol/L (0.7-2.1) 01/05/18 02:39 Vent Mode Bipap 01/08/18 05:05 Mechanical Rate 14 01/07/18 05:00 FiO2 30.0 % 01/08/18 05:05 Tidal Volume 500 01/07/18 05:00 PEEP 5 01/07/18 05:00 Inspiratory BiPAP 14 01/08/18 05:05 Expiratory BiPAP 8 01/08/18 05:05 Sodium 143 mmol/L (132-148) 01/14/18 08:04 Potassium 4.0 mmol/L (3.6-5.2) 01/14/18 08:04 Chloride 100 mmol/L (98-107) 01/14/18 08:04 Carbon Dioxide 31 mmol/L (22-30) H 01/14/18 08:04 Anion Gap 17 (10-20) 01/14/18 08:04 BUN 41 mg/dL (7-17) H 01/14/18 08:04 Creatinine 2.8 mg/dL (0.7-1.2) H 01/14/18 08:04 Est GFR ( Amer) 20 01/14/18 08:04 Est GFR (Non-Af Amer) 17 01/14/18 08:04 POC Glucose (mg/dL) 214 mg/dL (65-110) H 01/14/18 16:03 Random Glucose 185 mg/dL (65-105) H 01/14/18 08:04 Hemoglobin A1c 7.7 % (4.2-6.5) H 12/30/17 06:24 Calcium 8.7 mg/dl (8.6-10.4) 01/14/18 08:04 Phosphorus 3.7 mg/dL (2.5-4.5) 01/14/18 08:04 Magnesium 2.3 mg/dL (1.6-2.3) 01/14/18 08:04 Iron 16 ug/dL (37-170) L 01/07/18 06:27 TIBC 233 ug/dL (250-450) L 01/07/18 06:27 % Saturation 7 (20-55) L 01/07/18 06:27 Ferritin 25.6 ng/mL 01/07/18 06:27 Total Bilirubin 0.7 mg/dL (0.2-1.3) 01/14/18 08:04 AST 33 U/L (14-36) 01/14/18 08:04 ALT 45 U/L (9-52) 01/14/18 08:04 Alkaline Phosphatase 101 U/L (38-126) 01/14/18 08:04 Total Creatine Kinase 97 U/L (30-135) 01/06/18 19:10 CK-MB (Mass) 0.78 ng/mL (0.0-3.38) 01/06/18 19:10 Troponin I 0.0900 ng/mL (0.00-0.120) 01/06/18 19:10 NT-Pro-B Natriuret Pep 7180 pg/mL (0-900) H 12/30/17 06:24 Total Protein 6.6 g/dL (6.3-8.3) 01/14/18 08:04 Total Protein (PEP) 5.2 g/dL (6.1-8.1) L 01/07/18 06:27 Albumin 3.8 g/dL (3.5-5.0) 01/14/18 08:04 Albumin (PEP) 3.0 g/dL (3.8-4.8) L 01/07/18 06:27 Globulin 2.8 gm/dL (2.2-3.9) 01/14/18 08:04 Albumin/Globulin Ratio 1.3 (1.0-2.1) 01/14/18 08:04 Ugesa-4-Xbpasxrio 0.4 g/dL (0.2-0.3) H 01/07/18 06:27 Zylei-7-Ipxlnhpjt 0.9 g/dL (0.5-0.9) 01/07/18 06:27 Uchm-2-Laugjkjy 0.3 g/dL (0.4-0.6) L 01/07/18 06:27 Jvvk-5-Mmjswydz 0.2 g/dL (0.2-0.5) 01/07/18 06:27 Gamma Globulins 0.4 g/dL (0.8-1.7) L 01/07/18 06:27 Abnorm Protein Band 1 TEST NOT PERFORMED 01/07/18 06:27 Abnorm Protein Band 2 TEST NOT PERFORMED 01/07/18 06:27 Abnorm Protein Band 3 TEST NOT PERFORMED 01/07/18 06:27 Triglycerides 158 mg/dL (0-149) H 12/30/17 06:24 Cholesterol 113 mg/dL (0-199) 12/30/17 06:24 LDL Cholesterol Direct 43 mg/dL (0-129) 12/30/17 06:24 HDL Cholesterol 36 mg/dL (30-70) 12/30/17 06:24 Arterial Blood Potassium 3.7 mmol/L (3.6-5.2) 01/05/18 02:39 Urine Color Straw (YELLOW) 01/08/18 13:50 Urine Clarity Hazy (Clear) 01/08/18 13:50 Urine pH 5.0 (5.0-8.0) 01/08/18 13:50 Ur Specific [place] 1.006 (1.003-1.030) 01/08/18 13:50 Urine Protein Negative mg/dL (NEGATIVE) 01/08/18 13:50 Urine Glucose (UA) 1+ mg/dL (Normal) 01/08/18 13:50 Urine Ketones Negative mg/dL (NEGATIVE) 01/08/18 13:50 Urine Blood Negative (NEGATIVE) 01/08/18 13:50 Urine Nitrate Negative (NEGATIVE) 01/08/18 13:50 Urine Bilirubin Negative (NEGATIVE) 01/08/18 13:50 Urine Urobilinogen Normal mg/dL (0.2-1.0) 01/08/18 13:50 Ur Leukocyte Esterase Trace [place]/uL (Negative) 01/08/18 13:50 Urine WBC (Auto) 3 /hpf (0-5) 01/08/18 13:50 Urine RBC (Auto) 11 /hpf (0-3) H 01/08/18 13:50 Ur Squamous Epith Cells 2 /hpf (0-5) 01/08/18 13:50 Urine Bacteria Rare (<OCC) 01/08/18 13:50 Hyaline Casts 0-2 /lpf (0-2) 01/08/18 13:50 Urine Yeast (Budding) Occ /hpf (NEGATIVE) H 01/05/18 06:03 Ur Random Creatinine 101 mg/dL (20-320) 01/06/18 21:02 U Random Total Protein 236 mg/g creat (21-161) H 01/06/18 21:02 Urine Total Volume 3.6 mg/dL 01/06/18 21:02 Microalb/Creat Ratio 36 (<30) H 01/06/18 21:02 Random Vancomycin < 5.0 ug/mL 01/07/18 06:27 RIKY & SPEP Interp See note 01/07/18 06:27 Serum Immunofixation Not detected (Not Detected) 01/07/18 06:27 Hepatitis A IgM Ab Negative (NEGATIVE) 01/06/18 06:24 Hep Bs Antigen Negative (NEGATIVE) 01/06/18 06:24 Hep B Core IgM Ab Negative (NEGATIVE) 01/06/18 06:24 Hepatitis C Antibody Negative (NEGATIVE) 01/06/18 06:24 Blood Type O POSITIVE 01/05/18 04:13 Antibody Screen Negative 01/05/18 04:13 Discharge Exam - Head Exam Head Exam: ATRAUMATIC, NORMOCEPHALIC - Eye Exam Eye Exam: Normal appearance - ENT Exam ENT Exam: Mucous Membranes Moist - Respiratory Exam Respiratory Exam: Decreased Breath Sounds - Cardiovascular Exam Cardiovascular Exam: +S1, +S2, +S4 - GI/Abdominal Exam GI & Abdominal Exam: Normal Bowel Sounds - Rectal Exam Rectal Exam: Deferred - Neurological Exam Neurological exam: Alert, Oriented x3 - Psychiatric Exam Psychiatric exam: Normal Affect, Normal Mood Discharge Plan - Discharge Medications Prescriptions: Ciprofloxacin [Cipro] 250 mg PO DAILY 14 Days tab - Follow Up Plan Condition: GOOD Disposition: REHAB FACILITY/REHAB UNIT Instructions: Heart Healthy Diet, Heart Failure, Adult (DC), Acute Kidney Failure (DC), Osteomyelitis (DC), Amputation of the Foot or Toe (DC), Managing Pain After Surgery, Heart Failure (DC), Heart Failure (GEN), Pacemaker (DC), Pacemaker (GEN), Pulmonary Edema (DC), Pulmonary Edema (GEN), Ascites (DC), Ascites (GEN), Hypertension (DC), Hypertension (GEN) Additional Instructions: -PLACE UNDER THE SERVICE OF DR. Maribeth TERRY WH[facility]---CALL DR. TERRY FOR ADMITTING ORDERS. -PLEASE HAVE PATIENT FOLLOW UP WITH DR. ROMAN IN THE OFFICE IN 1 WEEK---PLEASE ARRANGE OFFICE APPOINTMENT AND TRANSPORTATION TO AND FROM THE OFFICE. -PLEASE ENSURE THAT MRS. ENAMORADO FOLLOWS UP WITH DR. VÁZQUEZ IN THE OFFICE AFTER DISCHARGE FROM [facility] [place]. -PER THE RECOMMENDATION OF DR. PAL (ID), PLEASE HAVE MRS. ENAMORADO EVALUATED BY INFECTIOUS DISEASE SPECIALIST WHILE AT [facility] [place]. PLEASE REQUEST ID CONSULT FROM DR. TERRY WITH ADMITTING ORDERS AND HAVE THEM SEE PATIENT WITHIN 1 WEEK TO RE-EVALUATE NEED FOR ANTIBIOTIC NEED AND CONTINUATION -CONTINUE MEDICATIONS PER THE MED REC FORM---CHANGES CAN BE MADE BY DR. Maribeth TERRY. -TO CONTINUE CIPRO 250 MG PO DAILY FOR AT LEAST 2 WEEKS (STARTED ON 01/14/18- 01/28) PER DR. PAL (ID). MAY BE EXTENDED PENDING ID CONSULT AT [facility] [place]. -PHYSICAL THERAPY TOLERATED. -FALL PRECAUTIONS PER FACILITY PROTOCOL. -FOR ORDERS, CONTACT DR. Maribeth TERRY. Referrals: Luc Dillon MD [Medical Doctor] - Milton Pal MD [Staff Provider] - Jeff Vázquez MD [Staff Provider] - Tomy Roman MD [Staff Provider] - Jacob Ivey MD [Staff Provider] - Steve Bush Jr., MD [Staff Provider] - Romi Terry MD [Staff Provider] - Mahamed Peña DPM [Primary Care Provider] -
== END 2018-01-14 18:14 | DRG 616 ==
LOC: C.3T 14:00 → C.9I 01-05 03:02 → C.6T 01-12 20:40
PROVIDERS: ADMIT Internal Medicine Pulmonary Disease; ATTEND Internal Medicine Pulmonary Disease
PROC: 5A09557 Assistance with Respiratory Ventilation, Greater than 96 Consecutive Hours, Continuous Positive Airway Pressure (ICD-10-PCS; 2017-12-29)
PROC: 0Y6S0Z1 Detachment at Left 2nd Toe, High, Open Approach (ICD-10-PCS; 2018-01-04)
PROC: 0Y6Q0Z0 Detachment at Left 1st Toe, Complete, Open Approach (ICD-10-PCS; principal; 2018-01-04 12:00)
PROC: 0BH17EZ Insertion of Endotracheal Airway into Trachea, Via Natural or Artificial Opening (ICD-10-PCS; 2018-01-05)
PROC: 5A1945Z Respiratory Ventilation, 24-96 Consecutive Hours (ICD-10-PCS; 2018-01-05)
PROC: 02HV33Z Insertion of Infusion Device into Superior Vena Cava, Percutaneous Approach (ICD-10-PCS; 2018-01-06)
DX: E11.69 Type 2 diabetes mellitus with other specified complication (principal); J96.00 Acute respiratory failure, unspecified whether with hypoxia or hypercapnia; Q25.6 Stenosis of pulmonary artery; J45.901 Unspecified asthma with (acute) exacerbation; I69.351 Hemiplegia and hemiparesis following cerebral infarction affecting right dominant side; M86.172 Other acute osteomyelitis, left ankle and foot; R65.10 Systemic inflammatory response syndrome (SIRS) of non-infectious origin without acute organ dysfunction; N17.0 Acute kidney failure with tubular necrosis; K21.9 Gastro-esophageal reflux disease without esophagitis; E11.621 Type 2 diabetes mellitus with foot ulcer; L97.519 Non-pressure chronic ulcer of other part of right foot with unspecified severity; Z79.4 Long term (current) use of insulin; I50.9 Heart failure, unspecified; I48.0 Paroxysmal atrial fibrillation; I27.21 Secondary pulmonary arterial hypertension; I25.10 Atherosclerotic heart disease of native coronary artery without angina pectoris; I11.0 Hypertensive heart disease with heart failure; G47.33 Obstructive sleep apnea (adult) (pediatric); E11.51 Type 2 diabetes mellitus with diabetic peripheral angiopathy without gangrene; E03.9 Hypothyroidism, unspecified; D63.8 Anemia in other chronic diseases classified elsewhere; Z68.32 Body mass index [BMI] 32.0-32.9, adult; I44.0 Atrioventricular block, first degree; Z88.5 Allergy status to narcotic agent; Z87.891 Personal history of nicotine dependence